=== PATIENT | female | born 1945 | race African-American/Black ===

== ENCOUNTER 2016-08-10 08:36 | Inpatient (IN) | payer OTHER ==
[2016-08-09 12:13] VITALS: BMI 30.9
[2016-08-10 13:00] LABS: GLUCOSE,PLEURAL FLUID 151.808
[2016-08-10 13:03] LABS: CHLORIDE PLEURAL FLUID 108
[2016-08-10 13:07] LABS: PLEURAL FLUID APPEARANCE CLOUDY; PLEURAL FLUID COLOR RED; PLEURAL FLUID SOURCE PLEURAL
[2016-08-10 14:30] LABS: PLEURAL FLUID LYMPHOCYTES 95 %; PLEURAL FLUID NEUTROPHIL 2 %
[2016-08-10 14:31] LABS: PLEURAL FLUID MACROPHAGES 1 %
[2016-08-10] MEDS ORDERED: PT OWN MED DRAWER 7, Y5N ONE ×3 (15:15→21:15)
[2016-08-10] MEDS: hydrALAZINE HCL 10 MG TABLET PO SCH ×2 (15:53→21:41)
[2016-08-10 16:10] LABS: MCH 25.4 pg (25.7-33.7); MCHC 31.7 g/dl (32.0-36.0); MEAN PLT VOLUME 8.3 fl (7.5-11.1); PLATELET COUNT 184 K/MM3 (134-434); RDW 18.7 % (11.6-15.6); WHITE BLOOD COUNT 11.1 K/mm3 (4.0-10.0)
[2016-08-10 16:38] LABS: INR 1.02 (0.82-1.09); PROTHROMBIN TIME (PATIENT) 11.2 SEC (9.98-11.88)
[2016-08-10] MEDS: INSULIN (NOVOLOG) ASPART 100 UNITS/ML 10ML VIAL SQ SCH (17:34)
[2016-08-10 17:52] LABS: ALBUMIN 2.2 g/dl (3.4-5.0); BILIRUBIN,TOTAL 0.5 mg/dL (0.2-1.0); CALCIUM 9.4 mg/dL (8.5-10.1); TOT PROT 7.2 g/dl (6.4-8.2)
[2016-08-10] MEDS: CALCIUM ACETATE 667 MG CAPSULE (FP) PO SCH (17:56)
[2016-08-10] MEDS: ACETAMINOPHEN 500 MG TABLET (FP) PO PRN (17:56)
--- NOTE | 2016-08-10 20:18 | HP ---
[facility] - Past Medical History Allergies/Adverse Reactions: Allergies Allergy/AdvReac Type Severity Reaction Status Date / Time No Known Drug Allergies Allergy Verified 02/10/16 22:45 WHAT JOB TITLES MEAN: Yes: Parkinson's. 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 No: Asthma Renal/: Yes: Other (indwelling powers) Heme/Onc: Yes: Other (Right breast ca treated with lumpectomy, RT, ? hormones in past) - Current Medications Current Medications: Home Medications Medication Instructions Recorded Acetaminophen [Tylenol 500 mg PO QID 05/12/15 .Extra-Strength -] Amlodipine Besylate 10 mg PO DAILY 05/12/15 Budesonide/Formeterol Fumarate 1 inh PO BID 05/12/15 [SYMBICORT 80/4.5mcg -] Carvedilol [Coreg] 25 mg PO BID 05/12/15 Ferrous Sulfate 325 mg PO DAILY 05/12/15 Furosemide [Lasix -] 20 mg PO ASDIR 05/12/15 Hydralazine HCl 10 mg PO TID 05/12/15 Tramadol HCl [Ultram -] 50 mg PO BID 05/12/15 Calcium Acetate [Phoslo -] 667 mg PO TIDCM 11/19/15 Duloxetine HCl [Cymbalta -] 60 mg PO DAILY 11/19/15 Omeprazole [Prilosec] 40 mg PO DAILY 11/19/15 Risperidone [Risperdal -] 0.5 mg PO BID 11/19/15 Bupropion HCl [Wellbutrin -] 75 mg PO DAILY #30 tablet 12/03/15 Folic Acid - 1 mg PO DAILY #30 tablet 12/03/15 Clobetasol Propionate/Emoll 30 gm TP HS 02/11/16 [Clobetasol Emollient 0.05% Crm] Epoetin Osmar [Procrit] 10,000 unit IJ WEEKLY 02/11/16 Ketoconazole 2% Shampoo [Nizoral 1 applic TP HS 02/11/16 2% Shampoo -] Insulin (Levemir) [Levemir Vial] 5 units SQ HS ml 02/13/16 Isosorbide Mononitrate [Isosorbide 30 mg PO DAILY 08/09/16 Mononitrate ER] Tiotropium [place] [Spiriva] 18 mcg IH DAILY 08/09/16 [place] Physical Exam - Physical Examination Vital Signs: Vital Signs Period Temp Pulse Resp BP Sys/[place] Pulse Ox Last 24 Hr 97.5 F-98.8 F 62-70 16-20 144-156/63-75 98-100
--- NOTE | 2016-08-10 20:19 | HP ---
Admitting History and Physical - Primary Care Physician PCP: Vanessa Norman - Admission Chief Complaint: lung biopsy, effusion History of Present Illness: Sent from [facility] for rt lung biopsy and chest tube placement for pleural effusion .Developed pneumothorax post thoracentesis. Has h/o loculated pleural effusion on CT chest. She was seeing DR Atkinson as an outpt. She has a h/o Rt breast ca. workup to r/o malignacy, metastasis. 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 No: Asthma Renal/: Yes: Other (indwelling powers) Heme/Onc: Yes: Other (Right breast ca treated with lumpectomy, RT, ? hormones in past) - Past Surgical History Past Surgical History: Yes: None - Smoking History Smoking history: Former smoker Have you smoked in the past 12 months: No Aproximately how many cigarettes per day: 20 If you are a former smoker, when did you quit?: 15 yrs ago - Alcohol/Substance Use Hx Alcohol Use: No - Social History ADL: Support Services Home Medications - Allergies Allergies/Adverse Reactions: Allergies Allergy/AdvReac Type Severity Reaction Status Date / Time No Known Drug Allergies Allergy Verified 02/10/16 22:45 - Home Medications Home Medications: Ambulatory Orders Acetaminophen [Tylenol .Extra-Strength -] 500 mg PO QID 05/12/15 Amlodipine Besylate 10 mg PO DAILY 05/12/15 Budesonide/Formeterol Fumarate [SYMBICORT 80/4.5mcg -] 1 inh PO BID 05/12/15 Carvedilol [Coreg] 25 mg PO BID 05/12/15 Ferrous Sulfate 325 mg PO DAILY 05/12/15 Furosemide [Lasix -] 20 mg PO ASDIR 05/12/15 Hydralazine HCl 10 mg PO TID 05/12/15 Tramadol HCl [Ultram -] 50 mg PO BID 05/12/15 Calcium Acetate [Phoslo -] 667 mg PO TIDCM 11/19/15 Duloxetine HCl [Cymbalta -] 60 mg PO DAILY 11/19/15 Omeprazole [Prilosec] 40 mg PO DAILY 11/19/15 Risperidone [Risperdal -] 0.5 mg PO BID 11/19/15 Bupropion HCl [Wellbutrin -] 75 mg PO DAILY #30 tablet 12/03/15 Folic Acid - 1 mg PO DAILY #30 tablet 12/03/15 Clobetasol Propionate/Emoll [Clobetasol Emollient 0.05% Crm] 30 gm TP HS Epoetin Osm[place] [Procrit] 10,000 unit IJ WEEKLY 02/11/16 Ketoconazole 2% Shampoo [Nizoral 2% Shampoo -] 1 applic TP HS 02/11/16 Insulin (Levemir) [Levemir Vial] 5 units SQ HS ml 02/13/16 Isosorbide Mononitrate [Isosorbide Mononitrate ER] 30 mg PO DAILY 08/09/16 Tiotropium [place] [Spiriva] 18 mcg IH DAILY 08/09/16 Review of Systems - Review of Systems Constitutional: denies: Chills, Fever, Loss of Appetite Cardiovascular: reports: Chest Pain Respiratory: reports: Cough Physical Examination Vital Signs: Vital Signs Temperature 98.8 F 08/10/16 17:12 Pulse Rate 62 08/10/16 17:12 Respiratory Rate 20 08/10/16 17:12 Blood Pressure 156/68 08/10/16 17:12 O2 Sat by Pulse Oximetry (%) 98 08/10/16 14:03 Constitutional: Yes: No Distress, Calm Cardiovascular: Yes: Regular Rate and Rhythm Respiratory: Yes: Diminished (chest tube+ rt) Gastrointestinal: Yes: Normal Bowel Sounds, Soft, Abdomen, Obese. No: Distention, Tenderness Renal/: Yes: Other (indwelling powers) Edema: No Psychiatric: Yes: Alert, Oriented Labs: CBC, BMP 08/10/16 14:45 08/10/16 14:45 Imaging - Results Chest X-ray: Image Reviewed (pneumothorax rt) Problem List - Problems (1) Breast CA Code(s): C50.919 - MALIGNANT NEOPLASM OF UNSP SITE OF UNSPECIFIED FEMALE BREAST Qualifiers: Patient sex: female Laterality: right (2) Lung mass Code(s): R91.8 - OTHER NONSPECIFIC ABNORMAL FINDING OF LUNG FIELD (3) Pneumothorax Code(s): J93.9 - PNEUMOTHORAX, UNSPECIFIED Assessment/Plan PLAN for lung biopsy on chest tube continue with meds Pulmonary eval repeat CXR in AM
[2016-08-10] MEDS: risperiDONE 0.5 MG TABLET (FP) PO SCH (21:41)
[2016-08-10] MEDS: CARVEDILOL 25 MG TABLET (FP) PO SCH (21:41)
[2016-08-10] MEDS: SODIUM CHLORIDE 0.45% 1,000 ML IV SCH (21:41)
[2016-08-10] MEDS: INSULIN DETEMIR 100 UNITS/ML MDV SQ SCH (21:41)
[2016-08-10] MEDS: traMADol HCL 50 MG TABLET PO SCH (21:42)
[2016-08-10] MEDS: BUDESONIDE/FORMETEROL FUMARATE 80/4.5 mcg INHALER IH SCH (21:42)
[2016-08-11] MEDS ORDERED: PT OWN MED DRAWER 7, Y5N ONE ×4 (06:30→21:05)
[2016-08-11] MEDS: hydrALAZINE HCL 10 MG TABLET PO SCH ×3 (06:40→21:55)
[2016-08-11] MEDS: INSULIN (NOVOLOG) ASPART 100 UNITS/ML 10ML VIAL SQ SCH ×3 (06:52→17:42)
[2016-08-11 08:32] LABS: BASOPHIL 0.5 % (0-2.0); EOSINOPHIL 2.9 % (0-4.5); MCH 24.9 pg (25.7-33.7); MCHC 31.4 g/dl (32.0-36.0); MEAN CELL VOLUME 79.4 fl (80-96); MEAN PLT VOLUME 8.2 fl (7.5-11.1); NEUTROPHILS 81.8 % (42.8-82.8); PLATELET COUNT 181 K/MM3 (134-434); RDW 18.7 % (11.6-15.6)
[2016-08-11 08:55] LABS: ALBUMIN 2.1 g/dl (3.4-5.0); CALCIUM 9.3 mg/dL (8.5-10.1)
[2016-08-11 09:01] LABS: BILIRUBIN,TOTAL 0.5 mg/dL (0.2-1.0); CREATININE 1.7 mg/dL (0.55-1.02)
--- NOTE | 2016-08-11 10:23 | PN ---
Progress Note, Physician Chief Complaint: came from IR for lung biopsy has pain in rt chest wall - Current Medication List Current Medications: Active Medications Acetaminophen (Tylenol -) 500 mg PO QID PRN PRN Reason: FEVER Last Admin: 08/10/16 17:56 Dose: 500 mg Amlodipine Besylate (Norvasc -) 10 mg PO DAILY [facility] Budesonide/Formoterol Fumarate (Symbicort 80/4.5mcg -) 1 puff IH BID [facility] Last Admin: 08/10/16 21:42 Dose: 1 puff Bupropion HCl (Wellbutrin -) 75 mg PO DAILY [facility] Calcium Acetate (Phoslo -) 667 mg PO TIDCM [facility] Last Admin: 08/10/16 17:56 Dose: 667 mg Carvedilol (Coreg -) 25 mg PO BID [facility] Last Admin: 08/10/16 21:41 Dose: 25 mg Duloxetine HCl (Cymbalta -) 60 mg PO DAILY [facility] Epoetin Osmar (Procrit -) 10,000 unit SQ WEEKLY [facility] Ferrous Sulfate (Feosol -) 325 mg PO DAILY [facility] Folic Acid (Folic Acid -) 1 mg PO DAILY [facility] Furosemide (Lasix -) 20 mg PO Q2D@0900 [facility] Hydralazine HCl (Apresoline -) 10 mg PO TID [facility] Last Admin: 08/11/16 06:40 Dose: 10 mg Sodium Chloride (1/2 Normal Saline) 1,000 mls @ 83 mls/hr IV ASDIR [facility] Last Admin: 08/10/16 21:41 Dose: 83 mls/hr Insulin Aspart (Novolog Vial) 0 units SQ TIDAC [facility] PRN Reason: Protocol Last Admin: 08/11/16 06:52 Dose: Not Given Insulin Detemir (Levemir Vial) 5 units SQ HS [facility] Last Admin: 08/10/16 21:41 Dose: 5 units Isosorbide Mononitrate (Imdur -) 30 mg PO DAILY [facility] Non-Formulary Medication (Clobetasol Propionate/Emoll [Clobetasol Emollient 0.05 % Crm]) 30 gm TP HS [facility] Pantoprazole Sodium (Protonix -) 40 mg PO DAILY [facility] Risperidone (Risperdal -) 0.5 mg PO BID [facility] Last Admin: 08/10/16 21:41 Dose: 0.5 mg Tiotropium [place] (Spiriva -) 1 puff IH DAILY [facility] Tramadol HCl (Ultram -) 50 mg PO BID [facility] Last Admin: 08/10/16 21:42 Dose: 50 mg - Objective Vital Signs: Vital Signs Temperature 99.3 F 08/11/16 07:08 Pulse Rate 72 08/11/16 07:08 Respiratory Rate 20 08/11/16 07:08 Blood Pressure 182/82 08/11/16 07:08 O2 Sat by Pulse Oximetry (%) 98 08/10/16 14:03 Constitutional: Yes: No Distress Cardiovascular: Yes: Regular Rate and Rhythm Respiratory: Yes: Diminished, Other (chest tube+) Gastrointestinal: Yes: Normal Bowel Sounds, Soft. No: Distention, Tenderness Edema: No Labs: CBC, BMP 08/11/16 07:00 08/11/16 07:00 INR, PTT INR 1.02 (0.82-1.09) 08/10/16 14:45 Problem List - Problems (1) Breast CA Code(s): C50.919 - MALIGNANT NEOPLASM OF UNSP SITE OF UNSPECIFIED FEMALE BREAST (2) COPD (chronic obstructive pulmonary disease) Code(s): J44.9 - CHRONIC OBSTRUCTIVE PULMONARY DISEASE, UNSPECIFIED Qualifiers : COPD type: COPD with acute lower respiratory infection Qualified Code(s ): J44.0 - Chronic obstructive pulmonary disease with acute lower respiratory infection (3) Lung mass Code(s): R91.8 - OTHER NONSPECIFIC ABNORMAL FINDING OF LUNG FIELD (4) Pleural effusion Code(s): J90 - PLEURAL EFFUSION, NOT ELSEWHERE CLASSIFIED Assessment/Plan PLAN s/p lung biopsy S/p chest tube awaiting pathology Pulmonary eval check CXR
[2016-08-11] MEDS: FERROUS SO4 325 MG TABLET (FP) PO SCH ×2 (10:30→15:19)
[2016-08-11] MEDS: ISOSORBIDE MONONITRATE 30 MG TAB.SR.24H (FP) PO SCH ×2 (10:30→15:20)
[2016-08-11] MEDS: FUROSEMIDE 20 MG TABLET (FP) PO SCH ×2 (10:30→15:20)
[2016-08-11] MEDS: CARVEDILOL 25 MG TABLET (FP) PO SCH ×2 (10:30→21:55)
[2016-08-11] MEDS: amLODIPine BESYLATE 10 MG TABLET (FP) PO SCH ×2 (10:30→15:20)
[2016-08-11] MEDS: FOLIC ACID 1 MG TABLET (FP) PO SCH ×2 (10:30→15:21)
[2016-08-11] MEDS: CALCIUM ACETATE 667 MG CAPSULE (FP) PO SCH ×3 (10:30→17:42)
[2016-08-11] MEDS: DULoxetine HCL 30 MG CAPSULE.DR (FP) PO SCH ×2 (10:30→15:00)
[2016-08-11] MEDS: PANTOPRAZOLE 40 MG TABLET (FP) PO SCH (10:31)
[2016-08-11] MEDS: BUDESONIDE/FORMETEROL FUMARATE 80/4.5 mcg INHALER IH SCH ×2 (10:31→21:57)
[2016-08-11] MEDS: risperiDONE 0.5 MG TABLET (FP) PO SCH ×2 (10:31→21:55)
[2016-08-11] MEDS: traMADol HCL 50 MG TABLET PO SCH ×3 (10:31→21:55)
[2016-08-11] MEDS: TIOTROPIUM BROMIDE 18 MCG/INH (DEVICE W/ 5 CAPSULES) IH SCH (10:31)
[2016-08-11] MEDS: buPROPion HCL 75 MG TABLET PO SCH ×2 (10:32→15:22)
[2016-08-11 11:09] LABS: FRAGMENTED CELL 2+; HYPOCHROMIA 1+; MICROCYTOSIS 1+; TEAR DROP CELLS RARE
--- NOTE | 2016-08-11 12:47 | PN ---
Progress Note (short form) - Note Progress Note: Pulmonary 71 year old lady seen as an outpt-referred from [facility]. PMH: Right pleural effusion S/P thoracentesis and removal 1200 cc serous fluid : T.P.3.55 LDH 100 Cytology negative COPD CHF HBP Breast Ca-H/O Left lumpectomy Anemia H/O CVA-Left Hemiparesis DM 1.5 PPD cigarettes-stopped [address] Chest: partially loculated right effusion (smaller than in 2016) and a 3.2 cm density right mid lung which may have been obscured by the (previously larger) effusion. Case discussed with Dr. Goldman. In light of previous history breast carcinoma and persistent effusion with possible mass versus atelectasis (now revealed since effusion is smaller) plan was to bring pt to hospital and have Dr. Goldman place a pigtail catheter and drain fluid and then do FNAB next A.M.after fluid drained. Pt had catheter placed yesterday and developed right pneumothorax. Pt is having FNAB today. Full consult to follow.
[2016-08-11] MEDS: INSULIN DETEMIR 100 UNITS/ML MDV SQ SCH (21:56)
[2016-08-11] MEDS: SODIUM CHLORIDE 0.45% 1,000 ML IV SCH (21:56)
[2016-08-12] MEDS: hydrALAZINE HCL 10 MG TABLET PO SCH ×4 (05:44→21:34)
[2016-08-12] MEDS: INSULIN (NOVOLOG) ASPART 100 UNITS/ML 10ML VIAL SQ SCH ×3 (06:16→17:34)
[2016-08-12 08:13] LABS: MCH 25.3 pg (25.7-33.7); MCHC 31.9 g/dl (32.0-36.0); MEAN CELL VOLUME 79.1 fl (80-96); MEAN PLT VOLUME 7.8 fl (7.5-11.1); PLATELET COUNT 169 K/MM3 (134-434); RDW 18.3 % (11.6-15.6); WHITE BLOOD COUNT 9.9 K/mm3 (4.0-10.0)
[2016-08-12] MEDS: CALCIUM ACETATE 667 MG CAPSULE (FP) PO SCH ×3 (08:17→17:34)
[2016-08-12 08:35] LABS: CALCIUM 8.9 mg/dL (8.5-10.1); CREATININE 1.7 mg/dL (0.55-1.02)
[2016-08-12] MEDS: traMADol HCL 50 MG TABLET PO SCH ×2 (09:17→21:35)
[2016-08-12] MEDS: CARVEDILOL 25 MG TABLET (FP) PO SCH ×2 (09:17→21:35)
[2016-08-12] MEDS: FOLIC ACID 1 MG TABLET (FP) PO SCH (09:17)
[2016-08-12] MEDS: amLODIPine BESYLATE 10 MG TABLET (FP) PO SCH (09:17)
[2016-08-12] MEDS: PANTOPRAZOLE 40 MG TABLET (FP) PO SCH (09:17)
[2016-08-12] MEDS: DULoxetine HCL 30 MG CAPSULE.DR (FP) PO SCH (09:17)
[2016-08-12] MEDS: ISOSORBIDE MONONITRATE 30 MG TAB.SR.24H (FP) PO SCH (09:18)
[2016-08-12] MEDS: FERROUS SO4 325 MG TABLET (FP) PO SCH (09:18)
[2016-08-12] MEDS: buPROPion HCL 75 MG TABLET PO SCH (09:19)
[2016-08-12] MEDS: BUDESONIDE/FORMETEROL FUMARATE 80/4.5 mcg INHALER IH SCH ×2 (09:20→21:35)
[2016-08-12] MEDS: TIOTROPIUM BROMIDE 18 MCG/INH (DEVICE W/ 5 CAPSULES) IH SCH (09:21)
[2016-08-12] MEDS: risperiDONE 0.5 MG TABLET (FP) PO SCH ×2 (09:23→21:35)
--- NOTE | 2016-08-12 10:06 | CON.PULM ---
Consult Reason for Consultation:: pleural effusion - History of Present Illness Chief Complaint: shortness of breath History of Present Illness: 71 year old lady seen as an outpt-referred from [facility]. PMH: Right pleural effusion S/P thoracentesis and removal 1200 cc serous fluid : T.P.3.55 LDH 100 Cytology negative COPD CHF HBP Breast Ca-H/O Left lumpectomy Anemia H/O CVA-Left Hemiparesis DM 1.5 PPD cigarettes-stopped [address] Chest: partially loculated right effusion (smaller than in 2016) and a 3.2 cm density right mid lung which may have been obscured by the (previously larger) effusion. Case discussed with Dr. Goldman. In light of previous history breast carcinoma and persistent effusion with possible mass versus atelectasis (now revealed since effusion is smaller) plan was to bring pt to hospital and have Dr. Goldman place a pigtail catheter and drain fluid and then do FNAB next A.M.after fluid drained. Pt had catheter placed yesterday and developed right pneumothorax. Pt had FNAB yesterday. 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 No: Asthma Renal/: Yes: Other (indwelling powers) - Past Surgical History Past Surgical History: Yes: None - Alcohol/Substance Use Hx Alcohol Use: No - Smoking History Smoking history: Former smoker Have you smoked in the past 12 months: No Aproximately how many cigarettes per day: 20 If you are a former smoker, when did you quit?: 15 yrs ago - Social History Usual Living Arrangement: Senior Care ADL: Support Services Home Medications - Allergies Allergies/Adverse Reactions: Allergies Allergy/AdvReac Type Severity Reaction Status Date / Time No Known Drug Allergies Allergy Verified 02/10/16 22:45 - Home Medications Home Medications: Ambulatory Orders Acetaminophen [Tylenol .Extra-Strength -] 500 mg PO QID 05/12/15 Amlodipine Besylate 10 mg PO DAILY 05/12/15 Budesonide/Formeterol Fumarate [SYMBICORT 80/4.5mcg -] 1 inh PO BID 05/12/15 Carvedilol [Coreg] 25 mg PO BID 05/12/15 Ferrous Sulfate 325 mg PO DAILY 05/12/15 Furosemide [Lasix -] 20 mg PO ASDIR 05/12/15 Hydralazine HCl 10 mg PO TID 05/12/15 Tramadol HCl [Ultram -] 50 mg PO BID 05/12/15 Calcium Acetate [Phoslo -] 667 mg PO TIDCM 11/19/15 Duloxetine HCl [Cymbalta -] 60 mg PO DAILY 11/19/15 Omeprazole [Prilosec] 40 mg PO DAILY 11/19/15 Risperidone [Risperdal -] 0.5 mg PO BID 11/19/15 Bupropion HCl [Wellbutrin -] 75 mg PO DAILY #30 tablet 12/03/15 Folic Acid - 1 mg PO DAILY #30 tablet 12/03/15 Clobetasol Propionate/Emoll [Clobetasol Emollient 0.05% Crm] 30 gm TP HS Epoetin Osmra [Procrit] 10,000 unit IJ WEEKLY 02/11/16 Ketoconazole 2% Shampoo [Nizoral 2% Shampoo -] 1 applic TP HS 02/11/16 Insulin (Levemir) [Levemir Vial] 5 units SQ HS ml 02/13/16 Isosorbide Mononitrate [Isosorbide Mononitrate ER] 30 mg PO DAILY 08/09/16 Tiotropium [place] [Spiriva] 18 mcg IH DAILY 08/09/16 Physical Exam Vital Sings: Vital Signs Temperature 98 F 08/12/16 07:07 Pulse Rate 72 08/12/16 07:07 Respiratory Rate 20 08/12/16 07:07 Blood Pressure 152/64 08/12/16 07:07 O2 Sat by Pulse Oximetry (%) 98 08/11/16 21:00 Constitutional: Yes: No Distress Eyes: No: Sclera Icterus HENT: Yes: Atraumatic, Normocephalic Neck: Yes: Supple, Trachea Midline Cardiovascular: Yes: Regular Rate and Rhythm Respiratory: Yes: CTA Bilaterally, Other (chest catheter right side) ...Percussion: No: Dullnes, Hyperresonance ...Clubbing: No Gastrointestinal: Yes: Soft. No: Hepatomegaly, Palpable Mass, Splenomegaly, Tenderness Edema: No Neurological: Yes: Alert, Oriented, Pre-Existing Deficit Labs: CBC, BMP 08/12/16 06:15 08/12/16 06:15 Imaging - Results Chest X-ray: Report Reviewed, Image Reviewed Cat Scan: Report Reviewed, Image Reviewed Problem List - Problems (1) Pleural effusion Code(s): J90 - PLEURAL EFFUSION, NOT ELSEWHERE CLASSIFIED (2) Lung mass Code(s): R91.8 - OTHER NONSPECIFIC ABNORMAL FINDING OF LUNG FIELD Assessment/Plan 71 year old lady with right pleural effusion:high protein negative cytology when fluid tested 11/21. Recent CT chest with decreased fluid and (unmasked?) density in area previously obscured by fluid. FNAB yesterday:negative for malignancy. Respiratory status is stable. Post thoracentesis: pneumothorax- possible trapped lung. Case discussed with Dr. Goldman;he will try to remove catheter tomorrow if no air leak and transfer back to [facility] if respiratory status continues stable. F/U CXR several weeks post discharge. Thank you for referring this patient for consultation.
[2016-08-12] MEDS: SODIUM CHLORIDE 0.45% 1,000 ML IV SCH (10:19)
--- NOTE | 2016-08-12 10:23 | PATH ---
Cytology Non-Gynecological Report Patient Name: ROSI WAITE Med. Rec. #: [id number] /Age/Gender: 1945 (Age: 71) / F Account: [id number] Location: [facility] MED/SURG Taken: 08/10/2016 Received: 08/10/2016 Reported: 08/12/2016 Physicians: Familia Rojo M.D. Specimen(s) Received PLEURAL FLUID Clinical History Pleural effusion Final Diagnosis PLEURAL FLUID, THORACENTESIS: SATISFACTORY FOR EVALUATION. NO MALIGNANT CELLS IDENTIFIED. REACTIVE MESOTHELIAL CELLS, HISTIOCYTES AND LYMPHOCYTES. Electronically Signed Denver Muse M.D. Gross Description Received is 50 cc of bloody fluid fresh. One cytofunnel slide and one cell block are made.
--- NOTE | 2016-08-12 10:24 | PATH ---
Surgical Pathology Report Patient Name: ROSI WAITE Med. Rec. #: [id number] /Age/Gender: 1945 (Age: 71) / F Account: [id number] Location: [facility] MED/SURG Taken: 08/11/2016 Received: 08/11/2016 Reported: 08/12/2016 Physicians: Familia Rojo M.D. Specimen(s) Received RIGHT LUNG BIOPSY Clinical History 71-year-old female with chronic recurrent right and left pleural effusion and now pneumonia with non-resolving right pleural based mass. Right lower lobe lung mass rule out primary lung neoplasm versus scar. Final Diagnosis LUNG, RIGHT, LOWER LOBE, CT GUIDED CORE BIOPSY: BENIGN BRONCHOPULMONARY TISSUE WITH FOCAL NON-SPECIFIC FIBROSIS SUGGESTIVE OF SCAR FORMATION (SEE COMMENT). NO MALIGNANCY IDENTIFIED IN THE EXAMINED MATERIAL. Comment: The biopsy shows benign bronchopulmonary tissue with a focal area of non-specific fibrosis most suggestive of scar formation. Clinical and imaging correlations are suggested. Also refer to [id number] for the pleural fluid cytology results. Electronically Signed Denver Muse M.D. Gross Description Received in formalin labeled "right lung biopsy" are 3 martinez, cylindrical portions of soft tissue ranging from 0.2-1.0 cm in length and averaging 0.1 cm diameter. The specimens are submitted in toto in one cassette. 08/11/201608/11/2016
--- NOTE | 2016-08-12 11:33 | PN ---
Progress Note, Physician Chief Complaint: Has pain in right chest wall' No bm for two days No SOB - Current Medication List Current Medications: Active Medications Acetaminophen (Tylenol -) 500 mg PO QID PRN PRN Reason: FEVER Last Admin: 08/10/16 17:56 Dose: 500 mg Amlodipine Besylate (Norvasc -) 10 mg PO DAILY [facility] Last Admin: 08/12/16 09:17 Dose: 10 mg Budesonide/Formoterol Fumarate (Symbicort 80/4.5mcg -) 1 puff IH BID [facility] Last Admin: 08/12/16 09:20 Dose: 1 puff Bupropion HCl (Wellbutrin -) 75 mg PO DAILY [facility] Last Admin: 08/12/16 09:19 Dose: 75 mg Calcium Acetate (Phoslo -) 667 mg PO TIDCM [facility] Last Admin: 08/12/16 08:17 Dose: 667 mg Carvedilol (Coreg -) 25 mg PO BID [facility] Last Admin: 08/12/16 09:17 Dose: 25 mg Duloxetine HCl (Cymbalta -) 60 mg PO DAILY [facility] Last Admin: 08/12/16 09:17 Dose: 60 mg Epoetin Osmar (Procrit -) 10,000 unit SQ WEEKLY [facility] Ferrous Sulfate (Feosol -) 325 mg PO DAILY [facility] Last Admin: 08/12/16 09:18 Dose: 325 mg Folic Acid (Folic Acid -) 1 mg PO DAILY [facility] Last Admin: 08/12/16 09:17 Dose: 1 mg Furosemide (Lasix -) 20 mg PO Q2D@0900 [facility] Last Admin: 08/11/16 15:20 Dose: 20 mg Hydralazine HCl (Apresoline -) 10 mg PO TID [facility] Last Admin: 08/12/16 05:44 Dose: 10 mg Sodium Chloride (1/2 Normal Saline) 1,000 mls @ 83 mls/hr IV ASDIR [facility] Last Admin: 08/12/16 10:19 Dose: 83 mls/hr Insulin Aspart (Novolog Vial) 0 units SQ TIDAC [facility] PRN Reason: Protocol Last Admin: 08/12/16 06:16 Dose: Not Given Insulin Detemir (Levemir Vial) 5 units SQ HS [facility] Last Admin: 08/11/16 21:56 Dose: 5 units Isosorbide Mononitrate (Imdur -) 30 mg PO DAILY [facility] Last Admin: 08/12/16 09:18 Dose: 30 mg Non-Formulary Medication (Clobetasol Propionate/Emoll [Clobetasol Emollient 0.05 % Crm]) 30 gm TP HS [facility] Pantoprazole Sodium (Protonix -) 40 mg PO DAILY [facility] Last Admin: 08/12/16 09:17 Dose: 40 mg Risperidone (Risperdal -) 0.5 mg PO BID [facility] Last Admin: 08/12/16 09:23 Dose: 0.5 mg Tiotropium [place] (Spiriva -) 1 puff IH DAILY [facility] Last Admin: 08/12/16 09:21 Dose: Not Given Tramadol HCl (Ultram -) 50 mg PO BID [facility] Last Admin: 08/12/16 09:17 Dose: 50 mg - Objective Vital Signs: Vital Signs Temperature 98 F 08/12/16 07:07 Pulse Rate 72 08/12/16 07:07 Respiratory Rate 20 08/12/16 07:07 Blood Pressure 152/64 08/12/16 07:07 O2 Sat by Pulse Oximetry (%) 98 08/11/16 21:00 Constitutional: Yes: No Distress Cardiovascular: Yes: Regular Rate and Rhythm Respiratory: Yes: Diminished, Other (rt chest wall+) Gastrointestinal: Yes: Normal Bowel Sounds, Soft, Distention, Other (tympanic). No: Tenderness Edema: No Neurological: Yes: Alert, Oriented Labs: CBC, BMP 08/12/16 06:15 08/12/16 06:15 INR, PTT INR 1.02 (0.82-1.09) 08/10/16 14:45 Problem List - Problems (1) Abdominal distention Code(s): R14.0 - ABDOMINAL DISTENSION (GASEOUS) (2) COPD (chronic obstructive pulmonary disease) Code(s): J44.9 - CHRONIC OBSTRUCTIVE PULMONARY DISEASE, UNSPECIFIED Qualifiers : COPD type: COPD with acute lower respiratory infection Qualified Code(s ): J44.0 - Chronic obstructive pulmonary disease with acute lower respiratory infection (3) Dementia Code(s): F03.90 - UNSPECIFIED DEMENTIA WITHOUT BEHAVIORAL DISTURBANCE (4) Pneumothorax Code(s): J93.9 - PNEUMOTHORAX, UNSPECIFIED (5) Lung mass Code(s): R91.8 - OTHER NONSPECIFIC ABNORMAL FINDING OF LUNG FIELD (6) Breast CA Code(s): C50.919 - MALIGNANT NEOPLASM OF UNSP SITE OF UNSPECIFIED FEMALE BREAST Assessment/Plan PLAN Pulmonary eval appreciated s/p lung biopsy check Xray chest Miralax prn Biopsy results for lung mass- benign and pleural effusion- benign continue with meds
[2016-08-12] MEDS ORDERED: POLYETHYLENE GLYCOL 3350 119 GM BTL PO PRN (11:59)
[2016-08-12] MEDS ORDERED: PT OWN MED DRAWER 7, Y5N ONE (20:57)
[2016-08-12] MEDS: INSULIN DETEMIR 100 UNITS/ML MDV SQ SCH (21:35)
[2016-08-13] MEDS ORDERED: PT OWN MED DRAWER 7, Y5N ONE ×3 (05:09→21:04)
[2016-08-13] MEDS: hydrALAZINE HCL 10 MG TABLET PO SCH ×3 (05:16→21:51)
[2016-08-13] MEDS: INSULIN (NOVOLOG) ASPART 100 UNITS/ML 10ML VIAL SQ SCH ×3 (06:01→17:53)
--- NOTE | 2016-08-13 08:11 | PN ---
Progress Note (short form) - Note Progress Note: SUBJECTIVE: Patient seen and examined. Chart reviewed. Comfortable. Denies chest pain. Breathing is stable. OBJECTIVE: Vital Signs 08/13/16 08/13/16 06:21 06:31 Temperature 98.4 F 97.4 F L Pulse Rate 65 82 Respiratory 16 20 Rate Blood Pressure 145/61 128/54 Intake & Output 08/12/16 08/13/16 08/13/16 23:59 07:59 15:59 Intake Total 1000 Output Total 950 1200 Balance 50 -1200 Weight 74.446 kg Intake: IV 800 1/2 Normal Saline 1,000 800 ml @ 83 mls/hr IV ASDIR [facility] Rx#:[id number] Oral 200 Output: Chest Tube Drainage 150 100 Right Posterior Chest 150 100 Urine 800 1100 Lambert 800 1100 Other: Voiding Method Indwelling Catheter Indwelling Catheter Bowel Movement No # Bowel Movements 0 [facility] Active Medications Acetaminophen (Tylenol -) 500 mg PO QID PRN PRN Reason: FEVER Last Admin: 08/10/16 17:56 Dose: 500 mg Amlodipine Besylate (Norvasc -) 10 mg PO DAILY [facility] Last Admin: 08/12/16 09:17 Dose: 10 mg Budesonide/Formoterol Fumarate (Symbicort 80/4.5mcg -) 1 puff IH BID [facility] Last Admin: 08/12/16 21:35 Dose: 1 puff Bupropion HCl (Wellbutrin -) 75 mg PO DAILY [facility] Last Admin: 08/12/16 09:19 Dose: 75 mg Calcium Acetate (Phoslo -) 667 mg PO TIDCM [facility] Last Admin: 08/12/16 17:34 Dose: 667 mg Carvedilol (Coreg -) 25 mg PO BID [facility] Last Admin: 08/12/16 21:35 Dose: 25 mg Duloxetine HCl (Cymbalta -) 60 mg PO DAILY [facility] Last Admin: 08/12/16 09:17 Dose: 60 mg Epoetin Osmar (Procrit -) 10,000 unit SQ WEEKLY [facility] Ferrous Sulfate (Feosol -) 325 mg PO DAILY [facility] Last Admin: 08/12/16 09:18 Dose: 325 mg Folic Acid (Folic Acid -) 1 mg PO DAILY [facility] Last Admin: 08/12/16 09:17 Dose: 1 mg Furosemide (Lasix -) 20 mg PO Q2D@0900 [facility] Last Admin: 08/11/16 15:20 Dose: 20 mg Hydralazine HCl (Apresoline -) 10 mg PO TID [facility] Last Admin: 08/13/16 05:16 Dose: 10 mg Insulin Aspart (Novolog Vial) 0 units SQ TIDAC [facility] PRN Reason: Protocol Last Admin: 08/13/16 06:01 Dose: Not Given Insulin Detemir (Levemir Vial) 5 units SQ [facility] Last Admin: 08/12/16 21:35 Dose: 5 units Isosorbide Mononitrate (Imdur -) 30 mg PO DAILY [facility] Last Admin: 08/12/16 09:18 Dose: 30 mg Non-Formulary Medication (Clobetasol Propionate/Emoll [Clobetasol Emollient 0.05 % Crm]) 30 gm TP [facility] Pantoprazole Sodium (Protonix -) 40 mg PO DAILY [facility] Last Admin: 08/12/16 09:17 Dose: 40 mg Polyethylene Glycol (Miralax (For Daily Use) -) 17 gm PO DAILY PRN PRN Reason: CONSTIPATION Last Admin: 08/12/16 12:35 Dose: 17 gm Risperidone (Risperdal -) 0.5 mg PO BID [facility] Last Admin: 08/12/16 21:35 Dose: 0.5 mg Tiotropium [place] (Spiriva -) 1 puff IH DAILY [facility] Last Admin: 08/12/16 09:21 Dose: Not Given Tramadol HCl (Ultram -) 50 mg PO BID [facility] Last Admin: 08/12/16 21:35 Dose: 50 mg CBC, BMP 08/12/16 06:15 08/12/16 06:15 Laboratory Results - last 24 hr 08/12/16 08/12/16 08/12/16 12:31 17:31 21:39 POC Glucometer 219 170 116 08/13/16 05:41 POC Glucometer 122 Microbiology 08/10/16 11:30 AFB Smear Concentration - Preliminary Pleural Fluid Mycobacterial Culture - Preliminary 08/10/16 11:30 Gram Stain - Final Pleural Fluid Body Fluid Culture - Final NO GROWTH OF AEROBIC ORGANISMS AFTER 48 HOURS INCUBATION Anaerobic Culture - Final NO ANAEROBES WERE ISOLATED PHYSICAL EXAMINATION: Constitutional: Yes: No Distress Cardiovascular: Yes: Regular Rate and Rhythm Respiratory: Yes: Diminished, Other (rt chest wall catheter +) Gastrointestinal: Yes: Normal Bowel Sounds, Soft, Distention, Other (tympanic). No: Tenderness Edema: No Neurological: Yes: Alert, Oriented Problem List - Problems (1) Abdominal distention Code(s): R14.0 - ABDOMINAL DISTENSION (GASEOUS) (2) COPD (chronic obstructive pulmonary disease) Code(s): J44.9 - CHRONIC OBSTRUCTIVE PULMONARY DISEASE, UNSPECIFIED Qualifiers : COPD type: COPD with acute lower respiratory infection Qualified Code(s ): J44.0 - Chronic obstructive pulmonary disease with acute lower respiratory infection (3) Dementia Code(s): F03.90 - UNSPECIFIED DEMENTIA WITHOUT BEHAVIORAL DISTURBANCE (4) Pneumothorax Code(s): J93.9 - PNEUMOTHORAX, UNSPECIFIED (5) Lung mass Code(s): R91.8 - OTHER NONSPECIFIC ABNORMAL FINDING OF LUNG FIELD (6) Breast CA Code(s): C50.919 - MALIGNANT NEOPLASM OF UNSP SITE OF UNSPECIFIED FEMALE BREAST ASSESSMENT & PLAN: - Stable. - Pulmonary eval appreciated - s/p lung biopsy - Miralax prn - Biopsy results for lung mass- benign and pleural effusion- benign - continue with meds - Plan for removal of catheter today by Dr. Wall. - Will follow. Documentation prepared by [place], acting as a medical billing coordinator for Asael Rankin MD.
[2016-08-13] MEDS: CALCIUM ACETATE 667 MG CAPSULE (FP) PO SCH ×3 (08:17→17:45)
[2016-08-13] MEDS: FUROSEMIDE 20 MG TABLET (FP) PO SCH (09:18)
[2016-08-13] MEDS: PANTOPRAZOLE 40 MG TABLET (FP) PO SCH (10:17)
[2016-08-13] MEDS: amLODIPine BESYLATE 10 MG TABLET (FP) PO SCH (10:17)
[2016-08-13] MEDS: ISOSORBIDE MONONITRATE 30 MG TAB.SR.24H (FP) PO SCH (10:17)
[2016-08-13] MEDS: FERROUS SO4 325 MG TABLET (FP) PO SCH (10:17)
[2016-08-13] MEDS: traMADol HCL 50 MG TABLET PO SCH ×2 (10:17→21:52)
[2016-08-13] MEDS: FOLIC ACID 1 MG TABLET (FP) PO SCH (10:17)
[2016-08-13] MEDS: CARVEDILOL 25 MG TABLET (FP) PO SCH ×2 (10:18→21:51)
[2016-08-13] MEDS: DULoxetine HCL 30 MG CAPSULE.DR (FP) PO SCH (10:18)
[2016-08-13] MEDS: risperiDONE 0.5 MG TABLET (FP) PO SCH ×2 (10:19→21:51)
[2016-08-13] MEDS: buPROPion HCL 75 MG TABLET PO SCH (10:19)
[2016-08-13] MEDS: BUDESONIDE/FORMETEROL FUMARATE 80/4.5 mcg INHALER IH SCH ×2 (11:08→22:05)
[2016-08-13] MEDS: TIOTROPIUM BROMIDE 18 MCG/INH (DEVICE W/ 5 CAPSULES) IH SCH (11:09)
[2016-08-13] MEDS ORDERED: INSULIN DETEMIR 100 UNITS/ML MDV SQ ONE ×2 (12:41→18:19)
[2016-08-13] MEDS ORDERED: INSULIN (NOVOLOG) ASPART 100 UNITS/ML 10ML VIAL ONE ×2 (12:41→18:19)
--- NOTE | 2016-08-13 16:20 | PN ---
Progress Note, Physician History of Present Illness: Pt alert NAD. No dyspnea - Current Medication List Current Medications: Active Medications Acetaminophen (Tylenol -) 500 mg PO QID PRN PRN Reason: FEVER Last Admin: 08/10/16 17:56 Dose: 500 mg Amlodipine Besylate (Norvasc -) 10 mg PO DAILY [facility] Last Admin: 08/13/16 10:17 Dose: 10 mg Budesonide/Formoterol Fumarate (Symbicort 80/4.5mcg -) 1 puff IH BID [facility] Last Admin: 08/13/16 11:08 Dose: 1 puff Bupropion HCl (Wellbutrin -) 75 mg PO DAILY [facility] Last Admin: 08/13/16 10:19 Dose: 75 mg Calcium Acetate (Phoslo -) 667 mg PO TIDCM [facility] Last Admin: 08/13/16 12:59 Dose: 667 mg Carvedilol (Coreg -) 25 mg PO BID [facility] Last Admin: 08/13/16 10:18 Dose: 25 mg Duloxetine HCl (Cymbalta -) 60 mg PO DAILY [facility] Last Admin: 08/13/16 10:18 Dose: 60 mg Epoetin Osmar (Procrit -) 10,000 unit SQ WEEKLY [facility] Ferrous Sulfate (Feosol -) 325 mg PO DAILY [facility] Last Admin: 08/13/16 10:17 Dose: 325 mg Folic Acid (Folic Acid -) 1 mg PO DAILY [facility] Last Admin: 08/13/16 10:17 Dose: 1 mg Furosemide (Lasix -) 20 mg PO Q2D@0900 [facility] Last Admin: 08/13/16 09:18 Dose: 20 mg Hydralazine HCl (Apresoline -) 10 mg PO TID [facility] Last Admin: 08/13/16 13:00 Dose: 10 mg Insulin Aspart (Novolog Vial) 0 units SQ TIDAC [facility] PRN Reason: Protocol Last Admin: 08/13/16 11:36 Dose: Not Given Insulin Detemir (Levemir Vial) 5 units SQ HS [facility] Last Admin: 08/12/16 21:35 Dose: 5 units Isosorbide Mononitrate (Imdur -) 30 mg PO DAILY [facility] Last Admin: 08/13/16 10:17 Dose: 30 mg Non-Formulary Medication (Clobetasol Propionate/Emoll [Clobetasol Emollient 0.05 % Crm]) 30 gm TP HS [facility] Pantoprazole Sodium (Protonix -) 40 mg PO DAILY [facility] Last Admin: 08/13/16 10:17 Dose: 40 mg Polyethylene Glycol (Miralax (For Daily Use) -) 17 gm PO DAILY PRN PRN Reason: CONSTIPATION Last Admin: 08/12/16 12:35 Dose: 17 gm Risperidone (Risperdal -) 0.5 mg PO BID [facility] Last Admin: 08/13/16 10:19 Dose: 0.5 mg Tiotropium [place] (Spiriva -) 1 puff IH DAILY [facility] Last Admin: 08/13/16 11:09 Dose: 1 inhaler Tramadol HCl (Ultram -) 50 mg PO BID [facility] Last Admin: 08/13/16 10:17 Dose: 50 mg - Objective Vital Signs: Vital Signs Temperature 98.6 F 08/13/16 15:32 Pulse Rate 66 08/13/16 15:32 Respiratory Rate 18 08/13/16 15:32 Blood Pressure 142/61 08/13/16 15:32 O2 Sat by Pulse Oximetry (%) 98 08/13/16 09:00 Constitutional: Yes: No Distress Eyes: No: Sclera Icterus HENT: Yes: Atraumatic, Normocephalic Neck: Yes: Supple, Trachea Midline Cardiovascular: Yes: Regular Rate and Rhythm. No: JVD Respiratory: Yes: Diminished (bilateral) Gastrointestinal: Yes: Soft. No: Tenderness Edema: No Labs: CBC, BMP 08/12/16 06:15 08/12/16 06:15 INR, PTT INR 1.02 (0.82-1.09) 08/10/16 14:45 - ....Imaging Chest X-ray: Report Reviewed, Image Reviewed (right pntx and effusion) Problem List - Problems (1) Pleural effusion Code(s): J90 - PLEURAL EFFUSION, NOT ELSEWHERE CLASSIFIED (2) Lung mass Code(s): R91.8 - OTHER NONSPECIFIC ABNORMAL FINDING OF LUNG FIELD Assessment/Plan 71 year old lady with right pleural effusion:high protein negative cytology when fluid tested 11/21. Recent CT chest with decreased fluid and (unmasked?) density in area previously obscured by fluid. FNAB yesterday:negative for malignancy. Respiratory status is stable. Post thoracentesis: pneumothorax- possible trapped lung. Case discussed with Dr. Gabrael-question of whether to remove tube in face of re -accumulating fluid and persistent pntx: will get thoracic surgical consult.
[2016-08-13] MEDS: INSULIN DETEMIR 100 UNITS/ML MDV SQ SCH (21:55)
[2016-08-14] MEDS: hydrALAZINE HCL 10 MG TABLET PO SCH ×3 (06:18→22:53)
[2016-08-14] MEDS: INSULIN (NOVOLOG) ASPART 100 UNITS/ML 10ML VIAL SQ SCH ×3 (06:19→17:52)
[2016-08-14] MEDS: CALCIUM ACETATE 667 MG CAPSULE (FP) PO SCH ×3 (09:00→17:52)
--- NOTE | 2016-08-14 09:23 | CONSULT ---
Consult - text type - Consultation Consultation Note: Thoracic Surgery Consultation Reason for consultation: Hydropneumothorax 71F who lives in assisted care facility with chronic pleural effusion s/p thoracentesis and lung bx now with pneumothorax and draining significant serous pleural fluid. On CXR it appears lung is trapped. PE shows no air-leak and chest tube tidals. Pt is comfortable and was not symptomatic before hand. 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 As she was asymptomatic before, I would not recommend VATS. If bx non-diagnostic, given her overall condition would recommend serial imaging, PET scan, and possible repeat biopsy. -F/U post clamp cxr and observe. -Will d/w Dr. Atkinson and Dr. Hill. -I have spent >40 minutes with over half of the time in counseling and coordination of care including h/p, image review, and discussion with patient and Dr. Hill.
--- NOTE | 2016-08-14 09:51 | PN ---
Progress Note, Physician Chief Complaint: has pain in rt chest wall no SOB - Current Medication List Current Medications: Active Medications Acetaminophen (Tylenol -) 500 mg PO QID PRN PRN Reason: FEVER Last Admin: 08/10/16 17:56 Dose: 500 mg Amlodipine Besylate (Norvasc -) 10 mg PO DAILY [facility] Last Admin: 08/13/16 10:17 Dose: 10 mg Budesonide/Formoterol Fumarate (Symbicort 80/4.5mcg -) 1 puff IH BID [facility] Last Admin: 08/13/16 22:05 Dose: Not Given Bupropion HCl (Wellbutrin -) 75 mg PO DAILY [facility] Last Admin: 08/13/16 10:19 Dose: 75 mg Calcium Acetate (Phoslo -) 667 mg PO TIDCM [facility] Last Admin: 08/13/16 17:45 Dose: 667 mg Carvedilol (Coreg -) 25 mg PO BID [facility] Last Admin: 08/13/16 21:51 Dose: 25 mg Duloxetine HCl (Cymbalta -) 60 mg PO DAILY [facility] Last Admin: 08/13/16 10:18 Dose: 60 mg Epoetin Osmar (Procrit -) 10,000 unit SQ WEEKLY [facility] Ferrous Sulfate (Feosol -) 325 mg PO DAILY [facility] Last Admin: 08/13/16 10:17 Dose: 325 mg Folic Acid (Folic Acid -) 1 mg PO DAILY [facility] Last Admin: 08/13/16 10:17 Dose: 1 mg Furosemide (Lasix -) 20 mg PO Q2D@0900 [facility] Last Admin: 08/13/16 09:18 Dose: 20 mg Hydralazine HCl (Apresoline -) 10 mg PO TID [facility] Last Admin: 08/14/16 06:18 Dose: 10 mg Insulin Aspart (Novolog Vial) 0 units SQ TIDAC [facility] PRN Reason: Protocol Last Admin: 08/14/16 06:19 Dose: Not Given Insulin Detemir (Levemir Vial) 5 units SQ [facility] Last Admin: 08/13/16 21:55 Dose: 5 units Isosorbide Mononitrate (Imdur -) 30 mg PO DAILY [facility] Last Admin: 08/13/16 10:17 Dose: 30 mg Non-Formulary Medication (Clobetasol Propionate/Emoll [Clobetasol Emollient 0.05 % Crm]) 30 gm TP HS [facility] Pantoprazole Sodium (Protonix -) 40 mg PO DAILY [facility] Last Admin: 08/13/16 10:17 Dose: 40 mg Polyethylene Glycol (Miralax (For Daily Use) -) 17 gm PO DAILY PRN PRN Reason: CONSTIPATION Last Admin: 08/12/16 12:35 Dose: 17 gm Risperidone (Risperdal -) 0.5 mg PO BID [facility] Last Admin: 08/13/16 21:51 Dose: 0.5 mg Tiotropium [place] (Spiriva -) 1 puff IH DAILY [facility] Last Admin: 08/13/16 11:09 Dose: 1 inhaler Tramadol HCl (Ultram -) 50 mg PO BID [facility] Last Admin: 08/13/16 21:52 Dose: 50 mg - Objective Vital Signs: Vital Signs Temperature 98.2 F 08/14/16 06:00 Pulse Rate 69 08/14/16 06:00 Respiratory Rate 20 08/14/16 06:00 Blood Pressure 171/66 08/14/16 06:00 O2 Sat by Pulse Oximetry (%) 98 08/13/16 21:00 Constitutional: Yes: No Distress Cardiovascular: Yes: Regular Rate and Rhythm Respiratory: Yes: Diminished, Other (rt chest tube) Gastrointestinal: Yes: Normal Bowel Sounds, Soft. No: Distention, Tenderness Edema: No Labs: CBC, BMP 08/12/16 06:15 08/12/16 06:15 INR, PTT INR 1.02 (0.82-1.09) 08/10/16 14:45 Problem List - Problems (1) Breast CA Code(s): C50.919 - MALIGNANT NEOPLASM OF UNSP SITE OF UNSPECIFIED FEMALE BREAST Qualifiers: Patient sex: female Laterality: right (2) Lung mass Code(s): R91.8 - OTHER NONSPECIFIC ABNORMAL FINDING OF LUNG FIELD (3) Pneumothorax Code(s): J93.9 - PNEUMOTHORAX, UNSPECIFIED Assessment/Plan PLAN chest tube clamped per CT surgeon waiting for repeat CXR possible removal of chest tube Tuesday pathology negative for malignancy continue with meds DVT prophylaxis-- Lovenox sc
[2016-08-14] MEDS ORDERED: PT OWN MED DRAWER 7, Y5N ONE ×2 (10:23→20:32)
[2016-08-14] MEDS: traMADol HCL 50 MG TABLET PO SCH ×2 (10:25→22:53)
[2016-08-14] MEDS: CARVEDILOL 25 MG TABLET (FP) PO SCH ×2 (10:25→22:53)
[2016-08-14] MEDS: FERROUS SO4 325 MG TABLET (FP) PO SCH (10:26)
[2016-08-14] MEDS: DULoxetine HCL 30 MG CAPSULE.DR (FP) PO SCH (10:26)
[2016-08-14] MEDS: PANTOPRAZOLE 40 MG TABLET (FP) PO SCH (10:27)
[2016-08-14] MEDS: amLODIPine BESYLATE 10 MG TABLET (FP) PO SCH (10:27)
[2016-08-14] MEDS: ISOSORBIDE MONONITRATE 30 MG TAB.SR.24H (FP) PO SCH (10:27)
[2016-08-14] MEDS: buPROPion HCL 75 MG TABLET PO SCH (10:27)
[2016-08-14] MEDS: FOLIC ACID 1 MG TABLET (FP) PO SCH (10:27)
[2016-08-14] MEDS: risperiDONE 0.5 MG TABLET (FP) PO SCH ×2 (10:27→22:53)
[2016-08-14] MEDS: BUDESONIDE/FORMETEROL FUMARATE 80/4.5 mcg INHALER IH SCH ×2 (10:33→23:02)
[2016-08-14] MEDS: TIOTROPIUM BROMIDE 18 MCG/INH (DEVICE W/ 5 CAPSULES) IH SCH (10:33)
[2016-08-14] MEDS: INSULIN DETEMIR 100 UNITS/ML MDV SQ SCH (23:00)
[2016-08-15] MEDS: hydrALAZINE HCL 10 MG TABLET PO SCH ×3 (05:50→23:16)
[2016-08-15] MEDS: ACETAMINOPHEN 500 MG TABLET (FP) PO PRN (07:38)
[2016-08-15] MEDS: INSULIN (NOVOLOG) ASPART 100 UNITS/ML 10ML VIAL SQ SCH ×3 (07:59→17:26)
--- NOTE | 2016-08-15 08:19 | PN ---
Progress Note, Physician Chief Complaint: has pain in rt chest wall no SOB - Current Medication List Current Medications: Active Medications Acetaminophen (Tylenol -) 500 mg PO QID PRN PRN Reason: FEVER Last Admin: 08/15/16 07:38 Dose: 500 mg Amlodipine Besylate (Norvasc -) 10 mg PO DAILY [facility] Last Admin: 08/14/16 10:27 Dose: 10 mg Budesonide/Formoterol Fumarate (Symbicort 80/4.5mcg -) 1 puff IH BID [facility] Last Admin: 08/14/16 23:02 Dose: 1 puff Bupropion HCl (Wellbutrin -) 75 mg PO DAILY [facility] Last Admin: 08/14/16 10:27 Dose: 75 mg Calcium Acetate (Phoslo -) 667 mg PO TIDCM [facility] Last Admin: 08/14/16 17:52 Dose: 667 mg Carvedilol (Coreg -) 25 mg PO BID [facility] Last Admin: 08/14/16 22:53 Dose: 25 mg Duloxetine HCl (Cymbalta -) 60 mg PO DAILY [facility] Last Admin: 08/14/16 10:26 Dose: 60 mg Enoxaparin Sodium (Lovenox -) 30 mg SQ DAILY [facility] Epoetin Osmar (Procrit -) 10,000 unit SQ WEEKLY [facility] Ferrous Sulfate (Feosol -) 325 mg PO DAILY [facility] Last Admin: 08/14/16 10:26 Dose: 325 mg Folic Acid (Folic Acid -) 1 mg PO DAILY [facility] Last Admin: 08/14/16 10:27 Dose: 1 mg Furosemide (Lasix -) 20 mg PO Q2D@0900 [facility] Last Admin: 08/13/16 09:18 Dose: 20 mg Hydralazine HCl (Apresoline -) 10 mg PO TID [facility] Last Admin: 08/15/16 05:50 Dose: 10 mg Insulin Aspart (Novolog Vial) 0 units SQ TIDAC [facility] PRN Reason: Protocol Last Admin: 08/15/16 07:59 Dose: Not Given Insulin Detemir (Levemir Vial) 5 units SQ [facility] Last Admin: 08/14/16 23:00 Dose: 5 units Isosorbide Mononitrate (Imdur -) 30 mg PO DAILY [facility] Last Admin: 08/14/16 10:27 Dose: 30 mg Non-Formulary Medication (Clobetasol Propionate/Emoll [Clobetasol Emollient 0.05 % Crm]) 30 gm TP HS [facility] Pantoprazole Sodium (Protonix -) 40 mg PO DAILY [facility] Last Admin: 08/14/16 10:27 Dose: 40 mg Polyethylene Glycol (Miralax (For Daily Use) -) 17 gm PO DAILY PRN PRN Reason: CONSTIPATION Last Admin: 08/12/16 12:35 Dose: 17 gm Risperidone (Risperdal -) 0.5 mg PO BID [facility] Last Admin: 08/14/16 22:53 Dose: 0.5 mg Tiotropium [place] (Spiriva -) 1 puff IH DAILY [facility] Last Admin: 08/14/16 10:33 Dose: 1 inhaler Tramadol HCl (Ultram -) 50 mg PO BID [facility] Last Admin: 08/14/16 22:53 Dose: 50 mg - Objective Vital Signs: Vital Signs Temperature 99.1 F 08/15/16 07:40 Pulse Rate 76 08/15/16 07:40 Respiratory Rate 20 08/15/16 07:40 Blood Pressure 154/71 08/15/16 07:40 O2 Sat by Pulse Oximetry (%) 97 08/14/16 21:00 Constitutional: Yes: No Distress Cardiovascular: Yes: Regular Rate and Rhythm Respiratory: Yes: Diminished Gastrointestinal: Yes: Normal Bowel Sounds, Soft. No: Tenderness Edema: No Labs: INR, PTT INR 1.02 (0.82-1.09) 08/10/16 14:45 Problem List - Problems (1) Breast CA Code(s): C50.919 - MALIGNANT NEOPLASM OF UNSP SITE OF UNSPECIFIED FEMALE BREAST Qualifiers: Patient sex: female Laterality: right (2) Lung mass Code(s): R91.8 - OTHER NONSPECIFIC ABNORMAL FINDING OF LUNG FIELD (3) Pneumothorax Code(s): J93.9 - PNEUMOTHORAX, UNSPECIFIED Assessment/Plan PLAN chest tube clamped per CT surgeon repeat CXR possible removal of chest tube Tuesday pathology negative for malignancy continue with meds DVT prophylaxis-- Lovenox sc
[2016-08-15 08:21] LABS: BASOPHIL 0.4 % (0-2.0); EOSINOPHIL 2.6 % (0-4.5); MCH 25.4 pg (25.7-33.7); MCHC 31.9 g/dl (32.0-36.0); MEAN CELL VOLUME 79.5 fl (80-96); MEAN PLT VOLUME 7.7 fl (7.5-11.1); NEUTROPHILS 79.5 % (42.8-82.8); PLATELET COUNT 141 K/MM3 (134-434); RDW 18.5 % (11.6-15.6); WHITE BLOOD COUNT 10.3 K/mm3 (4.0-10.0)
[2016-08-15 08:58] LABS: CALCIUM 9.5 mg/dL (8.5-10.1); COCKROFT - GAULT 35.326; CREATININE 1.8 mg/dL (0.55-1.02)
[2016-08-15] MEDS: CALCIUM ACETATE 667 MG CAPSULE (FP) PO SCH ×3 (08:58→18:14)
[2016-08-15] MEDS ORDERED: PT OWN MED DRAWER 7, Y5N ONE ×2 (10:51→22:36)
[2016-08-15] MEDS: FUROSEMIDE 20 MG TABLET (FP) PO SCH (10:52)
[2016-08-15] MEDS: CARVEDILOL 25 MG TABLET (FP) PO SCH ×2 (10:52→22:40)
[2016-08-15] MEDS: amLODIPine BESYLATE 10 MG TABLET (FP) PO SCH (10:52)
[2016-08-15] MEDS: PANTOPRAZOLE 40 MG TABLET (FP) PO SCH (10:52)
[2016-08-15] MEDS: traMADol HCL 50 MG TABLET PO SCH ×2 (10:52→22:40)
[2016-08-15] MEDS: FOLIC ACID 1 MG TABLET (FP) PO SCH (10:52)
[2016-08-15] MEDS: FERROUS SO4 325 MG TABLET (FP) PO SCH (10:53)
[2016-08-15] MEDS: ENOXAPARIN NA (PORCINE) 30 MG/0.3 ML DISP.SYRIN SQ SCH (10:53)
[2016-08-15] MEDS: DULoxetine HCL 30 MG CAPSULE.DR (FP) PO SCH (10:53)
[2016-08-15] MEDS: ISOSORBIDE MONONITRATE 30 MG TAB.SR.24H (FP) PO SCH (10:53)
[2016-08-15] MEDS: buPROPion HCL 75 MG TABLET PO SCH (10:54)
[2016-08-15] MEDS: TIOTROPIUM BROMIDE 18 MCG/INH (DEVICE W/ 5 CAPSULES) IH SCH (10:54)
[2016-08-15] MEDS: risperiDONE 0.5 MG TABLET (FP) PO SCH ×2 (10:54→23:16)
[2016-08-15] MEDS: BUDESONIDE/FORMETEROL FUMARATE 80/4.5 mcg INHALER IH SCH (10:54)
[2016-08-15] MEDS: NYSTATIN POWDER 100,000 UNITS/GM - 15 GM TOPICAL POWDER TP SCH ×2 (18:14→22:39)
[2016-08-15] MEDS: MUPIROCIN 2% TOPICAL OINTMENT 22 GM TUBE TP SCH (18:15)
[2016-08-15] MEDS: INSULIN DETEMIR 100 UNITS/ML MDV SQ SCH (22:39)
[2016-08-16] MEDS: hydrALAZINE HCL 10 MG TABLET PO SCH ×3 (05:41→21:26)
[2016-08-16] MEDS: CALCIUM ACETATE 667 MG CAPSULE (FP) PO SCH ×3 (08:59→17:26)
--- NOTE | 2016-08-16 09:05 | PN ---
Progress Note (short form) - Note Progress Note: Subjective Patient seen and examined. Chart reviewed. Comfortable. No distress. Denies pain. No SOB. Objective Last Vital Signs Temp Pulse Resp BP Pulse Ox 98.0 F 71 20 156/70 98 08/16/16 06:00 08/16/16 06:00 08/16/16 06:00 08/16/16 06:00 08/15/16 09:00 CBC, BMP 08/15/16 06:30 08/15/16 06:30 Laboratory Results - last 24 hr 08/14/16 08/14/16 08/15/16 11:53 12:05 13:10 POC Glucometer 200 209 217 08/15/16 08/15/16 08/16/16 17:25 22:38 05:40 POC Glucometer 158 117 113 Physical Exam Constitutional: Yes: No Distress Cardiovascular: Yes: Regular Rate and Rhythm Respiratory: Yes: Diminished, Other (rt chest tube)-- clamped Gastrointestinal: Yes: Normal Bowel Sounds, Soft. No: Distention, Tenderness Edema: No Assessment and Plan chest tube clamped Clinically stable Possible removal of tube today. If tube is removed and remain stable-- will consider d.c back to [place] tomorrow. Discussed with Dr. Padilla also Will follow. Keep Lambert due to neurogenic bladder. Documentation prepared by [place]y [place]y, acting as a medical advisor for Asael Rankin MD.
--- NOTE | 2016-08-16 09:28 | PN ---
Progress Note, Physician History of Present Illness: Pt alert NAD. No dyspnea. Chest tube clamped. - Current Medication List Current Medications: Active Medications Acetaminophen (Tylenol -) 500 mg PO QID PRN PRN Reason: FEVER Last Admin: 08/15/16 07:38 Dose: 500 mg Amlodipine Besylate (Norvasc -) 10 mg PO DAILY [facility] Last Admin: 08/15/16 10:52 Dose: 10 mg Budesonide/Formoterol Fumarate (Symbicort 80/4.5mcg -) 1 puff IH BID [facility] Last Admin: 08/15/16 10:54 Dose: 1 puff Bupropion HCl (Wellbutrin -) 75 mg PO DAILY [facility] Last Admin: 08/15/16 10:54 Dose: 75 mg Calcium Acetate (Phoslo -) 667 mg PO TIDCM [facility] Last Admin: 08/16/16 08:59 Dose: 667 mg Carvedilol (Coreg -) 25 mg PO BID [facility] Last Admin: 08/15/16 22:40 Dose: 25 mg Duloxetine HCl (Cymbalta -) 60 mg PO DAILY [facility] Last Admin: 08/15/16 10:53 Dose: 60 mg Enoxaparin Sodium (Lovenox -) 30 mg SQ DAILY [facility] Last Admin: 08/15/16 10:53 Dose: 30 mg Epoetin Osmar (Procrit -) 10,000 unit SQ WEEKLY [facility] Ferrous Sulfate (Feosol -) 325 mg PO DAILY [facility] Last Admin: 08/15/16 10:53 Dose: 325 mg Folic Acid (Folic Acid -) 1 mg PO DAILY [facility] Last Admin: 08/15/16 10:52 Dose: 1 mg Furosemide (Lasix -) 20 mg PO Q2D@0900 [facility] Last Admin: 08/15/16 10:52 Dose: 20 mg Hydralazine HCl (Apresoline -) 10 mg PO TID [facility] Last Admin: 08/16/16 05:41 Dose: 10 mg Insulin Aspart (Novolog Vial) 0 units SQ TIDAC [facility] PRN Reason: Protocol Last Admin: 08/15/16 17:26 Dose: 2 units Insulin Detemir (Levemir Vial) 5 units SQ HS [facility] Last Admin: 08/15/16 22:39 Dose: 5 units Isosorbide Mononitrate (Imdur -) 30 mg PO DAILY [facility] Last Admin: 08/15/16 10:53 Dose: 30 mg Mupirocin (Bactroban 2% Ointment -) 1 applic TP DAILY [facility] Last Admin: 08/15/16 18:15 Dose: 1 applic Non-Formulary Medication (Clobetasol Propionate/Emoll [Clobetasol Emollient 0.05 % Crm]) 30 gm TP HS [facility] Nystatin (Nystop Powder -) 1 applic TP BID [facility] Last Admin: 08/15/16 22:39 Dose: 1 applic Pantoprazole Sodium (Protonix -) 40 mg PO DAILY [facility] Last Admin: 08/15/16 10:52 Dose: 40 mg Polyethylene Glycol (Miralax (For Daily Use) -) 17 gm PO DAILY PRN PRN Reason: CONSTIPATION Last Admin: 08/12/16 12:35 Dose: 17 gm Risperidone (Risperdal -) 0.5 mg PO BID [facility] Last Admin: 08/15/16 23:16 Dose: 0.5 mg Tiotropium [place] (Spiriva -) 1 puff IH DAILY [facility] Last Admin: 08/15/16 10:54 Dose: 1 inhaler Tramadol HCl (Ultram -) 50 mg PO BID [facility] Last Admin: 08/15/16 22:40 Dose: 50 mg - Objective Vital Signs: Vital Signs Temperature 98.0 F 08/16/16 06:00 Pulse Rate 71 08/16/16 06:00 Respiratory Rate 20 08/16/16 06:00 Blood Pressure 156/70 08/16/16 06:00 O2 Sat by Pulse Oximetry (%) 98 08/15/16 09:00 Constitutional: Yes: No Distress Eyes: No: Sclera Icterus HENT: Yes: Atraumatic, Normocephalic Neck: Yes: Trachea Midline Cardiovascular: Yes: Regular Rate and Rhythm. No: JVD Respiratory: Yes: Diminished (bilateral) Gastrointestinal: Yes: Soft. No: Tenderness Edema: No Neurological: Yes: Alert, Oriented Labs: CBC, BMP 08/15/16 06:30 08/15/16 06:30 INR, PTT INR 1.02 (0.82-1.09) 08/10/16 14:45 - ....Imaging X-ray: Report Reviewed, Image Reviewed (Effusion. No pneumothorax) Problem List - Problems (1) Pleural effusion Code(s): J90 - PLEURAL EFFUSION, NOT ELSEWHERE CLASSIFIED (2) Lung mass Code(s): R91.8 - OTHER NONSPECIFIC ABNORMAL FINDING OF LUNG FIELD Assessment/Plan 71 year old lady with right pleural effusion:high protein negative cytology when fluid tested 11/21. Recent CT chest with decreased fluid and (unmasked?) density in area previously obscured by fluid. FNAB:negative for malignancy. Respiratory status stable post thoracentesis despite pneumothorax-possible trapped lung. Dr. Epps's consult appreciated. CT has been clamped and pt's respiratory status continues to be stable. Suggest: removal of Chest tube if Ok with Drs. Wall and Mich and then discharge if patient stable x 24 hours without chest tube.
[2016-08-16] MEDS: INSULIN (NOVOLOG) ASPART 100 UNITS/ML 10ML VIAL SQ SCH ×3 (09:31→17:25)
[2016-08-16] MEDS: BUDESONIDE/FORMETEROL FUMARATE 80/4.5 mcg INHALER IH SCH ×3 (09:31→21:35)
[2016-08-16] MEDS ORDERED: PT OWN MED DRAWER 7, Y5N ONE ×3 (11:20→15:53)
[2016-08-16] MEDS: CARVEDILOL 25 MG TABLET (FP) PO SCH ×2 (11:23→21:30)
[2016-08-16] MEDS: DULoxetine HCL 30 MG CAPSULE.DR (FP) PO SCH (11:23)
[2016-08-16] MEDS: amLODIPine BESYLATE 10 MG TABLET (FP) PO SCH (11:23)
[2016-08-16] MEDS: traMADol HCL 50 MG TABLET PO SCH ×2 (11:23→21:36)
[2016-08-16] MEDS: ISOSORBIDE MONONITRATE 30 MG TAB.SR.24H (FP) PO SCH (11:23)
[2016-08-16] MEDS: FOLIC ACID 1 MG TABLET (FP) PO SCH (11:23)
[2016-08-16] MEDS: ENOXAPARIN NA (PORCINE) 30 MG/0.3 ML DISP.SYRIN SQ SCH (11:23)
[2016-08-16] MEDS: MUPIROCIN 2% TOPICAL OINTMENT 22 GM TUBE TP SCH (11:24)
[2016-08-16] MEDS: PANTOPRAZOLE 40 MG TABLET (FP) PO SCH (11:24)
[2016-08-16] MEDS: FERROUS SO4 325 MG TABLET (FP) PO SCH (11:24)
[2016-08-16] MEDS: NYSTATIN POWDER 100,000 UNITS/GM - 15 GM TOPICAL POWDER TP SCH ×2 (11:24→21:33)
[2016-08-16] MEDS: risperiDONE 0.5 MG TABLET (FP) PO SCH ×2 (11:24→21:26)
[2016-08-16] MEDS: TIOTROPIUM BROMIDE 18 MCG/INH (DEVICE W/ 5 CAPSULES) IH SCH (11:25)
[2016-08-16] MEDS: buPROPion HCL 75 MG TABLET PO SCH (15:49)
[2016-08-16] MEDS: ACETAMINOPHEN 500 MG TABLET (FP) PO PRN (15:53)
[2016-08-16] MEDS ORDERED: EPOETIN ALFA 10,000 UNIT/1 ML VIAL SQ SCH (16:46)
[2016-08-16] MEDS ORDERED: INSULIN (NOVOLOG) ASPART 100 UNITS/ML 10ML VIAL ONE (17:23)
[2016-08-16] MEDS: PATIENT'S OWN MEDICATION (NON-FORMULARY) (Clobetasol Propionate/Emoll [Clobetasol Emollien TP SCH ×2 (17:36→18:54)
[2016-08-16] MEDS: INSULIN DETEMIR 100 UNITS/ML MDV SQ SCH (21:31)
[2016-08-17] MEDS: hydrALAZINE HCL 10 MG TABLET PO SCH ×2 (05:33→14:20)
[2016-08-17] MEDS: INSULIN (NOVOLOG) ASPART 100 UNITS/ML 10ML VIAL SQ SCH ×2 (06:06→11:28)
[2016-08-17] MEDS: FUROSEMIDE 20 MG TABLET (FP) PO SCH (08:28)
[2016-08-17] MEDS: CALCIUM ACETATE 667 MG CAPSULE (FP) PO SCH ×2 (08:28→12:21)
[2016-08-17] MEDS ORDERED: PT OWN MED DRAWER 7, Y5N ONE ×3 (09:03→14:19)
[2016-08-17] MEDS: FERROUS SO4 325 MG TABLET (FP) PO SCH (09:07)
[2016-08-17] MEDS: CARVEDILOL 25 MG TABLET (FP) PO SCH (09:07)
[2016-08-17] MEDS: DULoxetine HCL 30 MG CAPSULE.DR (FP) PO SCH (09:07)
[2016-08-17] MEDS: PANTOPRAZOLE 40 MG TABLET (FP) PO SCH (09:08)
[2016-08-17] MEDS: FOLIC ACID 1 MG TABLET (FP) PO SCH (09:08)
[2016-08-17] MEDS: ISOSORBIDE MONONITRATE 30 MG TAB.SR.24H (FP) PO SCH (09:08)
[2016-08-17] MEDS: risperiDONE 0.5 MG TABLET (FP) PO SCH (09:09)
[2016-08-17] MEDS: traMADol HCL 50 MG TABLET PO SCH (09:09)
[2016-08-17] MEDS: TIOTROPIUM BROMIDE 18 MCG/INH (DEVICE W/ 5 CAPSULES) IH SCH (09:10)
[2016-08-17] MEDS: buPROPion HCL 75 MG TABLET PO SCH (09:10)
[2016-08-17] MEDS: MUPIROCIN 2% TOPICAL OINTMENT 22 GM TUBE TP SCH (09:11)
[2016-08-17] MEDS: NYSTATIN POWDER 100,000 UNITS/GM - 15 GM TOPICAL POWDER TP SCH (09:11)
[2016-08-17] MEDS: ENOXAPARIN NA (PORCINE) 30 MG/0.3 ML DISP.SYRIN SQ SCH (09:11)
[2016-08-17] MEDS: BUDESONIDE/FORMETEROL FUMARATE 80/4.5 mcg INHALER IH SCH (09:11)
[2016-08-17] MEDS: amLODIPine BESYLATE 10 MG TABLET (FP) PO SCH (09:15)
--- NOTE | 2016-08-17 12:21 | PN ---
Progress Note (short form) - Note Progress Note: No further c/o pain in rt chest wall She has pain when she takes a deep breath Vital Signs - 24 hr 08/16/16 08/16/16 08/16/16 14:08 17:45 21:00 Temperature 98.4 F 98.1 F Pulse Rate 104 H 66 Respiratory 16 20 Rate Blood Pressure 106/66 132/67 O2 Sat by Pulse 98 Oximetry (%) 08/16/16 08/17/16 08/17/16 22:00 06:02 08:05 Temperature 98.0 F 98.4 F 98.6 F Pulse Rate 70 66 70 Respiratory 18 20 18 Rate Blood Pressure 130/61 148/64 144/56 O2 Sat by Pulse Oximetry (%) Current Medications Generic Name Dose Route Start Last Admin Trade Name Freq PRN Reason Stop Dose Admin Acetaminophen 500 mg 08/10/16 13:36 08/16/16 15:53 Tylenol - PO 500 mg QID PRN Administration FEVER Amlodipine Besylate 10 mg 08/11/16 10:00 08/17/16 09:15 Norvasc - PO 10 mg DAILY [facility] Administration Budesonide/Formoterol Fumarate 1 puff 08/10/16 22:00 08/17/16 09:11 Symbicort 80/4.5mcg - IH 1 puff BID [facility] Administration Bupropion HCl 75 mg 08/11/16 10:00 08/17/16 09:10 Wellbutrin - PO 75 mg DAILY [facility] Administration Calcium Acetate 667 mg 08/10/16 17:30 08/17/16 08:28 Phoslo - PO 667 mg TIDCM [facility] Administration Carvedilol 25 mg 08/10/16 22:00 08/17/16 09:07 Coreg - PO 25 mg BID [facility] Administration Duloxetine HCl 60 mg 08/11/16 10:00 08/17/16 09:07 Cymbalta - PO 60 mg DAILY [facility] Administration Enoxaparin Sodium 30 mg 08/15/16 10:00 08/17/16 09:11 Lovenox - SQ 30 mg DAILY [facility] Administration Epoetin Osmar 10,000 unit 08/16/16 16:46 08/16/16 17:25 Procrit - SQ 10,000 unit Mo [facility] Administration Ferrous Sulfate 325 mg 08/11/16 10:00 08/17/16 09:07 Feosol - PO 325 mg DAILY [facility] Administration Folic Acid 1 mg 08/11/16 10:00 08/17/16 09:08 Folic Acid - PO 1 mg DAILY [facility] Administration Furosemide 20 mg 08/11/16 09:00 08/17/16 08:28 Lasix - PO 20 mg Q2D@0900 [facility] Administration Hydralazine HCl 10 mg 08/10/16 14:00 08/17/16 05:33 Apresoline - PO 10 mg TID [facility] Administration Insulin Aspart 0 units 08/10/16 16:30 08/17/16 11:28 Novolog Vial SQ Not Given TIDAC [facility] Protocol Insulin Detemir 5 units 08/10/16 22:00 08/16/16 21:31 Levemir Vial SQ 5 units HS [facility] Administration Isosorbide Mononitrate 30 mg 08/11/16 10:00 08/17/16 09:08 Imdur - PO 30 mg DAILY [facility] Administration Mupirocin 1 applic 08/15/16 16:15 08/17/16 09:11 Bactroban 2% Ointment - TP 1 applic DAILY [facility] Administration Nystatin 1 applic 08/15/16 16:00 08/17/16 09:11 Nystop Powder - TP 1 applic BID [facility] Administration Pantoprazole Sodium 40 mg 08/11/16 10:00 08/17/16 09:08 Protonix - PO 40 mg DAILY [facility] Administration Polyethylene Glycol 17 gm 08/12/16 11:59 08/12/16 12:35 Miralax (For Daily Use) - PO 17 gm DAILY PRN Administration CONSTIPATION Risperidone 0.5 mg 08/10/16 22:00 08/17/16 09:09 Risperdal - PO 0.5 mg BID [facility] Administration Tiotropium [place] 1 puff 08/11/16 10:00 08/17/16 09:10 Spiriva - IH 1 inhaler DAILY [facility] Administration Tramadol HCl 50 mg 08/10/16 22:00 08/17/16 09:09 Ultram - PO 50 mg BID [facility] Administration Laboratory Results - last 24 hr 08/16/16 08/16/16 08/17/16 16:59 21:27 05:34 POC Glucometer 208 194 71 08/17/16 11:27 POC Glucometer 92 S1 S2 RRR Lungs decreased rt Abd- soft, NT no edema PLAN repeat CXR noted-- rt effusion pain control Incentive spirometry Pulmonary follow up -- spoke with DR Atknison today -- stated that she always had loculated effusion and persistent pneumothorax- pt is comfortable, no surgery indicated, no further management Stable for dc to ID Problem List - Problems (1) Breast CA Code(s): C50.919 - MALIGNANT NEOPLASM OF UNSP SITE OF UNSPECIFIED FEMALE BREAST Qualifiers: Patient sex: female Laterality: right (2) Lung mass Code(s): R91.8 - OTHER NONSPECIFIC ABNORMAL FINDING OF LUNG FIELD (3) Pneumothorax Code(s): J93.9 - PNEUMOTHORAX, UNSPECIFIED
--- NOTE | 2016-08-17 12:22 | DS ---
Physical Examination Vital Signs: Vital Signs Temperature 98.6 F 08/17/16 08:05 Pulse Rate 70 08/17/16 08:05 Respiratory Rate 18 08/17/16 08:05 Blood Pressure 144/56 08/17/16 08:05 O2 Sat by Pulse Oximetry (%) 98 08/16/16 21:00 Labs: CBC, BMP 08/15/16 06:30 08/15/16 06:30 Discharge Summary Reason For Visit: PLEURAL EFFUSION/LUNG NODULE,PNEUMOTHORAX Current Active Problems Abdominal distention (Acute) Allergic rhinitis (Acute) Anemia (Acute) Atelectasis of right lung (Acute) Breast CA (Acute) COPD (chronic obstructive pulmonary disease) (Acute) DVT prophylaxis (Acute) Dementia (Acute) Depression (Acute) Elevated liver enzymes (Acute) Hyperlipemia (Acute) Hypertension (Acute) Hyponatremia (Acute) Lung mass (Acute) Parkinson disease (Acute) Pneumothorax (Acute) Hospital Course: No further c/o pain in rt chest wall She has pain when she takes a deep breath Vital Signs - 24 hr 08/16/16 08/16/16 08/16/16 14:08 17:45 21:00 Temperature 98.4 F 98.1 F Pulse Rate 104 H 66 Respiratory 16 20 Rate Blood Pressure 106/66 132/67 O2 Sat by Pulse 98 Oximetry (%) 08/16/16 08/17/16 08/17/16 22:00 06:02 08:05 Temperature 98.0 F 98.4 F 98.6 F Pulse Rate 70 66 70 Respiratory 18 20 18 Rate Blood Pressure 130/61 148/64 144/56 O2 Sat by Pulse Oximetry (%) Current Medications Generic Name Dose Route Start Last Admin Trade Name Freq PRN Reason Stop Dose Admin Acetaminophen 500 mg 08/10/16 13:36 08/16/16 15:53 Tylenol - PO 500 mg QID PRN Administration FEVER Amlodipine Besylate 10 mg 08/11/16 10:00 08/17/16 09:15 Norvasc - PO 10 mg DAILY [facility] Administration Budesonide/Formoterol Fumarate 1 puff 08/10/16 22:00 08/17/16 09:11 Symbicort 80/4.5mcg - IH 1 puff BID [facility] Administration Bupropion HCl 75 mg 08/11/16 10:00 08/17/16 09:10 Wellbutrin - PO 75 mg DAILY [facility] Administration Calcium Acetate 667 mg 08/10/16 17:30 08/17/16 08:28 Phoslo - PO 667 mg TIDCM [facility] Administration Carvedilol 25 mg 08/10/16 22:00 08/17/16 09:07 Coreg - PO 25 mg BID [facility] Administration Duloxetine HCl 60 mg 08/11/16 10:00 08/17/16 09:07 Cymbalta - PO 60 mg DAILY [facility] Administration Enoxaparin Sodium 30 mg 08/15/16 10:00 08/17/16 09:11 Lovenox - SQ 30 mg DAILY [facility] Administration Epoetin Osmar 10,000 unit 08/16/16 16:46 08/16/16 17:25 Procrit - SQ 10,000 unit Mo [facility] Administration Ferrous Sulfate 325 mg 08/11/16 10:00 08/17/16 09:07 Feosol - PO 325 mg DAILY [facility] Administration Folic Acid 1 mg 08/11/16 10:00 08/17/16 09:08 Folic Acid - PO 1 mg DAILY [facility] Administration Furosemide 20 mg 08/11/16 09:00 08/17/16 08:28 Lasix - PO 20 mg Q2D@0900 [facility] Administration Hydralazine HCl 10 mg 08/10/16 14:00 08/17/16 05:33 Apresoline - PO 10 mg TID [facility] Administration Insulin Aspart 0 units 08/10/16 16:30 08/17/16 11:28 Novolog Vial SQ Not Given TIDAC [facility] Protocol Insulin Detemir 5 units 08/10/16 22:00 08/16/16 21:31 Levemir Vial SQ 5 units [facility] Administration Isosorbide Mononitrate 30 mg 08/11/16 10:00 08/17/16 09:08 Imdur - PO 30 mg DAILY [facility] Administration Mupirocin 1 applic 08/15/16 16:15 08/17/16 09:11 Bactroban 2% Ointment - TP 1 applic DAILY [facility] Administration Nystatin 1 applic 08/15/16 16:00 08/17/16 09:11 Nystop Powder - TP 1 applic BID [facility] Administration Pantoprazole Sodium 40 mg 08/11/16 10:00 08/17/16 09:08 Protonix - PO 40 mg DAILY [facility] Administration Polyethylene Glycol 17 gm 08/12/16 11:59 04/06/17 12:35 Miralax (For Daily Use) - PO 17 gm DAILY PRN Administration CONSTIPATION Risperidone 0.5 mg 08/10/16 22:00 08/17/16 09:09 Risperdal - PO 0.5 mg BID [facility] Administration Tiotropium [place] 1 puff 08/11/16 10:00 08/17/16 09:10 Spiriva - IH 1 inhaler DAILY [facility] Administration Tramadol HCl 50 mg 08/10/16 22:00 08/17/16 09:09 Ultram - PO 50 mg BID [facility] Administration Laboratory Results - last 24 hr 08/16/16 08/16/16 08/17/16 16:59 21:27 05:34 POC Glucometer 208 194 71 08/17/16 11:27 POC Glucometer 92 S1 S2 RRR Lungs decreased rt Abd- soft, NT no edema PLAN repeat CXR noted-- rt effusion pain control Incentive spirometry Pulmonary follow up -- spoke with DR Atkinson today -- stated that she always had loculated effusion and persistent pneumothorax- pt is comfortable, no surgery indicated, no further management Stable for dc to [place] Pt's pathology results are negative for malignancy Condition: Fair - Instructions Disposition: LONG-TERM FACILITY - Home Medications Comprehensive Discharge Medication List: Ambulatory Orders Acetaminophen [Tylenol .Extra-Strength -] 500 mg PO QID 05/12/15 Amlodipine Besylate 10 mg PO DAILY 05/12/15 Budesonide/Formeterol Fumarate [SYMBICORT 80/4.5mcg -] 1 inh PO BID 05/12/15 Carvedilol [Coreg] 25 mg PO BID 05/12/15 Ferrous Sulfate 325 mg PO DAILY 05/12/15 Hydralazine HCl 10 mg PO TID 05/12/15 Tramadol HCl [Ultram -] 50 mg PO BID 05/12/15 Calcium Acetate [Phoslo -] 667 mg PO TIDCM 11/19/15 Duloxetine HCl [Cymbalta -] 60 mg PO DAILY 11/19/15 Omeprazole [Prilosec] 40 mg PO DAILY 11/19/15 Risperidone [Risperdal -] 0.5 mg PO BID 11/19/15 Bupropion HCl [Wellbutrin -] 75 mg PO DAILY #30 tablet 12/03/15 Folic Acid - 1 mg PO DAILY #30 tablet 12/03/15 Clobetasol Propionate/Emoll [Clobetasol Emollient 0.05% Crm] 30 gm TP HS Epoetin Osmar [Procrit] 10,000 unit IJ WEEKLY 02/11/16 Ketoconazole 2% Shampoo [Nizoral 2% Shampoo -] 1 applic TP HS 02/11/16 Insulin (Levemir) [Levemir Vial] 5 units SQ HS ml 02/13/16 Isosorbide Mononitrate [Isosorbide Mononitrate ER] 30 mg PO DAILY 08/09/16 Tiotropium [place] [Spiriva] 18 mcg IH DAILY 08/09/16 Furosemide [Lasix -] 20 mg PO Q2D@0900 #30 tablet 08/17/16 Polyethylene Glycol 3350 [Miralax 119 gm Btl -] 17 gm PO DAILY PRN #30 bottle
--- NOTE | 2016-08-17 13:04 | PN ---
Progress Note, Physician History of Present Illness: Pt alert NAD. No dyspnea. Chest tube removed yesterday. - Current Medication List Current Medications: Active Medications Acetaminophen (Tylenol -) 500 mg PO QID PRN PRN Reason: FEVER Last Admin: 08/16/16 15:53 Dose: 500 mg Amlodipine Besylate (Norvasc -) 10 mg PO DAILY [facility] Last Admin: 08/17/16 09:15 Dose: 10 mg Budesonide/Formoterol Fumarate (Symbicort 80/4.5mcg -) 1 puff IH BID [facility] Last Admin: 08/17/16 09:11 Dose: 1 puff Bupropion HCl (Wellbutrin -) 75 mg PO DAILY [facility] Last Admin: 08/17/16 09:10 Dose: 75 mg Calcium Acetate (Phoslo -) 667 mg PO TIDCM [facility] Last Admin: 08/17/16 12:21 Dose: 667 mg Carvedilol (Coreg -) 25 mg PO BID [facility] Last Admin: 08/17/16 09:07 Dose: 25 mg Duloxetine HCl (Cymbalta -) 60 mg PO DAILY [facility] Last Admin: 08/17/16 09:07 Dose: 60 mg Enoxaparin Sodium (Lovenox -) 30 mg SQ DAILY [facility] Last Admin: 08/17/16 09:11 Dose: 30 mg Epoetin Osmar (Procrit -) 10,000 unit SQ Mo [facility] Last Admin: 08/16/16 17:25 Dose: 10,000 unit Ferrous Sulfate (Feosol -) 325 mg PO DAILY [facility] Last Admin: 08/17/16 09:07 Dose: 325 mg Folic Acid (Folic Acid -) 1 mg PO DAILY [facility] Last Admin: 08/17/16 09:08 Dose: 1 mg Furosemide (Lasix -) 20 mg PO Q2D@0900 [facility] Last Admin: 08/17/16 08:28 Dose: 20 mg Hydralazine HCl (Apresoline -) 10 mg PO TID [facility] Last Admin: 08/17/16 05:33 Dose: 10 mg Insulin Aspart (Novolog Vial) 0 units SQ TIDAC [facility] PRN Reason: Protocol Last Admin: 08/17/16 11:28 Dose: Not Given Insulin Detemir (Levemir Vial) 5 units SQ HS [facility] Last Admin: 08/16/16 21:31 Dose: 5 units Isosorbide Mononitrate (Imdur -) 30 mg PO DAILY [facility] Last Admin: 08/17/16 09:08 Dose: 30 mg Mupirocin (Bactroban 2% Ointment -) 1 applic TP DAILY [facility] Last Admin: 08/17/16 09:11 Dose: 1 applic Nystatin (Nystop Powder -) 1 applic TP BID [facility] Last Admin: 08/17/16 09:11 Dose: 1 applic Pantoprazole Sodium (Protonix -) 40 mg PO DAILY [facility] Last Admin: 08/17/16 09:08 Dose: 40 mg Polyethylene Glycol (Miralax (For Daily Use) -) 17 gm PO DAILY PRN PRN Reason: CONSTIPATION Last Admin: 08/12/16 12:35 Dose: 17 gm Risperidone (Risperdal -) 0.5 mg PO BID [facility] Last Admin: 08/17/16 09:09 Dose: 0.5 mg Tiotropium [place] (Spiriva -) 1 puff IH DAILY [facility] Last Admin: 08/17/16 09:10 Dose: 1 inhaler Tramadol HCl (Ultram -) 50 mg PO BID [facility] Last Admin: 08/17/16 09:09 Dose: 50 mg - Objective Vital Signs: Vital Signs Temperature 98.6 F 08/17/16 08:05 Pulse Rate 70 08/17/16 08:05 Respiratory Rate 18 08/17/16 08:05 Blood Pressure 144/56 08/17/16 08:05 O2 Sat by Pulse Oximetry (%) 98 08/16/16 21:00 Constitutional: Yes: No Distress Eyes: No: Sclera Icterus HENT: Yes: Atraumatic, Normocephalic Neck: Yes: Supple, Trachea Midline, Tenderness Cardiovascular: No: JVD Respiratory: Yes: Diminished (bilateral) Gastrointestinal: Yes: Soft. No: Tenderness Edema: No Neurological: Yes: Alert, Oriented Labs: CBC, BMP 08/15/16 06:30 08/15/16 06:30 INR, PTT INR 1.02 (0.82-1.09) 08/10/16 14:45 - ....Imaging Chest X-ray: Report Reviewed, Image Reviewed (Right effusion, small pnthorax no significant change from yesterday.) Problem List - Problems (1) Pleural effusion Code(s): J90 - PLEURAL EFFUSION, NOT ELSEWHERE CLASSIFIED (2) Lung mass Code(s): R91.8 - OTHER NONSPECIFIC ABNORMAL FINDING OF LUNG FIELD Assessment/Plan 71 year old lady with right pleural effusion:high protein negative cytology when fluid tested 11/21. Recent CT chest with decreased fluid and (unmasked?) density in area previously obscured by fluid. FNAB:negative for malignancy. Respiratory status stable post thoracentesis despite pneumothorax-possible trapped lung. Dr. Epps's consult appreciated. CT has been removeed and pt's respiratory status continues to be stable. Suggest: Case discussed with Dr. Greenwood: patient stable for discharge. F/U CXR as outpt.
[2016-08-17 15:26] VITALS: BP 136/72; PULSE 73; TEMP 98.4
== END 2016-08-17 15:42 | DRG 200 ==
LOC: JRADIR 08:36 → J8W 12:41 → JRADIR 12:42 → J8W 12:42
PROVIDERS: ADMIT Internal Medicine; ATTEND Internal Medicine
PROC: 0W993ZX Drainage of Right Pleural Cavity, Percutaneous Approach, Diagnostic (ICD-10-PCS; 2016-08-10)
PROC: 0BBF3ZX Excision of Right Lower Lung Lobe, Percutaneous Approach, Diagnostic (ICD-10-PCS; principal; 2016-08-11)
PROC: 0BPQX0Z Removal of Drainage Device from Pleura, External Approach (ICD-10-PCS; 2016-08-16)
DX: J95.811 Postprocedural pneumothorax (principal); J90 Pleural effusion, not elsewhere classified; I69.354 Hemiplegia and hemiparesis following cerebral infarction affecting left non-dominant side; G20 Parkinson's disease; F02.80 Dementia in other diseases classified elsewhere, unspecified severity, without behavioral disturbance, psychotic disturbance, mood disturbance, and anxiety; D64.9 Anemia, unspecified; E78.5 Hyperlipidemia, unspecified; I11.0 Hypertensive heart disease with heart failure; I50.9 Heart failure, unspecified; R91.8 Other nonspecific abnormal finding of lung field; R14.0 Abdominal distension (gaseous); J44.9 Chronic obstructive pulmonary disease, unspecified; Z87.891 Personal history of nicotine dependence; Y83.8 Other surgical procedures as the cause of abnormal reaction of the patient, or of later complication, without mention of misadventure at the time of the procedure; Z85.3 Personal history of malignant neoplasm of breast
CPT/HCPCS: 32405; 32557; 36415; 71010-TC; 71020-TC; 76098-TC; 77012-TC; 80048; 80053; 82042; 82150; 82438; 82945; 83615; 84157; 84311; 84478; 85025; 85027; 85610; 87070; 87075; 87102; 87116; 87186; 87205; 87206; 87210; 87899; 88108; 88305-TC; 89051; C1729; J0885

== ENCOUNTER 2016-09-27 14:22 | Emergency (ER) | payer OTHER ==
[2016-09-27 14:49] VITALS: PULSE 65; TEMP 98.3; BMI 40.1
--- NOTE | 2016-09-27 15:39 | PDOC ---
History of Present Illness - General Chief Complaint: Abscess Boil Stated Complaint: ABSCESS Time Seen by Provider: 09/27/16 14:59 History Source: Patient Exam Limitations: No Limitations - History of Present Illness Initial Comments: CHIEF COMPLAINT: 71 y/o afebrile female with PMH HTN, HLD, DM, CVA with left sided deficit BIB EMS from [facility] for right lower extremity abscess. HISTORY OF PRESENT ILLNESS: The patient states she doesn't know how long the swelling has been on her leg. Her doctor at the [facility] noticed it today. She states it is painful to touch. She denies f/c, n/v/d, CP, SOB, abd pain, decreased ROM of affected leg. Vital signs on arrival are within normal limits. REVIEW OF SYSTEMS: GENERAL/CONSTITUTIONAL: No fever/chills. No weakness. No weight change. HEAD, EYES, EARS, NOSE AND THROAT: No change in vision. No ear pain or discharge. No sore throat. CARDIOVASCULAR: No chest pain or shortness of breath. RESPIRATORY: No cough, wheezing, or hemoptysis. GASTROINTESTINAL: No abd pain, nausea, vomiting, diarrhea. GENITOURINARY: No dysuria, frequency, or change in urination. MUSCULOSKELETAL: +swelling and redness to right lower leg. No neck or back pain. SKIN: No rash or easy bruising. NEUROLOGIC: No headache, vertigo, loss of consciousness, or loss of sensation. PHYSICAL EXAM: VITAL_SIGNS: within normal limits GENERAL_APPEARANCE: alert, cooperative, no obvious discomfort. MENTAL_STATUS: speech clear, oriented X 3, responds appropriately to questions. NEURO: motor intact and sensory intact in injured extremity. EXTREMITIES: good pulse in injured extremity. 10cm x 9cm very fluctuant, warm, raised abscess to middle right tibia without streaking. Right calf pain with palpation. SKIN: warm, dry, good color. Past History - Past Medical History Allergies/Adverse Reactions: Allergies Allergy/AdvReac Type Severity Reaction Status Date / Time No Known Drug Allergies Allergy Verified 09/27/16 14:47 Home Medications: Ambulatory Orders Acetaminophen [Tylenol .Extra-Strength -] 500 mg PO QID 05/12/15 Amlodipine Besylate 10 mg PO DAILY 05/12/15 Budesonide/Formeterol Fumarate [SYMBICORT 80/4.5mcg -] 1 inh PO BID 05/12/15 Carvedilol [Coreg] 25 mg PO BID 05/12/15 Ferrous Sulfate 325 mg PO DAILY 05/12/15 Hydralazine HCl 10 mg PO TID 05/12/15 Tramadol HCl [Ultram -] 50 mg PO BID 05/12/15 Calcium Acetate [Phoslo -] 667 mg PO TIDCM 11/19/15 Duloxetine HCl [Cymbalta -] 60 mg PO DAILY 11/19/15 Omeprazole [Prilosec] 40 mg PO DAILY 11/19/15 Risperidone [Risperdal -] 0.5 mg PO BID 11/19/15 Bupropion HCl [Wellbutrin -] 75 mg PO DAILY #30 tablet 12/03/15 Folic Acid - 1 mg PO DAILY #30 tablet 12/03/15 Clobetasol Propionate/Emoll [Clobetasol Emollient 0.05% Crm] 30 gm TP HS Epoetin Osmar [Procrit] 10,000 unit IJ WEEKLY 02/11/16 Insulin (Levemir) [Levemir Vial] 5 units SQ HS ml 02/13/16 Isosorbide Mononitrate [Isosorbide Mononitrate ER] 30 mg PO DAILY 08/09/16 Tiotropium [place] [Spiriva] 18 mcg IH DAILY 08/09/16 Furosemide [Lasix -] 20 mg PO Q2D@0900 #30 tablet 08/17/16 Polyethylene Glycol 3350 [Miralax 119 gm Btl -] 17 gm PO DAILY PRN #30 bottle Cephalexin Monohydrate [Keflex -] 500 mg PO BID #20 capsule 09/27/16 Lactulose [Enulose] 10 gm PO HS 09/27/16 Sulfamethoxazole/Trimethoprim [Bactrim Ds -] 1 tab PO BID #20 tablet 09/27/16 Anemia: Yes Asthma: No Cancer: Yes (breast cancer) Cardiac Disorders: Yes (CHF, CAD) CVA: Yes (DYSPHAGIA,LEFT HEMIPARESIS) COPD: Yes CHF: No Dementia: No Diabetes: Yes (iddm) GI Disorders: Yes (CONSTIPATION,GERD) Disorders: Yes (neurogenic bladder,urinary retention) HTN: Yes Hypercholesterolemia: No Liver Disease: No Seizures: No Thyroid Disease: No - Surgical History Abdominal Surgery: Yes (laparotomy,hernia repair with mesh placement..) Appendectomy: No Cardiac Surgery: No Cholecystectomy: No Lung Surgery: No Neurologic Surgery: No Orthopedic Surgery: Yes (right tkr,pt wears lt foot immobilizer) - Immunization History Td Vaccination: Yes TDAP Vaccination: Yes Immunization Up to Date: Yes - Psycho/Social/Smoking Cessation Hx Anxiety: No Suicidal Ideation: No Smoking Status: No Smoking History: Former smoker Years of Tobacco Use: 0 Have you smoked in the past 12 months: No Number of Cigarettes Smoked Daily: 20 If you are a former smoker, when did you quit?: 15 yrs ago Cigars Per Day: 0 Information on smoking cessation initiated: No 'Breaking Loose' booklet given: 10/05/13 Hx Alcohol Use: No Drug/Substance Use Hx: No Substance Use Type: None Hx Substance Use Treatment: No *Physical Exam - Vital Signs Last Vital Signs Temp Pulse Resp BP Pulse Ox 98.3 F 65 20 152/72 98 09/27/16 14:47 09/27/16 14:47 09/27/16 14:47 09/27/16 14:47 09/27/16 14:47 Procedures - Incision and Drainage I&D Site: Right: Leg Betadine cleansed: Yes Blade Size: 18 gauge needle ED Treatment Course - LABORATORY CBC & Chemistry Diagram: 09/27/16 15:40 09/27/16 15:40 Medical Decision Making - Medical Decision Making A/P: 71 y/o afebrile female with right LE abscess for unknown duration. Plan is as follows: 1. Labs 2. Xray right LE to r/o osteomyelitis 3. US to r/o DVT Labs with elevated WBC count and left shift Xray right LE IMPRESSION: No osteomyelitis. US right LE IMPRESSION: No DVT. hematoma vs abscess. I&D the abscess with 18 gauge needle. Expresssed approximately 6mL of blood. No purulent discharge noted. Sent wound culture. Will discharge to home with rx for bactrim and keflex. Provided first dose in the ER. Gave tramadol for pain. Covered wound. Instructed her to take abx as prescribed for 10 days and return to the ER with any worsening or concerning symptoms. The patient verbalizes understanding of all instructions, has no further questions and is awaiting discharge. *DC/Admit/Observation/Transfer Diagnosis at time of Disposition: Abscess of leg Hematoma of leg Qualifiers: Encounter type: initial encounter Laterality: right Qualified Code(s): S80.11XA - Contusion of right lower leg, initial encounter - Discharge Dispostion [facility]position[facility] Condition at time of disposition: Good - Prescriptions Prescriptions: Sulfamethoxazole/Trimethoprim [Bactrim Ds -] 1 tab PO BID #20 tablet Cephalexin Monohydrate [Keflex -] 500 mg PO BID #20 capsule - Referrals Referrals: Vanessa Norman MD [Primary Care Provider] - - Patient Instructions Printed Discharge Instructions: DI for Incision and Drainage of a Skin Abscess Additional Instructions: Discharge Instructions: -Apply warm compresses to the affected area -2 antibiotic prescriptions were sent to your pharmacy; please take as prescribed for entire 10 days -Follow up with your doctor in 1 week -Return to the ER with any worsening or concerning symptoms
[2016-09-27 16:10] LABS: BASOPHIL 0.6 % (0-2.0); EOSINOPHIL 3.4 % (0-4.5); MCH 24.9 pg (25.7-33.7); MCHC 31.5 g/dl (32.0-36.0); MEAN PLT VOLUME 7.7 fl (7.5-11.1); NEUTROPHILS 81.2 % (42.8-82.8); PLATELET COUNT 172 K/MM3 (134-434); RDW 19.3 % (11.6-15.6); WHITE BLOOD COUNT 10.2 K/mm3 (4.0-10.0)
--- NOTE | 2016-09-27 16:41 | PDOC ---
*Physical Exam - Vital Signs Last Vital Signs Temp Pulse Resp BP Pulse Ox 98.3 F 65 20 152/72 98 09/27/16 14:47 09/27/16 14:47 09/27/16 14:47 09/27/16 14:47 09/27/16 14:47 ED Treatment Course - LABORATORY CBC & Chemistry Diagram: 09/27/16 15:40 09/27/16 15:40 - ADDITIONAL ORDERS Additional order review: 09/27/16 15:40 RBC 3.68 MCV 79.0 L MCHC 31.5 L RDW 19.3 H MPV 7.7 Neutrophils % 81.2 Lymphocytes % 10.3 Monocytes % 4.5 Eosinophils % 3.4 Basophils % 0.6 Medical Decision Making - Medical Decision Making 09/27/16 16:41 Pt seen by the Advanced Practice Provider under my direct supervision Ancillary studies reviewed I agree with plan as outlined by the Advanced Practice Provider AMANDA Young *DC/Admit/Observation/Transfer Diagnosis at time of Disposition: Abscess of leg, Hematoma of leg - Discharge Dispostion Disposition: [facility] Condition at time of disposition: Good - Prescriptions Prescriptions: Sulfamethoxazole/Trimethoprim [Bactrim Ds -] 1 tab PO BID #20 tablet Cephalexin Monohydrate [Keflex -] 500 mg PO BID #20 capsule - Referrals Referrals: Vanessa Norman MD [Primary Care Provider] - - Patient Instructions Printed Discharge Instructions: DI for Incision and Drainage of a Skin Abscess Additional Instructions: Discharge Instructions: -Apply warm compresses to the affected area -2 antibiotic prescriptions were sent to your pharmacy; please take as prescribed for entire 10 days -Follow up with your doctor in 1 week -Return to the ER with any worsening or concerning symptoms
[2016-09-27 16:48] LABS: ALBUMIN 2.2 g/dl (3.4-5.0); BILIRUBIN,TOTAL 0.4 mg/dL (0.2-1.0); CALCIUM 9.5 mg/dL (8.5-10.1); COCKROFT - GAULT 42.364; CREATININE 2.1 mg/dL (0.55-1.02); TOT PROT 7.1 g/dl (6.4-8.2)
[2016-09-27] MEDS ORDERED: CEPHALEXIN MONOHYDRATE 500 MG CAPSULE (UD) PO ONE (18:19)
[2016-09-27] MEDS ORDERED: SULFAMETHOXAZOLE/TRIMETHOPRIM 800MG/160MG D.S. TABLET PO ONE (18:19)
[2016-09-27] MEDS ORDERED: SULFAMETHOXAZOLE/TRIMETHOPRIM 800MG/160MG D.S. TABLET ONE (18:29)
[2016-09-27] MEDS ORDERED: CEPHALEXIN MONOHYDRATE 250 MG CAPSULE (FP) ONE (18:30)
[2016-09-27] MEDS ORDERED: traMADol HCL 50 MG TABLET PO ONE (18:56)
[2016-09-27] MEDS ORDERED: traMADol HCL 50 MG TABLET ONE (19:27)
[2016-09-27 19:39] VITALS: BP 121/50
== END 2016-09-27 20:20 ==
LOC: JER 14:22
PROC: 0H9LXZZ Drainage of Left Lower Leg Skin, External Approach (ICD-10-PCS; principal; 2016-09-27)
DX: L02.416 Cutaneous abscess of left lower limb (principal); I10 Essential (primary) hypertension; E78.00 Pure hypercholesterolemia, unspecified; E11.9 Type 2 diabetes mellitus without complications; Z79.4 Long term (current) use of insulin; I69.891 Dysphagia following other cerebrovascular disease; I69.854 Hemiplegia and hemiparesis following other cerebrovascular disease affecting left non-dominant side; R13.19 Other dysphagia
CPT/HCPCS: 10160; 36415; 73590-TC-RT; 80053; 85025; 87070; 87205; 93971-TC; 99283-25

== ENCOUNTER 2016-12-01 08:24 | Day surgery (SDC) | payer OTHER ==
[2016-11-30 16:48] VITALS: BMI 28.3
[2016-12-01 09:11] VITALS: TEMP 97.9
[2016-12-01 13:55] VITALS: BP 144/76; PULSE 71
== END 2016-12-01 13:00 ==
LOC: JRADIR 08:24
PROVIDERS: ATTEND Internal Medicine
PROC: 0JH63XZ Insertion of Tunneled Vascular Access Device into Chest Subcutaneous Tissue and Fascia, Percutaneous Approach (ICD-10-PCS; principal; 2016-12-01)
PROC: 02HV33Z Insertion of Infusion Device into Superior Vena Cava, Percutaneous Approach (ICD-10-PCS; 2016-12-01)
PROC: B518ZZA Fluoroscopy of Superior Vena Cava, Guidance (ICD-10-PCS; 2016-12-01)
DX: L03.90 Cellulitis, unspecified (principal)
CPT/HCPCS: 36558; 77001-TC; C1751

== ENCOUNTER 2016-12-27 12:17 | Emergency (ER) | payer OTHER ==
[2016-12-27 12:44] VITALS: BMI 24.2
--- NOTE | 2016-12-27 13:17 | PDOC ---
Attending Attestation - Resident Resident Name: Juan Rooney - ED Attending Attestation I have performed the following: I have examined & evaluated the patient, The case was reviewed & discussed with the resident, I agree w/resident's findings & plan, Exceptions are as noted - HPI HPI: 12/27/16 14:00 71yo F NH resident hx dementia, parkinsons, GERD, constipation, CKFD, IDDM, HTN p/w "black tarry stool" visualized by staff in the intermediate. History from patient limited 2/2 dementia. Pt complained initially of CP to Dr. Rooney but denies CP to me. She otherwise denies fevers, chills, SOB, abd pain, LE edema, N /V/D, headache. - Physicial Exam PE: 12/27/16 14:01 GENERAL: Awake, alert, oriented to name and place, year is 2001, in no acute distress HEAD: No signs of trauma EYES: PERRLA, EOMI, sclera anicteric, conjunctiva clear ENT: Auricles normal inspection, hearing grossly normal, nares patent, oropharynx clear without exudates. Moist mucosa NECK: Normal ROM, supple, no lymphadenopathy, JVD, or masses LUNGS: Breath sounds equal, clear to auscultation bilaterally. No wheezes, and no crackles HEART: Regular rate and rhythm, normal S1 and S2, no murmurs, rubs or gallops ABDOMEN: Soft, nontender, normoactive bowel sounds. No guarding, no rebound. No masses, possible mesh palpable in the mid abdominal area EXTREMITIES: Normal range of motion, no edema. No clubbing or cyanosis. No cords, erythema, or tenderness NEUROLOGICAL: Normal speech, cranial nerves intact, negative pronator drift, 5/ 5 strength in all 4 extremities, normal sensation to light touch in all 4 extremities, normal cerebellar exam, normal gait, normal reflexes and tone SKIN: Warm, Dry, normal turgor, no rashes or lesions noted. Stool guauic negative - Medical Decision Making 12/27/16 16:49 71-year-old female with multiple medical problems presents from intermediate with black tarry stools. Exam here with greenish brown stools that are guaiac negative. Will check blood work to ensure the patient is not anemic as the intermediate was concerned about anemia. Will also check other labs including a troponin since patient initially expressed chest pain to Dr. Rooeny, but denied to me and the nurse. I spoke with staff at the intermediate who confirmed she was sent for dark stools and did not complain of CP to them. Will check two troponins to eval for ACS -labs -EKG -reassess
[2016-12-27 13:43] LABS: BASOPHIL 0.6 % (0-2.0); EOSINOPHIL 3.2 % (0-4.5); MCH 24.7 pg (25.7-33.7); MCHC 31.1 g/dl (32.0-36.0); MEAN CELL VOLUME 79.5 fl (80-96); MEAN PLT VOLUME 9.3 fl (7.5-11.1); NEUTROPHILS 85.4 % (42.8-82.8); PLATELET COUNT 198 K/MM3 (134-434); RDW 20.1 % (11.6-15.6); WHITE BLOOD COUNT 12.4 K/mm3 (4.0-10.0)
--- NOTE | 2016-12-27 14:06 | PDOC ---
History of Present Illness - General Chief Complaint: Rectal Bleed Stated Complaint: BLOOD IN STOOL Time Seen by Provider: 12/27/16 12:45 - History of Present Illness Initial Comments: 12/27/16 13:58 71F w/ hx of dementia, CKD, chronic constipation, GERD, neuromuscular dysfunction of bladder, HTN, IDDM presenting from [facility] on the [facility] after [place] nurse saw foul smelling black stool. Pt's history is unreliable due to hx of dementia, but she does endorse rectal pain and chest pain. She denies fevers, chills, SOB, abdominal pain, diarrhea, and dysuria. 12/27/16 14:37 12/27/16 14:46 12/27/16 16:37 Past History - Past Medical History Allergies/Adverse Reactions: Allergies Allergy/AdvReac Type Severity Reaction Status Date / Time No Known Drug Allergies Allergy Verified 09/27/16 14:47 Home Medications: Ambulatory Orders Acetaminophen 500 mg PO DAILY 12/27/16 Amlodipine Besylate 10 mg PO DAILY 12/27/16 Betamethasone Dipr 0.05% Oint [Diprolene] 50 gm .ROUTE ASDIR 12/27/16 Budesonide/Formeterol Fumarate [SYMBICORT 80/4.5mcg -] 1 inh PO BID 12/27/16 Bupropion HCl [Wellbutrin -] 75 mg PO DAILY 12/27/16 Calcium Acetate [Calphron] 667 mg PO TID 12/27/16 Carvedilol 25 mg PO BID 12/27/16 Cholecalciferol (Vitamin D3) [Vitamin D3 -] 400 unit PO DAILY 12/27/16 Duloxetine HCl [Cymbalta] 20 mg PO DAILY 12/27/16 Duloxetine HCl [Cymbalta] 60 mg PO DAILY 12/27/16 Epoetin Osmar [Procrit] 10,000 unit IJ ASDIR 12/27/16 Ferrous Sulfate [Feosol] 324 mg PO BID 12/27/16 Hydralazine HCl 10 mg PO TID 12/27/16 Insulin (Levemir) [Levemir Flexpen -] 8 units SQ DAILY 12/27/16 Isosorbide Mononitrate [Isosorbide Mononitrate ER] 30 mg PO DAILY 12/27/16 Lactulose [Enulose] 10 gm PO HS 12/27/16 Omeprazole 40 mg PO DAILY 12/27/16 Polyethylene Glycol 3350 [Miralax (For Daily Use) -] 17 gm PO DAILY 12/27/16 Risperidone [Risperdal -] 0.5 mg PO BID 12/27/16 Tiotropium [place] [Spiriva] 1 inh IH DAILY 12/27/16 Tramadol HCl 50 mg PO BID 12/27/16 Anemia: Yes Asthma: No Cancer: Yes (breast cancer) Cardiac Disorders: Yes (CHF, CAD) CVA: Yes (DYSPHAGIA,LEFT HEMIPARESIS) COPD: Yes CHF: No Dementia: No Diabetes: Yes (iddm) GI Disorders: Yes (CONSTIPATION,GERD) Disorders: Yes (neurogenic bladder,urinary retention) HTN: Yes Hypercholesterolemia: No Liver Disease: No Seizures: No Thyroid Disease: No Comment:: 12/27/16 14:39 PMH: HTN, IDDDM,MDD, constipation, ROWAN, afib, abscess of LEs, GERD, CKD, COPD, dementia, parkinsons, loculated effusion w/ PTX, neuromuscular dysfunction of bladder - Surgical History Abdominal Surgery: Yes (laparotomy,hernia repair with mesh placement..) Appendectomy: No Cardiac Surgery: No Cholecystectomy: No Lung Surgery: No Neurologic Surgery: No Orthopedic Surgery: Yes (right tkr,pt wears lt foot immobilizer) - Immunization History Td Vaccination: Yes TDAP Vaccination: Yes Immunization Up to Date: Yes - Psycho/Social/Smoking Cessation Hx Anxiety: No Suicidal Ideation: No Smoking Status: No Smoking History: Unknown if ever smoked Years of Tobacco Use: 0 Have you smoked in the past 12 months: No Number of Cigarettes Smoked Daily: 20 If you are a former smoker, when did you quit?: 15 yrs ago Cigars Per Day: 0 Information on smoking cessation initiated: No 'Breaking Loose' booklet given: 10/05/13 Hx Alcohol Use: No Drug/Substance Use Hx: No Substance Use Type: None Hx Substance Use Treatment: No Review of Systems - Review of Systems Able to Perform ROS?: No (dementia) Comments:: 12/27/16 16:37 *Physical Exam - Vital Signs Last Vital Signs Temp Pulse Resp BP Pulse Ox 98.2 F 73 20 171/75 97 12/27/16 12:42 12/27/16 12:42 12/27/16 12:42 12/27/16 12:42 12/27/16 12:42 - Physical Exam Comments: 12/27/16 14:40 GENERAL: Awake, alert, and fully oriented, in distress HEAD: normocephalic, atraumatic HEENT: PERRLA, EOMI NECK: Normal ROM, supple, no lymphadenopathy, JVD, or masses HEART: Regular rate and rhythm, normal S1 and S2, no murmurs, rubs or gallops, peripheral pulses normal and equal bilaterally. LUNGS: CTAB, no wheezing, no rales ABDOMEN: vertical scar present, large 4cm x 8cm protruding mass underneath scar that is firm, obese abdomen, diffusely tender, erythema with abrasion underneath pannus fold in right groin : indwelling powers catheter draining yellow urine, about 100cc in bag EXTREMITIES: extensive stage 1 ulcers along medial thighs and in folds of buttocks. no edema in lower extremities. bandage on right LE overlying small swelling. NEUROLOGICAL: weakness in left hand and left leg Rectal exam: stage 1 ulcer around anus, stool appears green without gross evidence of blood or clots 12/27/16 14:46 12/27/16 14:47 ED Treatment Course - LABORATORY CBC & Chemistry Diagram: 12/27/16 13:30 12/27/16 12:54 - ADDITIONAL ORDERS Additional order review: 12/27/16 13:30 RBC 4.81 D MCV 79.5 L MCHC 31.1 L RDW 20.1 H MPV 9.3 D Neutrophils % 85.4 H Lymphocytes % 6.6 L D Monocytes % 4.2 Eosinophils % 3.2 Basophils % 0.6 Medical Decision Making - Medical Decision Making 12/27/16 14:46 71F w/ hx of dementia, CKD, chronic constipation, GERD, neuromuscular dysfunction of bladder, HTN, IDDM presenting from [facility] on the [facility] after [place] nurse saw foul smelling black stool. CBC: wbc of 12.4, Hgb of 11.9 up from 9.2 in September 2016 CMP: creatinine of 2.6, up from 2.1 in september 2016 Ca: 10.2 albumin: 2.5 stool occult: negative INR: 1.10 PTT: 30 cardiac profile: negative UA: 3+ wbc, 430 wbc, moderate bacteria Workup does not show evidence of GI bleed as Hgb has increased from last hospitalization, and stool occult blood test was negative. Cardiac workup was negative. UA does show evidence of a UTI. 12/27/16 14:49 12/27/16 14:52 12/27/16 16:38 12/27/16 18:32 12/27/16 18:33 12/27/16 18:34 12/27/16 18:35
[2016-12-27 14:08] LABS: INR 1.1 (0.82-1.09); PROTHROMBIN TIME (PATIENT) 12.1 SEC (9.98-11.88)
[2016-12-27 14:10] LABS: ALBUMIN 2.5 g/dl (3.4-5.0); ALK PHOS 72 U/L (45-117); ANION GAP 13 (8-16); BILIRUBIN,TOTAL 0.6 mg/dL (0.2-1.0); CALCIUM 10.2 mg/dL (8.5-10.1); CO2 21 mmol/L (21-32); CREATININE 2.6 mg/dL (0.55-1.02); GLUCOSE,RANDOM 88 mg/dL (74-106); SGPT/ALT 16 U/L (12-78); TOT PROT 7.7 g/dl (6.4-8.2)
[2016-12-27 14:11] LABS: ACTIVATED PTT 30.7 SECONDS (26.9-34.4)
[2016-12-27 14:13] LABS: SGOT/AST 30 U/L (15-37)
[2016-12-27 14:33] LABS: TROPONIN I < 0.02 ng/ml (0.00-0.05)
[2016-12-27 15:20] LABS: CPK 73 IU/L (26-192)
[2016-12-27] MEDS ORDERED: SODIUM CHLORIDE 500 ML IV STA (16:37)
--- NOTE | 2016-12-27 17:16 | EKG ---
Test Reason : Blood Pressure : / mmHG Vent. Rate : 094 BPM Atrial Rate : 094 BPM P-R Int : 182 ms QRS Dur : 086 ms QT Int : 368 ms P-R-T Axes : 051 034 016 degrees QTc Int : 460 ms NORMAL SINUS RHYTHM NORMAL ECG WHEN COMPARED WITH ECG OF 10-FEB-2016 22:40, T WAVE VARIATION Confirmed by KIRK MORGAN MD ([id number]) on 12/27/2016 5:16:24 PM Referred By: Confirmed By:KIRK MORGAN MD
[2016-12-27 17:40] LABS: URINE APPEARANCE CLOUDY; URINE BILIRUBIN NEGATIVE (NEGATIVE); URINE BLOOD 1+ (NEGATIVE); URINE COLOR YELLOW; URINE GLUCOSE (UA) NEGATIVE (NEGATIVE); URINE KETONE TRACE (NEGATIVE); URINE NITRITE NEGATIVE (NEGATIVE); URINE UROBILINOGEN NEGATIVE mg/dL (0.2-1.0)
[2016-12-27 17:42] LABS: URINE LEUK ESTERASE 3+ (NEGATIVE); URINE PROTEIN 3+ (NEGATIVE)
[2016-12-27 17:44] LABS: URINE BACTERIA MODERATE /hpf (NONE SEEN); URINE MUCUS RARE; URINE RBC 2 /hpf (0-3); URINE WBC 430 /hpf (3-5)
[2016-12-27] MEDS ORDERED: CEFTRIAXONE 1 GM in DEXTROSE 5%-WATER - 50 ML IVPB ONE (19:10)
[2016-12-27] MEDS ORDERED: CEFTRIAXONE 50 ML ONE (19:14)
--- NOTE | 2016-12-27 19:25 | PDOC ---
*Physical Exam - Vital Signs Last Vital Signs Temp Pulse Resp BP Pulse Ox 98.2 F 73 20 171/75 97 12/27/16 12:42 12/27/16 12:42 12/27/16 12:42 12/27/16 12:42 12/27/16 12:42 ED Treatment Course - LABORATORY CBC & Chemistry Diagram: 12/27/16 13:30 12/27/16 12:54 - ADDITIONAL ORDERS Additional order review: Laboratory Results 12/27/16 12/27/16 12/27/16 18:20 16:25 13:30 INR PTT (Actin FS) Sodium Potassium Chloride Carbon Dioxide Anion Gap BUN Creatinine Creat Clearance w eGFR Random Glucose Calcium Total Bilirubin AST ALT Alkaline Phosphatase Creatine Kinase Cancelled Troponin I Cancelled Total Protein Albumin Urine Color Yellow Urine Appearance Cloudy Urine pH 5.0 Urine Protein 3+ H Urine Glucose (UA) Negative Urine Ketones Trace H Urine Blood 1+ H Urine Nitrite Negative Urine Bilirubin Negative Urine Urobilinogen Negative Ur Leukocyte Esterase 3+ H Urine RBC 2 Urine WBC 430 Ur Epithelial Cells Rare Urine Bacteria Moderate Urine Mucus Rare Stool Occult Blood Blood Type A POSITIVE Antibody Screen Negative 12/27/16 12/27/16 12/27/16 13:30 12:54 12:54 INR 1.10 PTT (Actin FS) 30.7 Sodium 141 Potassium 4.5 Chloride 107 Carbon Dioxide 21 Anion Gap 13 BUN 48 H Creatinine 2.6 H D Creat Clearance w eGFR 18.25 Random Glucose 88 D Calcium 10.2 H Total Bilirubin 0.6 D AST 30 D ALT 16 Alkaline Phosphatase 72 Creatine Kinase 73 Troponin I < 0.02 Total Protein 7.7 Albumin 2.5 L Urine Color Urine Appearance Urine pH Urine Protein Urine Glucose (UA) Urine Ketones Urine Blood Urine Nitrite Urine Bilirubin Urine Urobilinogen Ur Leukocyte Esterase Urine RBC Urine WBC Ur Epithelial Cells Urine Bacteria Urine Mucus Stool Occult Blood Negative Blood Type Antibody Screen 12/27/16 13:30 RBC 4.81 D MCV 79.5 L MCHC 31.1 L RDW 20.1 H MPV 9.3 D Neutrophils % 85.4 H Lymphocytes % 6.6 L D Monocytes % 4.2 Eosinophils % 3.2 Basophils % 0.6 - Medications Given in the ED: ED Medications Discontinued Medications Generic Name Dose Route Start Last Admin Trade Name Freq PRN Reason Stop Dose Admin Sodium Chloride 500 mls @ 500 mls/hr 12/27/16 16:37 12/27/16 16:50 Normal Saline - IV 12/27/16 17:36 500 mls/hr ASDIR STA Administration Medical Decision Making - Medical Decision Making 12/28/16 00:[address] Cardona, manager application development for service admissions. Patient is non- toxic, afebrile. Last UCx shows sensitivity to multiple PO meds. Also of note, she has chronic indwelling catheter, so this may be colonization. Will DC to NH on PO meds. UCx pending. If abx need to be adjusted and she requires IV meds, will have to be called back. However, for now, she is stable for DC to NH. *DC/Admit/Observation/Transfer Diagnosis at time of Disposition: Recurrent UTI - Discharge Dispostion Disposition: HOME Condition at time of disposition: Stable Admit: No - Referrals Referrals: Bora Contreras [Primary Care Provider] - - Patient Instructions Printed Discharge Instructions: DI for Urinary Tract Infection (UTI) Additional Instructions: PLEASE GIVE BACTRIM 1 TAB BY MOUTH TWICE A DAY FOR 14 DAYS. URINE CULTURE HAS BEEN SENT. PLEASE FOLLOW UP RESULTS.
[2016-12-27 19:51] VITALS: TEMP 97.5
[2016-12-27 20:41] LABS: TROPONIN I 0.03 ng/ml (0.00-0.05)
[2016-12-28] MEDS ORDERED: CARVEDILOL 25 MG TABLET (FP) PO ONE (00:30)
[2016-12-28] MEDS ORDERED: CARVEDILOL 12.5 MG TABLET (FP) ONE (00:31)
[2016-12-28] MEDS ORDERED: METOPROLOL TARTRATE 5 MG/5 ML VIAL IVPUSH ONE (01:15)
[2016-12-28] MEDS ORDERED: METOPROLOL TARTRATE 5 MG/5 ML VIAL ONE (01:18)
[2016-12-28] MEDS ORDERED: hydrALAZINE HCL 20 MG/ML VIAL ONE (03:47)
[2016-12-28] MEDS ORDERED: hydrALAZINE HCL 20 MG/ML VIAL IVPUSH ONE (03:47)
[2016-12-28 05:29] VITALS: BP 135/62; PULSE 74
== END 2016-12-28 05:21 ==
LOC: JER 12:17
PROC: 3E0337Z Introduction of Electrolytic and Water Balance Substance into Peripheral Vein, Percutaneous Approach (ICD-10-PCS; principal; 2016-12-27)
PROC: 3E03329 Introduction of Other Anti-infective into Peripheral Vein, Percutaneous Approach (ICD-10-PCS; 2016-12-27)
PROC: 3E033GC Introduction of Other Therapeutic Substance into Peripheral Vein, Percutaneous Approach (ICD-10-PCS; 2016-12-27)
DX: N39.0 Urinary tract infection, site not specified (principal); I12.9 Hypertensive chronic kidney disease with stage 1 through stage 4 chronic kidney disease, or unspecified chronic kidney disease; E11.22 Type 2 diabetes mellitus with diabetic chronic kidney disease; N18.9 Chronic kidney disease, unspecified; Z79.4 Long term (current) use of insulin; K21.9 Gastro-esophageal reflux disease without esophagitis; K59.04 Chronic idiopathic constipation; F03.90 Unspecified dementia, unspecified severity, without behavioral disturbance, psychotic disturbance, mood disturbance, and anxiety; D64.9 Anemia, unspecified; Z85.3 Personal history of malignant neoplasm of breast; I69.852 Hemiplegia and hemiparesis following other cerebrovascular disease affecting left dominant side
CPT/HCPCS: 36415; 71010-TC; 80053; 81003; 81015; 82272; 84484; 85025; 85610; 85730; 86850; 86900; 86901; 87086; 87186; 93005; 93010; 96361; 96365; 96375; 99284-25

== ENCOUNTER 2017-04-20 14:45 | Inpatient (IN) | payer OTHER ==
[2017-04-20 15:19] VITALS: BMI 27.4
--- NOTE | 2017-04-20 15:34 | PDOC ---
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 Staff at her care facility report that she is refusing turning and positioning, dressing changes, and occasionally medications. She is a full code patient and her healthcare proxy is her daughter, Waleska Enriquez ( ). Past History - Past Medical History Allergies/Adverse Reactions: Allergies Allergy/AdvReac Type Severity Reaction Status Date / Time No Known Drug Allergies Allergy Verified 04/20/17 15:15 Home Medications: Ambulatory Orders Acetaminophen 500 mg PO DAILY 12/27/16 Amlodipine Besylate 10 mg PO DAILY 12/27/16 Betamethasone Dipr 0.05% Oint [Diprolene] 50 gm .ROUTE ASDIR 12/27/16 Budesonide/Formeterol Fumarate [SYMBICORT 80/4.5mcg -] 1 inh PO BID 12/27/16 Bupropion HCl [Wellbutrin -] 75 mg PO DAILY 12/27/16 Calcium Acetate [Calphron] 667 mg PO TID 12/27/16 Carvedilol 25 mg PO BID 12/27/16 Cholecalciferol (Vitamin D3) [Vitamin D3 -] 400 unit PO DAILY 12/27/16 Duloxetine HCl [Cymbalta] 20 mg PO DAILY 12/27/16 Duloxetine HCl [Cymbalta] 60 mg PO DAILY 12/27/16 Epoetin Osmar [Procrit] 10,000 unit IJ ASDIR 12/27/16 Ferrous Sulfate [Feosol] 324 mg PO BID 12/27/16 Hydralazine HCl 10 mg PO TID 12/27/16 Insulin (Levemir) [Levemir Flexpen -] 8 units SQ DAILY 12/27/16 Isosorbide Mononitrate [Isosorbide Mononitrate ER] 30 mg PO DAILY 12/27/16 Lactulose [Enulose] 10 gm PO HS 12/27/16 Omeprazole 40 mg PO DAILY 12/27/16 Polyethylene Glycol 3350 [Miralax (For Daily Use) -] 17 gm PO DAILY 12/27/16 Risperidone [Risperdal -] 0.5 mg PO BID 12/27/[address] Tiotropium [place] [Spiriva] 1 inh IH DAILY 12/27/16 Tramadol HCl 50 mg PO BID 12/27/16 Anemia: Yes Asthma: No Cancer: Yes (breast cancer) Cardiac Disorders: Yes (CHF, CAD) CVA: Yes (DYSPHAGIA,LEFT HEMIPARESIS) COPD: Yes CHF: No Dementia: No Diabetes: Yes (iddm) GI Disorders: Yes (CONSTIPATION,GERD) Disorders: Yes (neurogenic bladder,urinary retention) HTN: Yes Hypercholesterolemia: No Liver Disease: No Seizures: No Thyroid Disease: No Other medical history: extensive sacral wound 04/20/17 - Surgical History Abdominal Surgery: Yes (laparotomy,hernia repair with mesh placement..) Appendectomy: No Cardiac Surgery: No Cholecystectomy: No Lung Surgery: No Neurologic Surgery: No Orthopedic Surgery: Yes (right tkr,pt wears lt foot immobilizer) - Immunization History Td Vaccination: Yes TDAP Vaccination: Yes Immunization Up to Date: Yes - Suicide/Smoking/Psychosocial Hx Smoking Status: No Smoking History: Unknown if ever smoked Years of Tobacco Use: 0 Have you smoked in the past 12 months: No Number of Cigarettes Smoked Daily: 20 If you are a former smoker, when did you quit?: 15 yrs ago Cigars Per Day: 0 Information on smoking cessation initiated: No 'Breaking Loose' booklet given: 10/05/13 Hx Alcohol Use: No Drug/Substance Use Hx: No Substance Use Type: None Hx Substance Use Treatment: No Review of Systems - Review of Systems Able to Perform ROS?: No (cognitive deficit) *Physical Exam - Vital Signs Last Vital Signs Temp Pulse Resp BP Pulse Ox 100.4 F H 77 18 130/62 99 04/20/17 15:26 04/20/17 15:26 04/20/17 15:26 04/20/17 15:26 04/20/17 15:26 - Physical Exam General Appearance: Yes: Nourished, Other (alert, oriented to self and own birthdate and type of building only, answering simple questions appropriately). No: Apparent Distress HEENT: positive: EOMI, Normal Voice, Hearing Grossly Normal. negative: Scleral Icterus (R), Scleral Icterus (L), Nasal Congestion Neck: positive: Trachea midline, Supple. negative: Tender, Rigid Respiratory/Chest: positive: Lungs Clear, Normal Breath Sounds. negative: Respiratory Distress, Crackles, Rhonchi, Stridor, Wheezing Cardiovascular: positive: Regular Rhythm, Regular Rate. negative: Edema, Murmur Gastrointestinal/Abdominal: positive: Normal Bowel Sounds, Soft, Protuberent, Other (midline laparotomy scar). negative: Tender, Organomegaly, Pulsatile Mass , Guarding Musculoskeletal: positive: Normal Inspection. negative: Decreased Range of Motion, Vertebral Tenderness Extremity: positive: Normal Capillary Refill, Normal Inspection, Normal Range of Motion. negative: Tender, Cyanosis Integumentary: positive: Normal Color, Dry, Warm, Other (very dry peeling/ scaling skin on extremities, sacral and left superior gluteal decubitus ulcers without active bleeding, no purulent drainage but serous drainage). negative: Erythema, Rash, Bruising Neurologic: positive: cake cutter machine II-XII NML intact (grossly), Alert, Normal Mood/Affect , Normal Response, Other (motor strength decreased and contracture present in LUE) ED Treatment Course - LABORATORY CBC & Chemistry Diagram: 04/20/17 16:00 04/20/17 16:00 Medical Decision Making - Medical Decision Making 71 YOF with h/o sacral decubitus ulcers, UTI, neurogenic bladder with chronic indwelling Lambert, and IDDM. Presents with low-grade fever and refusal of ulcer care and some medications. On exam her rectal temp is 100.4, otherwise VS wnl. The patient is unable to provide the bulk of the information relevant to her medical history. She does answer some simple questions. She does have two sacral decubitus ulcers which are partial thickness, without erythema, serous drainage without pus. DDX IBNLT sepsis (Pt does not meet VS criteria but she is beta-blocked) from UTI , ulcer infection, PNA, etc. Ordered is CBCD, CMP, lactate, type and screen, coags, blood cx, UA, cx, CXR. 04/20/17 16:52 Ordered is flu swab. WBC is 13.7, ordered is vancomycin and Zosyn. Chemistries result with BUN 60 and Cr 2.9 (which is worse than prior baseline though patient has CKD). 04/20/17 18:17 UA results with e/o UTI. Symphony microblogged (PCP is Bora Contreras from [facility]). Spoke with Clair kwong for hospitalist team and the patient will be admitted to IP Med/Surg per Dr. Taylor. *DC/Admit/Observation/Transfer Diagnosis at time of Disposition: Acute on chronic renal insufficiency UTI (urinary tract infection) Qualifiers: Urinary tract infection type: acute cystitis Hematuria presence: without hematuria Qualified Code(s): N30.00 - Acute cystitis without hematuria - Discharge Dispostion Condition at time of disposition: Stable Admit: Yes - Referrals - Patient Instructions - Post Discharge Activity
[2017-04-20] MEDS ORDERED: SODIUM CHLORIDE 0.9% 1000 ML INFUS.BAG IV PRN (15:38)
[2017-04-20 16:21] LABS: VENOUS PC02 38.4 mmHg (38-52); VENOUS PH 7.37 (7.32-7.42); VENOUS PO2 43.7 mmHg (28-48)
[2017-04-20 16:40] LABS: BASO % 0.5 % (0-2.0); HEMATOCRIT 27.3 % (32.4-45.2); HEMOGLOBIN 8.6 GM/dL (10.7-15.3); LYMPH % 2.8 % (8-40); MCH 24.8 pg (25.7-33.7); MCHC 31.7 g/dl (32.0-36.0); MEAN CELL VOLUME 78.3 fl (80-96); MEAN PLT VOLUME 8.8 fl (7.5-11.1); MONO % 4.1 % (3.8-10.2); NEUT % 90.6 % (42.8-82.8); PLATELET COUNT 226 K/MM3 (134-434); RBC 3.48 M/mm3 (3.60-5.2); RDW 22.1 % (11.6-15.6); WHITE BLOOD COUNT 13.7 K/mm3 (4.0-10.0)
[2017-04-20 16:43] LABS: ADD RBC MORPHOLOGY YES
[2017-04-20] MEDS ORDERED: VANCOMYCIN 1 GRAM (PRE-DOCKED) 1,000 MG/250 ML BAG IVPB ONE ×2 (16:49→17:10)
[2017-04-20] MEDS ORDERED: PIPERACILLIN/TAZOB 3.375 GM/50 ML PRE-DOCKED IVPB ONE (16:52)
[2017-04-20 16:55] LABS: INR 1.14 (0.82-1.09); PROTHROMBIN TIME (PATIENT) 12.9 SEC (9.98-11.88)
[2017-04-20 16:58] LABS: ACTIVATED PTT 27.1 SECONDS (26.9-34.4)
[2017-04-20 17:07] LABS: ALBUMIN 1.9 g/dl (3.4-5.0); ANION GAP 12 (8-16); BILIRUBIN,TOTAL 0.4 mg/dL (0.2-1.0); BLOOD UREA NITROGEN 60 mg/dL (7-18); CALCIUM 9.3 mg/dL (8.5-10.1); CHLORIDE 102 mmol/L (98-107); CO2 21 mmol/L (21-32); CREATININE 2.9 mg/dL (0.55-1.02); GLUCOSE,RANDOM 121 mg/dL (74-106); POTASSIUM 4.4 mmol/L (3.5-5.1); SGOT/AST 40 U/L (15-37); SGPT/ALT 52 U/L (12-78); SODIUM 135 mmol/L (136-145)
[2017-04-20 17:10] LABS: ALK PHOS 91 U/L (45-117)
[2017-04-20 17:49] LABS: URINE APPEARANCE CLOUDY; URINE BILIRUBIN NEGATIVE (NEGATIVE); URINE BLOOD 1+ (NEGATIVE); URINE COLOR YELLOW; URINE GLUCOSE (UA) NEGATIVE (NEGATIVE); URINE KETONE NEGATIVE (NEGATIVE); URINE NITRITE NEGATIVE (NEGATIVE); URINE UROBILINOGEN NEGATIVE mg/dL (0.2-1.0)
[2017-04-20 17:55] LABS: URINE LEUK ESTERASE 3+ (NEGATIVE); URINE PROTEIN 2+ (NEGATIVE)
[2017-04-20 17:57] LABS: EPI CELLS RARE /HPF (FEW); URINE BACTERIA MODERATE /hpf (NONE SEEN); URINE HYALINE CAST 4 /lpf; URINE MUCUS RARE
[2017-04-20] MEDS ORDERED: PIPERACILLIN/TAZOB 3.375 GM 3.375 GM/50 ML BAG IVPB ONE (18:10)
[2017-04-20] MEDS ORDERED: ACETAMINOPHEN 1000 MG/100 ML VIAL (NON FORMULARY) IVPB ONE (18:10)
[2017-04-20] MEDS ORDERED: SODIUM CHLORIDE 0.9% 1000 ML INFUS.BAG IV ONE (18:12)
[2017-04-20] MEDS ORDERED: ACETAMINOPHEN INJECTION 100 ML IVPB ONE (18:13)
--- NOTE | 2017-04-20 18:25 | PDOC ---
Attending Attestation - Resident Resident Name: Smiley Felipe - ED Attending Attestation I have performed the following: I have examined & evaluated the patient, The case was reviewed & discussed with the resident, I agree w/resident's findings & plan, Exceptions are as noted - HPI HPI: 04/20/17 19:27 71 F with h/o sacral decub ulcers, CKD, CVA, HTN, DM, COPD, urinary retention with chronic indwelling powers, presenting from SNF with fever. Per nursing staff , pt has been refusing care for her decubitus ulcers for several days. Today, pt was noted to have a low grade fever. Has not had any vomiting or diarrhea. No cough. - Physicial Exam PE: 04/20/17 19:29 General Appearance: Yes: Nourished, Other (alert, oriented to self and own birthdate and type of building only, answering simple questions appropriately). No: Apparent Distress HEENT: positive: EOMI, Normal Voice, Hearing Grossly Normal. negative: Scleral Icterus (R), Scleral Icterus (L), Nasal Congestion Neck: positive: Trachea midline, Supple. negative: Tender, Rigid Respiratory/Chest: positive: Lungs Clear, Normal Breath Sounds. negative: Respiratory Distress, Crackles, Rhonchi, Stridor, Wheezing Cardiovascular: positive: Regular Rhythm, Regular Rate. negative: Edema, Murmur Gastrointestinal/Abdominal: positive: Normal Bowel Sounds, Soft, Protuberent, Other (midline laparotomy scar). negative: Tender, Organomegaly, Pulsatile Mass , Guarding Musculoskeletal: positive: Normal Inspection. negative: Decreased Range of Motion, Vertebral Tenderness Extremity: positive: Normal Capillary Refill, Normal Inspection, Normal Range of Motion. negative: Tender, Cyanosis Integumentary: positive: Normal Color, Dry, Warm, Other (very dry peeling/ scaling skin on extremities, sacral and left superior gluteal decubitus ulcers without active bleeding, no purulent drainage but serous drainage). negative: Erythema, Rash, Bruising Neurologic: positive: chamber worker II-XII NML intact (grossly), Alert, Normal Mood/Affect , Normal Response, Other (motor strength decreased and contracture present in LUE) - Medical Decision Making 04/20/17 19:29 71 F sent from [place] with fever. Found to be rectally febrile to 100.4 in ER. Likely urinary source, though pt also has deep decubitus ulcers. - Labs, cultures - CXR - UA - IV abx - Admit
[2017-04-20 19:21] LABS: ANISOCYTOSIS 2+; MACROCYTOSIS 1+
[2017-04-20 19:26] LABS: PLATELET ESTIMATE ADEQUATE
--- NOTE | 2017-04-20 20:33 | HP ---
<Rubén Wagner - Last Filed: 04/20/17 23:11> CHIEF COMPLAINT: sent for evaluation of agitation , worsening decubiti and suspected fever patijeffrey is complaining of lower back pain HISTORY OF PRESENT ILLNESS: 11 year old female with prior history of CVA and left sided paresis, mostly bedbound , sent from [facility] due to worsening decubiti, fever and agitation . PAST MEDICAL HISTORY: CKD CVA HTN DM COPD Chronic urinary retention Vital Signs Temperature 99.3 F 04/20/17 21:15 Pulse Rate 66 04/20/17 21:15 Respiratory Rate 20 04/20/17 21:15 Blood Pressure 134/57 04/20/17 21:15 O2 Sat by Pulse Oximetry (%) 100 04/20/17 21:15 CBC, BMP 04/20/17 16:00 04/20/17 16:00 Baseline creatinine 2.6 Urine Test Results Urine Color Yellow 04/20/17 17:40 Urine Appearance Cloudy 04/20/17 17:40 Urine pH 5.0 (5.0-8.0) 04/20/17 17:40 Ur Specific [place] 1.013 (1.001-1.035) 04/20/17 17:40 Urine Protein 2+ (NEGATIVE) H 04/20/17 17:40 Urine Glucose (UA) Negative (NEGATIVE) 04/20/17 17:40 Urine Ketones Negative (NEGATIVE) 04/20/17 17:40 Urine Blood 1+ (NEGATIVE) H 04/20/17 17:40 Urine Nitrite Negative (NEGATIVE) 04/20/17 17:40 Urine Bilirubin Negative (NEGATIVE) 04/20/17 17:40 Ur Leukocyte Esterase 3+ (NEGATIVE) H 04/20/17 17:40 Ur Epithelial Cells Rare /HPF (FEW) 04/20/17 17:40 Urine Bacteria Moderate /hpf (NONE SEEN) 04/20/17 17:40 Urine Mucus Rare 04/20/17 17:40 1. Infected left hip and sacral decubiti - SIRS / leukocytosis/ low grade fever . Asper josie she was recently [place] with antibiotics -IV Zosyn /vancomycin - evaluate for possible debridement - turn and position 2. Acute on chronic renal failure - possibly pre renal - encourage PO hydration - IVF 50cc hr / re evaluate after first L 3. Abnormal UA - colonized , chronic powers catheter Based on the need for parenteral antibiotics and surgiccal debridement , failure of treatment in an outpatient setting current plan of care meets medical necessity for inpatient hospitalization with anticipated length of stay greater then two midnights. <Cuong Blanchard - Last Filed: 04/21/17 04:14> CHIEF COMPLAINT: Fevers PCP: Dr. Rankin/Donnell HISTORY OF PRESENT ILLNESS: 71yo F with extensive medical history including, but not limited to DM, COPD , CKD, sacral decubitus ulcer, CVA, HTN, and urinary retention who presents from SNF for increasing fevers alongside with worsening bilateral buttock wounds and sacral decubitus ulcers. Pt is slightly altered and is alert and oriented to person, but not location and date (she states she lives here and that it is 2000). Pt currently reports feeling lousy, and feels warm with some intermittent chills. Pt reports no abdominal pain, CP/discomfort, SOB, n/v/d. Per SNF paperwork, pt has periodically refused care and has been agitated, however pt is pleasant currently. According to patient she had received antibiotics prior ER course was notable for: (1) Zosyn and Vancomycin 1gm given once (2) Tylenol x1 dose (3) UA showing 3+ leuk esterase, 75 wbcs, and Recent Travel: Deferred PAST MEDICAL HISTORY: CKD CVA HTN DM COPD Chronic indwelling catheter due to urinary retention Social History: Smoking: None Alcohol: none Drugs: None Family History: Deferred Allergies No Known Drug Allergies Allergy (Verified 04/20/17 15:15) HOME MEDICATIONS: Home Medications Medication Instructions Recorded Acetaminophen 500 mg PO DAILY 12/27/16 Amlodipine Besylate 10 mg PO DAILY 12/27/16 Betamethasone Dipr 0.05% Oint 50 gm .ROUTE ASDIR 12/27/16 [Diprolene] Budesonide/Formeterol Fumarate 1 inh PO BID 12/27/16 [SYMBICORT 80/4.5mcg -] Bupropion HCl [Wellbutrin -] 75 mg PO DAILY 12/27/16 Calcium Acetate [Calphron] 667 mg PO TID 12/27/16 Cholecalciferol (Vitamin D3) 400 unit PO DAILY 12/27/16 [Vitamin D3 -] Duloxetine HCl [Cymbalta] 20 mg PO DAILY 12/27/16 Duloxetine HCl [Cymbalta] 60 mg PO DAILY 12/27/16 Ferrous Sulfate [Feosol] 324 mg PO BID 12/27/16 Hydralazine HCl 10 mg PO TID 12/27/16 Insulin (Levemir) [Levemir Flexpen 8 units SQ DAILY 12/27/16 -] Isosorbide Mononitrate [Isosorbide 30 mg PO DAILY 12/27/16 Mononitrate ER] Lactulose [Enulose] 10 gm PO HS 12/27/16 Omeprazole 40 mg PO DAILY 12/27/16 Polyethylene Glycol 3350 [Miralax 17 gm PO DAILY 12/27/16 (For Daily Use) -] Risperidone [Risperdal -] 0.25 mg PO BID 12/27/16 Tiotropium [place] [Spiriva] 1 inh IH DAILY 12/27/16 Tramadol HCl 50 mg PO BID 12/27/16 Cranberry Fruit Concentrate 500 mg PO DAILY 04/20/17 [Cran-Max] Metoprolol Succinate [Toprol Xl] 100 mg PO DAILY 04/20/17 Silver/Calcium Alginate [Algicell 1 bandage TD DAILY 04/20/17 Ag 4"X5" Dressing] REVIEW OF SYSTEMS CONSTITUTIONAL: Present: fever, chills Absent: diaphoresis, generalized weakness, malaise, loss of appetite, weight change HEENT: Absent: rhinorrhea, nasal congestion, throat pain, throat swelling, difficulty swallowing, mouth swelling, ear pain, eye pain, visual changes CARDIOVASCULAR: Absent: chest pain, syncope, palpitations, irregular heart rate, lightheadedness , peripheral edema RESPIRATORY: Absent: cough, shortness of breath, dyspnea with exertion, orthopnea, wheezing, stridor, hemoptysis GASTROINTESTINAL: Absent: abdominal pain, abdominal distension, nausea, vomiting, diarrhea, melena , hematochezia GENITOURINARY: Absent: dysuria, frequency, urgency, hesitancy, hematuria, flank pain, genital pain MUSCULOSKELETAL: Absent: myalgia, arthralgia, joint swelling, back pain, neck pain SKIN: Absent: rash, itching, pallor HEMATOLOGIC/IMMUNOLOGIC: Absent: easy bleeding, easy bruising, lymphadenopathy, frequent infections ENDOCRINE: Absent: unexplained weight gain, unexplained weight loss, heat intolerance, cold intolerance NEUROLOGIC: Absent: headache, focal weakness or paresthesias, dizziness, unsteady gait, seizure, mental status changes, bladder or bowel incontinence PSYCHIATRIC: Absent: anxiety, depression, suicidal or homicidal ideation, hallucinations. PHYSICAL EXAMINATION Vital Signs - 24 hr 04/20/17 04/20/17 14:45 15:26 Temperature 98.2 F 100.4 F H Pulse Rate 82 Pulse Rate [ 77 Radial] Respiratory 18 18 Rate Blood Pressure 145/75 Blood Pressure 130/62 [Left] O2 Sat by Pulse 100 99 Oximetry (%) GENERAL: NAD, awake, alert, lying comfortably in bed HEENT: NT/AC, No JVD, dry mucosa LUNGS: CTA bilaterally. No wheezes, rhonchi, rales appreciated. No accessory muscle use. HEART: RRR, normal S1 and S2 without murmur ABDOMEN: Soft, nondistended, normoactive BS, slightly tender in lower quadrants with palpation, no guarding, no rebound, no masses. No hepatomegaly MUSCULOSKELETAL: No CVA tenderness. EXTREMITIES: Fragile flaking skin noted, no peripheral edema, 2+ DP pulses b/l, ulceration noted on lateral-plantar aspect of L great toe without any purulence or drainage from area. NEUROLOGICAL: Alert, oriented x1, CN II-XII intact. Normal speech. PSYCHIATRIC: Cooperative. Good eye contact. Appropriate mood and affect. SKIN: Extensive wound to left and right buttocks with sloughed material and pink wound borders, no active drainage currently, sacral decubitus ulcer with eschar area noted, no rashes noted throughout LINES/FOLEYS: Powers intact with purulence noted in tubing, cloudy yellow urine in bag about 150-200cc Laboratory Results - last 24 hr 04/20/17 04/20/17 04/20/17 16:00 16:00 16:00 WBC 13.7 H RBC 3.48 L D Hgb 8.6 L D Hct 27.3 L D MCV 78.3 L MCH 24.8 L MCHC 31.7 L RDW 22.1 H Plt Count 226 MPV 8.8 Neutrophils % 90.6 H Lymphocytes % 2.8 L D Monocytes % 4.1 Eosinophils % 2.0 Basophils % 0.5 Platelet Estimate Adequate Platelet Comment Poikilocytosis 1+ Anisocytosis 2+ Macrocytosis 1+ Fragmented RBCs 1+ PT with INR 12.90 H INR 1.14 PTT (Actin FS) 27.1 VBG pH 7.37 POC VBG pCO2 38.4 POC VBG pO2 43.7 Mixed VBG HCO3 21.9 Sodium Potassium Chloride Carbon Dioxide Anion Gap BUN Creatinine Creat Clearance w eGFR Random Glucose Lactic Acid Calcium Total Bilirubin AST ALT Alkaline Phosphatase Creatine Kinase Troponin I Total Protein Albumin Urine Color Urine Appearance Urine pH Ur Specific [place] Urine Protein Urine Glucose (UA) Urine Ketones Urine Blood Urine Nitrite Urine Bilirubin Urine Urobilinogen Ur Leukocyte Esterase Urine WBC (Auto) Urine RBC (Auto) Ur Epithelial Cells Urine Bacteria Hyaline Casts Urine Mucus Blood Type Antibody Screen 04/20/17 04/20/17 04/20/17 16:00 16:00 16:00 WBC RBC Hgb Hct MCV MCH MCHC RDW Plt Count MPV Neutrophils % Lymphocytes % Monocytes % Eosinophils % Basophils % Platelet Estimate Platelet Comment Poikilocytosis Anisocytosis Macrocytosis Fragmented RBCs PT with INR INR PTT (Actin FS) VBG pH POC VBG pCO2 POC VBG pO2 Mixed VBG HCO3 Sodium 135 L Potassium 4.4 Chloride 102 Carbon Dioxide 21 Anion Gap 12 BUN 60 H D Creatinine 2.9 H Creat Clearance w eGFR 16.09 Random Glucose 121 H D Lactic Acid 0.8 Calcium 9.3 Total Bilirubin 0.4 D AST 40 H D ALT 52 D Alkaline Phosphatase 91 D Creatine Kinase 55 Troponin I < 0.02 Total Protein 7.0 Albumin 1.9 L D Urine Color Urine Appearance Urine pH Ur Specific [place] Urine Protein Urine Glucose (UA) Urine Ketones Urine Blood Urine Nitrite Urine Bilirubin Urine Urobilinogen Ur Leukocyte Esterase Urine WBC (Auto) Urine RBC (Auto) Ur Epithelial Cells Urine Bacteria Hyaline Casts Urine Mucus Blood Type A POSITIVE Antibody Screen Negative 04/20/17 17:40 WBC RBC Hgb Hct MCV MCH MCHC RDW Plt Count MPV Neutrophils % Lymphocytes % Monocytes % Eosinophils % Basophils % Platelet Estimate Platelet Comment Poikilocytosis Anisocytosis Macrocytosis Fragmented RBCs PT with INR INR PTT (Actin FS) VBG pH POC VBG pCO2 POC VBG pO2 Mixed VBG HCO3 Sodium Potassium Chloride Carbon Dioxide Anion Gap BUN Creatinine Creat Clearance w eGFR Random Glucose Lactic Acid Calcium Total Bilirubin AST ALT Alkaline Phosphatase Creatine Kinase Troponin I Total Protein Albumin Urine Color Yellow Urine Appearance Cloudy Urine pH 5.0 Ur Specific [place] 1.013 Urine Protein 2+ H Urine Glucose (UA) Negative Urine Ketones Negative Urine Blood 1+ H Urine Nitrite Negative Urine Bilirubin Negative Urine Urobilinogen Negative Ur Leukocyte Esterase 3+ H Urine WBC (Auto) 75 Urine RBC (Auto) 10 Ur Epithelial Cells Rare Urine Bacteria Moderate Hyaline Casts 4 Urine Mucus Rare Blood Type Antibody Screen ASSESSMENT/PLAN: 71yo F with extensive medical history including, but not limited to DM, COPD, CKD, sacral decubitus ulcer, CVA, HTN, and urinary retention who presents from SNF for increasing fevers alongside with worsening bilateral buttock wounds and sacral decubitus ulcers found to meet sepsis criteria. UTI also noted based on UA results. 1) Sepsis --Secondary to UTI and decubiti --Chronic indwelling powers from nursing facility would be cautious for pseudomonas --Continued Vancomycin daily IV --Continue Zosyn 2.25 q8h IV (renally dosed) --ID consulted --Gentle hydration of NS @50cc/hr --Turn and position for decubiti --Wound care consulted --Appreciate input on wound management and ? surgical debridement 2) Acute on chronic kidney disease --Most likely pre-renal due to sepsis state --IVF 50cc/hr and will reassess --Encourage PO intake --Urine electrolytes 3) DM --BGM ACHS --continue Levemir 8 U HS --Continue ISS 4) HTN --Continue Norvasc 10mg PO daily --Continue Imdur 30mg PO daily --Continue Toprol XL 100mg PO daily 5) Constipation, chronic --continue Miralax --Continue Lactulose FEN: Fluids: NS@50cc/hr Electrolyte abnormalities: None currently PPX: DVT - Heparin 5000U SQ TID Dispo: Admit to M/S Case discussed with Dr. Bernard Blanchard, DO - Internal Medicine PGY-1 Visit type - Emergency Visit Emergency Visit: Yes ED Registration Date: 04/20/17 Care time: The patient presented to the Emergency Department on the above date and was hospitalized for further evaluation of their emergent condition. - New Patient This patient is new to me today: Yes Date on this admission: 04/21/17 - Critical Care Critical Care patient: No
[2017-04-20] MEDS ORDERED: ACETAMINOPHEN 1000 MG/100 ML VIAL (NON FORMULARY) IVPB PRN (21:58)
[2017-04-20] MEDS ORDERED: SODIUM CHLORIDE 1,000 ML IV SCH (23:15)
[2017-04-21] MEDS: HEPARIN NA (PORCINE) 5,000 UNITS/ML 1ML VIAL SQ SCH ×4 (02:00→23:01)
[2017-04-21] MEDS: LACTULOSE 20 GM/30 ML UDC (FOR ORAL USE ONLY) PO SCH ×2 (02:00→23:00)
[2017-04-21] MEDS ORDERED: PIPERACILLIN/TAZOB 2.25 GM 2.25 GM in DEXTROSE 5%-WATER - 50 ML IVPB ONE (02:00)
[2017-04-21] MEDS: FERROUS SO4 325 MG TABLET (FP) PO SCH ×3 (02:01→23:00)
[2017-04-21] MEDS: risperiDONE 0.5 MG TABLET (FP) PO SCH ×3 (02:01→23:00)
[2017-04-21] MEDS: hydrALAZINE HCL 10 MG TABLET PO SCH ×4 (02:13→23:02)
[2017-04-21] MEDS: INSULIN SLIDING SCALE (NOVOLOG) 1 VIAL SQ SCH ×5 (02:35→23:13)
[2017-04-21] MEDS: BUDESONIDE/FORMETEROL FUMARATE 80/4.5 mcg INHALER IH SCH ×3 (02:36→23:12)
[2017-04-21] MEDS: INSULIN DETEMIR 100 UNITS/ML MDV SQ SCH (06:01)
--- NOTE | 2017-04-21 08:17 | PN ---
Progress Note, Physician Chief Complaint: ID Full noted dictated Alert no distress Fever as noted - Current Medication List Current Medications: Active Medications Acetaminophen (Ofirmev Injection -) 1,000 mg IVPB Q6H PRN PRN Reason: FEVER OR PAIN Amlodipine Besylate (Norvasc -) 10 mg PO DAILY [facility] Budesonide/Formoterol Fumarate (Symbicort 80/4.5mcg -) 1 puff IH BID [facility] Last Admin: 04/21/17 02:36 Dose: Not Given Bupropion HCl (Wellbutrin -) 75 mg PO DAILY [facility] Calcium Acetate (Phoslo -) 667 mg PO TIDCM [facility] Cholecalciferol (Vitamin D3 -) 400 unit PO DAILY [facility] Ferrous Sulfate (Feosol -) 325 mg PO BID [facility] Last Admin: 04/21/17 02:01 Dose: 325 mg Heparin Sodium (Porcine) (Heparin -) 5,000 unit SQ TID [facility] Last Admin: 04/21/17 06:00 Dose: 5,000 unit Hydralazine HCl (Apresoline -) 10 mg PO TID [facility] Last Admin: 04/21/17 05:57 Dose: 10 mg Vancomycin HCl 1,250 mg/ (Dextrose) 250 mls @ 166.667 mls/hr IVPB DAILY@1700 [facility] PRN Reason: Protocol Piperacillin/Tazobactam/Dextrose (Zosyn 2.25gm Ivpb (Premix)) 2.25 gm in 50 mls @ 100 mls/hr IVPB Q8H-IV [facility] PRN Reason: Protocol Sodium Chloride (Normal Saline -) 1,000 mls @ 50 mls/hr IV ASDIR [facility] Last Admin: 04/21/17 02:06 Dose: 50 mls/hr Insulin Aspart (Novolog Vial Sliding Scale -) 1 vial SQ ACHS [facility] PRN Reason: Protocol Last Admin: 04/21/17 06:01 Dose: Not Given Insulin Detemir (Levemir Vial) 8 units SQ DAILY@0700 [facility] Last Admin: 04/21/17 06:01 Dose: 8 unit Isosorbide Mononitrate (Imdur -) 30 mg PO DAILY [facility] Lactulose (Cephulac (Oral Use)) 10 gm PO HS [facility] Last Admin: 04/21/17 02:00 Dose: 10 gm Metoprolol Succinate (Toprol Xl -) 100 mg PO DAILY [facility] Non-Formulary Medication (Silver/Calcium Alginate [Algicell Ag 4"X5" Dressing]) 1 bandage TD DAILY [facility] Polyethylene Glycol (Miralax (For Daily Use) -) 17 gm PO DAILY [facility] Risperidone (Risperdal -) 0.25 mg PO BID [facility] Last Admin: 04/21/17 02:01 Dose: 0.25 mg Tiotropium [place] (Spiriva -) 1 puff IH DAILY [facility] - Objective Vital Signs: Vital Signs Temperature 100.6 F H 04/21/17 06:00 Pulse Rate 71 04/21/17 06:00 Respiratory Rate 20 04/21/17 06:00 Blood Pressure 140/62 04/21/17 06:00 O2 Sat by Pulse Oximetry (%) 100 04/20/17 21:15 Constitutional: Yes: No Distress Cardiovascular: Yes: S1, S2. No: Murmur Respiratory: Yes: WNL, Regular, CTA Bilaterally Gastrointestinal: Yes: WNL, Normal Bowel Sounds, Soft. No: Tenderness, Tenderness, Rebound Extremities: Yes: Other (large gangrenous ulcer foul smelling) Labs: CBC, BMP 04/20/17 16:00 04/20/17 16:00 INR, PTT INR 1.14 (0.82-1.09) 04/20/17 16:00 Problem List - Problems (1) Infected decubitus ulcer Code(s): L89.90 - PRESSURE ULCER OF UNSPECIFIED SITE, UNSPECIFIED STAGE; L08.9 - LOCAL INFECTION OF THE SKIN AND SUBCUTANEOUS TISSUE, UNSP (2) UTI (urinary tract infection) Code(s): N39.0 - URINARY TRACT INFECTION, SITE NOT SPECIFIED Qualifiers: Urinary tract infection type: acute cystitis Hematuria presence: without hematuria Qualified Code(s): N30.00 - Acute cystitis without hematuria (3) Infection with multi-drug resistant microorganisms Code(s): Z16.35 - RESISTANCE TO MULTIPLE ANTIMICROBIAL DRUGS Assessment/Plan Microbiology 04/20/17 20:49 Nasopharyngeal Swab Influenza Types A,B Antigen (HENRY) - Final 04/20/17 20:49 Nasopharyngeal Swab - Final Laboratory Tests 04/20/17 04/20/17 04/20/17 16:00 16:00 17:40 WBC 13.7 H Hgb 8.6 L D Hct 27.3 L D Plt Count 226 Creat Clearance w eGFR 16.09 AST 40 H D ALT 52 D Alkaline Phosphatase 91 D Creatine Kinase 55 Ur Leukocyte Esterase 3+ H Urine WBC (Auto) 75 Urine RBC (Auto) 10 Assessment Infected decubitus ulcer with fever History of MDRO UTI ? Plan Cultures Isolate contact Anupama and Natalia Surgical consult debridement Negro MCWILLIAMS
[2017-04-21] MEDS: CALCIUM ACETATE 667 MG CAPSULE (FP) PO SCH ×3 (08:25→17:32)
[2017-04-21 09:12] LABS: BASO % 0.3 % (0-2.0); EOS % 3.1 % (0-4.5); HEMATOCRIT 28.4 % (32.4-45.2); HEMOGLOBIN 8.9 GM/dL (10.7-15.3); LYMPH % 4.2 % (8-40); MCH 24.8 pg (25.7-33.7); MCHC 31.3 g/dl (32.0-36.0); MEAN CELL VOLUME 79.3 fl (80-96); MEAN PLT VOLUME 8.2 fl (7.5-11.1); MONO % 5.2 % (3.8-10.2); NEUT % 87.2 % (42.8-82.8); PLATELET COUNT 216 K/MM3 (134-434); RBC 3.58 M/mm3 (3.60-5.2); RDW 21.8 % (11.6-15.6); WHITE BLOOD COUNT 13.1 K/mm3 (4.0-10.0)
[2017-04-21 09:53] LABS: CHLORIDE 105 mmol/L (98-107); POTASSIUM 4.2 mmol/L (3.5-5.1); SODIUM 137 mmol/L (136-145)
[2017-04-21] MEDS ORDERED: PIPERACILLIN/TAZOB 2.25 GM 2.25 GM/50 ML BAG IVPB SCH (10:00)
[2017-04-21 10:14] LABS: ALBUMIN 1.9 g/dl (3.4-5.0); ALK PHOS 106 U/L (45-117); ANION GAP 13 (8-16); BILIRUBIN,TOTAL 0.6 mg/dL (0.2-1.0); BLOOD UREA NITROGEN 52 mg/dL (7-18); CALCIUM 9.3 mg/dL (8.5-10.1); CO2 19 mmol/L (21-32); CREATININE 2.9 mg/dL (0.55-1.02); GLUCOSE,RANDOM 93 mg/dL (74-106); MAGNESIUM 1.8 mg/dL (1.8-2.4); PHOSPHOROUS 3.3 mg/dL (2.5-4.9); SGOT/AST 44 U/L (15-37); SGPT/ALT 54 U/L (12-78)
[2017-04-21] MEDS: CHOLECALCIFEROL (VITAMIN D3) 400 UNIT TABLET (FP) PO SCH (11:20)
[2017-04-21] MEDS: ISOSORBIDE MONONITRATE 30 MG TAB.SR.24H (FP) PO SCH (11:20)
[2017-04-21] MEDS: amLODIPine BESYLATE 10 MG TABLET (FP) PO SCH (11:21)
[2017-04-21] MEDS: buPROPion HCL 75 MG TABLET PO SCH (11:22)
[2017-04-21] MEDS: TIOTROPIUM BROMIDE 18 MCG/INH (DEVICE W/ 5 CAPSULES) IH SCH (11:23)
[2017-04-21] MEDS: PIPERACILLIN/TAZOB 2.25 GM 2.25 GM/50 ML BAG IVPB SCH ×2 (11:23→17:31)
[2017-04-21] MEDS: POLYETHYLENE GLYCOL 3350 119 GM BTL PO SCH (11:31)
--- NOTE | 2017-04-21 11:34 | EKG ---
Test Reason : Blood Pressure : / mmHG Vent. Rate : 075 BPM Atrial Rate : 075 BPM P-R Int : 186 ms QRS Dur : 088 ms QT Int : 360 ms P-R-T Axes : 022 032 026 degrees QTc Int : 402 ms POOR DATA QUALITY, INTERPRETATION MAY BE ADVERSELY AFFECTED NORMAL SINUS RHYTHM NORMAL ECG WHEN COMPARED WITH ECG OF 27-DEC-2016 13:10, QT HAS SHORTENED Confirmed by TORIN MCWILLIAMS, ARAMIS ([id number]) on 04/21/2017 11:34:26 AM Referred By: Confirmed By:ARAMIS HARKINS MD
--- NOTE | 2017-04-21 13:29 | PN ---
Progress Note (short form) - Note Progress Note: Vascular Surgery Pt seen and examined. Dressing changed. pt has unstable ulcer with eschar to bl buttocks. No signs of any pus. Please offload areas. Santyl to all wounds. No need for debridement as of now. Braden cazares DO
[2017-04-21] MEDS: SODIUM CHLORIDE 1,000 ML IV SCH ×2 (13:32→23:13)
[2017-04-21] MEDS: COLLAGENASE CLOSTRIDIUM HIST. 30 GRAMS TUBE TP SCH (13:33)
--- NOTE | 2017-04-21 13:46 | PN ---
Physical Exam: SUBJECTIVE: Patient seen and examined. Doing well, but states her buttocks still hurt. No dysuria or hematuria, but states her powers bag has been changed more frequently. OBJECTIVE: Vital Signs Period Temp Pulse Resp BP Sys/Benton Pulse Ox Last 24 Hr 98.2 F-100.6 F 65-82 18-20 130-147/57-75 99-100 GEN: AAOx3, NAD, Not very conversational, not ill appearing HEENT: PERRLA, EOMi CV: S1, S2, RRR with 2/6 systolic murmur LUNG: CTABL ABD: Soft but indurated, diffuse discomfort to palpation in all quadrants including suprapubic, no CVA tenderness MSK: No edema, no erythema SKIN: [id number] large superficial grade 1 ulceration on the buttock and sacral. Pinpoint area of purulence. Active Medications Generic Name Dose Route Start Last Admin Trade Name Freq PRN Reason Stop Dose Admin Acetaminophen 1,000 mg 04/20/17 21:58 Ofirmev Injection - IVPB Q6H PRN FEVER OR PAIN Amlodipine Besylate 10 mg 04/21/17 10:00 04/21/17 11:21 Norvasc - PO 10 mg DAILY [facility] Administration Budesonide/Formoterol Fumarate 1 puff 04/20/17 22:00 04/21/17 11:23 Symbicort 80/4.5mcg - IH 1 inh BID [facility] Administration Bupropion HCl 75 mg 04/21/17 10:00 04/21/17 11:22 Wellbutrin - PO Not Given DAILY [facility] Calcium Acetate 667 mg 04/21/17 08:00 04/21/17 11:20 Phoslo - PO 667 mg TIDCM [facility] Administration Cholecalciferol 400 unit 04/21/17 10:00 04/21/17 11:20 Vitamin D3 - PO 400 unit DAILY [facility] Administration Ferrous Sulfate 325 mg 04/20/17 22:00 04/21/17 11:21 Feosol - PO 325 mg BID [facility] Administration Heparin Sodium (Porcine) 5,000 unit 04/20/17 22:00 04/21/17 06:00 Heparin - SQ 5,000 unit TID [facility] Administration Hydralazine HCl 10 mg 04/20/17 22:00 04/21/17 05:57 Apresoline - PO 10 mg TID [facility] Administration Sodium Chloride 1,000 mls @ 50 mls/hr 04/20/17 23:15 04/21/17 02:06 Normal Saline - IV 50 mls/hr ASDIR [facility] Administration Piperacillin/Tazobactam/Dextrose 2.25 gm in 50 mls @ 100 mls/hr 04/21/17 10: 00 04/21/17 11:23 Zosyn 2.25gm Ivpb (Premix) IVPB Not Given Q8H-IV [facility] Protocol Insulin Aspart 1 vial 04/20/17 22:00 04/21/17 11:41 Novolog Vial Sliding Scale - SQ Not Given ACHS [facility] Protocol Insulin Detemir 8 units 04/21/17 07:00 04/21/17 06:01 Levemir Vial SQ 8 unit DAILY@0700 [facility] Administration Isosorbide Mononitrate 30 mg 04/21/17 10:00 04/21/17 11:20 Imdur - PO 30 mg DAILY [facility] Administration Lactulose 10 gm 04/20/17 22:00 04/21/17 02:00 Cephulac (Oral Use) PO 10 gm HS [facility] Administration Metoprolol Succinate 100 mg 04/21/17 10:00 04/21/17 11:21 Toprol Xl - PO 100 mg DAILY [facility] Administration Non-Formulary Medication 1 bandage 04/21/17 10:00 04/21/17 11:25 Silver/Calcium Alginate [Algicell Ag 4"X5" Dressing] TD Not Given DAILY [facility] Polyethylene Glycol 17 gm 04/21/17 10:00 04/21/17 11:31 Miralax (For Daily Use) - PO 17 gm DAILY [facility] Administration Risperidone 0.25 mg 04/20/17 22:00 04/21/17 11:20 Risperdal - PO 0.25 mg BID [facility] Administration Tiotropium [place] 1 puff 04/21/17 10:00 04/21/17 11:23 Spiriva - IH 1 inh DAILY [facility] Administration ASSESSMENT/PLAN: 71yo F with a PMHx of chronic sacral decubitus ulcer, and indwelling powers catheter for urinary retention presents from SNF for increasing fevers alongside with worsening bilateral buttock wounds and sacral decubitus ulcers found to meet sepsis criteria. # Sepsis - Patient currently improving, does not appear septic, although still has low grade temps - Infectious sources include sacral decubitus and UTI. Vascular surgery evaluated sacral decub, no pus noted, no debridement necessary. Since patient has chronic indwelling powers and abdominal tenderness, UTI is likely, although according to [facility] powers was last changed 2 days ago. UCx pending. Currently on Vanc/Zosyn renally dosed. Will discuss w/ Infectious Disease about antibiotics if debridement not in consideration. # Abdominal Pain - Could be secondary to UTI, but tenderness is diffuse. Last abd imaging was in June 2016, and was negative. Could consider CT abd/pelvis to rule out other infectious sources # Acute on CKD - B/L 2.6-2.7, but currently stable at 2.9. Likely pre-renal from sepsis, so continue IVF, consider increasing to 83cc/hr since Echo last year was WNL. Ulytes are pending. If does not improve, will perform renal/bladder ultrasound. 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 # IDDM - Well controlled on Levemir 8u HS + BGM w/ ISS ACHS # HTN - Well controlled w/ home Norvasc 10, Imdur 30, and Toprol XL 100 # Constipation - Chronic, continue home Miralax and lactulose # IVF - Increase IVF to 83cc/hr, elec wnl, renal/chopped diet # PPx - HSQ TID, no GI needed, PT ordered # Dispo - Hopeful d/c tomorrow on PO antibiotics, will discuss w/ Dr Tom d/w Dr Claudia Briscoe MD - PGY1 resident Internal Medicine Visit type - Emergency Visit Emergency Visit: No - New Patient This patient is new to me today: No - Critical Care Critical Care patient: No - Discharge Referral Referred to [facility] Med P.C.: No
--- NOTE | 2017-04-21 15:24 | CONS ---
INFECTIOUS DISEASE CONSULTATION DATE OF CONSULTATION: DATE OF DICTATION: 04/21/2017 HISTORY OF PRESENT ILLNESS: This is a 71-year-old resident of a penitentiary, who is admitted with fever and suspected decubitus ulcers as the source of the fever. She has a history of a stroke in the past with a left-sided hemiparesis and, according to the notes, is mostly bedbound. She was sent from the penitentiary because of decubitus ulcer, fever, and "agitation." Here, she was, in fact, documented to be febrile to 101. She was empirically treated with a dose of vancomycin and Zosyn, and I am asked to see her for further evaluation. At the present time, she is alert and in no acute distress. PAST MEDICAL HISTORY: Includes chronic kidney disease, CVA, hypertension, diabetes mellitus, COPD, chronic urinary retention, and a history of hmati-sswb-zrcwtsnxt organisms including a resistant Morganella and MRSA in the past. Chronic pleural effusion status post thoracentesis with lung biopsy with pneumothorax, August 2016. MEDICATIONS: Include Symbicort, Wellbutrin, Spiriva, Risperdal, Toprol, amlodipine, insulin, iron, isosorbide, calcium. ALLERGIES: None known. SOCIAL HISTORY: Currently, penitentiary resident. Former smoker, gave this up many years ago. No history of alcohol use. FAMILY HISTORY: Patient unable to provide. REVIEW OF SYSTEMS: Respiratory: No cough, shortness of breath, hemoptysis. Cardiac: No chest pain, palpitations, syncope, murmur. Gastrointestinal: No abdominal pain, nausea, vomiting, diarrhea. Genitourinary: Chronic urinary retention. No gross hematuria. PHYSICAL EXAMINATION: General: She was an alert female in no acute distress. Vital Signs: The temperature was 100.6, pulse 71, blood pressure 140/62, respirations 20. Neck: Supple. No adenopathy. Lungs: Clear to percussion and auscultation. Heart: S1, S2. Regular rhythm without audible murmur or gallop. Abdomen: Positive bowel sounds. Not distended, soft, nontender. No organomegaly. Extremities: No clubbing, cyanosis, or edema. Skin: Revealed multiple large decubitus ulcers of the left hip and sacral area with tenderness to touch and gangrene overlying the superficial tissue with foul odor. DIAGNOSTIC DATA: The white count was 13.7, hemoglobin 8.6, platelets 226. INR of 1.1. BUN 60, creatinine 2.9. AST 40, albumin 1.9. Urinalysis was 75 WBCs, 10 RBCs, moderate bacteria. Two sets of blood cultures, urine culture pending. Chest x-ray was reviewed, shows no evidence of acute infiltrates seen. A right pleural effusion is noted. ASSESSMENT: A 71-year-old female with history of a stroke and hemiparesis, bedbound, presents with fever and infected sacral and left hip decubitus ulcers. Polymicrobial jaye including anaerobes considered. Patient has a history of prior cultures with okocn-yqnz-vmvpcqrxy organisms including methicillin-resistant Staphylococcus aureus as well as a resistant Morganella. She may also have a urinary tract infection. PLAN: Cultures of blood and urine, empiric therapy with vancomycin and Zosyn, check vancomycin level, Zosyn adjusted for creatinine clearance, surgical consultation with Dr. Rogers. Patient will need debridement of the decubitus ulcers. NORA MOORE M.D. [id number]
--- NOTE | 2017-04-21 16:26 | PN ---
Teaching Attending Note Name of Resident: Winter Briscoe ATTENDING PHYSICIAN STATEMENT I saw and evaluated the patient. I reviewed the resident's note and discussed the case with the resident. I agree with the resident's findings and plan as documented. SUBJECTIVE:asymptomatic. denies CP, SOB, fever, chills, N/V/C/D OBJECTIVE: Last Vital Signs Temp Pulse Resp BP Pulse Ox 98.2 F 82 16 118/78 96 04/21/17 14:11 04/21/17 14:11 04/21/17 14:11 04/21/17 14:11 04/21/17 09:00 General NAD A&O x3 CV S1 S2 RRR no murmru/rub/gallop LUngs CTA B/L decreased breath sounds R base Abdomen soft firm normoactive BS buttocks large unstageable ulcer crossing to both buttocks. minimal slough in the middle of the ulcer, ASSESSMENT AND PLAN: 71yo F with PMH DM, COPD, CKD, sacral ulcer with hx of MRSA, HTN, CVA with residual L sided paresis, urinary retention with indwelling powers catheter presented to the Er with increasing agitation 1. Sepsis due to UTI- Tm 100.6. clinically improved. started on vanco/zosyn. will need indwelling catheter to be changed. do not believe sacral ulcer to be source of sepsis. vascular surgery consulted for possible debridement vs chemical debridement. cont IVF. f/u Cx. influenza negative 2. acute on CKD- Baseline Cr 2.6. possible due to sepsis. cont IVF. monitor UOP. urine lytes pending. consider further workup if dose not improve 3. Microcytic Anemia- Hgb stable. check iron studies. no signs of bleeding. no indication for txn 4. DM- Controlled. cont home management. titrate to optimize control 5. HTN- controlled. cont antihypertensives. 6. COPD- stable 7. CVA with residual L sided paresis- on asa 8. DVT ppx- hep sq
[2017-04-21] MEDS ORDERED: VANCOMYCIN 1,250 MG in DEXTROSE 5%-WATER - 250 ML IVPB SCH (17:00)
[2017-04-22] MEDS ORDERED: PT OWN MED DRAWER 7, Y5N ONE ×3 (02:53→17:48)
[2017-04-22] MEDS: PIPERACILLIN/TAZOB 2.25 GM 2.25 GM/50 ML BAG IVPB SCH ×3 (02:59→17:17)
[2017-04-22] MEDS: HEPARIN NA (PORCINE) 5,000 UNITS/ML 1ML VIAL SQ SCH ×3 (06:30→21:30)
[2017-04-22] MEDS: INSULIN DETEMIR 100 UNITS/ML MDV SQ SCH (06:33)
[2017-04-22] MEDS: INSULIN SLIDING SCALE (NOVOLOG) 1 VIAL SQ SCH ×4 (06:33→21:34)
[2017-04-22] MEDS: hydrALAZINE HCL 10 MG TABLET PO SCH ×3 (06:33→21:30)
--- NOTE | 2017-04-22 08:02 | PN ---
Physical Exam: SUBJECTIVE: Patient seen and examined. Doing well. Allowing nurses to change patient and apply Santyl. OBJECTIVE: Vital Signs Period Temp Pulse Resp BP Sys/Benton Pulse Ox Last 24 Hr 98.2 F-100.5 F 65-82 16-20 118-147/62-78 96-100 GEN: AAOx3, NAD, Not very conversational, not ill appearing HEENT: PERRLA, EOMi CV: S1, S2, RRR with 2/6 systolic murmur LUNG: CTABL ABD: Soft but indurated, appears to have reducible ventral hernia. Suprapubic tendenress MSK: No edema, no erythema SKIN: [id number] large superficial grade 1 ulceration on the buttock and sacral. Pinpoint area of purulence. Active Medications Generic Name Dose Route Start Last Admin Trade Name Freq PRN Reason Stop Dose Admin Acetaminophen 1,000 mg 04/20/17 21:58 Ofirmev Injection - IVPB Q6H PRN FEVER OR PAIN Amlodipine Besylate 10 mg 04/21/17 10:00 04/21/17 11:21 Norvasc - PO 10 mg DAILY [facility] Administration Budesonide/Formoterol Fumarate 1 puff 04/20/17 22:00 04/21/17 23:12 Symbicort 80/4.5mcg - IH 1 inh BID [facility] Administration Bupropion HCl 75 mg 04/21/17 10:00 04/21/17 11:22 Wellbutrin - PO Not Given DAILY [facility] Calcium Acetate 667 mg 04/21/17 08:00 04/21/17 17:32 Phoslo - PO 667 mg TIDCM [facility] Administration Cholecalciferol 400 unit 04/21/17 10:00 04/21/17 11:20 Vitamin D3 - PO 400 unit DAILY [facility] Administration Collagenase 1 applic 04/21/17 13:45 04/21/17 13:33 Santyl - TP 1 applic DAILY [facility] Administration Ferrous Sulfate 325 mg 04/20/17 22:00 04/21/17 23:00 Feosol - PO 325 mg BID [facility] Administration Heparin Sodium (Porcine) 5,000 unit 04/20/17 22:00 04/22/17 06:30 Heparin - SQ 5,000 unit TID [facility] Administration Hydralazine HCl 10 mg 04/20/17 22:00 04/22/17 06:33 Apresoline - PO 10 mg TID [facility] Administration Piperacillin/Tazobactam/Dextrose 2.25 gm in 50 mls @ 100 mls/hr 04/21/17 10: 00 04/22/17 02:59 Zosyn 2.25gm Ivpb (Premix) IVPB 100 mls/hr Q8H-IV [facility] Administration Protocol Sodium Chloride 1,000 mls @ 83 mls/hr 04/21/17 13:42 04/21/17 23:13 Normal Saline - IV 83 mls/hr ASDIR [facility] Administration Insulin Aspart 1 vial 04/20/17 22:00 04/22/17 06:33 Novolog Vial Sliding Scale - SQ Not Given ACHS [facility] Protocol Insulin Detemir 8 units 04/21/17 07:00 04/22/17 06:33 Levemir Vial SQ 8 unit DAILY@0700 [facility] Administration Isosorbide Mononitrate 30 mg 04/21/17 10:00 04/21/17 11:20 Imdur - PO 30 mg DAILY [facility] Administration Lactulose 10 gm 04/20/17 22:00 04/21/17 23:00 Cephulac (Oral Use) PO 10 gm HS [facility] Administration Metoprolol Succinate 100 mg 04/21/17 10:00 04/21/17 11:21 Toprol Xl - PO 100 mg DAILY [facility] Administration Polyethylene Glycol 17 gm 04/21/17 10:00 04/21/17 11:31 Miralax (For Daily Use) - PO 17 gm DAILY [facility] Administration Risperidone 0.25 mg 04/20/17 22:00 04/21/17 23:00 Risperdal - PO 0.25 mg BID [facility] Administration Tiotropium [place] 1 puff 04/21/17 10:00 04/21/17 11:23 Spiriva - IH 1 inh DAILY [facility] Administration ASSESSMENT/PLAN: 71yo F with a PMHx of chronic sacral decubitus ulcer, and indwelling powers catheter for urinary retention presents from SNF for increasing fevers alongside with worsening bilateral buttock wounds and sacral decubitus ulcers found to meet sepsis criteria. # Sepsis - More likely secondary to UTI, less likely sacral decubitus ulcer. Wound care examined sacral decubitus superficial ulcer and state no debridement is necessary, just Santyl. Discussed w/ Infectious disease, will wait for UCx but continue empiric IV Vanc/Zosyn for now. Ucx growing LFGNB. Previously grew Proteus and E.coli sensitive to Keflex PO. # Abdominal Pain - Today, tenderness is more suprapubic than diffuse. Patient likely has ventral hernia, not present on CT scan Jun 2016. However, abdominal tenderness is mild, and patient afebrile, so there is no concern for other abdominal source jose. If concern arises, will consider repeat CT abd/pelvis. # Acute on CKD - B/L 2.6-2.7, but currently stable at 2.9. FeNa 4.3% consistent with post-renal , although patient has powers. Will change powers and follow Cr. 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 d/w Dr Claudia Briscoe MD - PGY1 resident Internal Medicine Visit type - Emergency Visit Emergency Visit: No - New Patient This patient is new to me today: No - Critical Care Critical Care patient: No - Discharge Referral Referred to [facility] Med P.C.: No
[2017-04-22] MEDS: CALCIUM ACETATE 667 MG CAPSULE (FP) PO SCH ×3 (08:26→17:17)
[2017-04-22 08:55] LABS: MCH 24.7 pg (25.7-33.7); MCHC 30.8 g/dl (32.0-36.0); MEAN CELL VOLUME 80.1 fl (80-96); MEAN PLT VOLUME 8.3 fl (7.5-11.1); PLATELET COUNT 207 K/MM3 (134-434); RBC 3.24 M/mm3 (3.60-5.2); RDW 21.6 % (11.6-15.6); WHITE BLOOD COUNT 11.4 K/mm3 (4.0-10.0)
[2017-04-22 09:20] LABS: ANION GAP 10 (8-16); BLOOD UREA NITROGEN 50 mg/dL (7-18); CALCIUM 8.6 mg/dL (8.5-10.1); CHLORIDE 109 mmol/L (98-107); CO2 20 mmol/L (21-32); GLUCOSE,RANDOM 114 mg/dL (74-106); SODIUM 139 mmol/L (136-145)
[2017-04-22 09:22] LABS: CREATININE 2.7 mg/dL (0.55-1.02)
[2017-04-22] MEDS: ISOSORBIDE MONONITRATE 30 MG TAB.SR.24H (FP) PO SCH (10:30)
[2017-04-22] MEDS: risperiDONE 0.5 MG TABLET (FP) PO SCH ×2 (10:30→21:30)
[2017-04-22] MEDS: FERROUS SO4 325 MG TABLET (FP) PO SCH ×2 (10:30→21:30)
[2017-04-22] MEDS: amLODIPine BESYLATE 10 MG TABLET (FP) PO SCH (10:30)
[2017-04-22] MEDS: POLYETHYLENE GLYCOL 3350 119 GM BTL PO SCH (10:31)
[2017-04-22] MEDS: CHOLECALCIFEROL (VITAMIN D3) 400 UNIT TABLET (FP) PO SCH (10:32)
[2017-04-22] MEDS: buPROPion HCL 75 MG TABLET PO SCH (10:32)
[2017-04-22] MEDS: BUDESONIDE/FORMETEROL FUMARATE 80/4.5 mcg INHALER IH SCH ×2 (10:32→21:37)
[2017-04-22] MEDS: TIOTROPIUM BROMIDE 18 MCG/INH (DEVICE W/ 5 CAPSULES) IH SCH (10:33)
[2017-04-22] MEDS: COLLAGENASE CLOSTRIDIUM HIST. 30 GRAMS TUBE TP SCH (10:33)
--- NOTE | 2017-04-22 13:47 | PN ---
Progress Note (short form) - Note Progress Note: ID Zoletyn day 2 therapy Temp down Seen by Dr Rogers recommendation to do nothing surgical at this time Selected Entries 04/22/17 10:00 Temperature 98.1 F Respiratory 18 Rate Blood Pressure 149/62 Laboratory Tests 04/22/17 04/22/17 08:44 08:44 WBC 11.4 H Plt Count 207 BUN 50 H Creatinine 2.7 H Microbiology 04/20/17 20:49 Nasopharyngeal Swab Influenza Types A,B Antigen ([facility]) - Final 04/20/17 20:49 Nasopharyngeal Swab - Final 04/20/17 17:40 Urine - Urine Clean Catch Urine Culture - Preliminary Lactose Fermenting Neg Bacilli 04/20/17 16:00 Blood - Peripheral Venous Blood Culture - Preliminary NO GROWTH OBTAINED AFTER 24 HOURS, INCUBATION TO CONTINUE FOR 4 DAYS. 04/20/17 15:50 Blood - Peripheral Venous Blood Culture - Preliminary NO GROWTH OBTAINED AFTER 24 HOURS, INCUBATION TO CONTINUE FOR 4 DAYS. Assessment Sent for fever and agitation. Thus far no definitive source of infection. Urine going to be colonized with powers Plan Agree with plan to discharge tomorrow on oral antibiotics based on final culture Negro [id number] Problem List - Problems (1) Infected decubitus ulcer Code(s): L89.90 - PRESSURE ULCER OF UNSPECIFIED SITE, UNSPECIFIED STAGE; L08.9 - LOCAL INFECTION OF THE SKIN AND SUBCUTANEOUS TISSUE, UNSP (2) UTI (urinary tract infection) Code(s): N39.0 - URINARY TRACT INFECTION, SITE NOT SPECIFIED Qualifiers: Urinary tract infection type: acute cystitis Hematuria presence: without hematuria Qualified Code(s): N30.00 - Acute cystitis without hematuria (3) Infection with multi-drug resistant microorganisms Code(s): Z16.35 - RESISTANCE TO MULTIPLE ANTIMICROBIAL DRUGS
--- NOTE | 2017-04-22 14:14 | PN ---
Teaching Attending Note Name of Resident: Winter Briscoe ATTENDING PHYSICIAN STATEMENT I saw and evaluated the patient. I reviewed the resident's note and discussed the case with the resident. I agree with the resident's findings and plan as documented. SUBJECTIVE:asymptomatic. denies CP, SOB< fever, chills, N/V/C/D OBJECTIVE: Last Vital Signs Temp Pulse Resp BP Pulse Ox 98.1 F 71 18 149/62 100 04/22/17 10:00 04/22/17 10:00 04/22/17 10:00 04/22/17 10:00 04/22/17 09:00 General NAD A&O x3 CV S1 S2 RRR no murmru/rub/gallop LUngs CTA B/L no wheezing or crackles Abdomen soft firm normoactive BS ASSESSMENT AND PLAN: 71yo F with PMH DM, COPD, CKD, sacral ulcer with hx of MRSA, HTN, CVA with residual L sided paresis, urinary retention with indwelling powers catheter presented to the Er with increasing agitation 1. Sepsis due to UTI- Tm 100.5. clinically improved.on vanco day 2. awaiting for Ucx for po abx selection. jayjay d/c IVF. ID on board. 2. acute on CKD- Baseline Cr 2.6. possible due to sepsis. improved. check bladder scan to r/o obstrution. replace powers catheter. 3. Microcytic Anemia- Hgb stable. iron studies pending. no signs of bleeding. no indication for txn 4. DM- Controlled. cont home management. titrate to optimize control 5. HTN- controlled. cont antihypertensives. 6. COPD- stable 7. CVA with residual L sided paresis- on asa 8. DVT ppx- hep sq 9. d/c planning in the am pending results of UCx
[2017-04-22] MEDS: LACTULOSE 20 GM/30 ML UDC (FOR ORAL USE ONLY) PO SCH (21:29)
[2017-04-23] MEDS: PIPERACILLIN/TAZOB 2.25 GM 2.25 GM/50 ML BAG IVPB SCH ×3 (01:23→17:57)
[2017-04-23] MEDS: hydrALAZINE HCL 10 MG TABLET PO SCH ×3 (05:54→21:35)
[2017-04-23] MEDS: HEPARIN NA (PORCINE) 5,000 UNITS/ML 1ML VIAL SQ SCH ×3 (05:56→21:35)
[2017-04-23] MEDS: INSULIN SLIDING SCALE (NOVOLOG) 1 VIAL SQ SCH ×4 (05:59→21:35)
[2017-04-23] MEDS: INSULIN DETEMIR 100 UNITS/ML MDV SQ SCH (06:15)
[2017-04-23 08:10] LABS: SERUM IRON SATURATION 29 % (15-55); TOTAL IRON BINDING CAPACITY 92 ug/dL (250-450); UIBC 65 ug/dL (118-369)
[2017-04-23] MEDS ORDERED: PT OWN MED DRAWER 7, Y5N ONE ×3 (08:51→17:46)
[2017-04-23] MEDS: CALCIUM ACETATE 667 MG CAPSULE (FP) PO SCH ×3 (09:13→17:57)
[2017-04-23] MEDS: FERROUS SO4 325 MG TABLET (FP) PO SCH ×2 (09:13→21:34)
[2017-04-23] MEDS: amLODIPine BESYLATE 10 MG TABLET (FP) PO SCH (09:14)
[2017-04-23] MEDS: ISOSORBIDE MONONITRATE 30 MG TAB.SR.24H (FP) PO SCH (09:14)
[2017-04-23] MEDS: risperiDONE 0.5 MG TABLET (FP) PO SCH ×2 (09:14→21:34)
[2017-04-23] MEDS: POLYETHYLENE GLYCOL 3350 119 GM BTL PO SCH (09:16)
[2017-04-23] MEDS: BUDESONIDE/FORMETEROL FUMARATE 80/4.5 mcg INHALER IH SCH ×2 (09:17→21:36)
[2017-04-23] MEDS: TIOTROPIUM BROMIDE 18 MCG/INH (DEVICE W/ 5 CAPSULES) IH SCH (09:17)
[2017-04-23] MEDS: CHOLECALCIFEROL (VITAMIN D3) 400 UNIT TABLET (FP) PO SCH (09:17)
[2017-04-23] MEDS: SODIUM CHLORIDE 1,000 ML IV SCH (09:18)
[2017-04-23] MEDS: buPROPion HCL 75 MG TABLET PO SCH (09:24)
--- NOTE | 2017-04-23 12:26 | PN ---
Progress Note (short form) - Note Progress Note: asymptomatic. denies Cp, SOB, fever, chills, N/V/C/D Current Medications Generic Name Dose Route Start Last Admin Trade Name Kate PRN Reason Stop Dose Admin Acetaminophen 1,000 mg 04/20/17 21:58 Ofirmev Injection - IVPB Q6H PRN FEVER OR PAIN Amlodipine Besylate 10 mg 04/21/17 10:00 04/23/17 09:14 Norvasc - PO 10 mg DAILY [facility] Administration Budesonide/Formoterol Fumarate 1 puff 04/20/17 22:00 04/23/17 09:17 Symbicort 80/4.5mcg - IH 1 inh BID [facility] Administration Bupropion HCl 75 mg 04/21/17 10:00 04/23/17 09:24 Wellbutrin - PO 75 mg DAILY [facility] Administration Calcium Acetate 667 mg 04/21/17 08:00 04/23/17 09:13 Phoslo - PO 667 mg TIDCM [facility] Administration Cholecalciferol 400 unit 04/21/17 10:00 04/23/17 09:17 Vitamin D3 - PO 400 unit DAILY [facility] Administration Collagenase 1 applic 04/21/17 13:45 04/22/17 10:33 Santyl - TP 1 applic DAILY [facility] Administration Ferrous Sulfate 325 mg 04/20/17 22:00 04/23/17 09:13 Feosol - PO 325 mg BID [facility] Administration Heparin Sodium (Porcine) 5,000 unit 04/20/17 22:00 04/23/17 05:56 Heparin - SQ 5,000 unit TID [facility] Administration Hydralazine HCl 10 mg 04/20/17 22:00 04/23/17 05:54 Apresoline - PO 10 mg TID [facility] Administration Piperacillin/Tazobactam/Dextrose 2.25 gm in 50 mls @ 100 mls/hr 04/21/17 10: 00 04/23/17 09:13 Zosyn 2.25gm Ivpb (Premix) IVPB 100 mls/hr Q8H-IV [facility] Administration Protocol Insulin Aspart 1 vial 04/20/17 22:00 04/23/17 05:59 Novolog Vial Sliding Scale - SQ Not Given ACHS [facility] Protocol Insulin Detemir 8 units 04/21/17 07:00 04/23/17 06:15 Levemir Vial SQ 8 unit DAILY@0700 [facility] Administration Isosorbide Mononitrate 30 mg 04/21/17 10:00 04/23/17 09:14 Imdur - PO 30 mg DAILY [facility] Administration Lactulose 10 gm 04/20/17 22:00 04/22/17 21:29 Cephulac (Oral Use) PO Not Given HS [facility] Metoprolol Succinate 100 mg 04/21/17 10:00 04/23/17 09:14 Toprol Xl - PO 100 mg DAILY [facility] Administration Polyethylene Glycol 17 gm 04/21/17 10:00 04/23/17 09:16 Miralax (For Daily Use) - PO 17 gm DAILY [facility] Administration Risperidone 0.25 mg 04/20/17 22:00 04/23/17 09:14 Risperdal - PO 0.25 mg BID [facility] Administration Tiotropium [place] 1 puff 04/21/17 10:00 04/23/17 09:17 Spiriva - IH 1 inh DAILY [facility] Administration Last Vital Signs Temp Pulse Resp BP Pulse Ox 99.6 F 86 18 161/72 100 04/23/17 08:35 04/23/17 08:35 04/23/17 08:35 04/23/17 08:35 04/22/17 21:00 General NAD A&O x3 CV S1 S2 RRR no murmru/rub/gallop LUngs CTA B/L no wheezing or crackles Abdomen soft firm normoactive BS CBCD WBC 11.4 K/mm3 (4.0-10.0) H 04/22/17 08:44 RBC 3.24 M/mm3 (3.60-5.2) L 04/22/17 08:44 Hgb 8.0 GM/dL (10.7-15.3) L D 04/22/17 08:44 Hct 26.0 % (32.4-45.2) L 04/22/17 08:44 MCV 80.1 fl (80-96) 04/22/17 08:44 MCHC 30.8 g/dl (32.0-36.0) L 04/22/17 08:44 RDW 21.6 % (11.6-15.6) H 04/22/17 08:44 Plt Count 207 K/MM3 (134-434) 04/22/17 08:44 MPV 8.3 fl (7.5-11.1) 04/22/17 08:44 CMP Sodium 139 mmol/L (136-145) 04/22/17 08:44 Potassium 4.0 mmol/L (3.5-5.1) 04/22/17 08:44 Chloride 109 mmol/L (98-107) H 04/22/17 08:44 Carbon Dioxide 20 mmol/L (21-32) L 04/22/17 08:44 Anion Gap 10 (8-16) 04/22/17 08:44 BUN 50 mg/dL (7-18) H 04/22/17 08:44 Creatinine 2.7 mg/dL (0.55-1.02) H 04/22/17 08:44 Creat Clearance w eGFR 16.09 (>60) 04/21/17 08:17 Calcium 8.6 mg/dL (8.5-10.1) 04/22/17 08:44 Total Bilirubin 0.6 mg/dL (0.2-1.0) D 04/21/17 08:17 AST 44 U/L (15-37) H 04/21/17 08:17 ALT 54 U/L (12-78) 04/21/17 08:17 Alkaline Phosphatase 106 U/L (45-117) 04/21/17 08:17 Total Protein 7.0 g/dl (6.4-8.2) 04/21/17 08:17 Albumin 1.9 g/dl (3.4-5.0) L 04/21/17 08:17 ASSESSMENT AND PLAN: 71yo F with PMH DM, COPD, CKD, sacral ulcer with hx of MRSA, HTN, CVA with residual L sided paresis, urinary retention with indwelling powers catheter presented to the Er with increasing agitation 1. Sepsis due to UTI- Tm 100.4. clinically improved.on vanco day 3. powers exchanged 04/22. UCx growing ecoli, sensitive to keflex. will d/w with ID about switching. will complete 7 day course. ID on board. 2. acute on CKD- Baseline Cr 2.6. possible due to sepsis. improved. Powers catheter replaced. check Renal function today to ensure improving 3. Microcytic Anemia- Hgb stable. iron studies pending. no signs of bleeding. no indication for txn. rpeat Hgb 4. DM- Controlled. cont home management. titrate to optimize control 5. HTN- controlled. cont antihypertensives. 6. COPD- stable 7. CVA with residual L sided paresis- on asa 8. DVT ppx- hep sq 9. awaiting todays labs. pending on results pt is medically optimized for discharge. Spoke with SW who will call facility if pt is able to be accepted back today Visit type - Emergency Visit Emergency Visit: Yes ED Registration Date: 04/20/17 Care time: The patient presented to the Emergency Department on the above date and was hospitalized for further evaluation of their emergent condition. - New Patient This patient is new to me today: No - Critical Care Critical Care patient: No - Discharge Referral Referred to [facility] Med P.C.: No
[2017-04-23 13:14] LABS: HEMATOCRIT 26.4 % (32.4-45.2); HEMOGLOBIN 8.1 GM/dL (10.7-15.3); MCH 24.3 pg (25.7-33.7); MCHC 30.7 g/dl (32.0-36.0); MEAN CELL VOLUME 79.1 fl (80-96); MEAN PLT VOLUME 8.2 fl (7.5-11.1); PLATELET COUNT 233 K/MM3 (134-434); RBC 3.34 M/mm3 (3.60-5.2); RDW 22.1 % (11.6-15.6); WHITE BLOOD COUNT 12.4 K/mm3 (4.0-10.0)
[2017-04-23 13:27] LABS: ANION GAP 11 (8-16); BLOOD UREA NITROGEN 44 mg/dL (7-18); CHLORIDE 107 mmol/L (98-107); CO2 20 mmol/L (21-32); CREATININE 2.7 mg/dL (0.55-1.02); GLUCOSE,RANDOM 152 mg/dL (74-106); POTASSIUM 3.8 mmol/L (3.5-5.1); SODIUM 138 mmol/L (136-145)
[2017-04-23] MEDS: COLLAGENASE CLOSTRIDIUM HIST. 30 GRAMS TUBE TP SCH (15:33)
--- NOTE | 2017-04-23 16:45 | PN ---
Progress Note, Physician History of Present Illness: Awake, alert Offers no complaints Low grade temp noted Urine c/s E coli BC (-) - Current Medication List Current Medications: Active Medications Amino Acids (Prosource No Carb Liquid Pkt) 30 ml PO BID@0800,1730 [facility] Amlodipine Besylate (Norvasc -) 10 mg PO DAILY [facility] Last Admin: 04/23/17 09:14 Dose: 10 mg Budesonide/Formoterol Fumarate (Symbicort 80/4.5mcg -) 1 puff IH BID [facility] Last Admin: 04/23/17 09:17 Dose: 1 inh Bupropion HCl (Wellbutrin -) 75 mg PO DAILY [facility] Last Admin: 04/23/17 09:24 Dose: 75 mg Calcium Acetate (Phoslo -) 667 mg PO TIDCM [facility] Last Admin: 04/23/17 13:27 Dose: 667 mg Cholecalciferol (Vitamin D3 -) 400 unit PO DAILY [facility] Last Admin: 04/23/17 09:17 Dose: 400 unit Collagenase (Santyl -) 1 applic TP DAILY [facility] Last Admin: 04/23/17 15:33 Dose: 1 applic Ferrous Sulfate (Feosol -) 325 mg PO BID [facility] Last Admin: 04/23/17 09:13 Dose: 325 mg Heparin Sodium (Porcine) (Heparin -) 5,000 unit SQ TID [facility] Last Admin: 04/23/17 15:37 Dose: 5,000 unit Hydralazine HCl (Apresoline -) 10 mg PO TID [facility] Last Admin: 04/23/17 15:58 Dose: 10 mg Piperacillin/Tazobactam/Dextrose (Zosyn 2.25gm Ivpb (Premix)) 2.25 gm in 50 mls @ 100 mls/hr IVPB Q8H-IV [facility] PRN Reason: Protocol Last Admin: 04/23/17 09:13 Dose: 100 mls/hr Insulin Aspart (Novolog Vial Sliding Scale -) 1 vial SQ ACHS [facility] PRN Reason: Protocol Last Admin: 04/23/17 12:55 Dose: 2 units Insulin Detemir (Levemir Vial) 8 units SQ DAILY@0700 [facility] Last Admin: 04/23/17 06:15 Dose: 8 unit Isosorbide Mononitrate (Imdur -) 30 mg PO DAILY [facility] Last Admin: 04/23/17 09:14 Dose: 30 mg Lactulose (Cephulac (Oral Use)) 10 gm PO HS [facility] Last Admin: 04/22/17 21:29 Dose: Not Given Metoprolol Succinate (Toprol Xl -) 100 mg PO DAILY [facility] Last Admin: 04/23/17 09:14 Dose: 100 mg Polyethylene Glycol (Miralax (For Daily Use) -) 17 gm PO DAILY [facility] Last Admin: 04/23/17 09:16 Dose: 17 gm Risperidone (Risperdal -) 0.25 mg PO BID [facility] Last Admin: 04/23/17 09:14 Dose: 0.25 mg Tiotropium [place] (Spiriva -) 1 puff IH DAILY [facility] Last Admin: 04/23/17 09:17 Dose: 1 inh - Objective Vital Signs: Vital Signs Temperature 98.7 F 04/23/17 15:44 Pulse Rate 76 04/23/17 15:44 Respiratory Rate 18 04/23/17 15:44 Blood Pressure 154/67 04/23/17 15:44 O2 Sat by Pulse Oximetry (%) 100 04/22/17 21:00 Constitutional: Yes: No Distress Cardiovascular: Yes: Regular Rate and Rhythm, S1, S2 Respiratory: Yes: CTA Bilaterally Gastrointestinal: Yes: Normal Bowel Sounds, Soft Labs: CBC, BMP 04/23/17 12:45 04/23/17 12:45 INR, PTT INR 1.14 (0.82-1.09) 04/20/17 16:00 Assessment/Plan E coli UTI Low grade temp/ leukocytosis Azotemia May substitute Keflex 500mg bid x additional 7d
[2017-04-23] MEDS: AMINO ACIDS/PROTEIN HYDROLYS 30 ML LIQUID.PKT PO SCH (17:56)
[2017-04-23] MEDS ORDERED: INSULIN (NOVOLOG) ASPART 100 UNITS/ML 10ML VIAL ONE (20:51)
[2017-04-23] MEDS: LACTULOSE 20 GM/30 ML UDC (FOR ORAL USE ONLY) PO SCH (21:34)
[2017-04-24] MEDS: PIPERACILLIN/TAZOB 2.25 GM 2.25 GM/50 ML BAG IVPB SCH (01:46)
[2017-04-24] MEDS: HEPARIN NA (PORCINE) 5,000 UNITS/ML 1ML VIAL SQ SCH ×3 (06:18→23:28)
[2017-04-24] MEDS: hydrALAZINE HCL 10 MG TABLET PO SCH ×3 (06:19→22:17)
[2017-04-24] MEDS: INSULIN DETEMIR 100 UNITS/ML MDV SQ SCH (06:42)
[2017-04-24] MEDS: INSULIN SLIDING SCALE (NOVOLOG) 1 VIAL SQ SCH ×4 (06:42→23:37)
[2017-04-24] MEDS ORDERED: PT OWN MED DRAWER 7, Y5N ONE (09:08)
[2017-04-24] MEDS: CEPHALEXIN MONOHYDRATE 500 MG CAPSULE (UD) PO SCH ×2 (09:15→23:23)
[2017-04-24] MEDS: POLYETHYLENE GLYCOL 3350 119 GM BTL PO SCH (09:15)
[2017-04-24] MEDS: amLODIPine BESYLATE 10 MG TABLET (FP) PO SCH (09:16)
[2017-04-24] MEDS: FERROUS SO4 325 MG TABLET (FP) PO SCH ×2 (09:16→23:23)
[2017-04-24] MEDS: AMINO ACIDS/PROTEIN HYDROLYS 30 ML LIQUID.PKT PO SCH ×2 (09:16→16:34)
[2017-04-24] MEDS: ISOSORBIDE MONONITRATE 30 MG TAB.SR.24H (FP) PO SCH (09:16)
[2017-04-24] MEDS: CALCIUM ACETATE 667 MG CAPSULE (FP) PO SCH ×3 (09:16→16:33)
[2017-04-24] MEDS: risperiDONE 0.5 MG TABLET (FP) PO SCH ×2 (09:17→23:23)
[2017-04-24] MEDS: TIOTROPIUM BROMIDE 18 MCG/INH (DEVICE W/ 5 CAPSULES) IH SCH (09:17)
[2017-04-24] MEDS: BUDESONIDE/FORMETEROL FUMARATE 80/4.5 mcg INHALER IH SCH ×2 (09:18→23:27)
[2017-04-24] MEDS: buPROPion HCL 75 MG TABLET PO SCH (09:19)
[2017-04-24] MEDS: CHOLECALCIFEROL (VITAMIN D3) 400 UNIT TABLET (FP) PO SCH (09:19)
--- NOTE | 2017-04-24 12:44 | PN ---
Teaching Attending Note Name of Resident: Winter Briscoe ATTENDING PHYSICIAN STATEMENT I saw and evaluated the patient. I reviewed the resident's note and discussed the case with the resident. I agree with the resident's findings and plan as documented. SUBJECTIVE:asymptomatic. wants to go home. denies CP, SOB, fever, chills, N?V/C/ D OBJECTIVE: Last Vital Signs Temp Pulse Resp BP Pulse Ox 99.1 F 76 18 147/62 100 04/23/17 22:00 04/23/17 22:00 04/23/17 22:00 04/23/17 22:00 04/23/17 21:00 General NAD abdomen soft NT/Nd ASSESSMENT AND PLAN: 71yo F with PMH DM, COPD, CKD, sacral ulcer with hx of MRSA, HTN, CVA with residual L sided paresis, urinary retention with indwelling powers catheter presented to the Er with increasing agitation 1. Sepsis due to UTI-afebrile. will transition vanco to keflex for additional 7 days. 2. acute on CKD- Baseline Cr 2.6. possible due to sepsis. improved. Powers catheter replaced. 3. Microcytic Anemia- Hgb stable. iron studies pending. no signs of bleeding. no indication for txn. 4. DM- Controlled. cont home management. titrate to optimize control 5. HTN- controlled. cont antihypertensives. 6. COPD- stable 7. CVA with residual L sided paresis- on asa 8. DVT ppx- hep sq 9. medically optimized and ready for discharge. administration not at facility today to accept patient back. will leave tomorrow
--- NOTE | 2017-04-24 14:17 | PN ---
Physical Exam: SUBJECTIVE: Patient seen and examined. Doing well. No complaints. Wants to go home. OBJECTIVE: Vital Signs Period Temp Pulse Resp BP Sys/Benton Pulse Ox Last 24 Hr 98.7 F-99.1 F 71-76 18-18 147-154/58-67 100 GEN: AAOx3, NAD, Not very conversational, flat affectm not ill appearing HEENT: PERRLA, EOMi CV: S1, S2, RRR with 2/6 systolic murmur LUNG: CTABL ABD: Soft but indurated, appears to have reducible ventral hernia. Suprapubic tendenress MSK: No edema, no erythema SKIN: [id number] large superficial grade 1 ulceration on the buttock and sacral. Active Medications Generic Name Dose Route Start Last Admin Trade Name Freq PRN Reason Stop Dose Admin Amino Acids 30 ml 04/23/17 17:30 04/24/17 09:16 Prosource No Carb Liquid Pkt PO 30 ml BID@0800,1730 [facility] Administration Amlodipine Besylate 10 mg 04/21/17 10:00 04/24/17 09:16 Norvasc - PO 10 mg DAILY [facility] Administration Budesonide/Formoterol Fumarate 1 puff 04/20/17 22:00 04/24/17 09:18 Symbicort 80/4.5mcg - IH 1 inh BID [facility] Administration Bupropion HCl 75 mg 04/21/17 10:00 04/24/17 09:19 Wellbutrin - PO 75 mg DAILY [facility] Administration Calcium Acetate 667 mg 04/21/17 08:00 04/24/17 11:03 Phoslo - PO 667 mg TIDCM [facility] Administration Cephalexin HCl 500 mg 04/24/17 10:00 04/24/17 09:15 Keflex - PO 500 mg BID [facility] Administration Cholecalciferol 400 unit 04/21/17 10:00 04/24/17 09:19 Vitamin D3 - PO 400 unit DAILY [facility] Administration Collagenase 1 applic 04/21/17 13:45 04/23/17 15:33 Santyl - TP 1 applic DAILY [facility] Administration Ferrous Sulfate 325 mg 04/20/17 22:00 04/24/17 09:16 Feosol - PO 325 mg BID [facility] Administration Heparin Sodium (Porcine) 5,000 unit 04/20/17 22:00 04/24/17 06:18 Heparin - SQ 5,000 unit TID [facility] Administration Hydralazine HCl 10 mg 04/20/17 22:00 04/24/17 06:19 Apresoline - PO 10 mg TID [facility] Administration Insulin Aspart 1 vial 04/20/17 22:00 04/24/17 11:03 Novolog Vial Sliding Scale - SQ 2 units ACHS [facility] Administration Protocol Insulin Detemir 8 units 04/21/17 07:00 04/24/17 06:42 Levemir Vial SQ 8 unit DAILY@0700 [facility] Administration Isosorbide Mononitrate 30 mg 04/21/17 10:00 04/24/17 09:16 Imdur - PO 30 mg DAILY [facility] Administration Lactulose 10 gm 04/20/17 22:00 04/23/17 21:34 Cephulac (Oral Use) PO 10 gm HS [facility] Administration Metoprolol Succinate 100 mg 04/21/17 10:00 04/24/17 09:30 Toprol Xl - PO 100 mg DAILY [facility] Administration Polyethylene Glycol 17 gm 04/21/17 10:00 04/24/17 09:15 Miralax (For Daily Use) - PO 17 gm DAILY [facility] Administration Risperidone 0.25 mg 04/20/17 22:00 04/24/17 09:17 Risperdal - PO 0.25 mg BID [facility] Administration Tiotropium [place] 1 puff 04/21/17 10:00 04/24/17 09:17 Spiriva - IH 1 inh DAILY [facility] Administration ASSESSMENT/PLAN: 71yo F with a PMHx of chronic sacral decubitus ulcer, and indwelling powers catheter for urinary retention presents from SNF for increasing fevers alongside with worsening bilateral buttock wounds and sacral decubitus ulcers found to meet sepsis criteria. # Sepsis - Resolved. More likely secondary to UTI, and less likely from sacral decub. UCx +E.coli. Though patient had indwelling powers, and chronic contamination is likely, she presented with suprapubic pain that is resolving with antibiotics. New powers was placed, draining well. ID on board, antibiotics switched from Vanc /Zosyn to Keflex 500mg BID x 7 days once S/S came back. Currently day 1. # Sacral Decubitus Ulcer - Unstageable. Examined by Dr Rogers from wound care who states no debridement is necessary, just Santyl. # CKD - B/L 2.7. Stable. 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 # HTN - Well controlled w/ home Norvasc 10, Imdur 30, and Toprol XL 100 # Constipation - Chronic, continue home Miralax and lactulose # IVF - Not on IVF, elec wnl, renal/chopped diet # PPx - HSQ TID, no GI needed, PT ordered - patient cannot walk, but did exercises in bed # Dispo - Medically optimized for discharge, facility will accept patient tmrw for discharge d/w Dr Claudia Briscoe MD - PGY1 resident Internal Medicine Visit type - Emergency Visit Emergency Visit: No - New Patient This patient is new to me today: No - Critical Care Critical Care patient: No - Discharge Referral Referred to [facility] Med P.C.: No
[2017-04-24] MEDS: COLLAGENASE CLOSTRIDIUM HIST. 30 GRAMS TUBE TP SCH (16:31)
[2017-04-24] MEDS: ACETAMINOPHEN 325 MG TABLET (FP) PO PRN (17:20)
[2017-04-24 20:11] LABS: URINE APPEARANCE CLOUDY; URINE BILIRUBIN NEGATIVE (NEGATIVE); URINE BLOOD NEGATIVE (NEGATIVE); URINE COLOR LTYELLOW; URINE GLUCOSE (UA) NEGATIVE (NEGATIVE); URINE KETONE NEGATIVE (NEGATIVE); URINE NITRITE NEGATIVE (NEGATIVE); URINE UROBILINOGEN NEGATIVE mg/dL (0.2-1.0)
[2017-04-24 20:15] LABS: URINE LEUK ESTERASE 2+ (NEGATIVE); URINE PROTEIN 2+ (NEGATIVE)
[2017-04-24 20:17] LABS: EPI CELLS RARE /HPF (FEW); URINE BACTERIA RARE /hpf (NONE SEEN); URINE MUCUS RARE; YEAST MANY
[2017-04-24] MEDS: LACTULOSE 20 GM/30 ML UDC (FOR ORAL USE ONLY) PO SCH (22:00)
[2017-04-25] MEDS: HEPARIN NA (PORCINE) 5,000 UNITS/ML 1ML VIAL SQ SCH ×3 (07:13→22:47)
[2017-04-25] MEDS: INSULIN DETEMIR 100 UNITS/ML MDV SQ SCH (07:14)
[2017-04-25] MEDS: INSULIN SLIDING SCALE (NOVOLOG) 1 VIAL SQ SCH ×4 (07:14→22:49)
[2017-04-25] MEDS: hydrALAZINE HCL 10 MG TABLET PO SCH ×3 (07:17→22:46)
[2017-04-25] MEDS: LACTULOSE 20 GM/30 ML UDC (FOR ORAL USE ONLY) PO SCH ×2 (07:19→22:46)
[2017-04-25] MEDS ORDERED: PT OWN MED DRAWER 7, Y5N ONE (10:13)
[2017-04-25] MEDS: POLYETHYLENE GLYCOL 3350 119 GM BTL PO SCH (10:55)
[2017-04-25] MEDS: CALCIUM ACETATE 667 MG CAPSULE (FP) PO SCH ×3 (10:55→18:15)
[2017-04-25] MEDS: AMINO ACIDS/PROTEIN HYDROLYS 30 ML LIQUID.PKT PO SCH ×2 (10:55→18:15)
[2017-04-25] MEDS: CHOLECALCIFEROL (VITAMIN D3) 400 UNIT TABLET (FP) PO SCH (10:55)
[2017-04-25] MEDS: amLODIPine BESYLATE 10 MG TABLET (FP) PO SCH (10:55)
[2017-04-25] MEDS: CEPHALEXIN MONOHYDRATE 500 MG CAPSULE (UD) PO SCH ×2 (10:56→22:45)
[2017-04-25] MEDS: ISOSORBIDE MONONITRATE 30 MG TAB.SR.24H (FP) PO SCH (10:56)
[2017-04-25] MEDS: risperiDONE 0.5 MG TABLET (FP) PO SCH ×2 (10:56→22:45)
[2017-04-25] MEDS: FERROUS SO4 325 MG TABLET (FP) PO SCH ×2 (10:56→22:46)
[2017-04-25] MEDS: BUDESONIDE/FORMETEROL FUMARATE 80/4.5 mcg INHALER IH SCH ×2 (10:57→22:50)
[2017-04-25] MEDS: TIOTROPIUM BROMIDE 18 MCG/INH (DEVICE W/ 5 CAPSULES) IH SCH (10:57)
[2017-04-25] MEDS: COLLAGENASE CLOSTRIDIUM HIST. 30 GRAMS TUBE TP SCH (10:57)
[2017-04-25] MEDS: buPROPion HCL 75 MG TABLET PO SCH (10:58)
[2017-04-25] MEDS: ACETAMINOPHEN 325 MG TABLET (FP) PO PRN (12:53)
--- NOTE | 2017-04-25 16:08 | PN ---
Teaching Attending Note Name of Resident: Zulma Watkins ATTENDING PHYSICIAN STATEMENT I saw and evaluated the patient. I reviewed the resident's note and discussed the case with the resident. I agree with the resident's findings and plan as documented. SUBJECTIVE:asymptomatic. denies CP, SOB< fever, chills, N/V/C/D OBJECTIVE: Last Vital Signs Temp Pulse Resp BP Pulse Ox 99.7 F H 79 18 149/64 99 04/25/17 14:39 04/25/17 14:39 04/25/17 14:39 04/25/17 14:39 04/25/17 09:00 General NAD abdomen soft NT/Nd ASSESSMENT AND PLAN: 71yo F with PMH DM, COPD, CKD, sacral ulcer with hx of MRSA, HTN, CVA with residual L sided paresis, urinary retention with indwelling powers catheter presented to the Er with increasing agitation 1. Sepsis due to UTI-Tm 101.1 spike yesterday. repeat sepsis workup done. shows UTI is improved. CXR negative. will cont current abx selection of keflex day 2 of 7. will need to consider escalating abx selection if continues to have fevers. 2. acute on CKD- Baseline Cr 2.6. possible due to sepsis. improved. Powers catheter replaced. 3. Microcytic Anemia- Hgb stable. iron studies pending. no signs of bleeding. no indication for txn. 4. DM- Controlled. cont home management. titrate to optimize control 5. HTN- controlled. cont antihypertensives. 6. COPD- stable 7. CVA with residual L sided paresis- on asa 8. DVT ppx- hep sq
--- NOTE | 2017-04-25 17:05 | PN ---
Physical Exam: SUBJECTIVE: Patient seen and examined. She doesn;t have any complaints today. No overnight events. OBJECTIVE: Vital Signs Period Temp Pulse Resp BP Sys/Benton Pulse Ox Last 24 Hr 99.7 F-100.8 F 74-85 18-18 142-186/63-84 99 GENERAL: The patient is awake, alert, in no acute distress, flat affect. HEAD: Normal with no signs of trauma. EYES: extraocular movements intact, ENT: oropharynx clear without exudates, moist mucous membranes. NECK: Trachea midline, full range of motion, supple. LUNGS: Breath sounds equal, clear to auscultation bilaterally, no wheezes, no crackles, no accessory muscle use. HEART: Regular rate and rhythm, S1, S2 systolic murmur present over r sternal border, rub or gallop. ABDOMEN: Soft, nontender, nondistended, normoactive bowel sounds, no guarding, no rebound, hernia+. EXTREMITIES: 2+ pulses, warm, well-perfused, no edema. NEUROLOGICAL: Normal speech, gait not observed. PSYCH: Normal mood, normal affect. SKIN: Warm, dry, normal turgor, decub ulcer not observed-pt refused exam. Laboratory Results - last 24 hr 04/24/17 04/24/17 04/24/17 16:30 18:23 23:34 POC Glucometer 228 328 Urine Color Ltyellow Urine Appearance Cloudy Urine pH 5.0 Ur Specific [place] 1.010 Urine Protein 2+ H Urine Glucose (UA) Negative Urine Ketones Negative Urine Blood Negative Urine Nitrite Negative Urine Bilirubin Negative Urine Urobilinogen Negative Urine WBC (Auto) 47 Urine RBC (Auto) 12 Ur Epithelial Cells Rare Urine Bacteria Rare Urine Mucus Rare Urine Yeast Many 04/25/17 04/25/17 07:10 12:08 POC Glucometer 224 216 Urine Color Urine Appearance Urine pH Ur Specific [place] Urine Protein Urine Glucose (UA) Urine Ketones Urine Blood Urine Nitrite Urine Bilirubin Urine Urobilinogen Urine WBC (Auto) Urine RBC (Auto) Ur Epithelial Cells Urine Bacteria Urine Mucus Urine Yeast Active Medications Generic Name Dose Route Start Last Admin Trade Name Freq PRN Reason Stop Dose Admin Acetaminophen 650 mg 04/24/17 16:25 04/25/17 12:53 Tylenol - PO 650 mg Q6H PRN Administration FEVER OR PAIN Amino Acids 30 ml 04/23/17 17:30 04/25/17 10:55 Prosource No Carb Liquid Pkt PO 30 ml BID@0800,1730 [facility] Administration Amlodipine Besylate 10 mg 04/21/17 10:00 04/25/17 10:55 Norvasc - PO 10 mg DAILY [facility] Administration Budesonide/Formoterol Fumarate 1 puff 04/20/17 22:00 04/25/17 10:57 Symbicort 80/4.5mcg - IH 1 inh BID [facility] Administration Bupropion HCl 75 mg 04/21/17 10:00 04/25/17 10:58 Wellbutrin - PO 75 mg DAILY [facility] Administration Calcium Acetate 667 mg 04/21/17 08:00 04/25/17 12:14 Phoslo - PO 667 mg TIDCM [facility]AL Administration Cephalexin HCl 500 mg 04/24/17 10:00 04/25/17 10:56 Keflex - PO 500 mg BID [facility] Administration Cholecalciferol 400 unit 04/21/17 10:00 04/25/17 10:55 Vitamin D3 - PO 400 unit DAILY [facility] Administration Collagenase 1 applic 04/21/17 13:45 04/25/17 10:57 Santyl - TP 1 applic DAILY [facility] Administration Ferrous Sulfate 325 mg 04/20/17 22:00 04/25/17 10:56 Feosol - PO 325 mg BID [facility] Administration Heparin Sodium (Porcine) 5,000 unit 04/20/17 22:00 04/25/17 13:15 Heparin - SQ 5,000 unit TID [facility] Administration Hydralazine HCl 10 mg 04/20/17 22:00 04/25/17 13:15 Apresoline - PO 10 mg TID [facility] Administration Insulin Aspart 1 vial 04/20/17 22:00 04/25/17 12:09 Novolog Vial Sliding Scale - SQ 4 units ACHS [facility] Administration Protocol Insulin Detemir 8 units 04/21/17 07:00 04/25/17 07:14 Levemir Vial SQ 8 unit DAILY@0700 [facility] Administration Isosorbide Mononitrate 30 mg 04/21/17 10:00 04/25/17 10:56 Imdur - PO 30 mg DAILY [facility] Administration Lactulose 10 gm 04/20/17 22:00 04/25/17 07:19 Cephulac (Oral Use) PO Not Given HS [facility] Metoprolol Succinate 100 mg 04/21/17 10:00 04/25/17 10:56 Toprol Xl - PO 100 mg DAILY [facility] Administration Polyethylene Glycol 17 gm 04/21/17 10:00 04/25/17 10:55 Miralax (For Daily Use) - PO Not Given DAILY [facility] Risperidone 0.25 mg 04/20/17 22:00 04/25/17 10:56 Risperdal - PO 0.25 mg BID [facility] Administration Tiotropium [place] 1 puff 04/21/17 10:00 04/25/17 10:57 Spiriva - IH 1 inh DAILY [facility]AL Administration ASSESSMENT/PLAN: 71yo F with PMH DM, COPD, CKD, sacral ulcer with hx of MRSA, HTN, CVA with residual L sided paresis, urinary retention with indwelling powers catheter admitted for AMS and sepsis. Sepsis due to UTI Tm 101.1 spike yesterday afternoon will cont current abx selection of Keflex day 2 of 7, micro: E Coli if persistent fevers we will consider changing abx acute on CKD possibly due to sepsis today Cr improved, Powers catheter present and changed Microcytic Anemia Hgb stable, sakshi studies pending no signs of blood loss DM cont ISS and LEvemir 8u HS HTN controlled, cont home meds: Norvasc, Apresoline and Toprol COPD- stable, cont home meds CVA with residual L sided paresis on asa DVT ppx- hep sq Disposition: cont med surg Problem List - Problems (1) Acute on chronic renal insufficiency Code(s): N28.9 - DISORDER OF KIDNEY AND URETER, UNSPECIFIED; N18.9 - CHRONIC KIDNEY DISEASE, UNSPECIFIED (2) Infected decubitus ulcer Code(s): L89.90 - PRESSURE ULCER OF UNSPECIFIED SITE, UNSPECIFIED STAGE; L08.9 - LOCAL INFECTION OF THE SKIN AND SUBCUTANEOUS TISSUE, UNSP (3) UTI (urinary tract infection) Code(s): N39.0 - URINARY TRACT INFECTION, SITE NOT SPECIFIED Qualifiers: Urinary tract infection type: acute cystitis Hematuria presence: without hematuria Qualified Code(s): N30.00 - Acute cystitis without hematuria (4) COPD (chronic obstructive pulmonary disease) Code(s): J44.9 - CHRONIC OBSTRUCTIVE PULMONARY DISEASE, UNSPECIFIED Qualifiers: COPD type: COPD with acute lower respiratory infection Qualified Code(s): J44.0 - Chronic obstructive pulmonary disease with acute lower respiratory infection (5) CVA (cerebrovascular accident) Code(s): I63.9 - CEREBRAL INFARCTION, UNSPECIFIED Qualifiers: CVA mechanism: stenosis (6) DVT prophylaxis Code(s): LNT6549 - (7) Dementia Code(s): F03.90 - UNSPECIFIED DEMENTIA WITHOUT BEHAVIORAL DISTURBANCE (8) Hypertension Code(s): I10 - ESSENTIAL (PRIMARY) HYPERTENSION Visit type - Emergency Visit Emergency Visit: Yes ED Registration Date: 04/20/17 Care time: The patient presented to the Emergency Department on the above date and was hospitalized for further evaluation of their emergent condition. - New Patient This patient is new to me today: Yes Date on this admission: 04/25/17 - Critical Care Critical Care patient: No
[2017-04-26] MEDS: ACETAMINOPHEN 325 MG TABLET (FP) PO PRN (02:55)
[2017-04-26] MEDS: INSULIN DETEMIR 100 UNITS/ML MDV SQ SCH (06:44)
[2017-04-26] MEDS: hydrALAZINE HCL 10 MG TABLET PO SCH ×3 (06:44→22:43)
[2017-04-26] MEDS: HEPARIN NA (PORCINE) 5,000 UNITS/ML 1ML VIAL SQ SCH ×3 (06:44→22:43)
[2017-04-26] MEDS: INSULIN SLIDING SCALE (NOVOLOG) 1 VIAL SQ SCH ×4 (06:56→22:51)
[2017-04-26 08:17] LABS: BASO % 0.3 % (0-2.0); HEMATOCRIT 25.2 % (32.4-45.2); HEMOGLOBIN 7.7 GM/dL (10.7-15.3); LYMPH % 4.3 % (8-40); MCH 24.7 pg (25.7-33.7); MCHC 30.7 g/dl (32.0-36.0); MEAN CELL VOLUME 80.6 fl (80-96); MEAN PLT VOLUME 8.1 fl (7.5-11.1); MONO % 4.8 % (3.8-10.2); NEUT % 88.6 % (42.8-82.8); PLATELET COUNT 205 K/MM3 (134-434); RBC 3.13 M/mm3 (3.60-5.2); RDW 21.3 % (11.6-15.6); WHITE BLOOD COUNT 19.3 K/mm3 (4.0-10.0)
--- NOTE | 2017-04-26 08:19 | PN ---
Physical Exam: SUBJECTIVE: Briefly, pt is a 71yo F with history of chronic sacral decubitus ulcer, buttock wounds, and indwelling catheter who presented to the ED for fevers and chills from [facility] found to have sepsis 2/2 to UTI. Over the previous day pt spiked a fever to a max of 101 and repeat workup was performed. Upon examination today, pt was sleeping and minimally arousable to stimuli. Vitals were WNL and nursing staff at bedside reported pt received her scheduled medication last night slightly later. Pt was maintaining airway, had unlaboured breathing, and had regular strong pulses distally. HPI to be obtained later. OBJECTIVE: Vital Signs Period Temp Pulse Resp BP Sys/Benton Pulse Ox Last 24 Hr 99.3 F-101 F 68-85 18-20 139-186/56-84 98-99 GENERAL: NAD, drowsy, minimally arousable to palpation. HEAD: AT/NC EYES: PERRL and normal pupil size at 4-5mm, pt 5/5 strength against resistance with closing eyelids, sclera anicteric, conjunctiva clear. NECK: Trachea midline, no lymphadenopathy appreciated. LUNGS: CTA bilaterally, no wheezes, rhonchi, rales. No accessory muscle use. HEART: RRR, S1, S2 without murmur appreciated ABDOMEN: Soft, nondistended, no grimace with abdominal palpation including suprapubicly, no guarding, no rebound, no hepatosplenomegaly EXTREMITIES: 2+ DP pulses, warm, well-perfused, no edema. NEUROLOGICAL: Could not assess due to condition SKIN: Warm, dry, normal turgor, no rashes or lesions noted Laboratory Results - last 24 hr 04/24/17 04/25/17 04/25/17 18:23 12:08 17:44 POC Glucometer 216 225 Ur Leukocyte Esterase 1+ H 04/25/17 04/26/17 22:48 06:50 POC Glucometer 163 145 Ur Leukocyte Esterase Active Medications Generic Name Dose Route Start Last Admin Trade Name Freq PRN Reason Stop Dose Admin Acetaminophen 650 mg 04/24/17 16:25 04/26/17 02:55 Tylenol - PO 650 mg Q6H PRN Administration FEVER OR PAIN Amino Acids 30 ml 04/23/17 17:30 04/25/17 18:15 Prosource No Carb Liquid Pkt PO 30 ml BID@0800,1730 [facility] Administration Amlodipine Besylate 10 mg 04/21/17 10:00 04/25/17 10:55 Norvasc - PO 10 mg DAILY [facility] Administration Budesonide/Formoterol Fumarate 1 puff 04/20/17 22:00 04/25/17 22:50 Symbicort 80/4.5mcg - IH 1 inh BID [facility] Administration Bupropion HCl 75 mg 04/21/17 10:00 04/25/17 10:58 Wellbutrin - PO 75 mg DAILY [facility] Administration Calcium Acetate 667 mg 04/21/17 08:00 04/25/17 18:15 Phoslo - PO 667 mg TIDCM [facility] Administration Cephalexin HCl 500 mg 04/24/17 10:00 04/25/17 22:45 Keflex - PO 500 mg BID [facility] Administration Cholecalciferol 400 unit 04/21/17 10:00 04/25/17 10:55 Vitamin D3 - PO 400 unit DAILY [facility] Administration Collagenase 1 applic 04/21/17 13:45 04/25/17 10:57 Santyl - TP 1 applic DAILY [facility] Administration Ferrous Sulfate 325 mg 04/20/17 22:00 04/25/17 22:46 Feosol - PO 325 mg BID [facility] Administration Heparin Sodium (Porcine) 5,000 unit 04/20/17 22:00 04/26/17 06:44 Heparin - SQ 5,000 unit TID [facility] Administration Hydralazine HCl 10 mg 04/20/17 22:00 04/26/17 06:44 Apresoline - PO 10 mg TID [facility] Administration Insulin Aspart 1 vial 04/20/17 22:00 04/26/17 06:56 Novolog Vial Sliding Scale - SQ Not Given [facility] Protocol Insulin Detemir 8 units 04/21/17 07:00 04/26/17 06:44 Levemir Vial SQ 8 unit DAILY@0700 [facility] Administration Isosorbide Mononitrate 30 mg 04/21/17 10:00 04/25/17 10:56 Imdur - PO 30 mg DAILY [facility] Administration Lactulose 10 gm 04/20/17 22:00 04/25/17 22:46 Cephulac (Oral Use) PO 10 gm HS [facility] Administration Metoprolol Succinate 100 mg 04/21/17 10:00 04/25/17 10:56 Toprol Xl - PO 100 mg DAILY [facility] Administration Polyethylene Glycol 17 gm 04/21/17 10:00 04/25/17 10:55 Miralax (For Daily Use) - PO Not Given DAILY [facility] Risperidone 0.25 mg 04/20/17 22:00 04/25/17 22:45 Risperdal - PO 0.25 mg BID [facility] Administration Tiotropium [place] 1 puff 04/21/17 10:00 04/25/17 10:57 Spiriva - IH 1 inh DAILY [facility] Administration ASSESSMENT/PLAN: 71yo F with h/o COPD, CKD, chronic sacral ulcer, HTN and CVA with residual L sided paresis, and chronic indwelling catheter who presented to ER with fever and worsening buttock wounds around sacral ulcer. 1) Sepsis 2/2 E. Coli UTI --In lieu of spiking fevers and increased WBC to 19,000 --Repeat blood cultures --Repeat urine culture with powers cath change --Rpt UA --ID consulted and will follow up recommendations --Question possible broadening of coverage in light of new fevers and WBC count --Has been on Keflex currently 2) Sacral wounds --Cultures ordered --Sacral wounds may have worsened and would like to reconsult wound care for recommendations on possible debridement --May be source of new onset of infectious symptoms 3) MARTITA on CKD --MARTITA resolved; Cr around baseline --Continue to trend 4) Microcytic anemia --Hgb at 7.7 --Will continue to monitor with tranfusion threshold of 7.0 --No evidence of bleeding currently FEN: Fluids: none indicated currently Electrolyte abnormalities: None currently Nutrition: Chopped diet; renal PPX: DVT - Heparin SQ Dispo: Given new fevers and leukocytosis will postpone D/C Case discussed with Dr. Almas Blacnhard, DO - Internal Medicine PGY-1 Visit type - Emergency Visit Emergency Visit: No - New Patient This patient is new to me today: No - Critical Care Critical Care patient: No
[2017-04-26 08:39] LABS: ALBUMIN 1.4 g/dl (3.4-5.0); ANION GAP 11 (8-16); CALCIUM 8.7 mg/dL (8.5-10.1); CHLORIDE 106 mmol/L (98-107); CO2 18 mmol/L (21-32); CREATININE 2.6 mg/dL (0.55-1.02); GLUCOSE,RANDOM 141 mg/dL (74-106); SGPT/ALT 35 U/L (12-78); SODIUM 135 mmol/L (136-145)
[2017-04-26 08:42] LABS: ALK PHOS 113 U/L (45-117); BILIRUBIN,TOTAL 0.4 mg/dL (0.2-1.0); BLOOD UREA NITROGEN 50 mg/dL (7-18); TOT PROT 6.1 g/dl (6.4-8.2)
[2017-04-26 08:44] LABS: SGOT/AST 25 U/L (15-37)
[2017-04-26 08:46] LABS: POTASSIUM 3.8 mmol/L (3.5-5.1)
[2017-04-26] MEDS: CALCIUM ACETATE 667 MG CAPSULE (FP) PO SCH ×3 (10:50→18:49)
[2017-04-26] MEDS: AMINO ACIDS/PROTEIN HYDROLYS 30 ML LIQUID.PKT PO SCH ×2 (10:50→18:49)
[2017-04-26] MEDS: CEPHALEXIN MONOHYDRATE 500 MG CAPSULE (UD) PO SCH (10:50)
[2017-04-26] MEDS: amLODIPine BESYLATE 10 MG TABLET (FP) PO SCH (10:50)
[2017-04-26] MEDS: FERROUS SO4 325 MG TABLET (FP) PO SCH ×2 (10:50→22:43)
[2017-04-26] MEDS: CHOLECALCIFEROL (VITAMIN D3) 400 UNIT TABLET (FP) PO SCH (10:50)
[2017-04-26] MEDS: ISOSORBIDE MONONITRATE 30 MG TAB.SR.24H (FP) PO SCH (10:50)
[2017-04-26] MEDS: POLYETHYLENE GLYCOL 3350 119 GM BTL PO SCH (10:51)
[2017-04-26] MEDS: risperiDONE 0.5 MG TABLET (FP) PO SCH ×2 (10:51→22:44)
[2017-04-26] MEDS: COLLAGENASE CLOSTRIDIUM HIST. 30 GRAMS TUBE TP SCH (11:03)
[2017-04-26] MEDS: BUDESONIDE/FORMETEROL FUMARATE 80/4.5 mcg INHALER IH SCH ×2 (11:03→22:45)
[2017-04-26] MEDS: TIOTROPIUM BROMIDE 18 MCG/INH (DEVICE W/ 5 CAPSULES) IH SCH (11:03)
[2017-04-26] MEDS: buPROPion HCL 75 MG TABLET PO SCH (12:38)
--- NOTE | 2017-04-26 16:31 | PN ---
Teaching Attending Note Name of Resident: Cuong Blanchard ATTENDING PHYSICIAN STATEMENT Time of evaluation: 10:20 AM I saw and evaluated the patient. I reviewed the resident's note and discussed the case with the resident. I agree with the resident's findings and plan as documented. SUBJECTIVE: Patient seen and examined, oriented to self, knows in the hospital, not co- operative with further history or full exam, ROS limited. OBJECTIVE: Vital Signs Period Temp Pulse Resp BP Sys/Benton Pulse Ox Last 24 Hr 99.2 F-101 F 68-72 18-20 139-149/56-60 98-98 Intake & Output 04/23/17 04/24/17 04/25/17 04/26/17 23:59 23:59 23:59 23:59 Intake Total 750 500 780 240 Output Total 1800 2600 900 530 Balance -1050 -2100 -120 -290 General: sitting in bed in no acute distress Abdomen: soft, obese, NT back: limited exam given lack of patient co-operation, visualized sacral decub with greenish/white discharge, minimal foul smell but no surrounding swelling or angry looking erythema Home Medication List Medication Instructions Recorded Confirmed Type Acetaminophen 500 mg PO DAILY 12/27/16 04/20/17 History Amlodipine Besylate 10 mg PO DAILY 12/27/16 04/20/17 History Betamethasone Dipr 0.05% Oint 50 gm .ROUTE ASDIR 12/27/16 04/20/17 History [Diprolene] Budesonide/Formeterol Fumarate 1 inh PO BID 12/27/16 04/20/17 History [SYMBICORT 80/4.5mcg -] Bupropion HCl [Wellbutrin -] 75 mg PO DAILY 12/27/16 04/20/17 History Calcium Acetate [Calphron] 667 mg PO TID 12/27/16 04/20/17 History Cholecalciferol (Vitamin D3) 400 unit PO DAILY 12/27/16 04/20/17 History [Vitamin D3 -] Duloxetine HCl [Cymbalta] 20 mg PO DAILY 12/27/16 04/20/17 History Duloxetine HCl [Cymbalta] 60 mg PO DAILY 12/27/16 04/20/17 History Ferrous Sulfate [Feosol] 324 mg PO BID 12/27/16 04/20/17 History Hydralazine HCl 10 mg PO TID 12/27/16 04/20/17 History Insulin (Levemir) [Levemir Flexpen 8 units SQ DAILY 12/27/16 04/20/17 History -] Isosorbide Mononitrate [Isosorbide 30 mg PO DAILY 12/27/16 04/20/17 History Mononitrate ER] Lactulose [Enulose] 10 gm PO HS 12/27/16 04/20/17 History Omeprazole 40 mg PO DAILY 12/27/16 04/20/17 History Polyethylene Glycol 3350 [Miralax 17 gm PO DAILY 12/27/16 04/20/17 History (For Daily Use) -] Risperidone [Risperdal -] 0.25 mg PO BID 12/27/16 04/20/17 History Tiotropium [place] [Spiriva] 1 inh IH DAILY 12/27/16 04/20/17 History Tramadol HCl 50 mg PO BID 12/27/16 04/20/17 History Cranberry Fruit Concentrate 500 mg PO DAILY 04/20/17 04/20/17 History [Cran-Max] Metoprolol Succinate [Toprol Xl] 100 mg PO DAILY 04/20/17 04/20/17 History Silver/Calcium Alginate [Algicell 1 bandage TD DAILY 04/20/17 04/20/17 History Ag 4"X5" Dressing] Active Medications Generic Name Dose Route Start Last Admin Trade Name Freq PRN Reason Stop Dose Admin Acetaminophen 650 mg 04/24/17 16:25 04/26/17 02:55 Tylenol - PO 650 mg Q6H PRN Administration FEVER OR PAIN Amino Acids 30 ml 04/23/17 17:30 04/26/17 10:50 Prosource No Carb Liquid Pkt PO 30 ml BID@0800,1730 [facility] Administration Amlodipine Besylate 10 mg 04/21/17 10:00 04/26/17 10:50 Norvasc - PO 10 mg DAILY [facility] Administration Budesonide/Formoterol Fumarate 1 puff 04/20/17 22:00 04/26/17 11:03 Symbicort 80/4.5mcg - IH 1 inh BID [facility] Administration Bupropion HCl 75 mg 04/21/17 10:00 04/26/17 12:38 Wellbutrin - PO 75 mg DAILY [facility] Administration Calcium Acetate 667 mg 04/21/17 08:00 12/19/17 12:38 Phoslo - PO 667 mg TIDCM [facility] Administration Cephalexin HCl 500 mg 04/24/17 10:00 04/26/17 10:50 Keflex - PO 500 mg BID [facility]AL Administration Cholecalciferol 400 unit 04/21/17 10:00 04/26/17 10:50 Vitamin D3 - PO 400 unit DAILY [facility] Administration Collagenase 1 applic 04/21/17 13:45 04/26/17 11:03 Santyl - TP 1 applic DAILY [facility] Administration Ferrous Sulfate 325 mg 04/20/17 22:00 04/26/17 10:50 Feosol - PO 325 mg BID [facility] Administration Heparin Sodium (Porcine) 5,000 unit 04/20/17 22:00 04/26/17 13:09 Heparin - SQ 5,000 unit TID [facility] Administration Hydralazine HCl 10 mg 04/20/17 22:00 04/26/17 13:06 Apresoline - PO 10 mg TID [facility] Administration Insulin Aspart 1 vial 04/20/17 22:00 04/26/17 12:33 Novolog Vial Sliding Scale - SQ Not Given [facility] Protocol Insulin Detemir 8 units 04/21/17 07:00 04/26/17 06:44 Levemir Vial SQ 8 unit DAILY@0700 [facility] Administration Isosorbide Mononitrate 30 mg 04/21/17 10:00 04/26/17 10:50 Imdur - PO 30 mg DAILY [facility] Administration Lactulose 10 gm 04/20/17 22:00 04/25/17 22:46 Cephulac (Oral Use) PO 10 gm HS [facility] Administration Metoprolol Succinate 100 mg 04/21/17 10:00 04/26/17 10:50 Toprol Xl - PO 100 mg DAILY [facility] Administration Polyethylene Glycol 17 gm 04/21/17 10:00 04/26/17 10:51 Miralax (For Daily Use) - PO 17 gm DAILY [facility] Administration Risperidone 0.25 mg 04/20/17 22:00 04/26/17 10:51 Risperdal - PO 0.25 mg BID [facility] Administration Tiotropium [place] 1 puff 04/21/17 10:00 04/26/17 11:03 Spiriva - IH 1 inh DAILY [facility] Administration Laboratory Results - last 24 hr 04/24/17 04/25/17 04/25/17 18:23 17:44 22:48 WBC RBC Hgb Hct MCV MCH MCHC RDW Plt Count MPV Neutrophils % Lymphocytes % Monocytes % Eosinophils % Basophils % Sodium Potassium Chloride Carbon Dioxide Anion Gap BUN Creatinine Creat Clearance w eGFR POC Glucometer 225 163 Random Glucose Calcium Total Bilirubin AST ALT Alkaline Phosphatase Total Protein Albumin Ur Leukocyte Esterase 1+ H 04/26/17 04/26/17 04/26/17 06:40 06:40 06:50 WBC 19.3 H D RBC 3.13 L Hgb 7.7 L Hct 25.2 L MCV 80.6 MCH 24.7 L MCHC 30.7 L RDW 21.3 H Plt Count 205 MPV 8.1 Neutrophils % 88.6 H Lymphocytes % 4.3 L Monocytes % 4.8 Eosinophils % 2.0 Basophils % 0.3 Sodium 135 L Potassium 3.8 Chloride 106 Carbon Dioxide 18 L Anion Gap 11 BUN 50 H Creatinine 2.6 H Creat Clearance w eGFR 18.25 POC Glucometer 145 Random Glucose 141 H Calcium 8.7 Total Bilirubin 0.4 D AST 25 D ALT 35 D Alkaline Phosphatase 113 Total Protein 6.1 L Albumin 1.4 L D Ur Leukocyte Esterase 04/26/17 12:23 WBC RBC Hgb Hct MCV MCH MCHC RDW Plt Count MPV Neutrophils % Lymphocytes % Monocytes % Eosinophils % Basophils % Sodium Potassium Chloride Carbon Dioxide Anion Gap BUN Creatinine Creat Clearance w eGFR POC Glucometer 113 Random Glucose Calcium Total Bilirubin AST ALT Alkaline Phosphatase Total Protein Albumin Ur Leukocyte Esterase ASSESSMENT AND PLAN: 71yo F with PMH DM, COPD, CKD, sacral ulcer with hx of MRSA, HTN, CVA with residual L sided paresis, urinary retention with indwelling powers catheter presented to the Er with increasing agitation -Sepsis due to E. Coli UTI, recurrent SIRS - from infected sacral decubitus -MARTITA on CKD -D -HTN -COPD -CVA with residual left hemiparess -Microcytic anemia Plan: repeat blood cultures, powers cath change, repeat urinalysis and urine cultures, reconsult Dr. Rogers to address sacral wound debridement. Discussed with Dr. Alford, will follow up additional recs. Likely place on broad spectrum coverage for now. Sacral wound cultures. hb overall unchanged, no gross evidence of bleed. Transfuse prn for bleed or Hb < 7 Creatinine around baseline, monitor fornow. ISS, diabetic diet Continue ASA and home anti-hypertensives. DVTPPX with heparin subq. Dispo planning on hold given new fevers and leucocytosis .
[2017-04-26] MEDS ORDERED: VANCOMYCIN 1,000 MG in DEXTROSE 5%-WATER - 250 ML IVPB ONE (17:39)
[2017-04-26 19:14] LABS: URINE APPEARANCE SLCLOUDY; URINE BILIRUBIN NEGATIVE (NEGATIVE); URINE BLOOD 1+ (NEGATIVE); URINE COLOR YELLOW; URINE GLUCOSE (UA) NEGATIVE (NEGATIVE); URINE KETONE NEGATIVE (NEGATIVE); URINE LEUK ESTERASE TRACE (NEGATIVE); URINE NITRITE NEGATIVE (NEGATIVE); URINE UROBILINOGEN NEGATIVE mg/dL (0.2-1.0)
[2017-04-26 19:53] LABS: URINE PROTEIN 2+ (NEGATIVE)
[2017-04-26] MEDS ORDERED: PT OWN MED DRAWER 7, Y5N ONE (21:24)
[2017-04-26] MEDS: PIPERACILLIN/TAZOB 2.25 GM 2.25 GM/50 ML BAG IVPB SCH (22:08)
[2017-04-26] MEDS: LACTULOSE 20 GM/30 ML UDC (FOR ORAL USE ONLY) PO SCH (22:44)
[2017-04-26 23:10] LABS: EPI CELLS RARE /HPF (FEW); URINE BACTERIA RARE /hpf (NONE SEEN); URINE MUCUS RARE
[2017-04-27] MEDS: PIPERACILLIN/TAZOB 2.25 GM 2.25 GM/50 ML BAG IVPB SCH ×3 (01:28→18:16)
[2017-04-27] MEDS: HEPARIN NA (PORCINE) 5,000 UNITS/ML 1ML VIAL SQ SCH ×2 (06:18→15:18)
[2017-04-27] MEDS: INSULIN SLIDING SCALE (NOVOLOG) 1 VIAL SQ SCH ×4 (06:18→22:20)
[2017-04-27] MEDS: hydrALAZINE HCL 10 MG TABLET PO SCH ×3 (06:19→22:10)
[2017-04-27] MEDS: INSULIN DETEMIR 100 UNITS/ML MDV SQ SCH (06:32)
--- NOTE | 2017-04-27 07:02 | PN ---
Physical Exam: SUBJECTIVE: Tmax overnight 100.2. Pt's only complaints is that she is slightly cold this morning. Otherwise no problems overnight. Pt remains reserved in her HPI, however she is more awake today when previously seen yesterday. OBJECTIVE: Vital Signs Period Temp Pulse Resp BP Sys/Benton Pulse Ox Last 24 Hr 99.1 F-100.2 F 70-77 18-20 140-153/56-72 98 GENERAL: NAD, awake, alert, and fully oriented. HEENT: EOMI, ALY, No JVD, moist mucosa LUNGS: CTA bilaterally, no wheezes, rhonchi, or rales. No accessory muscle use. On RA HEART: RRR, S1, S2 without murmur appreciated ABDOMEN: Soft, nontender, nondistended, hypo-normoactive bowel sounds, no guarding, no rebound, no hepatosplenomegaly EXTREMITIES: 2+ pulses, warm, well-perfused, no edema. NEUROLOGICAL: Could not fully assess due to pt resistance to exam. Pt continues to have L>R UE weakness (chronic) SKIN: Pt resistant to wound examination; will retry with attending rounds. No rashes noted Laboratory Results - last 24 hr 04/26/17 04/26/17 04/26/17 06:40 06:40 06:50 WBC 19.3 H D RBC 3.13 L Hgb 7.7 L Hct 25.2 L MCV 80.6 MCH 24.7 L MCHC 30.7 L RDW 21.3 H Plt Count 205 MPV 8.1 Neutrophils % 88.6 H Lymphocytes % 4.3 L Monocytes % 4.8 Eosinophils % 2.0 Basophils % 0.3 Sodium 135 L Potassium 3.8 Chloride 106 Carbon Dioxide 18 L Anion Gap 11 BUN 50 H Creatinine 2.6 H Creat Clearance w eGFR 18.25 POC Glucometer 145 Random Glucose 141 H Calcium 8.7 Total Bilirubin 0.4 D AST 25 D ALT 35 D Alkaline Phosphatase 113 Total Protein 6.1 L Albumin 1.4 L D Urine Color Urine Appearance Urine pH Ur Specific [place] Urine Protein Urine Glucose (UA) Urine Ketones Urine Blood Urine Nitrite Urine Bilirubin Urine Urobilinogen Ur Leukocyte Esterase Urine WBC (Auto) Urine RBC (Auto) Ur Epithelial Cells Urine Bacteria Urine Mucus 04/26/17 04/26/17 04/26/17 12:23 15:00 17:42 WBC RBC Hgb Hct MCV MCH MCHC RDW Plt Count MPV Neutrophils % Lymphocytes % Monocytes % Eosinophils % Basophils % Sodium Potassium Chloride Carbon Dioxide Anion Gap BUN Creatinine Creat Clearance w eGFR POC Glucometer 113 155 Random Glucose Calcium Total Bilirubin AST ALT Alkaline Phosphatase Total Protein Albumin Urine Color Yellow Urine Appearance Slcloudy Urine pH 5.0 Ur Specific [place] 1.011 Urine Protein 2+ H Urine Glucose (UA) Negative Urine Ketones Negative Urine Blood 1+ H Urine Nitrite Negative Urine Bilirubin Negative Urine Urobilinogen Negative Ur Leukocyte Esterase Trace H Urine WBC (Auto) 6 Urine RBC (Auto) <1 Ur Epithelial Cells Rare Urine Bacteria Rare Urine Mucus Rare 04/26/17 22:50 WBC RBC Hgb Hct MCV MCH MCHC RDW Plt Count MPV Neutrophils % Lymphocytes % Monocytes % Eosinophils % Basophils % Sodium Potassium Chloride Carbon Dioxide Anion Gap BUN Creatinine Creat Clearance w eGFR POC Glucometer 239 Random Glucose Calcium Total Bilirubin AST ALT Alkaline Phosphatase Total Protein Albumin Urine Color Urine Appearance Urine pH Ur Specific [place] Urine Protein Urine Glucose (UA) Urine Ketones Urine Blood Urine Nitrite Urine Bilirubin Urine Urobilinogen Ur Leukocyte Esterase Urine WBC (Auto) Urine RBC (Auto) Ur Epithelial Cells Urine Bacteria Urine Mucus Active Medications Generic Name Dose Route Start Last Admin Trade Name Freq PRN Reason Stop Dose Admin Acetaminophen 650 mg 04/24/17 16:25 04/26/17 02:55 Tylenol - PO 650 mg Q6H PRN Administration FEVER OR PAIN Amino Acids 30 ml 04/23/17 17:30 04/26/17 18:49 Prosource No Carb Liquid Pkt PO 30 ml BID@0800,1730 [facility] Administration Amlodipine Besylate 10 mg 04/21/17 10:00 04/26/17 10:50 Norvasc - PO 10 mg DAILY [facility] Administration Budesonide/Formoterol Fumarate 1 puff 04/20/17 22:00 04/26/17 22:45 Symbicort 80/4.5mcg - IH 1 inh BID [facility] Administration Bupropion HCl 75 mg 04/21/17 10:00 04/26/17 12:38 Wellbutrin - PO 75 mg DAILY [facility] Administration Calcium Acetate 667 mg 04/21/17 08:00 04/26/17 18:49 Phoslo - PO 667 mg TIDCM [facility] Administration Cholecalciferol 400 unit 04/21/17 10:00 04/26/17 10:50 Vitamin D3 - PO 400 unit DAILY [facility] Administration Collagenase 1 applic 04/21/17 13:45 04/26/17 11:03 Santyl - TP 1 applic DAILY [facility] Administration Ferrous Sulfate 325 mg 04/20/17 22:00 04/26/17 22:43 Feosol - PO 325 mg BID [facility] Administration Heparin Sodium (Porcine) 5,000 unit 04/20/17 22:00 04/27/17 06:18 Heparin - SQ 5,000 unit TID [facility] Administration Hydralazine HCl 10 mg 04/20/17 22:00 04/27/17 06:19 Apresoline - PO 10 mg TID [facility] Administration Piperacillin/Tazobactam/Dextrose 2.25 gm in 50 mls @ 100 mls/hr 04/26/17 18: 00 04/27/17 01:28 Zosyn 2.25gm Ivpb (Premix) IVPB 100 mls/hr Q8H-IV [facility] Administration Protocol Insulin Aspart 1 vial 04/20/17 22:00 04/27/17 06:18 Novolog Vial Sliding Scale - SQ 2 unit ACHS [facility] Administration Protocol Insulin Detemir 8 units 04/21/17 07:00 04/27/17 06:32 Levemir Vial SQ 8 unit DAILY@0700 [facility] Administration Isosorbide Mononitrate 30 mg 04/21/17 10:00 04/26/17 10:50 Imdur - PO 30 mg DAILY [facility] Administration Lactulose 10 gm 04/20/17 22:00 04/26/17 22:44 Cephulac (Oral Use) PO 10 gm HS [facility] Administration Metoprolol Succinate 100 mg 04/21/17 10:00 04/26/17 10:50 Toprol Xl - PO 100 mg DAILY [facility] Administration Polyethylene Glycol 17 gm 04/21/17 10:00 04/26/17 10:51 Miralax (For Daily Use) - PO 17 gm DAILY [facility] Administration Risperidone 0.25 mg 04/20/17 22:00 04/26/17 22:44 Risperdal - PO 0.25 mg BID [facility] Administration Tiotropium [place] 1 puff 04/21/17 10:00 04/26/17 11:03 Spiriva - IH 1 inh DAILY [facility] Administration ASSESSMENT/PLAN: 71yo F with h/o COPD, CKD, chronic sacral ulcer, HTN and CVA with residual L sided paresis, and chronic indwelling catheter who presented to ER with fever and worsening buttock wounds around sacral ulcer. 1) Sepsis 2/2 E. Coli UTI --Wound culture pending --Blood cx and urine culture pending; --ID consulted and will follow up recommendations --Zosyn reinitiated due to broadened coverage in light of fever spikes 2) Sacral wounds --Cultures ordered as above --Debridement of wounds scheduled for tomorrow per surgery --NPO after midnight --Hold heparin 22:00 dose today --Labwork ordered for tomorrow AM prior 3) MARTITA on CKD --MARTITA resolved; Cr around baseline --Continue to trend 4) Microcytic anemia --Hgb at 6.9 this AM; will administered 1UPRBC; trend CBC this afternoon --Will continue to monitor with tranfusion threshold of 7.0 --No evidence of bleeding currently FEN: Fluids: None indicated currently; need to balance fluid overload in light of CKD and sepsis Electrolyte abnormalities: None currently Nutrition: Chopped diet; renal; NPO AFTER MIDNIGHT PPX: DVT - Heparin SQ TID (HOLD 22:00 dose) Dispo: Continue m/s; debridement tomorrow Case discussed with Dr. Almas Blanchard, DO - Internal Medicine PGY-1 Visit type - Emergency Visit Emergency Visit: No - New Patient This patient is new to me today: No - Critical Care Critical Care patient: No
[2017-04-27 08:42] LABS: HEMATOCRIT 22.1 % (32.4-45.2); MCH 24.5 pg (25.7-33.7); MEAN CELL VOLUME 79.1 fl (80-96); MEAN PLT VOLUME 8.2 fl (7.5-11.1); PLATELET COUNT 205 K/MM3 (134-434); RDW 21.5 % (11.6-15.6); WHITE BLOOD COUNT 18.5 K/mm3 (4.0-10.0)
[2017-04-27 08:47] LABS: HEMOGLOBIN 6.9 GM/dL (10.7-15.3)
[2017-04-27 09:11] LABS: ALBUMIN 1.4 g/dl (3.4-5.0); ANION GAP 11 (8-16); CALCIUM 8.7 mg/dL (8.5-10.1); CHLORIDE 106 mmol/L (98-107); CO2 20 mmol/L (21-32); CREATININE 2.8 mg/dL (0.55-1.02); GLUCOSE,RANDOM 121 mg/dL (74-106); MAGNESIUM 1.7 mg/dL (1.8-2.4); PHOSPHOROUS 2.8 mg/dL (2.5-4.9); POTASSIUM 3.4 mmol/L (3.5-5.1); SGOT/AST 27 U/L (15-37); SGPT/ALT 36 U/L (12-78); SODIUM 137 mmol/L (136-145)
[2017-04-27 09:13] LABS: ALK PHOS 113 U/L (45-117); BILIRUBIN,TOTAL 0.3 mg/dL (0.2-1.0); BLOOD UREA NITROGEN 54 mg/dL (7-18); TOT PROT 5.8 g/dl (6.4-8.2)
[2017-04-27] MEDS ORDERED: PT OWN MED DRAWER 7, Y5N ONE ×4 (09:19→21:20)
[2017-04-27] MEDS: AMINO ACIDS/PROTEIN HYDROLYS 30 ML LIQUID.PKT PO SCH ×3 (09:39→18:02)
[2017-04-27] MEDS: CALCIUM ACETATE 667 MG CAPSULE (FP) PO SCH ×4 (09:39→18:02)
[2017-04-27] MEDS: amLODIPine BESYLATE 10 MG TABLET (FP) PO SCH ×2 (09:39→10:29)
[2017-04-27] MEDS: ISOSORBIDE MONONITRATE 30 MG TAB.SR.24H (FP) PO SCH ×2 (09:39→10:29)
[2017-04-27] MEDS: FERROUS SO4 325 MG TABLET (FP) PO SCH ×3 (09:39→22:10)
[2017-04-27] MEDS: CHOLECALCIFEROL (VITAMIN D3) 400 UNIT TABLET (FP) PO SCH ×2 (09:39→10:29)
[2017-04-27] MEDS: risperiDONE 0.5 MG TABLET (FP) PO SCH ×3 (09:40→22:08)
[2017-04-27] MEDS: buPROPion HCL 75 MG TABLET PO SCH ×2 (09:40→10:29)
[2017-04-27] MEDS: TIOTROPIUM BROMIDE 18 MCG/INH (DEVICE W/ 5 CAPSULES) IH SCH ×2 (09:41→11:49)
[2017-04-27] MEDS: COLLAGENASE CLOSTRIDIUM HIST. 30 GRAMS TUBE TP SCH (09:41)
[2017-04-27] MEDS: BUDESONIDE/FORMETEROL FUMARATE 80/4.5 mcg INHALER IH SCH ×3 (09:41→22:29)
[2017-04-27] MEDS: POLYETHYLENE GLYCOL 3350 119 GM BTL PO SCH ×2 (09:42→10:29)
[2017-04-27] MEDS ORDERED: POTASSIUM CHLORIDE TABS 20 MEQ TABLET.ER (FP) PO ONE (09:51)
--- NOTE | 2017-04-27 12:48 | SPA.PREOP ---
- PRE-OP NOTE Dx: Infected sacral ulcer (unstageable) Planned Procedure: Sacral debridement, possible bone biopsy Surgeon: Braden Rogers Consent: To be obtained surgeon after risks, benefits and alternatives explained to patient. Last Vital Signs Temp Pulse Resp BP Pulse Ox 100.2 F H 70 20 153/56 99 04/27/17 06:00 04/27/17 06:00 04/27/17 06:00 04/27/17 06:00 04/26/17 21:00 Lab Results WBC 18.5 K/mm3 (4.0-10.0) H 04/27/17 08:20 RBC 2.80 M/mm3 (3.60-5.2) L 04/27/17 08:20 Hgb 6.9 GM/dL (10.7-15.3) L* D 04/27/17 08:20 Hct 22.1 % (32.4-45.2) L 04/27/17 08:20 MCV 79.1 fl (80-96) L 04/27/17 08:20 MCHC 31.0 g/dl (32.0-36.0) L 04/27/17 08:20 RDW 21.5 % (11.6-15.6) H 04/27/17 08:20 Plt Count 205 K/MM3 (134-434) 04/27/17 08:20 Sodium 137 mmol/L (136-145) 04/27/17 08:20 Potassium 3.4 mmol/L (3.5-5.1) L 04/27/17 08:20 Chloride 106 mmol/L (98-107) 04/27/17 08:20 Carbon Dioxide 20 mmol/L (21-32) L 04/27/17 08:20 Anion Gap 11 (8-16) 04/27/17 08:20 BUN 54 mg/dL (7-18) H 04/27/17 08:20 Creatinine 2.8 mg/dL (0.55-1.02) H 04/27/17 08:20 Random Glucose 121 mg/dL (74-106) H 04/27/17 08:20 Calcium 8.7 mg/dL (8.5-10.1) 04/27/17 08:20 Blood Type A POSITIVE 04/27/17 10:15 Antibody Screen Negative 04/27/17 10:15 INR 1.14 (0.82-1.09) 04/20/17 16:00 - ASSESSMENT/PLAN Problem List - Problems (1) Decubitus ulcer of sacral region, unstageable Assessment/Plan: 1. Make NPO after midnight except po meds 2. GI/DVT PPX 3. Medical optimization / clearance Code(s): L89.150 - PRESSURE ULCER OF SACRAL REGION, UNSTAGEABLE Visit type - Case Type Case Type: ED Admission
[2017-04-27] MEDS ORDERED: HEPARIN NA (PORCINE) 5,000 UNITS/ML 1ML VIAL SQ SCH ×2 (15:33→22:00)
--- NOTE | 2017-04-27 19:20 | PN ---
Teaching Attending Note Name of Resident: Cuong Blanchard ATTENDING PHYSICIAN STATEMENT Time of evaluation: 11:15 Am I saw and evaluated the patient. I reviewed the resident's note and discussed the case with the resident. I agree with the resident's findings and plan as documented. SUBJECTIVE: patient seen and examined. unable to assess for ROS, oriented to self. OBJECTIVE: Vital Signs Period Temp Pulse Resp BP Sys/[place]enton Pulse Ox Last 24 Hr 99.1 F-100.2 F 70-78 18-20 143-153/56-64 99 Intake & Output 04/24/17 04/25/17 04/26/17 04/27/17 23:59 23:59 23:59 23:59 Intake Total 500 780 360 440 Output Total 2600 900 830 400 Balance -2100 -120 -470 40 General: lying in bed in no acute distress Abdomen: soft, nT Back: limited exam, dressing, unchanged foul smelling greenish discharge. Home Medication List Medication Instructions Recorded Confirmed Type Acetaminophen 500 mg PO DAILY 12/27/16 04/20/17 History Amlodipine Besylate 10 mg PO DAILY 12/27/16 04/20/17 History Betamethasone Dipr 0.05% Oint 50 gm .ROUTE ASDIR 12/27/16 04/20/17 History [Diprolene] Budesonide/Formeterol Fumarate 1 inh PO BID 12/27/16 04/20/17 History [SYMBICORT 80/4.5mcg -] Bupropion HCl [Wellbutrin -] 75 mg PO DAILY 12/27/16 04/20/17 History Calcium Acetate [Calphron] 667 mg PO TID 12/27/16 04/20/17 History Cholecalciferol (Vitamin D3) 400 unit PO DAILY 12/27/16 04/20/17 History [Vitamin D3 -] Duloxetine HCl [Cymbalta] 20 mg PO DAILY 12/27/16 04/20/17 History Duloxetine HCl [Cymbalta] 60 mg PO DAILY 12/27/16 04/20/17 History Ferrous Sulfate [Feosol] 324 mg PO BID 12/27/16 04/20/17 History Hydralazine HCl 10 mg PO TID 12/27/16 04/20/17 History Insulin (Levemir) [Levemir Flexpen 8 units SQ DAILY 12/27/16 04/20/17 History -] Isosorbide Mononitrate [Isosorbide 30 mg PO DAILY 12/27/16 04/20/17 History Mononitrate ER] Lactulose [Enulose] 10 gm PO HS 12/27/16 04/20/17 History Omeprazole 40 mg PO DAILY 12/27/16 04/20/17 History Polyethylene Glycol 3350 [Miralax 17 gm PO DAILY 12/27/16 04/20/17 History (For Daily Use) -] Risperidone [Risperdal -] 0.25 mg PO BID 12/27/16 04/20/17 History Tiotropium [place] [Spiriva] 1 inh IH DAILY 12/27/16 04/20/17 History Tramadol HCl 50 mg PO BID 12/27/16 04/20/17 History Cranberry Fruit Concentrate 500 mg PO DAILY 04/20/17 04/20/17 History [Cran-Max] Metoprolol Succinate [Toprol Xl] 100 mg PO DAILY 04/20/17 04/20/17 History Silver/Calcium Alginate [Algicell 1 bandage TD DAILY 04/20/17 04/20/17 History Ag 4"X5" Dressing] Active Medications Generic Name Dose Route Start Last Admin Trade Name Freq PRN Reason Stop Dose Admin Acetaminophen 650 mg 04/24/17 16:25 04/26/17 02:55 Tylenol - PO 650 mg Q6H PRN Administration FEVER OR PAIN Amino Acids 30 ml 04/23/17 17:30 04/27/17 18:02 Prosource No Carb Liquid Pkt PO Not Given BID@0800,1730 [facility] Amlodipine Besylate 10 mg 04/21/17 10:00 04/27/17 10:29 Norvasc - PO 10 mg DAILY [facility] Administration Budesonide/Formoterol Fumarate 1 puff 04/20/17 22:00 04/27/17 10:29 Symbicort 80/4.5mcg - IH 1 inh BID [facility] Administration Bupropion HCl 75 mg 04/21/17 10:00 04/27/17 10:29 Wellbutrin - PO 75 mg DAILY [facility] Administration Calcium Acetate 667 mg 04/21/17 08:00 04/27/17 18:02 Phoslo - PO Not Given TIDCM [facility] Cholecalciferol 400 unit 04/21/17 10:00 04/27/17 10:29 Vitamin D3 - PO 400 unit DAILY [facility] Administration Collagenase 1 applic 04/21/17 13:45 04/27/17 09:41 Santyl - TP 1 applic DAILY [facility] Administration Ferrous Sulfate 325 mg 04/20/17 22:00 04/27/17 10:29 Feosol - PO 325 mg BID [facility] Administration Heparin Sodium (Porcine) 5,000 unit 04/27/17 15:33 Heparin - SQ 04/27/17 22:00 TID [facility] Hydralazine HCl 10 mg 04/20/17 22:00 04/27/17 15:17 Apresoline - PO 10 mg TID [facility] Administration Piperacillin/Tazobactam/Dextrose 2.25 gm in 50 mls @ 100 mls/hr 04/26/17 18: 00 04/27/17 18:16 Zosyn 2.25gm Ivpb (Premix) IVPB 100 mls/hr Q8H-IV [facility] Administration Protocol Insulin Aspart 1 vial 04/20/17 22:00 04/27/17 18:02 Novolog Vial Sliding Scale - SQ Not Given ACHS [facility] Protocol Insulin Detemir 8 units 04/21/17 07:00 04/27/17 06:32 Levemir Vial SQ 8 unit DAILY@0700 [facility] Administration Isosorbide Mononitrate 30 mg 04/21/17 10:00 04/27/17 10:29 Imdur - PO 30 mg DAILY [facility] Administration Lactulose 10 gm 04/20/17 22:00 04/26/17 22:44 Cephulac (Oral Use) PO 10 gm HS [facility] Administration Metoprolol Succinate 100 mg 04/21/17 10:00 04/27/17 10:29 Toprol Xl - PO 100 mg DAILY [facility] Administration Polyethylene Glycol 17 gm 04/21/17 10:00 04/27/17 10:29 Miralax (For Daily Use) - PO 17 gm DAILY [facility] Administration Risperidone 0.25 mg 04/20/17 22:00 04/27/17 10:29 Risperdal - PO 0.25 mg BID [facility] Administration Tiotropium [place] 1 puff 04/21/17 10:00 04/27/17 11:49 Spiriva - IH 1 inh DAILY [facility] Administration Laboratory Results - last 24 hr 04/26/17 04/26/17 04/27/17 15:00 22:50 06:16 WBC RBC Hgb Hct MCV MCH MCHC RDW Plt Count MPV Sodium Potassium Chloride Carbon Dioxide Anion Gap BUN Creatinine Creat Clearance w eGFR POC Glucometer 239 156 Random Glucose Calcium Phosphorus Magnesium Total Bilirubin AST ALT Alkaline Phosphatase Total Protein Albumin Urine Color Yellow Urine Appearance Slcloudy Urine pH 5.0 Ur Specific [place] 1.011 Urine Protein 2+ H Urine Glucose (UA) Negative Urine Ketones Negative Urine Blood 1+ H Urine Nitrite Negative Urine Bilirubin Negative Urine Urobilinogen Negative Ur Leukocyte Esterase Trace H Urine WBC (Auto) 6 Urine RBC (Auto) <1 Ur Epithelial Cells Rare Urine Bacteria Rare Urine Mucus Rare Blood Type Antibody Screen Crossmatch Spec Expiration Date 04/27/17 04/27/17 04/27/17 08:20 08:20 10:15 WBC 18.5 H RBC 2.80 L Hgb 6.9 L* D Hct 22.1 L MCV 79.1 L MCH 24.5 L MCHC 31.0 L RDW 21.5 H Plt Count 205 MPV 8.2 Sodium 137 Potassium 3.4 L Chloride 106 Carbon Dioxide 20 L Anion Gap 11 BUN 54 H Creatinine 2.8 H Creat Clearance w eGFR 16.75 POC Glucometer Random Glucose 121 H Calcium 8.7 Phosphorus 2.8 Magnesium 1.7 L Total Bilirubin 0.3 D AST 27 ALT 36 Alkaline Phosphatase 113 Total Protein 5.8 L Albumin 1.4 L Urine Color Urine Appearance Urine pH Ur Specific [place] Urine Protein Urine Glucose (UA) Urine Ketones Urine Blood Urine Nitrite Urine Bilirubin Urine Urobilinogen Ur Leukocyte Esterase Urine WBC (Auto) Urine RBC (Auto) Ur Epithelial Cells Urine Bacteria Urine Mucus Blood Type A POSITIVE Antibody Screen Negative Crossmatch See Detail Spec Expiration Date Microbiology 04/26/17 10:18 Blood - Peripheral Venous Blood Culture - Preliminary NO GROWTH OBTAINED AFTER 24 HOURS, INCUBATION TO CONTINUE FOR 4 DAYS. 04/26/17 10:00 Blood - Peripheral Venous Blood Culture - Preliminary NO GROWTH OBTAINED AFTER 24 HOURS, INCUBATION TO CONTINUE FOR 4 DAYS. 04/20/17 16:00 Blood - Peripheral Venous Blood Culture - Final NO GROWTH AFTER 5 DAYS INCUBATION 04/20/17 15:50 Blood - Peripheral Venous Blood Culture - Final NO GROWTH AFTER 5 DAYS INCUBATION 04/20/17 17:40 Urine - Urine Clean Catch Urine Culture - Final Escherichia Coli 04/20/17 20:49 Nasopharyngeal Swab Influenza Types A,B Antigen (HENRY) - Final 04/20/17 20:49 Nasopharyngeal Swab - Final ASSESSMENT AND PLAN: 71yo F with PMH DM, COPD, CKD, sacral ulcer with hx of MRSA, HTN, CVA with residual L sided paresis, urinary retention with indwelling powers catheter presented to the Er with increasing agitation -Sepsis due to E. Coli UTI, recurrent SIRS - from infected sacral decubitus -MARTITA on CKD -D -HTN -COPD -CVA with residual left hemiparess -Microcytic anemia Plan: repeat blood cultures neg so far. Powers changed. U.a neg for infection. Discussed with Dr. cazares, plan for debridement in Am Discussed with cynthia DEUTSCH day 2, Follow up sacral wound cultures. hb slowly trending down, suspect from frequent blood draws, no gross evidence of bleed. transfuse 1 unit pRBC, monitor H/h. Check FOBT. Creatinine around baseline, monitor fornow. ISS, diabetic diet Continue ASA and home anti-hypertensives. DVTPPX with heparin subq. Dispo planning on hold given new fevers and leucocytosis and need for debridement.
[2017-04-27] MEDS: ACETAMINOPHEN 325 MG TABLET (FP) PO PRN (19:59)
[2017-04-27 20:13] LABS: HEMATOCRIT 27.9 % (32.4-45.2); MCH 25.9 pg (25.7-33.7); MCHC 32.1 g/dl (32.0-36.0); MEAN CELL VOLUME 80.7 fl (80-96); MEAN PLT VOLUME 8.9 fl (7.5-11.1); PLATELET COUNT 224 K/MM3 (134-434); RBC 3.46 M/mm3 (3.60-5.2); RDW 20.5 % (11.6-15.6); WHITE BLOOD COUNT 17.8 K/mm3 (4.0-10.0)
[2017-04-27] MEDS ORDERED: INSULIN (NOVOLOG) ASPART 100 UNITS/ML 10ML VIAL ONE (21:25)
[2017-04-27] MEDS: LACTULOSE 20 GM/30 ML UDC (FOR ORAL USE ONLY) PO SCH (22:07)
[2017-04-28] MEDS: PIPERACILLIN/TAZOB 2.25 GM 2.25 GM/50 ML BAG IVPB SCH ×3 (02:38→17:56)
[2017-04-28] MEDS: hydrALAZINE HCL 10 MG TABLET PO SCH ×3 (06:50→23:35)
--- NOTE | 2017-04-28 07:01 | PN ---
Physical Exam: SUBJECTIVE: Unable to obtain HPI, pt oriented only to self. OBJECTIVE: Vital Signs Period Temp Pulse Resp BP Sys/Benton Pulse Ox Last 24 Hr 98.2 F-99.4 F 68-78 18-20 139-151/59-64 99-100 GENERAL: NAD, awake, alert, and fully oriented. HEENT: EOMI, ALY, No JVD, moist mucosa LUNGS: CTA bilaterally, no wheezes, rhonchi, or rales. No accessory muscle use. On RA HEART: RRR, S1, S2 without murmur appreciated ABDOMEN: Soft, nontender, nondistended, hypo-normoactive bowel sounds, no guarding, no rebound, no hepatosplenomegaly EXTREMITIES: 2+ pulses, warm, well-perfused, no edema. NEUROLOGICAL: Could not fully assess due to pt resistance to exam. Pt continues to have L>R UE weakness (chronic) SKIN: Pt resistant to wound examination; will retry with attending rounds. No rashes noted Laboratory Results - last 24 hr 04/27/17 04/27/17 04/27/17 06:16 08:20 08:20 WBC 18.5 H RBC 2.80 L Hgb 6.9 L* D Hct 22.1 L MCV 79.1 L MCH 24.5 L MCHC 31.0 L RDW 21.5 H Plt Count 205 MPV 8.2 Sodium 137 Potassium 3.4 L Chloride 106 Carbon Dioxide 20 L Anion Gap 11 BUN 54 H Creatinine 2.8 H Creat Clearance w eGFR 16.75 POC Glucometer 156 Random Glucose 121 H Calcium 8.7 Phosphorus 2.8 Magnesium 1.7 L Total Bilirubin 0.3 D AST 27 ALT 36 Alkaline Phosphatase 113 Total Protein 5.8 L Albumin 1.4 L Blood Type Antibody Screen Crossmatch Spec Expiration Date 04/27/17 04/27/17 04/27/17 10:15 19:00 22:19 WBC 17.8 H RBC 3.46 L D Hgb 9.0 L D Hct 27.9 L D MCV 80.7 MCH 25.9 MCHC 32.1 RDW 20.5 H Plt Count 224 MPV 8.9 Sodium Potassium Chloride Carbon Dioxide Anion Gap BUN Creatinine Creat Clearance w eGFR POC Glucometer 242 Random Glucose Calcium Phosphorus Magnesium Total Bilirubin AST ALT Alkaline Phosphatase Total Protein Albumin Blood Type A POSITIVE Antibody Screen Negative Crossmatch See Detail Spec Expiration Date 04/28/17 05:51 WBC RBC Hgb Hct MCV MCH MCHC RDW Plt Count MPV Sodium Potassium Chloride Carbon Dioxide Anion Gap BUN Creatinine Creat Clearance w eGFR POC Glucometer 162 Random Glucose Calcium Phosphorus Magnesium Total Bilirubin AST ALT Alkaline Phosphatase Total Protein Albumin Blood Type Antibody Screen Crossmatch Spec Expiration Date Active Medications Generic Name Dose Route Start Last Admin Trade Name Freq PRN Reason Stop Dose Admin Acetaminophen 650 mg 04/24/17 16:25 04/27/17 19:59 Tylenol - PO 650 mg Q6H PRN Administration FEVER OR PAIN Amino Acids 30 ml 04/23/17 17:30 04/27/17 18:02 Prosource No Carb Liquid Pkt PO Not Given BID@0800,1730 [facility] Amlodipine Besylate 10 mg 04/21/17 10:00 04/27/17 10:29 Norvasc - PO 10 mg DAILY [facility] Administration Budesonide/Formoterol Fumarate 1 puff 04/20/17 22:00 04/27/17 22:29 Symbicort 80/4.5mcg - IH 1 inh BID [facility] Administration Bupropion HCl 75 mg 04/21/17 10:00 04/27/17 10:29 Wellbutrin - PO 75 mg DAILY [facility] Administration Calcium Acetate 667 mg 04/21/17 08:00 04/27/17 18:02 Phoslo - PO Not Given TIDCM [facility] Cholecalciferol 400 unit 04/21/17 10:00 04/27/17 10:29 Vitamin D3 - PO 400 unit DAILY [facility] Administration Collagenase 1 applic 04/21/17 13:45 04/27/17 09:41 Santyl - TP 1 applic DAILY [facility] Administration Ferrous Sulfate 325 mg 04/20/17 22:00 04/27/17 22:10 Feosol - PO 325 mg BID [facility] Administration Hydralazine HCl 10 mg 04/20/17 22:00 04/27/17 22:10 Apresoline - PO 10 mg TID [facility] Administration Piperacillin/Tazobactam/Dextrose 2.25 gm in 50 mls @ 100 mls/hr 04/26/17 18: 00 04/28/17 02:38 Zosyn 2.25gm Ivpb (Premix) IVPB 100 mls/hr Q8H-IV [facility] Administration Protocol Insulin Aspart 1 vial 04/20/17 22:00 04/27/17 22:20 Novolog Vial Sliding Scale - SQ 4 unit ACHS [facility] Administration Protocol Insulin Detemir 8 units 04/21/17 07:00 04/27/17 06:32 Levemir Vial SQ 8 unit DAILY@0700 [facility] Administration Isosorbide Mononitrate 30 mg 04/21/17 10:00 04/27/17 10:29 Imdur - PO 30 mg DAILY [facility] Administration Lactulose 10 gm 04/20/17 22:00 04/27/17 22:07 Cephulac (Oral Use) PO Not Given HS [facility] Metoprolol Succinate 100 mg 04/21/17 10:00 04/27/17 10:29 Toprol Xl - PO 100 mg DAILY [facility] Administration Polyethylene Glycol 17 gm 04/21/17 10:00 04/27/17 10:29 Miralax (For Daily Use) - PO 17 gm DAILY [facility] Administration Risperidone 0.25 mg 04/20/17 22:00 04/27/17 22:08 Risperdal - PO 0.25 mg BID [facility] Administration Tiotropium [place] 1 puff 04/21/17 10:00 04/27/17 11:49 Spiriva - IH 1 inh DAILY [facility] Administration ASSESSMENT/PLAN: 71yo F with h/o COPD, CKD, chronic sacral ulcer, HTN and CVA with residual L sided paresis, and chronic indwelling catheter who presented to ER with fever and worsening buttock wounds around sacral ulcer. 1) Sepsis 2/2 E. Coli UTI --Wound culture pending --Blood cx and urine culture repeats negative --UA negative for infection with powers change --ID consulted and will follow up recommendations --Continue Zosyn day 2 2) Sacral wounds --Cultures ordered as above --Debridement of wounds scheduled for today ior 3) MARTITA on CKD --MARTITA resolved; Cr around baseline --Continue to trend 4) Microcytic anemia --Hgb at 6.9 this AM; will administer 1UPRBC; trend CBC this afternoon --Will continue to monitor with tranfusion threshold of 7.0 --No evidence of bleeding currently FEN: Fluids: None indicated currently; need to balance fluid overload in light of CKD and sepsis Electrolyte abnormalities: None currently Nutrition: Chopped diet; renal; NPO AFTER MIDNIGHT PPX: DVT - Heparin SQ TID (HOLD 22:00 dose) Dispo: Debridement today; d/c planning held due to new fevers Case discussed with Dr. Almas Blanchard, DO - Internal Medicine PGY-1 Visit type - Emergency Visit Emergency Visit: No - New Patient This patient is new to me today: No - Critical Care Critical Care patient: No
[2017-04-28] MEDS: INSULIN DETEMIR 100 UNITS/ML MDV SQ SCH (07:05)
[2017-04-28] MEDS: INSULIN SLIDING SCALE (NOVOLOG) 1 VIAL SQ SCH ×4 (07:05→23:34)
[2017-04-28 08:14] LABS: HEMATOCRIT 27.4 % (32.4-45.2); HEMOGLOBIN 8.5 GM/dL (10.7-15.3); MCH 25.2 pg (25.7-33.7); MCHC 31.1 g/dl (32.0-36.0); MEAN PLT VOLUME 8.9 fl (7.5-11.1); PLATELET COUNT 218 K/MM3 (134-434); RBC 3.39 M/mm3 (3.60-5.2); WHITE BLOOD COUNT 19.6 K/mm3 (4.0-10.0)
[2017-04-28 08:30] LABS: ALBUMIN 2.9 g/dl (3.4-5.0); ANION GAP 11 (8-16); BILIRUBIN,TOTAL 0.6 mg/dL (0.2-1.0); BLOOD UREA NITROGEN 20 mg/dL (7-18); CALCIUM 8.8 mg/dL (8.5-10.1); CHLORIDE 90 mmol/L (98-107); CO2 33 mmol/L (21-32); CREATININE 1.1 mg/dL (0.55-1.02); GLUCOSE,RANDOM 103 mg/dL (74-106); SGOT/AST 14 U/L (15-37); SGPT/ALT 15 U/L (12-78); SODIUM 134 mmol/L (136-145); TOT PROT 6.2 g/dl (6.4-8.2)
[2017-04-28 08:31] LABS: ALK PHOS 89 U/L (45-117)
[2017-04-28] MEDS ORDERED: POTASSIUM CHLORIDE TABS 20 MEQ TABLET.ER (FP) PO ONE (09:00)
[2017-04-28 09:34] LABS: INR 1.14 (0.82-1.09); PROTHROMBIN TIME (PATIENT) 12.9 SEC (9.98-11.88)
[2017-04-28] MEDS: amLODIPine BESYLATE 10 MG TABLET (FP) PO SCH (09:41)
[2017-04-28] MEDS ORDERED: PROPOFOL 20 ML ONE ×2 (11:57)
[2017-04-28] MEDS ORDERED: LIDOCAINE HCL 1%, 10 MG/ML (20ML VIAL) NR ONE (12:10)
--- NOTE | 2017-04-28 12:31 | OP ---
Operative Note - Note: Operative Date: 04/28/17 Pre-Operative Diagnosis: Stage 4 sacral ulcer Operation: Excisional debridement sacrum -- skin, subcutaneous tissue , muscle. Findings: necrotic tissue sent to path Post-Operative Diagnosis: Same as Pre-op Surgeon: Braden Rogers Anesthesia: Fractional Estimated Blood Loss (mls): 30 Operative Report Dictated: Yes
[2017-04-28] MEDS ORDERED: ACETAMINOPHEN 325 MG TABLET (FP) PO PRN (13:53)
[2017-04-28] MEDS: CALCIUM ACETATE 667 MG CAPSULE (FP) PO SCH ×2 (13:56→17:08)
[2017-04-28] MEDS: AMINO ACIDS/PROTEIN HYDROLYS 30 ML LIQUID.PKT PO SCH ×2 (13:56→17:08)
[2017-04-28] MEDS: ISOSORBIDE MONONITRATE 30 MG TAB.SR.24H (FP) PO SCH (13:56)
[2017-04-28] MEDS: FERROUS SO4 325 MG TABLET (FP) PO SCH ×2 (13:56→23:36)
[2017-04-28] MEDS: risperiDONE 0.5 MG TABLET (FP) PO SCH (13:58)
[2017-04-28] MEDS: TIOTROPIUM BROMIDE 18 MCG/INH (DEVICE W/ 5 CAPSULES) IH SCH (13:58)
[2017-04-28] MEDS: BUDESONIDE/FORMETEROL FUMARATE 80/4.5 mcg INHALER IH SCH ×2 (13:58→23:36)
[2017-04-28] MEDS: CHOLECALCIFEROL (VITAMIN D3) 400 UNIT TABLET (FP) PO SCH (13:58)
[2017-04-28] MEDS: buPROPion HCL 75 MG TABLET PO SCH (13:58)
[2017-04-28] MEDS: COLLAGENASE CLOSTRIDIUM HIST. 30 GRAMS TUBE TP SCH (13:58)
[2017-04-28] MEDS: POLYETHYLENE GLYCOL 3350 119 GM BTL PO SCH (13:58)
[2017-04-28] MEDS ORDERED: PT OWN MED DRAWER 7, Y5N ONE (15:32)
--- NOTE | 2017-04-28 17:44 | PN ---
Teaching Attending Note Name of Resident: Cuong Blanchard ATTENDING PHYSICIAN STATEMENT Time of evaluation: 10:55 AM I saw and evaluated the patient. I reviewed the resident's note and discussed the case with the resident. I agree with the resident's findings and plan as documented. SUBJECTIVE: Patient seen and examined, No complaints. limited assessment of ROS given dementia. OBJECTIVE: Vital Signs Period Temp Pulse Resp BP Sys/Benton Pulse Ox Last 24 Hr 97.8 F-99.1 F 56-69 16-20 139-165/58-69 97-100 Intake & Output 04/25/17 04/26/17 04/27/17 04/28/17 23:59 23:59 23:59 23:59 Intake Total 719 461 4698 540 Output Total 900 501 426 8816 Balance -120 -470 240 -560 general: sitting in bed in no acute distress Home Medication List Medication Instructions Recorded Confirmed Type Acetaminophen 500 mg PO DAILY 12/27/16 04/20/17 History Amlodipine Besylate 10 mg PO DAILY 12/27/16 04/20/17 History Betamethasone Dipr 0.05% Oint 50 gm .ROUTE ASDIR 12/27/16 04/20/17 History [Diprolene] Budesonide/Formeterol Fumarate 1 inh PO BID 12/27/16 04/20/17 History [SYMBICORT 80/4.5mcg -] Bupropion HCl [Wellbutrin -] 75 mg PO DAILY 12/27/16 04/20/17 History Calcium Acetate [Calphron] 667 mg PO TID 12/27/16 04/20/17 History Cholecalciferol (Vitamin D3) 400 unit PO DAILY 12/27/16 04/20/17 History [Vitamin D3 -] Duloxetine HCl [Cymbalta] 20 mg PO DAILY 12/27/16 04/20/17 History Duloxetine HCl [Cymbalta] 60 mg PO DAILY 12/27/16 04/20/17 History Ferrous Sulfate [Feosol] 324 mg PO BID 12/27/16 04/20/17 History Hydralazine HCl 10 mg PO TID 12/27/16 04/20/17 History Insulin (Levemir) [Levemir Flexpen 8 units SQ DAILY 12/27/16 04/20/17 History -] Isosorbide Mononitrate [Isosorbide 30 mg PO DAILY 12/27/16 04/20/17 History Mononitrate ER] Lactulose [Enulose] 10 gm PO HS 12/27/16 04/20/17 History Omeprazole 40 mg PO DAILY 12/27/16 04/20/17 History Polyethylene Glycol 3350 [Miralax 17 gm PO DAILY 12/27/16 04/20/17 History (For Daily Use) -] Risperidone [Risperdal -] 0.25 mg PO BID 12/27/16 04/20/17 History Tiotropium [place] [Spiriva] 1 inh IH DAILY 12/27/16 04/20/17 History Tramadol HCl 50 mg PO BID 12/27/16 04/20/17 History Cranberry Fruit Concentrate 500 mg PO DAILY 04/20/17 04/20/17 History [Cran-Max] Metoprolol Succinate [Toprol Xl] 100 mg PO DAILY 04/20/17 04/20/17 History Silver/Calcium Alginate [Algicell 1 bandage TD DAILY 04/20/17 04/20/17 History Ag 4"X5" Dressing] Active Medications Generic Name Dose Route Start Last Admin Trade Name Freq PRN Reason Stop Dose Admin Acetaminophen 650 mg 04/28/17 13:53 Tylenol - PO Q6H PRN FEVER OR PAIN Amino Acids 30 ml 04/28/17 17:30 04/28/17 17:08 Prosource No Carb Liquid Pkt PO 30 ml BID@0800,1730 [facility] Administration Amlodipine Besylate 10 mg 04/29/17 10:00 Norvasc - PO DAILY [facility] Budesonide/Formoterol Fumarate 1 puff 04/28/17 22:00 Symbicort 80/4.5mcg - IH BID [facility] Bupropion HCl 75 mg 04/29/17 10:00 Wellbutrin - PO DAILY [facility] Calcium Acetate 667 mg 04/28/17 17:30 04/28/17 17:08 Phoslo - PO 667 mg TIDCM HETAL Administration Cholecalciferol 400 unit 04/29/17 10:00 Vitamin D3 - PO DAILY [facility] Collagenase 1 applic 04/29/17 10:00 Santyl - TP DAILY [facility] Ferrous Sulfate 325 mg 04/28/17 22:00 Feosol - PO BID [facility] Hydralazine HCl 10 mg 04/28/17 14:00 04/28/17 15:46 Apresoline - PO 10 mg TID [facility] Administration Piperacillin/Tazobactam/Dextrose 2.25 gm in 50 mls @ 100 mls/hr 04/28/17 18: 00 Zosyn 2.25gm Ivpb (Premix) IVPB Q8H-IV [facility] Protocol Insulin Aspart 1 vial 04/28/17 16:30 04/28/17 17:15 Novolog Vial Sliding Scale - SQ Not Given ACHS [facility] Protocol Insulin Detemir 8 units 04/29/17 07:00 Levemir Vial SQ DAILY@0700 [facility] Isosorbide Mononitrate 30 mg 04/29/17 10:00 Imdur - PO DAILY [facility] Lactulose 10 gm 04/28/17 22:00 Cephulac (Oral Use) PO HS [facility] Metoprolol Succinate 100 mg 04/29/17 10:00 Toprol Xl - PO DAILY [facility] Polyethylene Glycol 17 gm 04/29/17 10:00 Miralax (For Daily Use) - PO DAILY [facility] Risperidone 0.25 mg 04/28/17 22:00 Risperdal - PO BID [facility] Tiotropium [place] 1 puff 04/29/17 10:00 Spiriva - IH DAILY [facility] Laboratory Results - last 24 hr 04/27/17 04/27/17 04/28/17 19:00 22:19 05:51 WBC 17.8 H RBC 3.46 L D Hgb 9.0 L D Hct 27.9 L D MCV 80.7 MCH 25.9 MCHC 32.1 RDW 20.5 H Plt Count 224 MPV 8.9 PT with INR INR Sodium Potassium Chloride Carbon Dioxide Anion Gap BUN Creatinine Creat Clearance w eGFR POC Glucometer 242 162 Random Glucose Calcium Total Bilirubin AST ALT Alkaline Phosphatase Total Protein Albumin 04/28/17 04/28/17 04/28/17 06:00 06:00 08:10 WBC 19.6 H RBC 3.39 L Hgb 8.5 L Hct 27.4 L MCV 81.0 MCH 25.2 L MCHC 31.1 L RDW 20.0 H Plt Count 218 MPV 8.9 PT with INR 12.90 H INR 1.14 Sodium 134 L Potassium 3.0 L Chloride 90 L D Carbon Dioxide 33 H D Anion Gap 11 BUN 20 H D Creatinine 1.1 H D Creat Clearance w eGFR 49.25 POC Glucometer Random Glucose 103 Calcium 8.8 Total Bilirubin 0.6 D AST 14 L D ALT 15 D Alkaline Phosphatase 89 D Total Protein 6.2 L Albumin 2.9 L D 04/28/17 04/28/17 04/28/17 13:46 15:30 17:09 WBC RBC Hgb Hct MCV MCH MCHC RDW Plt Count MPV PT with INR INR Sodium Cancelled Potassium Cancelled Chloride Cancelled Carbon Dioxide Cancelled Anion Gap Cancelled BUN Cancelled Creatinine Cancelled Creat Clearance w eGFR POC Glucometer 85 74 Random Glucose Cancelled Calcium Cancelled Total Bilirubin AST ALT Alkaline Phosphatase Total Protein Albumin Microbiology 04/26/17 20:00 Decubiti Gram Stain - Final 04/26/17 20:00 Decubiti Wound Culture - Preliminary Lactose Fermenting Neg Bacilli Proteus Species Pending Organism 04/26/17 15:00 Urine - Urine - Catheterized Urine Culture - Preliminary Presumptive Ps Aeruginosa 04/26/17 10:18 Blood - Peripheral Venous Blood Culture - Preliminary NO GROWTH OBTAINED AFTER 48 HOURS, INCUBATION TO CONTINUE FOR 3 DAYS. 04/26/17 10:00 Blood - Peripheral Venous Blood Culture - Preliminary NO GROWTH OBTAINED AFTER 48 HOURS, INCUBATION TO CONTINUE FOR 3 DAYS. 04/20/17 16:00 Blood - Peripheral Venous Blood Culture - Final NO GROWTH AFTER 5 DAYS INCUBATION 04/20/17 15:50 Blood - Peripheral Venous Blood Culture - Final NO GROWTH AFTER 5 DAYS INCUBATION 04/20/17 17:40 Urine - Urine Clean Catch Urine Culture - Final Escherichia Coli 04/20/17 20:49 Nasopharyngeal Swab Influenza Types A,B Antigen ([facility]ENRY) - Final 04/20/17 20:49 Nasopharyngeal Swab - Final ASSESSMENT AND PLAN: 71yo F with PMH DM, COPD, CKD, sacral ulcer with hx of MRSA, HTN, CVA with residual L sided paresis, urinary retention with indwelling powers catheter presented to the Er with increasing agitation -Sepsis due to E. Coli UTI, recurrent sepsis - from infected sacral decubitus -Urinary pseudomonas colonization -MARTITA on CKD -IDDM -HTN -COPD -CVA with residual left hemiparess -Microcytic anemia Plan: repeat blood cultures neg so far. Powers changed. U.a neg for infection. s/p debridement today, sent for pathology. Zosyn day 3. Wound cultures noted. Urine with pseudomonas. Powers changed 04/26 and clean urinalysis. suspect colonization from sacra wound. Monitor clinically, continue zosyn for now, follow up final cultures, surgical pathology and ID input. WBC worse today, follow up post debridement. hb slowly trending down, suspect from frequent blood draws, no gross evidence of bleed. s/p 1 unit pRBC, appropriate response, no clinical evidence of bleed. follow up FOBT. Creatinine around baseline, monitor for now. Levemir, ISS, diabetic diet Continue ASA and home anti-hypertensives. DVTPPX with heparin subq. Dispo planning in 24 hours after debridement if improving.
[2017-04-28] MEDS: risperiDONE 0.25 MG TABLET (FP) PO SCH (23:34)
[2017-04-28] MEDS: LACTULOSE 20 GM/30 ML UDC (FOR ORAL USE ONLY) PO SCH (23:35)
[2017-04-29] MEDS: PIPERACILLIN/TAZOB 2.25 GM 2.25 GM/50 ML BAG IVPB SCH ×3 (02:53→18:40)
[2017-04-29] MEDS ORDERED: PT OWN MED DRAWER 7, Y5N ONE ×4 (05:53→21:12)
[2017-04-29] MEDS: hydrALAZINE HCL 10 MG TABLET PO SCH ×3 (06:33→22:40)
[2017-04-29] MEDS: INSULIN DETEMIR 100 UNITS/ML MDV SQ SCH (06:34)
[2017-04-29] MEDS: INSULIN SLIDING SCALE (NOVOLOG) 1 VIAL SQ SCH ×4 (07:53→22:47)
--- NOTE | 2017-04-29 08:22 | PN ---
Physical Exam: SUBJECTIVE: Pt more pleasant today. Pt reports slight pain at wound site, but bearable. Denies chills, abdominal pain, diarrhea, SOB, CP/discomfort. Unable to obtain rest of HPI due to dementia OBJECTIVE: Vital Signs Period Temp Pulse Resp BP Sys/Benton Pulse Ox Last 24 Hr 97.8 F-99.5 F 56-69 16-20 140-165/58-69 97-100 GENERAL: NAD, awake, alert, and fully oriented. HEENT: EOMI, ALY, No JVD, moist mucosa LUNGS: CTA bilaterally, no wheezes, rhonchi, or rales. No accessory muscle use. On RA HEART: RRR, S1, S2 without murmur appreciated ABDOMEN: Soft, nontender, nondistended, hypo-normoactive bowel sounds, no guarding, no rebound, no hepatosplenomegaly EXTREMITIES: 2+ pulses, warm, well-perfused, no edema. NEUROLOGICAL: Could not fully assess due to pt resistance to exam. Pt continues to have L>R UE weakness (chronic) SKIN: Bandage applied to area of debridement without any blood or purulent let- through. Unable to examine further due to pt Laboratory Results - last 24 hr 04/28/17 04/28/17 04/28/17 06:00 08:10 13:46 PT with INR 12.90 H INR 1.14 Sodium 134 L Potassium 3.0 L Chloride 90 L D Carbon Dioxide 33 H D Anion Gap 11 BUN 20 H D Creatinine 1.1 H D Creat Clearance w eGFR 49.25 POC Glucometer 85 Random Glucose 103 Calcium 8.8 Total Bilirubin 0.6 D AST 14 L D ALT 15 D Alkaline Phosphatase 89 D Total Protein 6.2 L Albumin 2.9 L D 04/28/17 04/28/17 04/28/17 15:30 17:09 23:32 PT with INR INR Sodium Cancelled Potassium Cancelled Chloride Cancelled Carbon Dioxide Cancelled Anion Gap Cancelled BUN Cancelled Creatinine Cancelled Creat Clearance w eGFR POC Glucometer 74 146 Random Glucose Cancelled Calcium Cancelled Total Bilirubin AST ALT Alkaline Phosphatase Total Protein Albumin 04/29/17 04/29/17 04/29/17 00:30 02:15 06:37 PT with INR INR Sodium Potassium Cancelled 5.5 H D Chloride Carbon Dioxide Anion Gap BUN Creatinine Creat Clearance w eGFR POC Glucometer 165 Random Glucose Calcium Total Bilirubin AST ALT Alkaline Phosphatase Total Protein Albumin Active Medications Generic Name Dose Route Start Last Admin Trade Name Kate PRN Reason Stop Dose Admin Acetaminophen 650 mg 04/28/17 13:53 Tylenol - PO Q6H PRN FEVER OR PAIN Amino Acids 30 ml 04/28/17 17:30 04/28/17 17:08 Prosource No Carb Liquid Pkt PO 30 ml BID@0800,1730 [facility] Administration Amlodipine Besylate 10 mg 04/29/17 10:00 Norvasc - PO DAILY [facility] Budesonide/Formoterol Fumarate 1 puff 04/28/17 22:00 04/28/17 23:36 Symbicort 80/4.5mcg - IH 1 puff BID [facility] Administration Bupropion HCl 75 mg 04/29/17 10:00 Wellbutrin - PO DAILY [facility] Calcium Acetate 667 mg 04/28/17 17:30 04/28/17 17:08 Phoslo - PO 667 mg TIDCM [facility] Administration Cholecalciferol 400 unit 04/29/17 10:00 Vitamin D3 - PO DAILY [facility] Collagenase 1 applic 04/29/17 10:00 Santyl - TP DAILY [facility] Ferrous Sulfate 325 mg 04/28/17 22:00 04/28/17 23:36 Feosol - PO 325 mg BID [facility] Administration Hydralazine HCl 10 mg 04/28/17 14:00 04/29/17 06:33 Apresoline - PO 10 mg TID [facility] Administration Piperacillin/Tazobactam/Dextrose 2.25 gm in 50 mls @ 100 mls/hr 04/28/17 18: 00 04/29/17 02:53 Zosyn 2.25gm Ivpb (Premix) IVPB 100 mls/hr Q8H-IV [facility] Administration Protocol Insulin Aspart 1 vial 04/28/17 16:30 04/29/17 07:53 Novolog Vial Sliding Scale - SQ Not Given ACHS [facility] Protocol Insulin Detemir 8 units 04/29/17 07:00 04/29/17 06:34 Levemir Vial SQ 8 unit DAILY@0700 [facility] Administration Isosorbide Mononitrate 30 mg 04/29/17 10:00 Imdur - PO DAILY [facility] Lactulose 10 gm 04/28/17 22:00 04/28/17 23:35 Cephulac (Oral Use) PO 10 gm HS [facility] Administration Metoprolol Succinate 100 mg 04/29/17 10:00 Toprol Xl - PO DAILY [facility] Polyethylene Glycol 17 gm 04/29/17 10:00 Miralax (For Daily Use) - PO DAILY [facility] Risperidone 0.25 mg 04/28/17 22:00 04/28/17 23:34 Risperdal - PO 0.25 mg BID [facility] Administration Tiotropium [place] 1 puff 04/29/17 10:00 Spiriva - IH DAILY [facility] ASSESSMENT/PLAN: 71yo F with h/o COPD, CKD, chronic sacral ulcer, HTN and CVA with residual L sided paresis, and chronic indwelling catheter who presented to ER with fever and worsening buttock wounds around sacral ulcer. 1) Sepsis 2/2 E. Coli UTI --Wound culture pending --Blood cx and urine culture repeats negative --Urine culture originally with pseudomonas --Lambert changed 04/26 with clear urinalysis; suspected colonization from wound for above cultures --ID consulted and will follow up recommendations --Continue Zosyn day 4 2) Sacral wounds --Cultures ordered as above --Debridement of wounds 2 days ago (04/28) --Bandages clean and dry 3) MARTITA on CKD --MARTITA resolved; Cr around baseline --Continue to trend 4) Microcytic anemia --Hgb appropriately responsive to 1UPRBC however continues to trend down; possible blood draws causing --Will continue to monitor with tranfusion threshold of 7.0 --No evidence of bleeding currently; fecal occult FEN: Fluids: None indicated currently; need to balance fluid overload in light of CKD and sepsis Electrolyte abnormalities: None currently Nutrition: Chopped diet; renal; NPO AFTER MIDNIGHT PPX: DVT - Heparin SQ TID Dispo: Suspected d/c in about 2 days pending social work/bed placement Case discussed with Dr. Almas Blanchard, DO - Internal Medicine PGY-1 Visit type - Emergency Visit Emergency Visit: No - New Patient This patient is new to me today: No - Critical Care Critical Care patient: No
[2017-04-29 08:53] LABS: HEMATOCRIT 28.2 % (32.4-45.2); HEMOGLOBIN 8.8 GM/dL (10.7-15.3); MCH 25.5 pg (25.7-33.7); MCHC 31.4 g/dl (32.0-36.0); MEAN CELL VOLUME 81.3 fl (80-96); MEAN PLT VOLUME 8.6 fl (7.5-11.1); PLATELET COUNT 226 K/MM3 (134-434); RBC 3.47 M/mm3 (3.60-5.2); RDW 20.3 % (11.6-15.6); WHITE BLOOD COUNT 15.3 K/mm3 (4.0-10.0)
[2017-04-29 09:28] LABS: ANION GAP 10 (8-16); BLOOD UREA NITROGEN 63 mg/dL (7-18); CHLORIDE 106 mmol/L (98-107); CO2 19 mmol/L (21-32); GLUCOSE,RANDOM 143 mg/dL (74-106); SODIUM 135 mmol/L (136-145)
[2017-04-29 09:30] LABS: CALCIUM 8.6 mg/dL (8.5-10.1); CREATININE 2.9 mg/dL (0.55-1.02); PHOSPHOROUS 3.4 mg/dL (2.5-4.9)
[2017-04-29] MEDS ORDERED: COLLAGENASE CLOSTRIDIUM HIST. 30 GRAMS TUBE TP SCH (10:00)
[2017-04-29] MEDS: CALCIUM ACETATE 667 MG CAPSULE (FP) PO SCH ×3 (10:45→18:40)
[2017-04-29] MEDS: AMINO ACIDS/PROTEIN HYDROLYS 30 ML LIQUID.PKT PO SCH ×2 (10:46→18:41)
[2017-04-29] MEDS: FERROUS SO4 325 MG TABLET (FP) PO SCH ×2 (10:46→22:40)
[2017-04-29] MEDS: buPROPion HCL 75 MG TABLET PO SCH (10:46)
[2017-04-29] MEDS: ISOSORBIDE MONONITRATE 30 MG TAB.SR.24H (FP) PO SCH (10:47)
[2017-04-29] MEDS: CHOLECALCIFEROL (VITAMIN D3) 400 UNIT TABLET (FP) PO SCH (10:47)
[2017-04-29] MEDS: amLODIPine BESYLATE 10 MG TABLET (FP) PO SCH (10:47)
[2017-04-29] MEDS: POLYETHYLENE GLYCOL 3350 119 GM BTL PO SCH (10:47)
[2017-04-29] MEDS: risperiDONE 0.25 MG TABLET (FP) PO SCH ×2 (10:47→22:40)
[2017-04-29] MEDS: BUDESONIDE/FORMETEROL FUMARATE 80/4.5 mcg INHALER IH SCH ×2 (10:48→22:40)
[2017-04-29] MEDS: TIOTROPIUM BROMIDE 18 MCG/INH (DEVICE W/ 5 CAPSULES) IH SCH (10:48)
--- NOTE | 2017-04-29 12:00 | OP ---
DATE OF OPERATION: 04/28/2017 PREOPERATIVE DIAGNOSIS: Sacral ulcer, stage 4, necrotic. POSTOPERATIVE DIAGNOSIS: Sacral ulcer, stage 4, necrotic. PROCEDURE: Excisional debridement of sacrum, skin, subcutaneous tissue and muscle. SURGEON: Braden Cohen DO ANESTHESIA: Fractional. BLOOD LOSS: 30 mL. The patient is a 71-year-old female that has a necrotic sacral ulcer. Medical team is finding that that might be the source of her infectious process. It was found that she would need debridement. Patient's family was consented for the procedure, understanding all risks, benefits and alternatives. Then taken to the operating room. Once in the operating room was laid on the operating table in the supine manner and the patient was placed right side down and the area of the sacrum was prepped and draped in the sterile surgical manner. We then went ahead and injected 15 mL of lidocaine 1% into the sacrum and we then went ahead and used a No. 15 blade and excised all the skin, subcutaneous tissue and the muscle going all the way down to muscle on the giant eschar on her sacrum. Bovie electrocautery was used to control hemostasis. We then irrigated the wound capaciously. After taking down the eschar, the wound is down to bone and the area is clean and is pink. We then went ahead and placed saline-moist dressings in the wound, dry 4 x 4's, ABD pads and tape. Patient tolerated the procedure. No complication. Patient transferred to PACU in stable condition. BRADEN COHEN DO NP/[id number]
--- NOTE | 2017-04-29 14:53 | PN ---
Teaching Attending Note Name of Resident: Cuong Blanchard ATTENDING PHYSICIAN STATEMENT Time of evaluation: 12:30 PM I saw and evaluated the patient. I reviewed the resident's note and discussed the case with the resident. I agree with the resident's findings and plan as documented. SUBJECTIVE: Patient seen and examined. Pleasant but unable to assess for ROS. OBJECTIVE: Vital Signs Period Temp Pulse Resp BP Sys/Benton Pulse Ox Last 24 Hr 98.3 F-99.5 F 64-69 18-20 140-146/58-59 99 Intake & Output 04/26/17 04/27/17 04/28/17 04/29/17 23:59 23:59 23:59 23:59 Intake Total 360 1140 940 Output Total 493 354 7991 200 Balance -470 240 -660 -200 General: sitting in bed, pleasant in bed Back: clean wound dressing, further exam deferred. Home Medication List Medication Instructions Recorded Confirmed Type Acetaminophen 500 mg PO DAILY 12/27/16 04/20/17 History Amlodipine Besylate 10 mg PO DAILY 12/27/16 04/20/17 History Betamethasone Dipr 0.05% Oint 50 gm .ROUTE ASDIR 12/27/16 04/20/17 History [Diprolene] Budesonide/Formeterol Fumarate 1 inh PO BID 12/27/16 04/20/17 History [SYMBICORT 80/4.5mcg -] Bupropion HCl [Wellbutrin -] 75 mg PO DAILY 12/27/16 04/20/17 History Calcium Acetate [Calphron] 667 mg PO TID 12/27/16 04/20/17 History Cholecalciferol (Vitamin D3) 400 unit PO DAILY 12/27/16 04/20/17 History [Vitamin D3 -] Duloxetine HCl [Cymbalta] 20 mg PO DAILY 12/27/16 04/20/17 History Duloxetine HCl [Cymbalta] 60 mg PO DAILY 12/27/16 04/20/17 History Ferrous Sulfate [Feosol] 324 mg PO BID 12/27/16 04/20/17 History Hydralazine HCl 10 mg PO TID 12/27/16 04/20/17 History Insulin (Levemir) [Levemir Flexpen 8 units SQ DAILY 12/27/16 04/20/17 History -] Isosorbide Mononitrate [Isosorbide 30 mg PO DAILY 12/27/16 04/20/17 History Mononitrate ER] Lactulose [Enulose] 10 gm PO HS 12/27/16 04/20/17 History Omeprazole 40 mg PO DAILY 12/27/16 04/20/17 History Polyethylene Glycol 3350 [Miralax 17 gm PO DAILY 12/27/16 04/20/17 History (For Daily Use) -] Risperidone [Risperdal -] 0.25 mg PO BID 12/27/16 04/20/17 History Tiotropium [place] [Spiriva] 1 inh IH DAILY 12/27/16 04/20/17 History Tramadol HCl 50 mg PO BID 12/27/16 04/20/17 History Cranberry Fruit Concentrate 500 mg PO DAILY 04/20/17 04/20/17 History [Cran-Max] Metoprolol Succinate [Toprol Xl] 100 mg PO DAILY 04/20/17 04/20/17 History Silver/Calcium Alginate [Algicell 1 bandage TD DAILY 04/20/17 04/20/17 History Ag 4"X5" Dressing] Active Medications Generic Name Dose Route Start Last Admin Trade Name Freq PRN Reason Stop Dose Admin Acetaminophen 650 mg 04/28/17 13:53 Tylenol - PO Q6H PRN FEVER OR PAIN Amino Acids 30 ml 04/28/17 17:30 04/29/17 10:46 Prosource No Carb Liquid Pkt PO 30 ml BID@0800,1730 [facility] Administration Amlodipine Besylate 10 mg 04/29/17 10:00 04/29/17 10:47 Norvasc - PO 10 mg DAILY [facility] Administration Budesonide/Formoterol Fumarate 1 puff 04/28/17 22:00 04/29/17 10:48 Symbicort 80/4.5mcg - IH 1 puff BID [facility] Administration Bupropion HCl 75 mg 04/29/17 10:00 04/29/17 10:46 Wellbutrin - PO 75 mg DAILY [facility] Administration Calcium Acetate 667 mg 04/28/17 17:30 04/29/17 14:18 Phoslo - PO Not Given TIDCM [facility] Cholecalciferol 400 unit 04/29/17 10:00 04/29/17 10:47 Vitamin D3 - PO 400 unit DAILY [facility] Administration Collagenase 1 applic 04/29/17 10:00 04/29/17 14:18 Santyl - TP Not Given DAILY [facility] Ferrous Sulfate 325 mg 04/28/17 22:00 04/29/17 10:46 Feosol - PO 325 mg BID [facility] Administration Hydralazine HCl 10 mg 04/28/17 14:00 04/29/17 14:25 Apresoline - PO 10 mg TID [facility] Administration Piperacillin/Tazobactam/Dextrose 2.25 gm in 50 mls @ 100 mls/hr 04/28/17 18: 00 04/29/17 10:48 Zosyn 2.25gm Ivpb (Premix) IVPB 100 mls/hr Q8H-IV [facility] Administration Protocol Insulin Aspart 1 vial 04/28/17 16:30 04/29/17 13:08 Novolog Vial Sliding Scale - SQ Not Given ACHS [facility] Protocol Insulin Detemir 8 units 04/29/17 07:00 04/29/17 06:34 Levemir Vial SQ 8 unit DAILY@0700 [facility] Administration Isosorbide Mononitrate 30 mg 04/29/17 10:00 04/29/17 10:47 Imdur - PO 30 mg DAILY [facility] Administration Lactulose 10 gm 04/28/17 22:00 04/28/17 23:35 Cephulac (Oral Use) PO 10 gm HS [facility] Administration Metoprolol Succinate 100 mg 04/29/17 10:00 04/29/17 10:47 Toprol Xl - PO 100 mg DAILY [facility] Administration Polyethylene Glycol 17 gm 04/29/17 10:00 04/29/17 10:47 Miralax (For Daily Use) - PO Not Given DAILY [facility] Risperidone 0.25 mg 04/28/17 22:00 04/29/17 10:47 Risperdal - PO 0.25 mg BID [facility] Administration Tiotropium [place] 1 puff 04/29/17 10:00 04/29/17 10:48 Spiriva - IH 1 puff DAILY [facility] Administration Laboratory Results - last 24 hr 04/28/17 04/28/17 04/28/17 15:30 17:09 23:32 WBC RBC Hgb Hct MCV MCH MCHC RDW Plt Count MPV Sodium Cancelled Potassium Cancelled Chloride Cancelled Carbon Dioxide Cancelled Anion Gap Cancelled BUN Cancelled Creatinine Cancelled POC Glucometer 74 146 Random Glucose Cancelled Calcium Cancelled Phosphorus Magnesium 04/29/17 04/29/17 04/29/17 00:30 02:15 06:37 WBC RBC Hgb Hct MCV MCH MCHC RDW Plt Count MPV Sodium Potassium Cancelled 5.5 H D Chloride Carbon Dioxide Anion Gap BUN Creatinine POC Glucometer 165 Random Glucose Calcium Phosphorus Magnesium 04/29/17 04/29/17 04/29/17 08:00 08:00 12:18 WBC 15.3 H RBC 3.47 L Hgb 8.8 L Hct 28.2 L MCV 81.3 MCH 25.5 L MCHC 31.4 L RDW 20.3 H Plt Count 226 MPV 8.6 Sodium 135 L Potassium 5.0 Chloride 106 D Carbon Dioxide 19 L D Anion Gap 10 BUN 63 H D Creatinine 2.9 H D POC Glucometer 109 Random Glucose 143 H D Calcium 8.6 Phosphorus 3.4 D Magnesium 2.0 Microbiology 04/26/17 20:00 Decubiti Gram Stain - Final 04/26/17 20:00 Decubiti Wound Culture - Preliminary Escherichia Coli Proteus Mirabilis Pending Organism 04/26/17 15:00 Urine - Urine - Catheterized Urine Culture - Final Pseudomonas Aeruginosa 04/26/17 10:18 Blood - Peripheral Venous Blood Culture - Preliminary NO GROWTH OBTAINED AFTER 72 HOURS, INCUBATION TO CONTINUE FOR 2 DAYS. 04/26/17 10:00 Blood - Peripheral Venous Blood Culture - Preliminary NO GROWTH OBTAINED AFTER 72 HOURS, INCUBATION TO CONTINUE FOR 2 DAYS. 04/20/17 16:00 Blood - Peripheral Venous Blood Culture - Final NO GROWTH AFTER 5 DAYS INCUBATION 04/20/17 15:50 Blood - Peripheral Venous Blood Culture - Final NO GROWTH AFTER 5 DAYS INCUBATION 04/20/17 17:40 Urine - Urine Clean Catch Urine Culture - Final Escherichia Coli 04/20/17 20:49 Nasopharyngeal Swab Influenza Types A,B Antigen (HENRY) - Final 04/20/17 20:49 Nasopharyngeal Swab - Final ASSESSMENT AND PLAN: 71yo F with PMH DM, COPD, CKD, sacral ulcer with hx of MRSA, HTN, CVA with residual L sided paresis, urinary retention with indwelling powers catheter presented to the Er with increasing agitation -Sepsis due to E. Coli UTI, recurrent sepsis - from infected sacral decubitus -Urinary pseudomonas colonization -MARTITA on CKD -IDDM -HTN -COPD -CVA with residual left hemiparess -Microcytic anemia Plan: repeat blood cultures neg so far. Powers changed. U.a neg for infection. s/p debridement 04/28, sent for pathology. Zosyn day 4. Wound cultures noted. Urine with pseudomonas. Powers changed 04/26 and clean urinalysis. suspect colonization from sacral wound. Monitor clinically, continue zosyn for now, follow up final cultures, surgical pathology and ID input. WBC improving post debridement. hb slowly trending down, suspect from frequent blood draws, no gross evidence of bleed. s/p 1 unit pRBC, appropriate response, no clinical evidence of bleed. follow up FOBT. Creatinine around baseline, monitor for now. Levemir, ISS, diabetic diet Continue ASA and home anti-hypertensives. DVTPPX with heparin subq. Dispo planning in 48 hours pending surgery and ID input. Discuss with CM for potential discharge in 48 hours if continues to improve.
--- NOTE | 2017-04-29 17:11 | PN ---
Progress Note, Physician History of Present Illness: S/P excisional debridement, sacral decubitus Awake, alert C/O sacral discomfort Afebrile Wound c/s polymicrobial - Current Medication List Current Medications: Active Medications Acetaminophen (Tylenol -) 650 mg PO Q6H PRN PRN Reason: FEVER OR PAIN Amino Acids (Prosource No Carb Liquid Pkt) 30 ml PO BID@0800,1730 [facility] Last Admin: 04/29/17 10:46 Dose: 30 ml Amlodipine Besylate (Norvasc -) 10 mg PO DAILY [facility] Last Admin: 04/29/17 10:47 Dose: 10 mg Budesonide/Formoterol Fumarate (Symbicort 80/4.5mcg -) 1 puff IH BID [facility] Last Admin: 04/29/17 10:48 Dose: 1 puff Bupropion HCl (Wellbutrin -) 75 mg PO DAILY [facility] Last Admin: 04/29/17 10:46 Dose: 75 mg Calcium Acetate (Phoslo -) 667 mg PO TIDCM [facility] Last Admin: 04/29/17 14:18 Dose: Not Given Cholecalciferol (Vitamin D3 -) 400 unit PO DAILY [facility] Last Admin: 04/29/17 10:47 Dose: 400 unit Collagenase (Santyl -) 1 applic TP DAILY [facility] Last Admin: 04/29/17 14:18 Dose: Not Given Ferrous Sulfate (Feosol -) 325 mg PO BID [facility] Last Admin: 04/29/17 10:46 Dose: 325 mg Hydralazine HCl (Apresoline -) 10 mg PO TID [facility] Last Admin: 04/29/17 14:25 Dose: 10 mg Piperacillin/Tazobactam/Dextrose (Zosyn 2.25gm Ivpb (Premix)) 2.25 gm in 50 mls @ 100 mls/hr IVPB Q8H-IV [facility] PRN Reason: Protocol Last Admin: 04/29/17 10:48 Dose: 100 mls/hr Insulin Aspart (Novolog Vial Sliding Scale -) 1 vial SQ ACHS [facility] PRN Reason: Protocol Last Admin: 04/29/17 13:08 Dose: Not Given Insulin Detemir (Levemir Vial) 8 units SQ DAILY@0700 [facility] Last Admin: 04/29/17 06:34 Dose: 8 unit Isosorbide Mononitrate (Imdur -) 30 mg PO DAILY [facility] Last Admin: 04/29/17 10:47 Dose: 30 mg Lactulose (Cephulac (Oral Use)) 10 gm PO HS [facility] Last Admin: 04/28/17 23:35 Dose: 10 gm Metoprolol Succinate (Toprol Xl -) 100 mg PO DAILY [facility] Last Admin: 04/29/17 10:47 Dose: 100 mg Polyethylene Glycol (Miralax (For Daily Use) -) 17 gm PO DAILY [facility] Last Admin: 04/29/17 10:47 Dose: Not Given Risperidone (Risperdal -) 0.25 mg PO BID [facility] Last Admin: 04/29/17 10:47 Dose: 0.25 mg Tiotropium [place] (Spiriva -) 1 puff IH DAILY [facility] Last Admin: 04/29/17 10:48 Dose: 1 puff - Objective Vital Signs: Vital Signs Temperature 98.6 F 04/29/17 10:00 Pulse Rate 78 04/29/17 10:00 Respiratory Rate 18 04/29/17 10:00 Blood Pressure 140/68 04/29/17 10:00 O2 Sat by Pulse Oximetry (%) 97 04/29/17 09:00 Constitutional: Yes: No Distress Cardiovascular: Yes: Regular Rate and Rhythm, S1, S2 Respiratory: Yes: Diminished Gastrointestinal: Yes: Normal Bowel Sounds, Soft Edema: Yes Edema: LLE: 1+, RLE: 1+ Integumentary: Yes: Other (surgical dressing in place) Labs: CBC, BMP 04/29/17 08:00 04/29/17 08:00 INR, PTT INR 1.14 (0.82-1.09) 04/28/17 08:10 Assessment/Plan S/P debridement, sacral decubitus Fever- resolved UTI Azotemia Continue zosyn, local wound care
--- NOTE | 2017-04-29 17:59 | PATH ---
Surgical Pathology Report Patient Name: ROSI WAITE Med. Rec. #: [id number] /Age/Gender: 1945 (Age: 71) / F Account: [id number] Location: [facility] MED/SURG Taken: 04/28/2017 Received: 04/28/2017 Reported: 04/29/2017 Physicians: Braden Rogers Specimen(s) Received Sacral infected ulcerated tissue Clinical History Infected ulcer sacral Final Diagnosis SACRUM, ULCER, DEBRIDEMENT: FIBROADIPOSE TISSUE WITH ACUTE AND CHRONIC NECROTIZING INFLAMMATION. Electronically Signed Tiana Bourgeois M.D. Gross Description Received in formalin labeled "infected ulcer tissue," is a 9.0 x 5.0 x 3.2 cm aggregate of martinez-bland, ulcerated, necrotic skin and soft tissue fragments. Auxiliary Plant Operator sections are submitted in one cassette. /04/28/201704/28/2017
[2017-04-29] MEDS: LACTULOSE 20 GM/30 ML UDC (FOR ORAL USE ONLY) PO SCH (22:40)
[2017-04-30] MEDS: PIPERACILLIN/TAZOB 2.25 GM 2.25 GM/50 ML BAG IVPB SCH ×2 (03:09→11:32)
[2017-04-30] MEDS: INSULIN DETEMIR 100 UNITS/ML MDV SQ SCH (07:00)
[2017-04-30] MEDS: INSULIN SLIDING SCALE (NOVOLOG) 1 VIAL SQ SCH ×4 (07:00→22:44)
[2017-04-30] MEDS: hydrALAZINE HCL 10 MG TABLET PO SCH ×3 (07:05→22:12)
[2017-04-30] MEDS ORDERED: INSULIN DETEMIR 100 UNITS/ML MDV SQ ONE (08:16)
[2017-04-30] MEDS: CALCIUM ACETATE 667 MG CAPSULE (FP) PO SCH ×3 (09:05→18:18)
[2017-04-30] MEDS: AMINO ACIDS/PROTEIN HYDROLYS 30 ML LIQUID.PKT PO SCH ×2 (09:05→18:18)
[2017-04-30 09:22] LABS: BASO % 0.4 % (0-2.0); EOS % 2.8 % (0-4.5); HEMATOCRIT 28.4 % (32.4-45.2); HEMOGLOBIN 8.7 GM/dL (10.7-15.3); LYMPH % 5.1 % (8-40); MCH 25.2 pg (25.7-33.7); MCHC 30.6 g/dl (32.0-36.0); MEAN CELL VOLUME 82.2 fl (80-96); MEAN PLT VOLUME 8.1 fl (7.5-11.1); MONO % 4.9 % (3.8-10.2); NEUT % 86.8 % (42.8-82.8); PLATELET COUNT 241 K/MM3 (134-434); RBC 3.46 M/mm3 (3.60-5.2); RDW 20.2 % (11.6-15.6); WHITE BLOOD COUNT 15.8 K/mm3 (4.0-10.0)
[2017-04-30 09:51] LABS: ANION GAP 7 (8-16); BLOOD UREA NITROGEN 63 mg/dL (7-18); CALCIUM 8.7 mg/dL (8.5-10.1); CHLORIDE 111 mmol/L (98-107); CO2 21 mmol/L (21-32); CREATININE 2.9 mg/dL (0.55-1.02); GLUCOSE,RANDOM 124 mg/dL (74-106); POTASSIUM 4.4 mmol/L (3.5-5.1); SODIUM 139 mmol/L (136-145)
[2017-04-30] MEDS ORDERED: PT OWN MED DRAWER 7, Y5N ONE ×3 (11:21→21:57)
[2017-04-30] MEDS: BUDESONIDE/FORMETEROL FUMARATE 80/4.5 mcg INHALER IH SCH ×2 (11:31→22:44)
[2017-04-30] MEDS: POLYETHYLENE GLYCOL 3350 119 GM BTL PO SCH (11:31)
[2017-04-30] MEDS: amLODIPine BESYLATE 10 MG TABLET (FP) PO SCH (11:32)
[2017-04-30] MEDS: buPROPion HCL 75 MG TABLET PO SCH (11:32)
[2017-04-30] MEDS: TIOTROPIUM BROMIDE 18 MCG/INH (DEVICE W/ 5 CAPSULES) IH SCH (11:32)
[2017-04-30] MEDS: risperiDONE 0.25 MG TABLET (FP) PO SCH ×2 (11:33→22:12)
[2017-04-30] MEDS: CHOLECALCIFEROL (VITAMIN D3) 400 UNIT TABLET (FP) PO SCH (11:33)
[2017-04-30] MEDS: FERROUS SO4 325 MG TABLET (FP) PO SCH ×2 (11:33→22:12)
[2017-04-30] MEDS: ISOSORBIDE MONONITRATE 30 MG TAB.SR.24H (FP) PO SCH (11:33)
--- NOTE | 2017-04-30 14:28 | PN ---
Progress Note, Physician History of Present Illness: S/P excisional debridement, sacral decubitus Awake, alert C/O sacral discomfort Afebrile Wound c/s polymicrobial - Current Medication List Current Medications: Active Medications Acetaminophen (Tylenol -) 650 mg PO Q6H PRN PRN Reason: FEVER OR PAIN Amino Acids (Prosource No Carb Liquid Pkt) 30 ml PO BID@0800,1730 [facility] Last Admin: 04/30/17 09:05 Dose: 30 ml Amlodipine Besylate (Norvasc -) 10 mg PO DAILY [facility] Last Admin: 04/30/17 11:32 Dose: 10 mg Budesonide/Formoterol Fumarate (Symbicort 80/4.5mcg -) 1 puff IH BID [facility] Last Admin: 04/30/17 11:31 Dose: 1 puff Bupropion HCl (Wellbutrin -) 75 mg PO DAILY [facility] Last Admin: 04/30/17 11:32 Dose: 75 mg Calcium Acetate (Phoslo -) 667 mg PO TIDCM [facility] Last Admin: 04/30/17 12:56 Dose: 667 mg Cholecalciferol (Vitamin D3 -) 400 unit PO DAILY [facility] Last Admin: 04/30/17 11:33 Dose: 400 unit Ferrous Sulfate (Feosol -) 325 mg PO BID [facility] Last Admin: 04/30/17 11:33 Dose: 325 mg Hydralazine HCl (Apresoline -) 10 mg PO TID [facility] Last Admin: 04/30/17 13:07 Dose: 10 mg Piperacillin/Tazobactam/Dextrose (Zosyn 2.25gm Ivpb (Premix)) 2.25 gm in 50 mls @ 100 mls/hr IVPB Q8H-IV [facility] PRN Reason: Protocol Last Admin: 04/30/17 11:32 Dose: 100 mls/hr Insulin Aspart (Novolog Vial Sliding Scale -) 1 vial SQ ACHS [facility] PRN Reason: Protocol Last Admin: 04/30/17 12:04 Dose: 2 units Insulin Detemir (Levemir Vial) 8 units SQ DAILY@0700 [facility] Last Admin: 04/30/17 07:00 Dose: 8 unit Isosorbide Mononitrate (Imdur -) 30 mg PO DAILY [facility] Last Admin: 04/30/17 11:33 Dose: 30 mg Lactulose (Cephulac (Oral Use)) 10 gm PO HS [facility] Last Admin: 04/29/17 22:40 Dose: 10 gm Metoprolol Succinate (Toprol Xl -) 100 mg PO DAILY [facility] Last Admin: 04/30/17 11:32 Dose: 100 mg Polyethylene Glycol (Miralax (For Daily Use) -) 17 gm PO DAILY [facility] Last Admin: 04/30/17 11:31 Dose: 17 gm Risperidone (Risperdal -) 0.25 mg PO BID [facility] Last Admin: 04/30/17 11:33 Dose: 0.25 mg Tiotropium [place] (Spiriva -) 1 puff IH DAILY [facility] Last Admin: 04/30/17 11:32 Dose: 1 puff - Objective Vital Signs: Vital Signs Temperature 97.4 F L 04/30/17 10:00 Pulse Rate 67 04/30/17 10:00 Respiratory Rate 16 04/30/17 10:00 Blood Pressure 163/78 04/30/17 10:00 O2 Sat by Pulse Oximetry (%) 97 04/29/17 09:00 Constitutional: Yes: No Distress Cardiovascular: Yes: Regular Rate and Rhythm, S1, S2 Respiratory: Yes: CTA Bilaterally Gastrointestinal: Yes: Normal Bowel Sounds, Soft Edema: Yes Integumentary: Yes: Other (+sacral decubitus) Labs: CBC, BMP 04/30/17 08:45 04/30/17 08:45 INR, PTT INR 1.14 (0.82-1.09) 04/28/17 08:10 Assessment/Plan S/P debridement, sacral decubitus wound c/s polymicrobial Fever- resolved UTI Azotemia Discontinue zosyn Substitute po ceftin/flagyl x7d local wound care
--- NOTE | 2017-04-30 15:42 | PN ---
Teaching Attending Note Name of Resident: Zulma Watkins ATTENDING PHYSICIAN STATEMENT Time of evaluation: 9:10 AM I saw and evaluated the patient. I reviewed the resident's note and discussed the case with the resident. I agree with the resident's findings and plan as documented. SUBJECTIVE: Patient seen and examined. No complaints, ROS limited by dementia. OBJECTIVE: Vital Signs Period Temp Pulse Resp BP Sys/Benton Pulse Ox Last 24 Hr 97.4 F-98.8 F 62-75 16-20 137-163/61-78 Intake & Output 04/27/17 04/28/17 04/29/17 04/30/17 23:59 23:59 23:59 23:59 Intake Total 1140 940 460 590 Output Total 900 1600 1100 900 Balance 626 -660 -640 -784 GEneral: sitting in bed in no acute distress Abdomen:soft, obese, NT, Neuro AA, oriented to self only BacK wound dressing Home Medication List Medication Instructions Recorded Confirmed Type Acetaminophen 500 mg PO DAILY 12/27/16 04/20/17 History Amlodipine Besylate 10 mg PO DAILY 12/27/16 04/20/17 History Betamethasone Dipr 0.05% Oint 50 gm .ROUTE ASDIR 12/27/16 04/20/17 History [Diprolene] Budesonide/Formeterol Fumarate 1 inh PO BID 12/27/16 04/20/17 History [SYMBICORT 80/4.5mcg -] Bupropion HCl [Wellbutrin -] 75 mg PO DAILY 12/27/16 04/20/17 History Calcium Acetate [Calphron] 667 mg PO TID 12/27/16 04/20/17 History Cholecalciferol (Vitamin D3) 400 unit PO DAILY 12/27/16 04/20/17 History [Vitamin D3 -] Duloxetine HCl [Cymbalta] 20 mg PO DAILY 12/27/16 04/20/17 History Duloxetine HCl [Cymbalta] 60 mg PO DAILY 12/27/16 04/20/17 History Ferrous Sulfate [Feosol] 324 mg PO BID 12/27/16 04/20/17 History Hydralazine HCl 10 mg PO TID 12/27/16 04/20/17 History Insulin (Levemir) [Levemir Flexpen 8 units SQ DAILY 12/27/16 04/20/17 History -] Isosorbide Mononitrate [Isosorbide 30 mg PO DAILY 12/27/16 04/20/17 History Mononitrate ER] Lactulose [Enulose] 10 gm PO HS 12/27/16 04/20/17 History Omeprazole 40 mg PO DAILY 12/27/16 04/20/17 History Polyethylene Glycol 3350 [Miralax 17 gm PO DAILY 12/27/16 04/20/17 History (For Daily Use) -] Risperidone [Risperdal -] 0.25 mg PO BID 12/27/16 04/20/17 History Tiotropium [place] [Spiriva] 1 inh IH DAILY 12/27/16 04/20/17 History Tramadol HCl 50 mg PO BID 12/27/16 04/20/17 History Cranberry Fruit Concentrate 500 mg PO DAILY 04/20/17 04/20/17 History [Cran-Max] Metoprolol Succinate [Toprol Xl] 100 mg PO DAILY 04/20/17 04/20/17 History Silver/Calcium Alginate [Algicell 1 bandage TD DAILY 04/20/17 04/20/17 History Ag 4"X5" Dressing] Active Medications Generic Name Dose Route Start Last Admin Trade Name Freq PRN Reason Stop Dose Admin Acetaminophen 650 mg 04/28/17 13:53 Tylenol - PO Q6H PRN FEVER OR PAIN Amino Acids 30 ml 04/28/17 17:30 04/30/17 09:05 Prosource No Carb Liquid Pkt PO 30 ml BID@0800,1730 [facility] Administration Amlodipine Besylate 10 mg 04/29/17 10:00 04/30/17 11:32 Norvasc - PO 10 mg DAILY [facility] Administration Budesonide/Formoterol Fumarate 1 puff 04/28/17 22:00 04/30/17 11:31 Symbicort 80/4.5mcg - IH 1 puff BID [facility] Administration Bupropion HCl 75 mg 04/29/17 10:00 04/30/17 11:32 Wellbutrin - PO 75 mg DAILY [facility] Administration Calcium Acetate 667 mg 04/28/17 17:30 04/30/17 12:56 Phoslo - PO 667 mg TIDCM [facility] Administration Cefuroxime Axetil 250 mg 04/30/17 22:00 Ceftin - PO BID [facility] Cholecalciferol 400 unit 04/29/17 10:00 04/30/17 11:33 Vitamin D3 - PO 400 unit DAILY [facility] Administration Ferrous Sulfate 325 mg 04/28/17 22:00 04/30/17 11:33 Feosol - PO 325 mg BID [facility] Administration Hydralazine HCl 10 mg 04/28/17 14:00 04/30/17 13:07 Apresoline - PO 10 mg TID [facility] Administration Insulin Aspart 1 vial 04/28/17 16:30 04/30/17 12:04 Novolog Vial Sliding Scale - SQ 2 units ACHS [facility] Administration Protocol Insulin Detemir 8 units 04/29/17 07:00 04/30/17 07:00 Levemir Vial SQ 8 unit DAILY@0700 [facility] Administration Isosorbide Mononitrate 30 mg 04/29/17 10:00 04/30/17 11:33 Imdur - PO 30 mg DAILY [facility] Administration Lactulose 10 gm 04/28/17 22:00 04/29/17 22:40 Cephulac (Oral Use) PO 10 gm HS [facility] Administration Metoprolol Succinate 100 mg 04/29/17 10:00 04/30/17 11:32 Toprol Xl - PO 100 mg DAILY [facility] Administration Metronidazole 500 mg 04/30/17 15:00 Flagyl - PO TID [facility] Polyethylene Glycol 17 gm 04/29/17 10:00 04/30/17 11:31 Miralax (For Daily Use) - PO 17 gm DAILY [facility] Administration Risperidone 0.25 mg 04/28/17 22:00 04/30/17 11:33 Risperdal - PO 0.25 mg BID [facility] Administration Tiotropium [place] 1 puff 04/29/17 10:00 04/30/17 11:32 Spiriva - IH 1 puff DAILY [facility] Administration Laboratory Results - last 24 hr 04/27/17 04/29/17 04/29/17 10:15 17:33 22:44 WBC RBC Hgb Hct MCV MCH MCHC RDW Plt Count MPV Neutrophils % Lymphocytes % Monocytes % Eosinophils % Basophils % Sodium Potassium Chloride Carbon Dioxide Anion Gap BUN Creatinine POC Glucometer 153 228 Random Glucose Calcium Blood Type A POSITIVE Antibody Screen Negative Crossmatch See Detail Spec Expiration Date 04/30/17 04/30/17 04/30/17 06:59 08:45 08:45 WBC 15.8 H RBC 3.46 L Hgb 8.7 L Hct 28.4 L MCV 82.2 MCH 25.2 L MCHC 30.6 L RDW 20.2 H Plt Count 241 MPV 8.1 Neutrophils % 86.8 H Lymphocytes % 5.1 L Monocytes % 4.9 Eosinophils % 2.8 Basophils % 0.4 Sodium 139 Potassium 4.4 Chloride 111 H Carbon Dioxide 21 Anion Gap 7 L BUN 63 H Creatinine 2.9 H POC Glucometer 166 Random Glucose 124 H Calcium 8.7 Blood Type Antibody Screen Crossmatch Spec Expiration Date 04/30/17 12:02 WBC RBC Hgb Hct MCV MCH MCHC RDW Plt Count MPV Neutrophils % Lymphocytes % Monocytes % Eosinophils % Basophils % Sodium Potassium Chloride Carbon Dioxide Anion Gap BUN Creatinine POC Glucometer 161 Random Glucose Calcium Blood Type Antibody Screen Crossmatch Spec Expiration Date Microbiology 04/26/17 20:00 Decubiti Gram Stain - Final 04/26/17 20:00 Decubiti Wound Culture - Preliminary Escherichia Coli Proteus Mirabilis Presumptive Ps Aeruginosa 04/26/17 10:18 Blood - Peripheral Venous Blood Culture - Preliminary NO GROWTH OBTAINED AFTER 96 HOURS, INCUBATION TO CONTINUE FOR 1 DAYS. 04/26/17 10:00 Blood - Peripheral Venous Blood Culture - Preliminary NO GROWTH OBTAINED AFTER 96 HOURS, INCUBATION TO CONTINUE FOR 1 DAYS. 04/26/17 15:00 Urine - Urine - Catheterized Urine Culture - Final Pseudomonas Aeruginosa 04/20/17 16:00 Blood - Peripheral Venous Blood Culture - Final NO GROWTH AFTER 5 DAYS INCUBATION 04/20/17 15:50 Blood - Peripheral Venous Blood Culture - Final NO GROWTH AFTER 5 DAYS INCUBATION 04/20/17 17:40 Urine - Urine Clean Catch Urine Culture - Final Escherichia Coli 04/20/17 20:49 Nasopharyngeal Swab Influenza Types A,B Antigen ([facility]ENRY) - Final 04/20/17 20:49 Nasopharyngeal Swab - Final ASSESSMENT AND PLAN: 71yo F with PMH DM, COPD, CKD, sacral ulcer with hx of MRSA, HTN, CVA with residual L sided paresis, urinary retention with indwelling powers catheter presented to the Er with increasing agitation -Sepsis due to E. Coli UTI, recurrent sepsis - from infected sacral decubitus -Urinary pseudomonas colonization -MARTITA on CKD -IDDM -HTN -COPD -CVA with residual left hemiparess -Microcytic anemia Plan: repeat blood cultures neg so far. Powers changed. U.a neg for infection. s/p debridement 04/28, sent for pathology. Zosyn day 5. Wound cultures noted. ID input noted, changed to ceftin/flagyl, will address possible pseudomonas coverage. Urine with pseudomonas. Powers changed 04/26 and clean urinalysis. suspect colonization from sacral wound. Follow up final cultures, surgical pathology and ID input. WBC improving post debridement. Discussed with Dr. Rogers for wound care instructions, will follow up. hb slowly trending down, suspect from frequent blood draws, no gross evidence of bleed. s/p 1 unit pRBC, appropriate response, no clinical evidence of bleed. follow up FOBT. Creatinine around baseline, monitor for now. Levemir, ISS, diabetic diet Continue ASA and home anti-hypertensives. DVTPPX with heparin subq. Dispo planning in 48 hours pending surgery and ID input. Discuss with CM for potential discharge in 48 hours if continues to improve.
[2017-04-30] MEDS: metroNIDAZOLE 250 MG TABLET PO SCH ×2 (18:18→22:12)
--- NOTE | 2017-04-30 21:05 | PN ---
Physical Exam: SUBJECTIVE: Patient seen and examined. She doesnt have any complaints. No overnight events. OBJECTIVE: Vital Signs Period Temp Pulse Resp BP Sys/Benton Pulse Ox Last 24 Hr 97.4 F-98.8 F 67-75 16-20 137-163/69-78 99 Physical exam: the pt refused today. Laboratory Results - last 24 hr 04/27/17 04/29/17 04/30/17 10:15 22:44 06:59 WBC RBC Hgb Hct MCV MCH MCHC RDW Plt Count MPV Neutrophils % Lymphocytes % Monocytes % Eosinophils % Basophils % Sodium Potassium Chloride Carbon Dioxide Anion Gap BUN Creatinine POC Glucometer 228 166 Random Glucose Calcium Blood Type A POSITIVE Antibody Screen Negative Crossmatch See Detail Spec Expiration Date 04/30/17 04/30/17 04/30/17 08:45 08:45 12:02 WBC 15.8 H RBC 3.46 L Hgb 8.7 L Hct 28.4 L MCV 82.2 MCH 25.2 L MCHC 30.6 L RDW 20.2 H Plt Count 241 MPV 8.1 Neutrophils % 86.8 H Lymphocytes % 5.1 L Monocytes % 4.9 Eosinophils % 2.8 Basophils % 0.4 Sodium 139 Potassium 4.4 Chloride 111 H Carbon Dioxide 21 Anion Gap 7 L BUN 63 H Creatinine 2.9 H POC Glucometer 161 Random Glucose 124 H Calcium 8.7 Blood Type Antibody Screen Crossmatch Spec Expiration Date 04/30/17 18:17 WBC RBC Hgb Hct MCV MCH MCHC RDW Plt Count MPV Neutrophils % Lymphocytes % Monocytes % Eosinophils % Basophils % Sodium Potassium Chloride Carbon Dioxide Anion Gap BUN Creatinine POC Glucometer 223 Random Glucose Calcium Blood Type Antibody Screen Crossmatch Spec Expiration Date Active Medications Generic Name Dose Route Start Last Admin Trade Name Freq PRN Reason Stop Dose Admin Acetaminophen 650 mg 04/28/17 13:53 Tylenol - PO Q6H PRN FEVER OR PAIN Amino Acids 30 ml 04/28/17 17:30 04/30/17 18:18 Prosource No Carb Liquid Pkt PO 30 ml BID@0800,1730 HETAL Administration Amlodipine Besylate 10 mg 04/29/17 10:00 04/30/17 11:32 Norvasc - PO 10 mg DAILY HETAL Administration Budesonide/Formoterol Fumarate 1 puff 04/28/17 22:00 04/30/17 11:31 Symbicort 80/4.5mcg - IH 1 puff BID HETAL Administration Bupropion HCl 75 mg 04/29/17 10:00 04/30/17 11:32 Wellbutrin - PO 75 mg DAILY HETAL Administration Calcium Acetate 667 mg 04/28/17 17:30 04/30/17 18:18 Phoslo - PO 667 mg TIDCM HETAL Administration Cefuroxime Axetil 250 mg 04/30/17 22:00 Ceftin - PO BID HETAL Cholecalciferol 400 unit 04/29/17 10:00 04/30/17 11:33 Vitamin D3 - PO 400 unit DAILY HETAL Administration Ferrous Sulfate 325 mg 04/28/17 22:00 04/30/17 11:33 Feosol - PO 325 mg BID HETAL Administration Hydralazine HCl 10 mg 04/28/17 14:00 04/30/17 13:07 Apresoline - PO 10 mg TID HETAL Administration Insulin Aspart 1 vial 04/28/17 16:30 04/30/17 18:18 Novolog Vial Sliding Scale - SQ 4 units ACHS HETAL Administration Protocol Insulin Detemir 8 units 04/29/17 07:00 04/30/17 07:00 Levemir Vial SQ 8 unit DAILY@0700 HETAL Administration Isosorbide Mononitrate 30 mg 04/29/17 10:00 04/30/17 11:33 Imdur - PO 30 mg DAILY HETAL Administration Lactulose 10 gm 04/28/17 22:00 04/29/17 22:40 Cephulac (Oral Use) PO 10 gm HS [facility] Administration Metoprolol Succinate 100 mg 04/29/17 10:00 04/30/17 11:32 Toprol Xl - PO 100 mg DAILY HETAL Administration Metronidazole 500 mg 04/30/17 15:00 04/30/17 18:18 Flagyl - PO 500 mg TID HETAL Administration Polyethylene Glycol 17 gm 04/29/17 10:00 04/30/17 11:31 Miralax (For Daily Use) - PO 17 gm DAILY HETAL Administration Risperidone 0.25 mg 04/28/17 22:00 04/30/17 11:33 Risperdal - PO 0.25 mg BID HETAL Administration Tiotropium [place] 1 puff 04/29/17 10:00 04/30/17 11:32 Spiriva - IH 1 puff DAILY HETAL Administration Microbiology 04/26/17 20:00 Decubiti Gram Stain - Final 04/26/17 20:00 Decubiti Wound Culture - Preliminary Escherichia Coli Proteus Mirabilis Presumptive Ps Aeruginosa 04/26/17 10:18 Blood - Peripheral Venous Blood Culture - Preliminary NO GROWTH OBTAINED AFTER 96 HOURS, INCUBATION TO CONTINUE FOR 1 DAYS. 04/26/17 10:00 Blood - Peripheral Venous Blood Culture - Preliminary NO GROWTH OBTAINED AFTER 96 HOURS, INCUBATION TO CONTINUE FOR 1 DAYS. 04/26/17 15:00 Urine - Urine - Catheterized Urine Culture - Final Pseudomonas Aeruginosa 04/20/17 16:00 Blood - Peripheral Venous Blood Culture - Final NO GROWTH AFTER 5 DAYS INCUBATION 04/20/17 15:50 Blood - Peripheral Venous Blood Culture - Final NO GROWTH AFTER 5 DAYS INCUBATION 04/20/17 17:40 Urine - Urine Clean Catch Urine Culture - Final Escherichia Coli 04/20/17 20:49 Nasopharyngeal Swab Influenza Types A,B Antigen (HENRY) - Final 04/20/17 20:49 Nasopharyngeal Swab - Final ASSESSMENT/PLAN: 71yo F with PMH DM, COPD, CKD, sacral ulcer with hx of MRSA, HTN, CVA with residual L sided paresis, urinary retention with indwelling powers catheter admitted for AMS and sepsis. Sepsis due to UTI no fever in 24 h ID recommendations to DC Zosyn and continue with Cefuroxime and Flagyl for 7days Catheter removed, cultures resent: Pseudomonas Follow up final cultures, surgical pathology, ID recommendations Decubitus ulcer; s/p wound debridement wound culture: E Coli, Proteus Mirabilis and Pseudomonas continue contact isolation WBC improving CKD possibly due to sepsis today Cr 2.9 BUN 63, Cr at baseline avoid nephrotoxic substances Microcytic Anemia s/p 1 u of PRBC stable, appropriate response DM cont ISS and LEvemir 8u HS HTN controlled, cont home meds: Norvasc, Apresoline and Toprol COPD- stable, cont home meds CVA with residual L sided paresis on asa DVT ppx- hep sq Disposition: cont med surg Problem List - Problems (1) Acute on chronic renal insufficiency Code(s): N28.9 - DISORDER OF KIDNEY AND URETER, UNSPECIFIED; N18.9 - CHRONIC KIDNEY DISEASE, UNSPECIFIED (2) Infected decubitus ulcer Code(s): L89.90 - PRESSURE ULCER OF UNSPECIFIED SITE, UNSPECIFIED STAGE; L08.9 - LOCAL INFECTION OF THE SKIN AND SUBCUTANEOUS TISSUE, UNSP (3) UTI (urinary tract infection) Code(s): N39.0 - URINARY TRACT INFECTION, SITE NOT SPECIFIED Qualifiers: Urinary tract infection type: acute cystitis Hematuria presence: without hematuria Qualified Code(s): N30.00 - Acute cystitis without hematuria (4) COPD (chronic obstructive pulmonary disease) Code(s): J44.9 - CHRONIC OBSTRUCTIVE PULMONARY DISEASE, UNSPECIFIED Qualifiers: COPD type: COPD with acute lower respiratory infection Qualified Code(s): J44.0 - Chronic obstructive pulmonary disease with acute lower respiratory infection (5) CVA (cerebrovascular accident) Code(s): I63.9 - CEREBRAL INFARCTION, UNSPECIFIED Qualifiers: CVA mechanism: stenosis (6) DVT prophylaxis Code(s): MEE2285 - (7) Dementia Code(s): F03.90 - UNSPECIFIED DEMENTIA WITHOUT BEHAVIORAL DISTURBANCE (8) Hypertension Code(s): I10 - ESSENTIAL (PRIMARY) HYPERTENSION Visit type - Emergency Visit Emergency Visit: Yes ED Registration Date: 04/20/17 Care time: The patient presented to the Emergency Department on the above date and was hospitalized for further evaluation of their emergent condition. - New Patient This patient is new to me today: No - Critical Care Critical Care patient: No
[2017-04-30] MEDS: LACTULOSE 20 GM/30 ML UDC (FOR ORAL USE ONLY) PO SCH (22:15)
[2017-04-30] MEDS: CEFUROXIME AXETIL 250 MG TABLET PO SCH (22:16)
[2017-04-30] MEDS ORDERED: INSULIN (NOVOLOG) ASPART 100 UNITS/ML 10ML VIAL ONE (22:40)
[2017-05-01] MEDS ORDERED: PT OWN MED DRAWER 7, Y5N ONE ×6 (05:55→22:21)
[2017-05-01] MEDS: hydrALAZINE HCL 10 MG TABLET PO SCH ×3 (06:02→22:30)
[2017-05-01] MEDS: metroNIDAZOLE 250 MG TABLET PO SCH ×3 (06:02→22:29)
[2017-05-01] MEDS: INSULIN DETEMIR 100 UNITS/ML MDV SQ SCH (06:48)
[2017-05-01] MEDS: INSULIN SLIDING SCALE (NOVOLOG) 1 VIAL SQ SCH ×4 (06:49→22:36)
[2017-05-01 08:20] LABS: BASO % 0.3 % (0-2.0); EOS % 2.7 % (0-4.5); HEMATOCRIT 26.2 % (32.4-45.2); LYMPH % 6.4 % (8-40); MCH 25.2 pg (25.7-33.7); MCHC 30.6 g/dl (32.0-36.0); MEAN CELL VOLUME 82.3 fl (80-96); MONO % 4.2 % (3.8-10.2); NEUT % 86.4 % (42.8-82.8); PLATELET COUNT 206 K/MM3 (134-434); RBC 3.18 M/mm3 (3.60-5.2); RDW 20.2 % (11.6-15.6); WHITE BLOOD COUNT 15.8 K/mm3 (4.0-10.0)
[2017-05-01] MEDS: CALCIUM ACETATE 667 MG CAPSULE (FP) PO SCH ×3 (08:59→18:08)
[2017-05-01] MEDS: AMINO ACIDS/PROTEIN HYDROLYS 30 ML LIQUID.PKT PO SCH ×2 (09:00→18:08)
[2017-05-01] MEDS: amLODIPine BESYLATE 10 MG TABLET (FP) PO SCH (11:17)
[2017-05-01] MEDS: FERROUS SO4 325 MG TABLET (FP) PO SCH ×2 (11:17→22:29)
[2017-05-01] MEDS: ISOSORBIDE MONONITRATE 30 MG TAB.SR.24H (FP) PO SCH (11:17)
[2017-05-01] MEDS: risperiDONE 0.25 MG TABLET (FP) PO SCH ×2 (11:17→22:29)
[2017-05-01] MEDS: CEFUROXIME AXETIL 250 MG TABLET PO SCH ×2 (11:17→22:29)
[2017-05-01] MEDS: POLYETHYLENE GLYCOL 3350 119 GM BTL PO SCH (11:18)
[2017-05-01] MEDS: CHOLECALCIFEROL (VITAMIN D3) 400 UNIT TABLET (FP) PO SCH (11:19)
[2017-05-01] MEDS: BUDESONIDE/FORMETEROL FUMARATE 80/4.5 mcg INHALER IH SCH ×2 (11:20→22:37)
[2017-05-01] MEDS: TIOTROPIUM BROMIDE 18 MCG/INH (DEVICE W/ 5 CAPSULES) IH SCH (11:20)
[2017-05-01] MEDS: buPROPion HCL 75 MG TABLET PO SCH (11:30)
--- NOTE | 2017-05-01 15:27 | PN ---
Teaching Attending Note Name of Resident: . ATTENDING PHYSICIAN STATEMENT Time of evaluation: 11:55 AM SUBJECTIVE: Patient seen and examined, pleasant today, no complaints. ROS limited by dementia. OBJECTIVE: Vital Signs Period Temp Pulse Resp BP Sys/Benton Pulse Ox Last 24 Hr 98.1 F-98.6 F 63-76 16-20 145-184/62-78 99-99 Intake & Output 04/28/17 04/29/17 04/30/17 05/01/17 23:59 23:59 23:59 23:59 Intake Total 362 316 6649 940 Output Total 1600 1100 1100 800 Balance -660 -640 340 140 General: sitting in bed in no acute distress CVS:S1s2 regular Chest; decreased effort, no rales or wheezing Abdomen: soft, NT, Extremities: no edema Back: wound dressing with no surrounding erythema or discharge. Home Medication List Medication Instructions Recorded Confirmed Type Acetaminophen 500 mg PO DAILY 12/27/16 04/20/17 History Amlodipine Besylate 10 mg PO DAILY 12/27/16 04/20/17 History Betamethasone Dipr 0.05% Oint 50 gm .ROUTE ASDIR 12/27/16 04/20/17 History [Diprolene] Budesonide/Formeterol Fumarate 1 inh PO BID 12/27/16 04/20/17 History [SYMBICORT 80/4.5mcg -] Bupropion HCl [Wellbutrin -] 75 mg PO DAILY 12/27/16 04/20/17 History Calcium Acetate [Calphron] 667 mg PO TID 12/27/16 04/20/17 History Cholecalciferol (Vitamin D3) 400 unit PO DAILY 12/27/16 04/20/17 History [Vitamin D3 -] Duloxetine HCl [Cymbalta] 20 mg PO DAILY 12/27/16 04/20/17 History Duloxetine HCl [Cymbalta] 60 mg PO DAILY 12/27/16 04/20/17 History Ferrous Sulfate [Feosol] 324 mg PO BID 12/27/16 04/20/17 History Hydralazine HCl 10 mg PO TID 12/27/16 04/20/17 History Insulin (Levemir) [Levemir Flexpen 8 units SQ DAILY 12/27/16 04/20/17 History -] Isosorbide Mononitrate [Isosorbide 30 mg PO DAILY 12/27/16 04/20/17 History Mononitrate ER] Lactulose [Enulose] 10 gm PO HS 12/27/16 04/20/17 History Omeprazole 40 mg PO DAILY 12/27/16 04/20/17 History Polyethylene Glycol 3350 [Miralax 17 gm PO DAILY 12/27/16 04/20/17 History (For Daily Use) -] Risperidone [Risperdal -] 0.25 mg PO BID 12/27/16 04/20/17 History Tiotropium [place] [Spiriva] 1 inh IH DAILY 12/27/16 04/20/17 History Tramadol HCl 50 mg PO BID 12/27/16 04/20/17 History Cranberry Fruit Concentrate 500 mg PO DAILY 04/20/17 04/20/17 History [Cran-Max] Metoprolol Succinate [Toprol Xl] 100 mg PO DAILY 04/20/17 04/20/17 History Silver/Calcium Alginate [Algicell 1 bandage TD DAILY 04/20/17 04/20/17 History Ag 4"X5" Dressing] Active Medications Generic Name Dose Route Start Last Admin Trade Name Freq PRN Reason Stop Dose Admin Acetaminophen 650 mg 04/28/17 13:53 05/01/17 11:19 Tylenol - PO 650 mg Q6H PRN Administration FEVER OR PAIN Amino Acids 30 ml 04/28/17 17:30 05/01/17 09:00 Prosource No Carb Liquid Pkt PO 30 ml BID@0800,1730 HETAL Administration Amlodipine Besylate 10 mg 04/29/17 10:00 05/01/17 11:17 Norvasc - PO 10 mg DAILY HETAL Administration Budesonide/Formoterol Fumarate 1 puff 04/28/17 22:00 05/01/17 11:20 Symbicort 80/4.5mcg - IH 1 puff BID HETAL Administration Bupropion HCl 75 mg 04/29/17 10:00 05/01/17 11:30 Wellbutrin - PO 75 mg DAILY HETAL Administration Calcium Acetate 667 mg 04/28/17 17:30 05/01/17 11:17 Phoslo - PO 667 mg TIDCM HETAL Administration Cefuroxime Axetil 250 mg 04/30/17 22:00 05/01/17 11:17 Ceftin - PO 250 mg BID HETAL Administration Cholecalciferol 400 unit 04/29/17 10:00 05/01/17 11:19 Vitamin D3 - PO 400 unit DAILY HETAL Administration Ferrous Sulfate 325 mg 04/28/17 22:00 05/01/17 11:17 Feosol - PO 325 mg BID HETAL Administration Hydralazine HCl 10 mg 04/28/17 14:00 05/01/17 15:01 Apresoline - PO 10 mg TID HETAL Administration Insulin Aspart 1 vial 04/28/17 16:30 05/01/17 11:34 Novolog Vial Sliding Scale - SQ 2 units ACHS HETAL Administration Protocol Insulin Detemir 8 units 04/29/17 07:00 05/01/17 06:48 Levemir Vial SQ 8 unit DAILY@0700 HETAL Administration Isosorbide Mononitrate 30 mg 04/29/17 10:00 05/01/17 11:17 Imdur - PO 30 mg DAILY HETAL Administration Lactulose 10 gm 04/28/17 22:00 04/30/17 22:15 Cephulac (Oral Use) PO 10 gm HS HETAL Administration Metoprolol Succinate 100 mg 04/29/17 10:00 05/01/17 11:17 Toprol Xl - PO 100 mg DAILY HETAL Administration Metronidazole 500 mg 04/30/17 15:00 05/01/17 15:01 Flagyl - PO 500 mg TID HETAL Administration Polyethylene Glycol 17 gm 04/29/17 10:00 05/01/17 11:18 Miralax (For Daily Use) - PO 17 gm DAILY HETAL Administration Risperidone 0.25 mg 04/28/17 22:00 05/01/17 11:17 Risperdal - PO 0.25 mg BID HETAL Administration Tiotropium [place] 1 puff 04/29/17 10:00 05/01/17 11:20 Spiriva - IH 1 puff DAILY HETAL Administration Laboratory Results - last 24 hr 04/30/17 04/30/17 05/01/17 18:17 22:38 06:17 WBC RBC Hgb Hct MCV MCH MCHC RDW Plt Count MPV Neutrophils % Lymphocytes % Monocytes % Eosinophils % Basophils % POC Glucometer 223 241 183 05/01/17 05/01/17 06:50 11:34 WBC 15.8 H RBC 3.18 L Hgb 8.0 L Hct 26.2 L MCV 82.3 MCH 25.2 L MCHC 30.6 L RDW 20.2 H Plt Count 206 MPV 8.0 Neutrophils % 86.4 H Lymphocytes % 6.4 L D Monocytes % 4.2 Eosinophils % 2.7 Basophils % 0.3 POC Glucometer 191 Microbiology 04/26/17 20:00 Decubiti Gram Stain - Final 04/26/17 20:00 Decubiti Wound Culture - Final Escherichia Coli Proteus Mirabilis Pseudomonas Aeruginosa 04/26/17 10:18 Blood - Peripheral Venous Blood Culture - Final NO GROWTH AFTER 5 DAYS INCUBATION 04/26/17 10:00 Blood - Peripheral Venous Blood Culture - Final NO GROWTH AFTER 5 DAYS INCUBATION 04/26/17 15:00 Urine - Urine - Catheterized Urine Culture - Final Pseudomonas Aeruginosa 04/20/17 16:00 Blood - Peripheral Venous Blood Culture - Final NO GROWTH AFTER 5 DAYS INCUBATION 04/20/17 15:50 Blood - Peripheral Venous Blood Culture - Final NO GROWTH AFTER 5 DAYS INCUBATION 04/20/17 17:40 Urine - Urine Clean Catch Urine Culture - Final Escherichia Coli 04/20/17 20:49 Nasopharyngeal Swab Influenza Types A,B Antigen (HENRY) - Final 04/20/17 20:49 Nasopharyngeal Swab - Final ASSESSMENT AND PLAN: 71yo F with PMH DM, COPD, CKD, sacral ulcer with hx of MRSA, HTN, CVA with residual L sided paresis, urinary retention with indwelling powers catheter presented to the Er with increasing agitation -Sepsis due to E. Coli UTI, recurrent sepsis - from infected sacral decubitus -Urinary pseudomonas colonization -MARTITA on CKD -IDDM -HTN -COPD -CVA with residual left hemiparess -Microcytic anemia Plan: repeat blood cultures neg so far. Powers changed. U.a neg for infection. s/p debridement 04/28, pathology noted, chronic inflammation. Wound cultures noted. ID input noted, changed to ceftin/flagyl after 5 days of zosyn Discussed with Dr. Alford, does not feel need for additional pseudomonas coverage. Urine with pseudomonas. Powers changed 04/26 and clean urinalysis. suspect colonization from sacral wound. Follow up final cultures, surgical pathology and ID input. WBC improving post debridement. Discussed with Dr. Rogers for wound care instructions on discharge, will follow up. hb slowly trending down, suspect from frequent blood draws, no gross evidence of bleed. s/p 1 unit pRBC, appropriate response, no clinical evidence of bleed. follow up FOBT. Creatinine around baseline, monitor for now. Levemir, ISS, diabetic diet Continue ASA and home anti-hypertensives. DVTPPX with heparin subq. Dispo- CM input noted. Await disposition arrangements, likely Tuesday and wound care instructions from Dr. Rogers.
[2017-05-01] MEDS ORDERED: MINERAL OIL/PET HY-PHL TOPICAL OINTMENT 454 GM JAR TP PRN (15:40)
[2017-05-01] MEDS: LACTULOSE 20 GM/30 ML UDC (FOR ORAL USE ONLY) PO SCH (22:29)
[2017-05-02] MEDS: metroNIDAZOLE 250 MG TABLET PO SCH ×3 (05:00→22:36)
[2017-05-02] MEDS: hydrALAZINE HCL 10 MG TABLET PO SCH ×3 (05:00→22:44)
[2017-05-02] MEDS ORDERED: PT OWN MED DRAWER 7, Y5N ONE ×4 (05:36→14:16)
[2017-05-02] MEDS: INSULIN SLIDING SCALE (NOVOLOG) 1 VIAL SQ SCH ×4 (06:56→22:55)
[2017-05-02] MEDS: INSULIN DETEMIR 100 UNITS/ML MDV SQ SCH (06:57)
[2017-05-02 08:35] LABS: BASO % 0.4 % (0-2.0); EOS % 2.2 % (0-4.5); HEMATOCRIT 26.5 % (32.4-45.2); HEMOGLOBIN 8.1 GM/dL (10.7-15.3); LYMPH % 6.2 % (8-40); MCH 25.1 pg (25.7-33.7); MCHC 30.5 g/dl (32.0-36.0); MEAN CELL VOLUME 82.3 fl (80-96); MEAN PLT VOLUME 8.1 fl (7.5-11.1); MONO % 4.5 % (3.8-10.2); NEUT % 86.7 % (42.8-82.8); PLATELET COUNT 221 K/MM3 (134-434); RBC 3.22 M/mm3 (3.60-5.2); WHITE BLOOD COUNT 17.1 K/mm3 (4.0-10.0)
[2017-05-02] MEDS: CALCIUM ACETATE 667 MG CAPSULE (FP) PO SCH ×3 (08:52→16:35)
[2017-05-02] MEDS: AMINO ACIDS/PROTEIN HYDROLYS 30 ML LIQUID.PKT PO SCH ×2 (08:53→16:36)
[2017-05-02] MEDS: POLYETHYLENE GLYCOL 3350 119 GM BTL PO SCH (11:00)
[2017-05-02] MEDS: FERROUS SO4 325 MG TABLET (FP) PO SCH ×2 (11:00→22:36)
[2017-05-02] MEDS: CEFUROXIME AXETIL 250 MG TABLET PO SCH ×2 (11:00→22:37)
[2017-05-02] MEDS: ISOSORBIDE MONONITRATE 30 MG TAB.SR.24H (FP) PO SCH (11:00)
[2017-05-02] MEDS: risperiDONE 0.25 MG TABLET (FP) PO SCH ×2 (11:01→22:36)
[2017-05-02] MEDS: amLODIPine BESYLATE 10 MG TABLET (FP) PO SCH (11:01)
[2017-05-02] MEDS: TIOTROPIUM BROMIDE 18 MCG/INH (DEVICE W/ 5 CAPSULES) IH SCH (11:01)
[2017-05-02] MEDS: BUDESONIDE/FORMETEROL FUMARATE 80/4.5 mcg INHALER IH SCH ×3 (11:02→22:54)
[2017-05-02] MEDS: buPROPion HCL 75 MG TABLET PO SCH (11:03)
[2017-05-02] MEDS: CHOLECALCIFEROL (VITAMIN D3) 400 UNIT TABLET (FP) PO SCH (11:03)
[2017-05-02] MEDS ORDERED: INSULIN (NOVOLOG) ASPART 100 UNITS/ML 10ML VIAL ONE (11:11)
--- NOTE | 2017-05-02 14:08 | PN ---
Progress Note (short form) - Note Progress Note: asymptomatic. denies Cp, SOB, fever, chills, N/V/C/D Current Medications Generic Name Dose Route Start Last Admin Trade Name Freq PRN Reason Stop Dose Admin Acetaminophen 650 mg 04/28/17 13:53 05/01/17 11:19 Tylenol - PO 650 mg Q6H PRN Administration FEVER OR PAIN Amino Acids 30 ml 04/28/17 17:30 05/02/17 08:53 Prosource No Carb Liquid Pkt PO 30 ml BID@0800,1730 HETAL Administration Amlodipine Besylate 10 mg 04/29/17 10:00 05/02/17 11:01 Norvasc - PO 10 mg DAILY HETAL Administration Budesonide/Formoterol Fumarate 1 puff 04/28/17 22:00 05/02/17 11:02 Symbicort 80/4.5mcg - IH 1 puff BID HETAL Administration Bupropion HCl 75 mg 04/29/17 10:00 05/02/17 11:03 Wellbutrin - PO 75 mg DAILY HETAL Administration Calcium Acetate 667 mg 04/28/17 17:30 05/02/17 11:15 Phoslo - PO 667 mg TIDCM HETAL Administration Cefuroxime Axetil 250 mg 04/30/17 22:00 05/02/17 11:00 Ceftin - PO 250 mg BID HETAL Administration Cholecalciferol 400 unit 04/29/17 10:00 05/02/17 11:03 Vitamin D3 - PO 400 unit DAILY HETAL Administration Emollient Ointment 1 applic 05/01/17 15:40 05/01/17 18:08 Aquaphor - TP 1 applic TID PRN Administration FOR ITCHING Ferrous Sulfate 325 mg 04/28/17 22:00 05/02/17 11:00 Feosol - PO 325 mg BID HETAL Administration Hydralazine HCl 10 mg 04/28/17 14:00 05/02/17 05:00 Apresoline - PO 10 mg TID HETAL Administration Insulin Aspart 1 vial 04/28/17 16:30 05/02/17 11:18 Novolog Vial Sliding Scale - SQ 4 units ACHS HETAL Administration Protocol Insulin Detemir 8 units 04/29/17 07:00 05/02/17 06:57 Levemir Vial SQ 8 unit DAILY@0700 HETAL Administration Isosorbide Mononitrate 30 mg 04/29/17 10:00 05/02/17 11:00 Imdur - PO 30 mg DAILY HETAL Administration Lactulose 10 gm 04/28/17 22:00 05/01/17 22:29 Cephulac (Oral Use) PO 10 gm HS HTEAL Administration Metoprolol Succinate 100 mg 04/29/17 10:00 05/02/17 11:03 Toprol Xl - PO 100 mg DAILY HETAL Administration Metronidazole 500 mg 04/30/17 15:00 05/02/17 05:00 Flagyl - PO 500 mg TID HETAL Administration Polyethylene Glycol 17 gm 04/29/17 10:00 05/02/17 11:00 Miralax (For Daily Use) - PO 17 gm DAILY HETAL Administration Risperidone 0.25 mg 04/28/17 22:00 05/02/17 11:01 Risperdal - PO 0.25 mg BID HETAL Administration Tiotropium [place] 1 puff 04/29/17 10:00 05/02/17 11:01 Spiriva - IH 1 puff DAILY HETAL Administration Last Vital Signs Temp Pulse Resp BP Pulse Ox 99.2 F 66 20 137/58 99 05/02/17 08:49 05/02/17 08:49 05/02/17 08:49 05/02/17 08:49 05/01/17 21:00 General NAD A&O x3 CV S1 S2 RRR + murmur no rub/gallop LUngs CTA B/L no wheezing or crackles Abdomen soft firm normoactive BS CBCD WBC 17.1 K/mm3 (4.0-10.0) H 05/02/17 08:00 RBC 3.22 M/mm3 (3.60-5.2) L 05/02/17 08:00 Hgb 8.1 GM/dL (10.7-15.3) L 05/02/17 08:00 Hct 26.5 % (32.4-45.2) L 05/02/17 08:00 MCV 82.3 fl (80-96) 05/02/17 08:00 MCHC 30.5 g/dl (32.0-36.0) L 05/02/17 08:00 RDW 20.0 % (11.6-15.6) H 05/02/17 08:00 Plt Count 221 K/MM3 (134-434) 05/02/17 08:00 MPV 8.1 fl (7.5-11.1) 05/02/17 08:00 Microbiology 04/26/17 20:00 Gram Stain - Final Decubiti Wound Culture - Final Escherichia Coli Proteus Mirabilis Pseudomonas Aeruginosa 04/26/17 10:18 Blood Culture - Final Blood - Peripheral Venous NO GROWTH AFTER 5 DAYS INCUBATION 04/26/17 10:00 Blood Culture - Final Blood - Peripheral Venous NO GROWTH AFTER 5 DAYS INCUBATION ASSESSMENT AND PLAN: 71yo F with PMH DM, COPD, CKD, sacral ulcer with hx of MRSA, HTN, CVA with residual L sided paresis, urinary retention with indwelling powers catheter presented to the Er with increasing agitation 1. Sepsis due to UTI and sacral wound- polymicrobial infection of the sacrum. unable to evaluate as not able to roll patient alone. s/p debridement on 04/28. leukocytosis was improving but now trending back up. zosyn switched to ceftin and flagyl day 2 of 7. cont local wound care with santyl. powers exchanged this admission. ID on board. 2. acute on CKD- Baseline Cr 2.6. possible due to sepsis. improved. Powers catheter replaced.resolved 3. Microcytic Anemia- Hgb stable. iron studies pending. no signs of bleeding. no indication for txn. 4. DM- Controlled. cont home management. titrate to optimize control 5. HTN- controlled. cont antihypertensives. 6. COPD- stable 7. CVA with residual L sided paresis- on asa 8. DVT ppx- hep sq 9.pending WBC tomorrow can likely d/c to SNF in the AM. Visit type - Emergency Visit Emergency Visit: Yes ED Registration Date: 04/20/17 Care time: The patient presented to the Emergency Department on the above date and was hospitalized for further evaluation of their emergent condition. - New Patient This patient is new to me today: No - Critical Care Critical Care patient: No - Discharge Referral Referred to [facility] Med [facility] No
[2017-05-02] MEDS ORDERED: COLLAGENASE CLOSTRIDIUM HIST. 30 GRAMS TUBE TP SCH (15:00)
[2017-05-02] MEDS: NYSTATIN POWDER 100,000 UNITS/GM - 15 GM TOPICAL POWDER TP SCH (16:36)
[2017-05-02] MEDS: LACTULOSE 20 GM/30 ML UDC (FOR ORAL USE ONLY) PO SCH (22:41)
[2017-05-03] MEDS: metroNIDAZOLE 250 MG TABLET PO SCH ×2 (05:27→13:40)
[2017-05-03] MEDS: hydrALAZINE HCL 10 MG TABLET PO SCH ×2 (05:27→13:41)
[2017-05-03] MEDS: INSULIN DETEMIR 100 UNITS/ML MDV SQ SCH (06:05)
[2017-05-03] MEDS: INSULIN SLIDING SCALE (NOVOLOG) 1 VIAL SQ SCH ×2 (06:05→12:27)
[2017-05-03] MEDS ORDERED: INSULIN DETEMIR 100 UNITS/ML MDV SQ ONE (07:15)
[2017-05-03] MEDS ORDERED: INSULIN (NOVOLOG) ASPART 100 UNITS/ML 10ML VIAL ONE ×2 (07:15→12:18)
[2017-05-03 08:23] LABS: HEMATOCRIT 26.1 % (32.4-45.2); HEMOGLOBIN 8.1 GM/dL (10.7-15.3); MCH 25.2 pg (25.7-33.7); MCHC 30.9 g/dl (32.0-36.0); MEAN CELL VOLUME 81.6 fl (80-96); MEAN PLT VOLUME 8.1 fl (7.5-11.1); PLATELET COUNT 235 K/MM3 (134-434); RDW 20.6 % (11.6-15.6); WHITE BLOOD COUNT 15.5 K/mm3 (4.0-10.0)
[2017-05-03 08:31] LABS: ADD RBC MORPHOLOGY YES
[2017-05-03] MEDS: CALCIUM ACETATE 667 MG CAPSULE (FP) PO SCH ×2 (08:44→13:40)
[2017-05-03] MEDS: AMINO ACIDS/PROTEIN HYDROLYS 30 ML LIQUID.PKT PO SCH (08:44)
[2017-05-03] MEDS ORDERED: PT OWN MED DRAWER 7, Y5N ONE (09:35)
[2017-05-03] MEDS: amLODIPine BESYLATE 10 MG TABLET (FP) PO SCH (09:36)
[2017-05-03] MEDS: ISOSORBIDE MONONITRATE 30 MG TAB.SR.24H (FP) PO SCH (09:36)
[2017-05-03] MEDS: risperiDONE 0.25 MG TABLET (FP) PO SCH (09:36)
[2017-05-03] MEDS: FERROUS SO4 325 MG TABLET (FP) PO SCH (09:36)
[2017-05-03] MEDS: NYSTATIN POWDER 100,000 UNITS/GM - 15 GM TOPICAL POWDER TP SCH (09:37)
[2017-05-03] MEDS: TIOTROPIUM BROMIDE 18 MCG/INH (DEVICE W/ 5 CAPSULES) IH SCH (09:37)
[2017-05-03] MEDS: BUDESONIDE/FORMETEROL FUMARATE 80/4.5 mcg INHALER IH SCH (09:38)
[2017-05-03] MEDS: CEFUROXIME AXETIL 250 MG TABLET PO SCH (09:38)
[2017-05-03] MEDS: buPROPion HCL 75 MG TABLET PO SCH (09:39)
[2017-05-03] MEDS: CHOLECALCIFEROL (VITAMIN D3) 400 UNIT TABLET (FP) PO SCH (09:39)
[2017-05-03] MEDS: POLYETHYLENE GLYCOL 3350 119 GM BTL PO SCH (09:40)
--- NOTE | 2017-05-03 13:12 | DS ---
Physical Exam: SUBJECTIVE: No acute events overnight. Pt reports not other complaints today OBJECTIVE: Vital Signs Period Temp Pulse Resp BP Sys/Benton Pulse Ox Last 24 Hr 98 F-98.9 F 65-75 16-18 138-150/57-72 PHYSICAL EXAM *Note: exam limited due to pt refusal* GENERAL: NAD, awake, alert, and oriented to self and place. HEENT: NC/AT, moist mucosa, No JVD present LUNGS: CTA anteriorly on both sides. No wheezes, rhonchi, rales. No accessory muscle use. HEART: RRR, S1, S2 without murmur ABDOMEN: Soft, nontender, nondistended, normoactive bowel sounds, no guarding EXTREMITIES: 2+ DP pulses, warm, well-perfused, no edema. NEUROLOGICAL: Nonfocal. Not able to fully assess. Gait not observed. SKIN: Warm, dry, no rashes noted. Pt refused to let me exam sacral decubiti on this exam LABS Laboratory Results - last 24 hr 05/02/17 05/02/17 05/03/17 16:44 22:34 06:00 WBC RBC Hgb Hct MCV MCH MCHC RDW Plt Count MPV Neutrophils % Lymphocytes % POC Glucometer 172 288 199 05/03/17 06:35 WBC 15.5 H RBC 3.20 L Hgb 8.1 L Hct 26.1 L MCV 81.6 MCH 25.2 L MCHC 30.9 L RDW 20.6 H Plt Count 235 MPV 8.1 Neutrophils % No Result Required. Lymphocytes % No Result Required. POC Glucometer Microbiology 04/26/17 20:00 Decubiti Gram Stain - Final 04/26/17 20:00 Decubiti Wound Culture - Final Escherichia Coli Proteus Mirabilis Pseudomonas Aeruginosa 04/26/17 10:18 Blood - Peripheral Venous Blood Culture - Final NO GROWTH AFTER 5 DAYS INCUBATION 04/26/17 10:00 Blood - Peripheral Venous Blood Culture - Final NO GROWTH AFTER 5 DAYS INCUBATION 04/26/17 15:00 Urine - Urine - Catheterized Urine Culture - Final Pseudomonas Aeruginosa 04/20/17 16:00 Blood - Peripheral Venous Blood Culture - Final NO GROWTH AFTER 5 DAYS INCUBATION 04/20/17 15:50 Blood - Peripheral Venous Blood Culture - Final NO GROWTH AFTER 5 DAYS INCUBATION 04/20/17 17:40 Urine - Urine Clean Catch Urine Culture - Final Escherichia Coli 04/20/17 20:49 Nasopharyngeal Swab Influenza Types A,B Antigen ([facility]ENRY) - Final 04/20/17 20:49 Nasopharyngeal Swab - Final HOSPITAL COURSE: Date of Admission:04/20/17 Date of Discharge: 05/03/17 71yo F with extensive medical history including, but not limited to DM, COPD, CKD, sacral decubitus ulcer, CVA, HTN, and urinary retention (s/p chronic indwelling catheter) who presented from SNF for increasing fevers alongside with worsening bilateral buttock wounds and sacral decubitus ulcers found to have UTI and infected sacral decubiti. Pt was managed on Vancomycin and Zosyn while initial cultures were pending as above. Pt unfortunately had minimal improvement until Day 7 of hospital stay where she began to have increased fevers and an increase in her WBC count acutely. Pt was reassessed and had surgical debridement of sacral decubiti. Wound cultures were sent as above. Pt was then maintained on Zosyn and had local wound care which resolved her fevers and decreased her WBC count. She was then switched to oral antibiotic coverage with Ceftin BID PO and Flagyl TID PO to be maintained for 7 days total. Pt is being discharged back to [facility] in stable condition with instructions to continue another 3 days course of her Ceftin and Flagyl and to continue Santyl and Allgenase wound care. Pt is being discharged in stable condition without any complaints. Additional imaging: CXR: No acute pathology or infilitrates seen CXR: No acute pathology. No interval change from previous Minutes to complete discharge: 36 Discharge Summary Reason For Visit: RECURRENT UTI; ACUTE CHRONIC RENAL INSUFFICIENCY Current Active Problems Acute on chronic renal insufficiency (Acute) Decubitus ulcer of sacral region, unstageable (Acute) Infected decubitus ulcer (Acute) Infection with multi-drug resistant microorganisms (Acute) UTI (urinary tract infection) (Acute) Condition: Improved - Instructions Diet, Activity, Other Instructions: RECOMMENDATIONS - You were admitted for a urinary tract infection. We changed your catheter and gave you antibiotics and your mental status improved - You were given antibiotics in he hospital, however need to finish on oral antibiotics --It is very important to finish your complete antibiotic regiment - Please ensure the alf changes the powers catheter regularly - Please ensure that you keep proper hygiene around the urethral meatus - You also have a large sacral decubitus ulcer. It was cleaned out in the hospital. - Please allow your alf to turn and re-position you, and apply Santyl to your wounds - If you notice they notice that your wounds are draining pus and are deeper, they may send you back to the hospital MEDICATION CHANGES Ceftin 250mg TWICE per day for another 3 days (ends 05/06/17) Flagyl 500mg THREE times per day for another 3 days (ends 05/06/17) FOLLOWUPS: - Dr. Norman (Primary Care Doctor) - Please followup within 2 weeks Referrals: Vanessa Norman MD [Staff Physician] - 2 Weeks Disposition: INTERMEDIATE FACILITY - Home Medications Comprehensive Discharge Medication List: Ambulatory Orders Acetaminophen 500 mg PO DAILY 12/27/16 Amlodipine Besylate 10 mg PO DAILY 12/27/16 Betamethasone Dipr 0.05% Oint [Diprolene] 50 gm .ROUTE ASDIR 12/27/16 Budesonide/Formeterol Fumarate [SYMBICORT 80/4.5mcg -] 1 inh PO BID 12/27/16 Bupropion HCl [Wellbutrin -] 75 mg PO DAILY 12/27/16 Calcium Acetate [Calphron] 667 mg PO TID 12/27/16 Cholecalciferol (Vitamin D3) [Vitamin D -] 400 unit PO DAILY 12/27/16 Duloxetine HCl [Cymbalta] 20 mg PO DAILY 12/27/16 Ferrous Sulfate [Feosol] 324 mg PO BID 12/27/16 Hydralazine HCl 10 mg PO TID 12/27/16 Insulin (Levemir) [Levemir Flexpen -] 8 units SQ DAILY 12/27/16 Isosorbide Mononitrate [Isosorbide Mononitrate ER] 30 mg PO DAILY 12/27/16 Lactulose [Enulose] 10 gm PO HS 12/27/16 Omeprazole 40 mg PO DAILY 12/27/16 Polyethylene Glycol 3350 [Miralax 119 gm Btl -] 17 gm PO DAILY 12/27/16 Risperidone [Risperdal -] 0.25 mg PO BID 12/27/16 Tiotropium [place] [Spiriva] 1 inh IH DAILY 12/27/16 Tramadol HCl 50 mg PO BID 12/27/16 Cranberry Fruit Concentrate [Cran-Max] 500 mg PO DAILY 04/20/17 Metoprolol Succinate [Toprol Xl] 100 mg PO DAILY 04/20/17 Silver/Calcium Alginate [Algicell Ag 4"X5" Dressing] 1 bandage TD DAILY Cefuroxime Axetil [Ceftin -] 250 mg PO BID tablet 05/03/17 Collagenase Clostridium Hist. [Santyl -] 1 applic TP DAILY tube 05/03/17 Insulin Sliding Scale [Novolog Vial Sliding Scale -] 1 vial SQ ACHS units 05/03 Metronidazole [Flagyl -] 500 mg PO TID tablet 05/03/17 Mineral Oil/Pet Hy-Phl [Aquaphor -] 1 applic TP TID PRN jar 05/03/17 This patient is new to me today: No Emergency Visit: No Critical Care patient: No - Discharge Referral Referred to [facility] No
[2017-05-03 13:15] LABS: ANISOCYTOSIS 1+; PLATELET ESTIMATE NORMAL
[2017-05-03 15:54] VITALS: BP 147/54; PULSE 68; TEMP 98.1
--- NOTE | 2017-05-03 16:21 | PN ---
Teaching Attending Note Name of Resident: Cuong Blanchard ATTENDING PHYSICIAN STATEMENT I saw and evaluated the patient. I reviewed the resident's note and discussed the case with the resident. I agree with the resident's findings and plan as documented. SUBJECTIVE:asymptoamtic. denies Cp, SOB, fever, chills, N?V/C/D OBJECTIVE: Last Vital Signs Temp Pulse Resp BP Pulse Ox 98.1 F 68 18 147/54 99 05/03/17 15:53 05/03/17 15:53 05/03/17 15:53 05/03/17 15:53 05/01/17 21:00 General NAD abdomen soft NT/ND ASSESSMENT AND PLAN: 71yo F with PMH DM, COPD, CKD, sacral ulcer with hx of MRSA, HTN, CVA with residual L sided paresis, urinary retention with indwelling powers catheter presented to the Er with increasing agitation 1. Sepsis due to UTI and sacral wound- polymicrobial infection of the sacrum. s/ p debridement on 04/28. leukocytosis slowly trending down. zosyn switched to ceftin and flagyl day 3 of 7. cont local wound care with santyl. powers exchanged this admission. ID on board. 2. acute on CKD- Baseline Cr 2.6. possible due to sepsis. improved. Powers catheter replaced. resolved 3. Microcytic Anemia- Hgb stable. iron studies showing anemia of chronic disease no signs of bleeding. no indication for txn. 4. DM- Controlled. cont home management. titrate to optimize control 5. HTN- controlled. cont antihypertensives. 6. COPD- stable 7. CVA with residual L sided paresis- on asa 8. DVT ppx- hep sq 9.d/c to SNF
== END 2017-05-03 16:33 | DRG 853 ==
LOC: JER 14:45 → JERBED 18:25 → J8W 21:54
PROVIDERS: ADMIT Internal Medicine; ATTEND Internal Medicine
PROC: 30233N1 Transfusion of Nonautologous Red Blood Cells into Peripheral Vein, Percutaneous Approach (ICD-10-PCS; 2017-04-27)
PROC: 0KBP0ZZ Excision of Left Hip Muscle, Open Approach (ICD-10-PCS; principal; 2017-04-28 10:30)
DX: A41.9 Sepsis, unspecified organism (principal); L89.154 Pressure ulcer of sacral region, stage 4; N39.0 Urinary tract infection, site not specified; I69.354 Hemiplegia and hemiparesis following cerebral infarction affecting left non-dominant side; N17.9 Acute kidney failure, unspecified; D50.9 Iron deficiency anemia, unspecified; I12.9 Hypertensive chronic kidney disease with stage 1 through stage 4 chronic kidney disease, or unspecified chronic kidney disease; E11.22 Type 2 diabetes mellitus with diabetic chronic kidney disease; N18.9 Chronic kidney disease, unspecified; J44.9 Chronic obstructive pulmonary disease, unspecified; D72.829 Elevated white blood cell count, unspecified; B96.20 Unspecified Escherichia coli [E. coli] as the cause of diseases classified elsewhere; B96.5 Pseudomonas (aeruginosa) (mallei) (pseudomallei) as the cause of diseases classified elsewhere; R33.9 Retention of urine, unspecified; F03.90 Unspecified dementia, unspecified severity, without behavioral disturbance, psychotic disturbance, mood disturbance, and anxiety; K59.00 Constipation, unspecified; Z79.4 Long term (current) use of insulin
CPT/HCPCS: 36415; 36430; 36511; 71010-TC; 80048; 80053; 81003; 81015; 82436; 82550; 82570; 82728; 82803; 83540; 83550; 83605; 83735; 84100; 84132; 84133; 84300; 84484; 85025; 85027; 85610; 85730; 86850; 86900; 86901; 86922; 87040; 87070; 87086; 87186; 87205; 87804; 88304-TC; 93005; 93010; 94760; 97161-GP; 99283-25; G0480; J1644; P9038; P9058

== ENCOUNTER 2017-05-27 23:17 | Inpatient (IN) | payer OTHER ==
--- NOTE | 2017-05-28 00:42 | PDOC ---
History of Present Illness - History of Present Illness Initial Comments: 05/28/17 03:04 71 F BIBA from [facility] on [facility], with PMHx of spinal laminectomy (c3, c4) with residual hemiparesis and weakness (some improvement with Rehab), right knee replacement, breast cancer, right ventral abdominal hernia, small bowel resection sent to the ED for hemoglobin of 7. Patient son reports that she has been increasingly weak and immobile at the [place] for a couple of weeks and currently presents with a large sacral decubitus ulcer (stage IV tunneling). PCP: Bora Mata <Dona Arshad - Last Filed: 05/28/17 05:42> <Pamela Marcus - Last Filed: 05/28/17 07:20> - General Chief Complaint: Revisit, Lab Variance Stated Complaint: LOW BLOOD COUNT Time Seen by Provider: 05/28/17 00:42 Past History <Dona Arshad - Last Filed: 05/28/17 05:42> - Suicide/Smoking/Psychosocial Hx Smoking History: Never smoked Have you smoked in the past 12 months: No Information on smoking cessation initiated: No Hx Alcohol Use: No Drug/Substance Use Hx: No <Pamela Marcus - Last Filed: 05/28/17 07:20> - Past Medical History Allergies/Adverse Reactions: Allergies Allergy/AdvReac Type Severity Reaction Status Date / Time No Known Allergies Allergy Verified 05/28/17 00:29 Home Medications: Ambulatory Orders Acetaminophen [Tylenol] 500 mg PO QID 05/28/17 Amlodipine Besylate [Norvasc -] 10 mg PO DAILY 05/28/17 Betamethasone/Propylene Glyc [Betamethasone Dp Aug 0.05% Lot] 30 ml TP HS Budesonide/Formeterol Fumarate [SYMBICORT 80/4.5mcg -] 1 inh PO BID 05/28/17 Bupropion HCl [Wellbutrin -] 75 mg PO DAILY 05/28/17 Calcium Acetate [Calphron] 667 mg PO TID 05/28/17 Cholecalciferol (Vitamin D3) [Vitamin D3 -] 1,000 unit PO DAILY 05/28/17 Cranberry Conc/Ascorbic Acid [Cranberry Concentrate Softgel] 1 each PO DAILY Cyanocobalamin [Vitamin B12 -] 100 mcg PO DAILY 05/28/17 Duloxetine HCl [Cymbalta -] 20 mg PO DAILY 05/28/17 Epoetin Osmar [Procrit] 10,000 unit IJ WEEKLY 05/28/17 Ferrous Gluconate [Fergon -] 324 mg PO BID 05/28/17 Hydralazine HCl [Apresoline -] 25 mg PO BID 05/28/17 Insulin (LOG) Aspart [NovoLOG -] 0 units SQ QID 05/28/17 Isosorbide Mononitrate [IMDUR 120mg [STRENGTH NOT CARRIED]] 120 mg PO DAILY Lactulose [Enulose] 10 gm PO HS 05/28/17 Levemir Flextouch 10 unit SQ HS 05/28/17 Omeprazole 40 mg PO AM 05/28/17 Risperidone [Risperdal] 0.25 mg PO BID 05/28/17 Tiotropium [place] [Spiriva] 1 inh IH DAILY 05/28/17 Tramadol HCl [Ultram -] 50 mg PO BID 05/28/17 Review of Systems - Review of Systems Comments:: 05/28/17 03:05 GENERAL/CONSTITUTIONAL: No fever or chills. +weakness. HEAD, EYES, EARS, NOSE AND THROAT: No change in vision. No ear pain or discharge. No sore throat. CARDIOVASCULAR: No chest pain or shortness of breath. RESPIRATORY: No cough, wheezing, or hemoptysis. GASTROINTESTINAL: No nausea, vomiting, diarrhea or constipation. GENITOURINARY: No dysuria, frequency, or change in urination. MUSCULOSKELETAL: No joint or muscle swelling or pain. No neck or back pain. SKIN: + foul-smelling, large tunneling sacral decubitis ulcer NEUROLOGIC: No headache, vertigo, loss of consciousness, or change in strength/ sensation. ENDOCRINE: No increased thirst. +significant weight loss in the past 2 weeks. HEMATOLOGIC/LYMPHATIC: +anemia, no easy bleeding, or history of blood clots. ALLERGIC/IMMUNOLOGIC: No hives or skin allergy. <Dona Arshad - Last Filed: 05/28/17 05:42> *Physical Exam - Vital Signs Last Vital Signs Temp Pulse Resp BP Pulse Ox 99.2 F 78 20 126/59 99 05/27/17 23:33 05/27/17 23:33 05/27/17 23:33 05/27/17 23:33 05/27/17 23:33 - Physical Exam Comments: 05/28/17 03:09 GENERAL: Awake, alert, and fully oriented, in no acute distress. Weak. HEAD: No signs of trauma EYES: PERRLA, EOMI, sclera anicteric, conjunctiva clear ENT: Auricles normal inspection, hearing grossly normal, nares patent, oropharynx clear without exudates. Moist mucosa NECK: Normal ROM, supple, no lymphadenopathy, JVD, or masses LUNGS: Breath sounds equal, clear to auscultation bilaterally. No wheezes, and no crackles HEART: Regular rate and rhythm, normal S1 and S2, no murmurs, rubs or gallops ABDOMEN: Soft, tender throughout, increased bowel sounds. Multiple palpable masses in center of abdomen. No guarding, no rebound. EXTREMITIES: Normal range of motion, no edema. No clubbing or cyanosis. No cords, erythema, or tenderness NEUROLOGICAL: Cranial nerves II through XII grossly intact. Normal speech. Unable to ambulate SKIN: Warm, Dry, loose skin all over the body. Wasting at the temples. Foul- smelling sacral decubitis ulcer. Surrounding buttox tender. More breaks down possible. 05/28/17 03:12 <Dona Arshad - Last Filed: 05/28/17 05:42> - Vital Signs Last Vital Signs Temp Pulse Resp BP Pulse Ox 99.2 F 78 20 126/59 99 05/27/17 23:33 05/27/17 23:33 05/27/17 23:33 05/27/17 23:33 05/27/17 23:33 <Pamela Marcus - Last Filed: 05/28/17 07:20> ED Treatment Course - LABORATORY CBC & Chemistry Diagram: 05/28/17 00:30 05/28/17 00:30 - ADDITIONAL ORDERS Additional order review: Laboratory Results 05/28/17 00:30 Sodium 132 L Potassium 4.3 Chloride 103 Carbon Dioxide 17 L Anion Gap 12 BUN 67 H Creatinine 3.1 H Creat Clearance w eGFR 14.90 Random Glucose 104 Calcium 8.6 Total Bilirubin 0.2 AST 15 ALT 14 Alkaline Phosphatase 84 Total Protein 6.9 Albumin 1.5 L 05/28/17 00:30 RBC 3.11 L MCV 83.2 MCHC 31.4 L RDW 19.5 H MPV 7.3 L Neutrophils % 88.1 H Lymphocytes % 4.4 L Monocytes % 5.9 Eosinophils % 1.3 Basophils % 0.3 - RADIOLOGY Radiograph Interpretation: 05/28/17 05:42 DATE OF SERVICE: 2017-05-28 04:32:18 EXAM: CT ABDOMEN AND PELVIS without contrast FINDINGS: There are small to moderate bilateral pleural effusions with mild compressive atelectasis and/or pneumonia. The heart is enlarged. Status post cholecystectomy the biliary duct dilation. Calcified splenic granulomas are noted. Normal unenhanced liver, pancreas, adrenal glands and kidneys. The stomach and abdominal small and large bowel are normal. There is no aortic aneurysm. There is no significant retroperitoneal lymphadenopathy. The pelvic small and large bowel are notable for a sigmoid anastomosis no bowel obstruction or inflammation.. There is no evidence of appendicitis. Status post hysterectomy. Urinary bladder is collapse. Lambert catheter. There is no pelvic free fluid. No discrete pelvic lymphadenopathy is identified. There is a large sacral decubitus ulcer without definite findings of osteomyelitis but MRI or bone scan would be more sensitive. IMPRESSION: Small to moderate bilateral pleural effusions with mild compressive atelectasis and/or pneumonia. Large sacral decubitus ulcer without definite CT findings of osteomyelitis but CT or MRI may be obtained as clinically warranted. Reported by: Jai Flynn MD <Dona Arshad - Last Filed: 05/28/17 05:42> - LABORATORY CBC & Chemistry Diagram: 05/28/17 00:30 05/28/17 00:30 <Pamela Marcus - Last Filed: 05/28/17 07:20> Medical Decision Making - Medical Decision Making 05/28/17 05:51 Pt has effusion and likely bilateral pneumonia. She will be admitted for zosyn for her decubitus ulcer and her pneumonia. She will be admitted to the hospitalists, as her PMD id Bora Contreras. <Pamela Marcus - Last Filed: 05/28/17 07:20> *DC/Admit/Observation/Transfer - Attestations Scribe Attestion: 05/28/17 03:19 Documentation prepared by Dona Arshad, acting as medical reimbursement manager for Pamela Marcus MD. <Dona Arshad - Last Filed: 05/28/17 05:42> - Discharge Dispostion Admit: Yes <Pamela Marcus - Last Filed: 05/28/17 07:20> Diagnosis at time of Disposition: Anemia, Pneumonia, Sacral ulcer, Pseudomonal bacteremia - Discharge Dispostion Condition at time of disposition: Poor - Referrals Referrals: Bora Contreras MD [Primary Care Provider] - - Patient Instructions Printed Discharge Instructions: Anemia - Post Discharge Activity
[2017-05-28 00:51] LABS: BASO % 0.3 % (0-2.0); EOS % 1.3 % (0-4.5); HEMATOCRIT 25.9 % (32.4-45.2); HEMOGLOBIN 8.1 GM/dL (10.7-15.3); LYMPH % 4.4 % (8-40); MCH 26.1 pg (25.7-33.7); MCHC 31.4 g/dl (32.0-36.0); MEAN CELL VOLUME 83.2 fl (80-96); MEAN PLT VOLUME 7.3 fl (7.5-11.1); MONO % 5.9 % (3.8-10.2); NEUT % 88.1 % (42.8-82.8); PLATELET COUNT 283 K/MM3 (134-434); RBC 3.11 M/mm3 (3.60-5.2); RDW 19.5 % (11.6-15.6); WHITE BLOOD COUNT 13.7 K/mm3 (4.0-10.0)
[2017-05-28 01:18] LABS: ALBUMIN 1.5 g/dl (3.4-5.0); ALK PHOS 84 U/L (45-117); ANION GAP 12 (8-16); BILIRUBIN,TOTAL 0.2 mg/dL (0.2-1.0); BLOOD UREA NITROGEN 67 mg/dL (7-18); CALCIUM 8.6 mg/dL (8.5-10.1); CHLORIDE 103 mmol/L (98-107); CO2 17 mmol/L (21-32); CREATININE 3.1 mg/dL (0.55-1.02); GLUCOSE,RANDOM 104 mg/dL (74-106); POTASSIUM 4.3 mmol/L (3.5-5.1); SGOT/AST 15 U/L (15-37); SGPT/ALT 14 U/L (12-78); SODIUM 132 mmol/L (136-145); TOT PROT 6.9 g/dl (6.4-8.2)
[2017-05-28] MEDS ORDERED: PIPERACILLIN/TAZOB 3.375 GM/50 ML PRE-DOCKED IVPB ONE (05:50)
[2017-05-28] MEDS ORDERED: PIPERACILLIN/TAZOB 3.375 GM 3.375 GM/50 ML BAG IVPB ONE (06:02)
--- NOTE | 2017-05-28 09:41 | HP ---
Admitting History and Physical - Admission Chief Complaint: abdominal pain History of Present Illness: This is a 71 year old female from [facility] with pmhx who presented to the ED after labs from alf showed hgb of 7 and increased wbc. History given by son. Past medical hx significant for cervical stenosis s/p spinal laminectomy 2001 ( c3, c4) with residual hemiparesis and weakness (some improvement with Rehab), right knee replacement, R breast cancer s/p lumpectomy, right ventral abdominal hernia, small bowel resection. Per son, pt has been increasingly weak and immobile. Currently pt c/o LLQ pain. She denies fever, chills. She knows she lives in [facility], she is unaware of where she is now. History Source: Patient, Family Member (son Tian), Medical Record Limitations to Obtaining History: No Limitations - Past Medical History Cardiovascular: Yes: HTN Pulmonary: Yes: COPD Renal/: Yes: Renal Inusuff, Other (urinary retention) Infectious Disease: Yes: MRSA Endocrine: Yes: Diabetes Mellitus Additional Past Medical History: L foot planter side melanoma hxl, removed and skin fco placed cervical spine stenosis - Past Surgical History Past Surgical History: Yes: Laminectomy Additional Past Surgical History: small intestine resection hernia repair - Smoking History Smoking history: Never smoked Have you smoked in the past 12 months: No - Alcohol/Substance Use Hx Alcohol Use: No - Social History Usual Living Arrangement: Yes: Prison Home Medications - Allergies Allergies/Adverse Reactions: Allergies Allergy/AdvReac Type Severity Reaction Status Date / Time No Known Allergies Allergy Verified 05/28/17 00:29 - Home Medications Home Medications: Ambulatory Orders Acetaminophen [Tylenol] 500 mg PO QID 05/28/17 Amlodipine Besylate [Norvasc -] 10 mg PO DAILY 05/28/17 Betamethasone/Propylene Glyc [Betamethasone Dp Aug 0.05% Lot] 30 ml TP HS Budesonide/Formeterol Fumarate [SYMBICORT 80/4.5mcg -] 1 inh PO BID 05/28/17 Bupropion HCl [Wellbutrin -] 75 mg PO DAILY 05/28/17 Calcium Acetate [Calphron] 667 mg PO TID 05/28/17 Cholecalciferol (Vitamin D3) [Vitamin D3 -] 1,000 unit PO DAILY 05/28/17 Cranberry Conc/Ascorbic Acid [Cranberry Concentrate Softgel] 1 each PO DAILY Cyanocobalamin [Vitamin B12 -] 100 mcg PO DAILY 05/28/17 Duloxetine HCl [Cymbalta -] 20 mg PO DAILY 05/28/17 Epoetin Osmar [Procrit] 10,000 unit IJ WEEKLY 05/28/17 Ferrous Gluconate [Fergon -] 324 mg PO BID 05/28/17 Hydralazine HCl [Apresoline -] 25 mg PO BID 05/28/17 Insulin (LOG) Aspart [NovoLOG -] 0 units SQ QID 05/28/17 Isosorbide Mononitrate [IMDUR 120mg [STRENGTH NOT CARRIED]] 120 mg PO DAILY Lactulose [Enulose] 10 gm PO HS 05/28/17 Levemir Flextouch 10 unit SQ HS 05/28/17 Omeprazole 40 mg PO AM 05/28/17 Risperidone [Risperdal] 0.25 mg PO BID 05/28/17 Tiotropium [place] [Spiriva] 1 inh IH DAILY 05/28/17 Tramadol HCl [Ultram -] 50 mg PO BID 05/28/17 Review of Systems - Review of Systems Constitutional: reports: Lethargy, Weakness Eyes: reports: No Symptoms HENT: reports: No Symptoms Neck: reports: No Symptoms Cardiovascular: reports: No Symptoms Respiratory: reports: No Symptoms Gastrointestinal: reports: Abdominal Pain Genitourinary: reports: No Symptoms Musculoskeletal: reports: No Symptoms Integumentary: reports: No Symptoms Neurological: reports: No Symptoms Endocrine: reports: No Symptoms Hematology/Lymphatic: reports: No Symptoms Psychiatric: reports: No Symptoms Physical Examination Vital Signs: Vital Signs Temperature 98.2 F 05/28/17 07:35 Pulse Rate 71 05/28/17 07:35 Respiratory Rate 14 05/28/17 07:35 Blood Pressure 144/53 05/28/17 07:35 O2 Sat by Pulse Oximetry (%) 100 05/28/17 07:35 Constitutional: Yes: Well Nourished Eyes: Yes: Conjunctiva Clear HENT: Yes: Normocephalic Neck: Yes: Supple Cardiovascular: Yes: Regular Rate and Rhythm, S1, S2 Respiratory: Yes: Regular, CTA Bilaterally Gastrointestinal: Yes: Normal Bowel Sounds, Soft, Tenderness (LLQ) Renal/: Yes: Powers Present Edema: No Integumentary: Yes: Venous Stasis Changes Wound/Incision: Yes: Open to air (sacral decubitis ulcer stage 4) Neurological: Yes: Alert, Oriented, Cran Nerves II-XII Intact, Pre-Existing Deficit (r sided weakness) Labs: CBC, BMP 05/28/17 00:30 05/28/17 00:30 Imaging - Results Cat Scan: Pending Problem List - Problems (1) Anemia Code(s): D64.9 - ANEMIA, UNSPECIFIED (2) Pneumonia Code(s): J18.9 - PNEUMONIA, UNSPECIFIED ORGANISM (3) Sacral ulcer Code(s): L98.429 - NON-PRESSURE CHRONIC ULCER OF BACK WITH UNSPECIFIED SEVERITY Assessment/Plan Assessment: 71 year old female with DM, COPD, CKD, sacral ulcer with hx of MRSA , HTN, CVA with residual L sided paresis, urinary retention with indwelling powers catheter admitted from [facility] with leukocytosis, weakness. Plan: 1. Leukocytosis - Unclear etiology, infectious work up in process, likely sacral ulcer +/- UTI - UA, urine cx, blood cx ordered - Central line placement - Abx per ID - Pt recently admitted in 04/2017, spoke to admitting to inquire about linking previous records, previous # [id number] - ID, vascular consults placed 2. Sacral ulcer - Vascular consult - Turn q2 3. MARTITA on CKD - Previous baseline cr 2.6-2.9 - Start gentle fluids 4. HTN - Continue current meds 5. DM II - Levemir 10units HS - ISS, BGM ACHS 6. Microcytic anemia - hgb stable - cont ferrous sulfate 7. Urinary retention - Maintain powers 8. R sided hemiparesis - Due to surgery - PT daily 9. DVT - Heparin BID Visit type - Emergency Visit Emergency Visit: Yes ED Registration Date: 05/28/17 Care time: The patient presented to the Emergency Department on the above date and was hospitalized for further evaluation of their emergent condition. - New Patient This patient is new to me today: Yes Date on this admission: 05/28/17 - Critical Care Critical Care patient: Yes Total Critical Care Time (in minutes): 35 Critical Care Statement: The care of this patient involved high complexity decision making to prevent further life threatening deterioration of the patient 's condition and/or to evaluate & treat vital organ system(s) failure or risk of failure.
--- NOTE | 2017-05-28 12:32 | CON.ID ---
Consult Consult Specialty:: infectious disease Referred by:: hospitalist service Reason for Consultation:: sent to ED with low grade fever - History of Present Illness Chief Complaint: pain all over History of Present Illness: noted to have anemia and elevated WBC she has a chronic stage 4 ulcer she has a chronic foey per her daughter in the [place] for 5 years now, non ambulatory for the last several years uses a hoya lift and wheelchair no vomiting c/o abdominal pain- lower quandrant- bilateral and suprapubic spoke with radiologist- ct scan now yet read no acute abdominal findings deep sacral ulcer abutting bone- no bony destruction - History Source History Provided By: Patient, Family Member Limitations to Obtaining History: Clinical Condition - Past Medical History [employer]: Yes: CVA Cardio/Vascular: Yes: HTN Pulmonary: Yes: COPD Renal/: Yes: Renal Inusuff, Other (urinary retention) Infectious Disease: Yes: MRSA Endocrine: Yes: Diabetes Mellitus - Past Surgical History Past Surgical History: Yes: Laminectomy - Alcohol/Substance Use Hx Alcohol Use: No - Smoking History Smoking history: Never smoked Have you smoked in the past 12 months: No - Social History Usual Living Arrangement: Senior Living ADL: Support Services History of Recent Travel: No Home Medications - Allergies Allergies/Adverse Reactions: Allergies Allergy/AdvReac Type Severity Reaction Status Date / Time No Known Allergies Allergy Verified 05/28/17 00:29 - Home Medications Home Medications: Ambulatory Orders Acetaminophen [Tylenol] 500 mg PO QID 05/28/17 Amlodipine Besylate [Norvasc -] 10 mg PO DAILY 05/28/17 Betamethasone/Propylene Glyc [Betamethasone Dp Aug 0.05% Lot] 30 ml TP HS Budesonide/Formeterol Fumarate [SYMBICORT 80/4.5mcg -] 1 inh PO BID 05/28/17 Bupropion HCl [Wellbutrin -] 75 mg PO DAILY 05/28/17 Calcium Acetate [Calphron] 667 mg PO TID 05/28/17 Cholecalciferol (Vitamin D3) [Vitamin D3 -] 1,000 unit PO DAILY 05/28/17 Cranberry Conc/Ascorbic Acid [Cranberry Concentrate Softgel] 1 each PO DAILY Cyanocobalamin [Vitamin B12 -] 100 mcg PO DAILY 05/28/17 Duloxetine HCl [Cymbalta -] 20 mg PO DAILY 05/28/17 Epoetin Osmar [Procrit] 10,000 unit IJ WEEKLY 05/28/17 Ferrous Gluconate [Fergon -] 324 mg PO BID 05/28/17 Hydralazine HCl [Apresoline -] 25 mg PO BID 05/28/17 Insulin (LOG) Aspart [NovoLOG -] 0 units SQ QID 05/28/17 Isosorbide Mononitrate [IMDUR 120mg [STRENGTH NOT CARRIED]] 120 mg PO DAILY Lactulose [Enulose] 10 gm PO HS 05/28/17 Levemir Flextouch 10 unit SQ HS 05/28/17 Omeprazole 40 mg PO AM 05/28/17 Risperidone [Risperdal] 0.25 mg PO BID 05/28/17 Tiotropium [place] [Spiriva] 1 inh IH DAILY 05/28/17 Tramadol HCl [Ultram -] 50 mg PO BID 05/28/17 Family Disease History - Family Disease History Family History: Unable to Obtain Review of Systems - Review of Systems Constitutional: reports: No Symptoms Eyes: reports: No Symptoms HENT: reports: No Symptoms Neck: reports: No Symptoms Cardiovascular: reports: No Symptoms Respiratory: reports: No Symptoms Gastrointestinal: reports: Abdominal Pain Genitourinary: reports: No Symptoms, Other (chronic powers) Breasts: reports: No Symptoms Reported Musculoskeletal: reports: No Symptoms Physical Exam Vital Signs: Vital Signs Temperature 98.2 F 05/28/17 07:35 Pulse Rate 71 05/28/17 07:35 Respiratory Rate 14 05/28/17 07:35 Blood Pressure 144/53 05/28/17 07:35 O2 Sat by Pulse Oximetry (%) 100 05/28/17 07:35 Constitutional: Yes: Well Nourished, Calm Eyes: Yes: WNL HENT: Yes: Atraumatic, Normocephalic. No: Thrush, Tonsillar Exudate Neck: Yes: Supple, Trachea Midline Cardiovascular: Yes: Regular Rate and Rhythm Respiratory: Yes: Regular, CTA Bilaterally Gastrointestinal: Yes: Normal Bowel Sounds, Soft ...Rectal Exam: Yes: Deferred Musculoskeletal: Yes: WNL Extremities: Yes: WNL Edema: No Integumentary: Yes: Pressure Ulcer (unable to assess- just changed and she refuses to turn in bed) Neurological: Yes: Alert Labs: CBC, BMP 05/28/17 00:30 05/28/17 00:30 cultures pending Imaging - Results Cat Scan: Pending, Other (d/w radiologist) Problem List - Problems (1) Leukocytosis Code(s): D72.829 - ELEVATED WHITE BLOOD CELL COUNT, UNSPECIFIED (2) Anemia Code(s): D64.9 - ANEMIA, UNSPECIFIED (3) Sacral ulcer Code(s): L98.429 - NON-PRESSURE CHRONIC ULCER OF BACK WITH UNSPECIFIED SEVERITY (4) CKD (chronic kidney disease) Code(s): N18.9 - CHRONIC KIDNEY DISEASE, UNSPECIFIED Assessment/Plan blood cultures f/u ct scan zosyn (empiric) d/w hospitalist adjust for renal insufficiency
[2017-05-28] MEDS ORDERED: PIPERACILLIN/TAZOB 2.25 GM/50 ML PREMIX BAG IVPB SCH (12:45)
[2017-05-28] MEDS: FERROUS GLUCONATE 324 MG TAB (FP) PO SCH ×2 (12:46→22:01)
[2017-05-28] MEDS: amLODIPine BESYLATE 10 MG TABLET (FP) PO SCH (12:46)
[2017-05-28] MEDS: risperiDONE 0.25 MG TABLET (FP) PO SCH ×2 (12:46→22:01)
[2017-05-28] MEDS: HEPARIN NA (PORCINE) 5,000 UNITS/ML 1ML VIAL SQ SCH ×2 (12:46→22:01)
[2017-05-28] MEDS: hydrALAZINE HCL 25 MG TABLET (FP) PO SCH ×2 (12:46→22:01)
[2017-05-28] MEDS: ISOSORBIDE MONONITRATE 60 MG TAB.SR.24H (FP) PO SCH (12:46)
[2017-05-28] MEDS: ACETAMINOPHEN 325 MG TABLET (FP) PO PRN (12:46)
[2017-05-28] MEDS: SODIUM CHLORIDE 1,000 ML IV SCH (13:31)
[2017-05-28] MEDS ORDERED: buPROPion HCL 100 MG TABLET ONE (13:33)
[2017-05-28] MEDS: buPROPion HCL 75 MG TABLET PO SCH (13:44)
[2017-05-28 14:00] LABS: URINE APPEARANCE CLOUDY; URINE BILIRUBIN NEGATIVE (NEGATIVE); URINE BLOOD 1+ (NEGATIVE); URINE COLOR YELLOW; URINE GLUCOSE (UA) NEGATIVE (NEGATIVE); URINE KETONE NEGATIVE (NEGATIVE); URINE NITRITE NEGATIVE (NEGATIVE); URINE UROBILINOGEN NEGATIVE mg/dL (0.2-1.0)
[2017-05-28 14:05] LABS: URINE LEUK ESTERASE 1+ (NEGATIVE); URINE PROTEIN 2+ (NEGATIVE)
[2017-05-28 14:09] LABS: EPI CELLS FEW /HPF (FEW)
[2017-05-28] MEDS: PIPERACILLIN/TAZOB 2.25 GM 2.25 GM in DEXTROSE 5%-WATER - 50 ML IVPB SCH ×2 (15:50→17:59)
[2017-05-28] MEDS: TIOTROPIUM BROMIDE 18 MCG/INH (DEVICE W/ 5 CAPSULES) IH SCH (17:58)
[2017-05-28] MEDS: BUDESONIDE/FORMETEROL FUMARATE 80/4.5 mcg INHALER IH SCH ×2 (17:59→23:34)
[2017-05-28] MEDS: INSULIN SLIDING SCALE (NOVOLOG) 1 VIAL SQ SCH ×2 (18:08→22:27)
[2017-05-28 18:25] VITALS: BMI 25.0
[2017-05-28] MEDS ORDERED: PT OWN MED DRAWER 7, Y5N ONE (21:58)
[2017-05-28] MEDS: INSULIN DETEMIR 100 UNITS/ML MDV SQ SCH (22:27)
--- NOTE | 2017-05-28 23:03 | PN ---
Progress Note (short form) - Note Progress Note: VAscular surgery Pt seen and exaxmined. Stage 4 sacral ulcer with slough and necrotic tissue. Start santyl to area. Will need debridement this week. Please medically optimize. Braden Rogers DO
[2017-05-28] MEDS: COLLAGENASE CLOSTRIDIUM HIST. 30 GRAMS TUBE TP SCH (23:35)
[2017-05-29] MEDS: PIPERACILLIN/TAZOB 2.25 GM 2.25 GM in DEXTROSE 5%-WATER - 50 ML IVPB SCH (01:10)
[2017-05-29] MEDS: SODIUM CHLORIDE 1,000 ML IV SCH ×2 (01:56→12:08)
[2017-05-29] MEDS: INSULIN SLIDING SCALE (NOVOLOG) 1 VIAL SQ SCH ×4 (06:09→22:06)
[2017-05-29] MEDS ORDERED: PT OWN MED DRAWER 7, Y5N ONE ×3 (06:56→17:22)
--- NOTE | 2017-05-29 09:08 | PN ---
Progress Note (short form) - Note Progress Note: awake and combative Vital Signs Period Temp Pulse Resp BP Sys/Benton Pulse Ox Last 24 Hr 98 F-98.7 F 72-80 16-18 132-149/55-62 99 refusing exam, bats my hands away awake and comfortable in the bed CBC, BMP 05/28/17 00:30 05/28/17 00:30 Microbiology 05/28/17 13:43 Urine - Urine Clean Catch Urine Culture - Preliminary Lactose Fermenting Neg Bacilli 05/28/17 02:18 Buttock - Left Gram Stain - Final Active Medications Acetaminophen (Tylenol -) 650 mg PO Q4H PRN PRN Reason: PAIN Last Admin: 05/28/17 12:46 Dose: 650 mg Amlodipine Besylate (Norvasc -) 10 mg PO DAILY [facility] Last Admin: 05/28/17 12:46 Dose: 10 mg Budesonide/Formoterol Fumarate (Symbicort 80/4.5mcg -) 1 puff IH BID [facility] Last Admin: 05/28/17 23:34 Dose: 1 puff Bupropion HCl (Wellbutrin -) 75 mg PO DAILY [facility] Last Admin: 05/28/17 13:44 Dose: 75 mg Collagenase (Santyl -) 1 applic TP DAILY [facility] Last Admin: 05/28/17 23:35 Dose: 1 puff Ferrous Gluconate (Fergon -) 324 mg PO BID [facility] Last Admin: 05/28/17 22:01 Dose: 324 mg Heparin Sodium (Porcine) (Heparin -) 5,000 unit SQ BID [facility] Last Admin: 05/28/17 22:01 Dose: 5,000 unit Hydralazine HCl (Apresoline -) 25 mg PO BID [facility] Last Admin: 05/28/17 22:01 Dose: 25 mg Sodium Chloride (Normal Saline -) 1,000 mls @ 83 mls/hr IV ASDIR [facility] Last Admin: 05/29/17 01:56 Dose: 83 mls/hr Piperacillin Sod/Tazobactam (Sod 2.25 gm/ Dextrose) 50 mls @ 100 mls/hr IVPB Q8H-IV [facility] Last Admin: 05/29/17 01:10 Dose: 100 mls/hr Insulin Aspart (Novolog Vial Sliding Scale -) 1 vial SQ ACHS [facility] PRN Reason: Protocol Last Admin: 05/29/17 06:09 Dose: Not Given Insulin Detemir (Levemir Vial) 10 units SQ HS [facility] Last Admin: 05/28/17 22:27 Dose: 10 unit Isosorbide Mononitrate (Imdur -) 120 mg PO DAILY [facility] Last Admin: 05/28/17 12:46 Dose: 120 mg Risperidone (Risperdal -) 0.25 mg PO BID [facility] Last Admin: 05/28/17 22:01 Dose: 0.25 mg Tiotropium [place] (Spiriva -) 1 puff IH DAILY [facility] Last Admin: 05/28/17 17:58 Dose: Not Given a/p fevers infected sacral ulcer chronic powers with positive urine culture CKD continue zosyn adjusted for ckd f/u cultures for debridement this week Problem List - Problems (1) Leukocytosis Code(s): D72.829 - ELEVATED WHITE BLOOD CELL COUNT, UNSPECIFIED (2) Anemia Code(s): D64.9 - ANEMIA, UNSPECIFIED (3) Sacral ulcer Code(s): L98.429 - NON-PRESSURE CHRONIC ULCER OF BACK WITH UNSPECIFIED SEVERITY (4) CKD (chronic kidney disease) Code(s): N18.9 - CHRONIC KIDNEY DISEASE, UNSPECIFIED
[2017-05-29] MEDS: amLODIPine BESYLATE 10 MG TABLET (FP) PO SCH (10:14)
[2017-05-29] MEDS: hydrALAZINE HCL 25 MG TABLET (FP) PO SCH ×2 (10:14→21:37)
[2017-05-29] MEDS: HEPARIN NA (PORCINE) 5,000 UNITS/ML 1ML VIAL SQ SCH ×2 (10:14→21:37)
[2017-05-29] MEDS: risperiDONE 0.25 MG TABLET (FP) PO SCH ×2 (10:14→21:37)
[2017-05-29] MEDS: ISOSORBIDE MONONITRATE 60 MG TAB.SR.24H (FP) PO SCH (10:14)
[2017-05-29] MEDS: FERROUS GLUCONATE 324 MG TAB (FP) PO SCH ×2 (10:14→21:38)
[2017-05-29] MEDS: buPROPion HCL 75 MG TABLET PO SCH (10:14)
[2017-05-29] MEDS: COLLAGENASE CLOSTRIDIUM HIST. 30 GRAMS TUBE TP SCH (10:16)
[2017-05-29] MEDS: TIOTROPIUM BROMIDE 18 MCG/INH (DEVICE W/ 5 CAPSULES) IH SCH (10:17)
[2017-05-29] MEDS: BUDESONIDE/FORMETEROL FUMARATE 80/4.5 mcg INHALER IH SCH ×2 (10:17→21:43)
[2017-05-29] MEDS: PIPERACILLIN/TAZOB 2.25 GM 2.25 GM in DEXTROSE 5%-WATER - 100 ML IVPB SCH ×2 (10:17→18:25)
--- NOTE | 2017-05-29 10:19 | PN ---
Physical Exam: SUBJECTIVE: Patient seen and examined. She denies pain. She is arousable, dose not know where she is, dose not like being bothered or touched at this time. Events: - pt refusing blood draws OBJECTIVE: Vital Signs Period Temp Pulse Resp BP Sys/Benton Pulse Ox Last 24 Hr 98 F-98.5 F 76-80 16-18 132-139/55-62 99 PE Neuro: arousable, awake, in bed Pulm: clear anteriorly CV: s1 s2 rrr Abd: Refused : powers Ext: no le edema Laboratory Results - last 24 hr 05/28/17 05/28/17 05/28/17 13:43 18:02 22:06 POC Glucometer 232 239 Urine Color Yellow Urine Appearance Cloudy Urine pH 5.0 Ur Specific [place] 1.011 Urine Protein 2+ H Urine Glucose (UA) Negative Urine Ketones Negative Urine Blood 1+ H Urine Nitrite Negative Urine Bilirubin Negative Urine Urobilinogen Negative Ur Leukocyte Esterase 1+ H Urine WBC (Auto) 7 Urine RBC (Auto) 3 Ur Epithelial Cells Few Active Medications Generic Name Dose Route Start Last Admin Trade Name Freq PRN Reason Stop Dose Admin Acetaminophen 650 mg 05/28/17 09:08 05/28/17 12:46 Tylenol - PO 650 mg Q4H PRN Administration PAIN Amlodipine Besylate 10 mg 05/28/17 10:00 05/28/17 12:46 Norvasc - PO 10 mg DAILY [facility] Administration Budesonide/Formoterol Fumarate 1 puff 05/28/17 10:00 05/28/17 23:34 Symbicort 80/4.5mcg - IH 1 puff BID [facility] Administration Bupropion HCl 75 mg 05/28/17 10:00 05/28/17 13:44 Wellbutrin - PO 75 mg DAILY [facility] Administration Collagenase 1 applic 05/28/17 23:30 05/28/17 23:35 Santyl - TP 1 puff DAILY [facility] Administration Ferrous Gluconate 324 mg 05/28/17 10:00 05/28/17 22:01 Fergon - PO 324 mg BID [facility] Administration Heparin Sodium (Porcine) 5,000 unit 05/28/17 10:00 05/28/17 22:01 Heparin - SQ 5,000 unit BID [facility] Administration Hydralazine HCl 25 mg 05/28/17 10:00 05/28/17 22:01 Apresoline - PO 25 mg BID [facility] Administration Sodium Chloride 1,000 mls @ 83 mls/hr 05/28/17 09:15 05/29/17 01:56 Normal Saline - IV 83 mls/hr ASDIR [facility] Administration Piperacillin Sod/Tazobactam 100 mls @ 100 mls/hr 05/29/17 09:35 Sod 2.25 gm/ Dextrose IVPB Q8H-IV [facility] Insulin Aspart 1 vial 05/28/17 16:30 05/29/17 06:09 Novolog Vial Sliding Scale - SQ Not Given ACHS [facility] Protocol Insulin Detemir 10 units 05/28/17 22:00 05/28/17 22:27 Levemir Vial SQ 10 unit HS [facility] Administration Isosorbide Mononitrate 120 mg 05/28/17 10:00 05/28/17 12:46 Imdur - PO 120 mg DAILY [facility] Administration Risperidone 0.25 mg 05/28/17 10:00 05/28/17 22:01 Risperdal - PO 0.25 mg BID [facility] Administration Tiotropium [place] 1 puff 05/28/17 10:00 05/28/17 17:58 Spiriva - IH Not Given DAILY [facility] Assessment: 71 year old female with DM, COPD, CKD, sacral ulcer with hx of MRSA , HTN, CVA with residual L sided paresis, urinary retention with indwelling powers catheter admitted from [facility] with leukocytosis, weakness. Plan: 1. UTI - Pt refusing AM labs - Pre bullock urine cx LFNB - Continue zosyn (renal dose) - Pt recently admitted in 04/2017, spoke to admitting to inquire about linking previous records, previous # [id number] 2. Infected sacral ulcer - Debridment next week in OR - Collagenase dressing changes/turn q2 - Abx above 3. MARTITA on CKD - Previous baseline cr 2.6-2.9 - Continue gentle fluids 4. HTN - Continue current meds 5. DM II - Levemir 10units HS - ISS, BGM ACHS 6. Microcytic anemia - Ferrous sulfate 7. Urinary retention - Maintain powers 8. R sided hemiparesis - Due to surgery - PT daily 9. DVT - Heparin BID 10. LLQ pain - CTAP negative for acute etiology Problem List - Problems (1) Anemia Code(s): D64.9 - ANEMIA, UNSPECIFIED (2) Pneumonia Code(s): J18.9 - PNEUMONIA, UNSPECIFIED ORGANISM (3) Sacral ulcer Code(s): L98.429 - NON-PRESSURE CHRONIC ULCER OF BACK WITH UNSPECIFIED SEVERITY Visit type - Emergency Visit Emergency Visit: Yes ED Registration Date: 05/28/17 Care time: The patient presented to the Emergency Department on the above date and was hospitalized for further evaluation of their emergent condition. - New Patient This patient is new to me today: No - Critical Care Critical Care patient: No
[2017-05-29 11:01] LABS: BASO % 0.2 % (0-2.0); EOS % 1.2 % (0-4.5); LYMPH % 4.3 % (8-40); MCH 25.8 pg (25.7-33.7); MCHC 30.9 g/dl (32.0-36.0); MEAN CELL VOLUME 83.3 fl (80-96); MEAN PLT VOLUME 7.4 fl (7.5-11.1); MONO % 6.2 % (3.8-10.2); NEUT % 88.1 % (42.8-82.8); PLATELET COUNT 274 K/MM3 (134-434); RBC 2.64 M/mm3 (3.60-5.2); RDW 19.3 % (11.6-15.6); WHITE BLOOD COUNT 13.7 K/mm3 (4.0-10.0)
[2017-05-29 11:04] LABS: HEMOGLOBIN 6.8 GM/dL (10.7-15.3)
[2017-05-29 11:32] LABS: ANION GAP 8 (8-16); BLOOD UREA NITROGEN 60 mg/dL (7-18); CALCIUM 8.1 mg/dL (8.5-10.1); CHLORIDE 108 mmol/L (98-107); CO2 20 mmol/L (21-32); GLUCOSE,RANDOM 124 mg/dL (74-106); POTASSIUM 4.3 mmol/L (3.5-5.1); SODIUM 136 mmol/L (136-145)
[2017-05-29 17:38] LABS: MCH 26.5 pg (25.7-33.7); MCHC 31.7 g/dl (32.0-36.0); MEAN CELL VOLUME 83.6 fl (80-96); MEAN PLT VOLUME 7.5 fl (7.5-11.1); PLATELET COUNT 270 K/MM3 (134-434); RBC 2.59 M/mm3 (3.60-5.2); RDW 19.6 % (11.6-15.6); WHITE BLOOD COUNT 12.9 K/mm3 (4.0-10.0)
[2017-05-29 17:42] LABS: HEMATOCRIT 21.6 % (32.4-45.2); HEMOGLOBIN 6.8 GM/dL (10.7-15.3)
[2017-05-29] MEDS: INSULIN DETEMIR 100 UNITS/ML MDV SQ SCH (21:38)
[2017-05-29] MEDS ORDERED: INSULIN (NOVOLOG) ASPART 100 UNITS/ML 10ML VIAL ONE (22:01)
[2017-05-30] MEDS: PIPERACILLIN/TAZOB 2.25 GM 2.25 GM in DEXTROSE 5%-WATER - 100 ML IVPB SCH ×3 (00:30→18:51)
[2017-05-30] MEDS: INSULIN SLIDING SCALE (NOVOLOG) 1 VIAL SQ SCH ×4 (06:19→21:39)
[2017-05-30 08:25] LABS: ANION GAP 10 (8-16); BLOOD UREA NITROGEN 53 mg/dL (7-18); CHLORIDE 110 mmol/L (98-107); CO2 17 mmol/L (21-32); CREATININE 2.8 mg/dL (0.55-1.02); POTASSIUM 4.1 mmol/L (3.5-5.1); SODIUM 137 mmol/L (136-145)
[2017-05-30 08:27] LABS: BASO % 0.3 % (0-2.0); EOS % 1.3 % (0-4.5); HEMOGLOBIN 7.6 GM/dL (10.7-15.3); LYMPH % 4.6 % (8-40); MCH 27.2 pg (25.7-33.7); MCHC 31.7 g/dl (32.0-36.0); MEAN CELL VOLUME 85.7 fl (80-96); MEAN PLT VOLUME 7.7 fl (7.5-11.1); MONO % 7.6 % (3.8-10.2); NEUT % 86.2 % (42.8-82.8); PLATELET COUNT 280 K/MM3 (134-434); RDW 19.3 % (11.6-15.6); WHITE BLOOD COUNT 15.8 K/mm3 (4.0-10.0)
[2017-05-30 08:53] LABS: GLUCOSE,RANDOM 49 mg/dL (74-106)
--- NOTE | 2017-05-30 10:06 | PN ---
Progress Note (short form) - Note Progress Note: awake Vital Signs Period Temp Pulse Resp BP Sys/Benton Pulse Ox Last 24 Hr 98 F-98.9 F 83-95 18-20 138-160/47-62 cor-rrr llungs decreased bs at bases abd soft,nt suprapubic tenderness to palpation ext no edema powers CBC, BMP 05/30/17 06:00 05/30/17 06:00 Microbiology 05/28/17 02:18 Buttock - Left Gram Stain - Final 05/28/17 02:18 Buttock - Left Wound Culture - Preliminary Lactose Fermenting Neg Bacilli Non Lactose Fermenting Gnb Non Lactose Fermenting Gnb#2 Pending Organism 05/28/17 10:15 Blood - Peripheral Venous Blood Culture - Preliminary NO GROWTH OBTAINED AFTER 24 HOURS, INCUBATION TO CONTINUE FOR 4 DAYS. 05/28/17 09:48 Blood - Peripheral Venous Blood Culture - Preliminary NO GROWTH OBTAINED AFTER 24 HOURS, INCUBATION TO CONTINUE FOR 4 DAYS. 05/28/17 13:43 Urine - Urine Clean Catch Urine Culture - Preliminary Lactose Fermenting Neg Bacilli a/p fevers resolved infected sacral ulcer chronic powers with positive urine culture/supraubic discomfort CKD continue zosyn adjusted for ckd f/u cultures for debridement this week Problem List - Problems (1) Anemia Code(s): D64.9 - ANEMIA, UNSPECIFIED (2) Sacral ulcer Code(s): L98.429 - NON-PRESSURE CHRONIC ULCER OF BACK WITH UNSPECIFIED SEVERITY (3) Leukocytosis Code(s): D72.829 - ELEVATED WHITE BLOOD CELL COUNT, UNSPECIFIED (4) CKD (chronic kidney disease) Code(s): N18.9 - CHRONIC KIDNEY DISEASE, UNSPECIFIED
[2017-05-30] MEDS ORDERED: PT OWN MED DRAWER 7, Y5N ONE ×6 (11:23→22:26)
[2017-05-30] MEDS: TIOTROPIUM BROMIDE 18 MCG/INH (DEVICE W/ 5 CAPSULES) IH SCH (11:25)
[2017-05-30] MEDS: SODIUM CHLORIDE 1,000 ML IV SCH ×2 (11:26→18:52)
[2017-05-30] MEDS: amLODIPine BESYLATE 10 MG TABLET (FP) PO SCH (11:26)
[2017-05-30] MEDS: ACETAMINOPHEN 325 MG TABLET (FP) PO PRN (11:26)
[2017-05-30] MEDS: buPROPion HCL 75 MG TABLET PO SCH (11:27)
[2017-05-30] MEDS: risperiDONE 0.25 MG TABLET (FP) PO SCH ×2 (11:27→21:38)
[2017-05-30] MEDS: hydrALAZINE HCL 25 MG TABLET (FP) PO SCH ×2 (11:27→21:38)
[2017-05-30] MEDS: FERROUS GLUCONATE 324 MG TAB (FP) PO SCH ×2 (11:27→21:38)
[2017-05-30] MEDS: ISOSORBIDE MONONITRATE 60 MG TAB.SR.24H (FP) PO SCH (11:27)
[2017-05-30] MEDS: HEPARIN NA (PORCINE) 5,000 UNITS/ML 1ML VIAL SQ SCH ×2 (11:27→21:39)
[2017-05-30] MEDS: COLLAGENASE CLOSTRIDIUM HIST. 30 GRAMS TUBE TP SCH (11:30)
[2017-05-30] MEDS: BUDESONIDE/FORMETEROL FUMARATE 80/4.5 mcg INHALER IH SCH ×2 (11:30→21:40)
[2017-05-30] MEDS ORDERED: INSULIN (NOVOLOG) ASPART 100 UNITS/ML 10ML VIAL ONE ×2 (12:27→21:00)
--- NOTE | 2017-05-30 13:18 | PN ---
Physical Exam: SUBJECTIVE: Patient seen and examined. Her sensorium has improved mildly today, she knows she is in a hospital. c/o abdominal pain OBJECTIVE: Vital Signs Period Temp Pulse Resp BP Sys/Benton Pulse Ox Last 24 Hr 98 F-98.9 F 83-95 18-20 138-160/47-62 PE Neuro: alert, awake, in bed Pulm: clear anteriorly CV: s1 s2 rrr Abd: abd tenderness : powers Ext: no le edema, R upper shoulder PIV Laboratory Results - last 24 hr 05/30/17 05/30/17 06:00 06:00 WBC 15.8 H RBC 2.80 L Hgb 7.6 L D Hct 24.0 L MCV 85.7 MCH 27.2 MCHC 31.7 L RDW 19.3 H Plt Count 280 MPV 7.7 Neutrophils % 86.2 H Lymphocytes % 4.6 L Monocytes % 7.6 Eosinophils % 1.3 Basophils % 0.3 Sodium 137 Potassium 4.1 Chloride 110 H Carbon Dioxide 17 L Anion Gap 10 BUN 53 H Creatinine 2.8 H POC Glucometer Random Glucose 49 L* Calcium 8.0 L Blood Type Antibody Screen Crossmatch Active Medications Generic Name Dose Route Start Last Admin Trade Name Freq PRN Reason Stop Dose Admin Acetaminophen 650 mg 05/28/17 09:08 05/30/17 11:26 Tylenol - PO 650 mg Q4H PRN Administration PAIN Amlodipine Besylate 10 mg 05/28/17 10:00 05/30/17 11:26 Norvasc - PO 10 mg DAILY [facility] Administration Budesonide/Formoterol Fumarate 1 puff 05/28/17 10:00 05/30/17 11:30 Symbicort 80/4.5mcg - IH 1 puff BID [facility] Administration Bupropion HCl 75 mg 05/28/17 10:00 05/30/17 11:27 Wellbutrin - PO 75 mg DAILY [facility] Administration Collagenase 1 applic 05/28/17 23:30 05/30/17 11:30 Santyl - TP 1 applic DAILY [facility] Administration Ferrous Gluconate 324 mg 05/28/17 10:00 05/30/17 11:27 Fergon - PO 324 mg BID [facility] Administration Heparin Sodium (Porcine) 5,000 unit 05/28/17 10:00 05/30/17 11:27 Heparin - SQ 5,000 unit BID [facility] Administration Hydralazine HCl 25 mg 05/28/17 10:00 05/30/17 11:27 Apresoline - PO 25 mg BID [facility] Administration Sodium Chloride 1,000 mls @ 83 mls/hr 05/28/17 09:15 05/30/17 11:26 Normal Saline - IV Not Given ASDIR [facility] Piperacillin Sod/Tazobactam 100 mls @ 100 mls/hr 05/29/17 09:35 05/30/17 11: 26 Sod 2.25 gm/ Dextrose IVPB 100 mls/hr Q8H-IV [facility] Administration Insulin Aspart 1 vial 05/28/17 16:30 05/30/17 12:10 Novolog Vial Sliding Scale - SQ Not Given ACHS [facility] Protocol Insulin Detemir 10 units 05/28/17 22:00 05/29/17 21:38 Levemir Vial SQ 10 unit HS [facility] Administration Isosorbide Mononitrate 120 mg 05/28/17 10:00 05/30/17 11:27 Imdur - PO 120 mg DAILY [facility] Administration Risperidone 0.25 mg 05/28/17 10:00 05/30/17 11:27 Risperdal - PO 0.25 mg BID [facility] Administration Tiotropium [place] 1 puff 05/28/17 10:00 05/30/17 11:25 Spiriva - IH 1 puff DAILY [facility] Administration Microbiology 05/28/17 10:15 Blood - Peripheral Venous Blood Culture - Preliminary NO GROWTH OBTAINED AFTER 48 HOURS, INCUBATION TO CONTINUE FOR 3 DAYS. 05/28/17 09:48 Blood - Peripheral Venous Blood Culture - Preliminary NO GROWTH OBTAINED AFTER 48 HOURS, INCUBATION TO CONTINUE FOR 3 DAYS. 05/28/17 02:18 Buttock - Left Gram Stain - Final 05/28/17 02:18 Buttock - Left Wound Culture - Preliminary Lactose Fermenting Neg Bacilli Non Lactose Fermenting Gnb Non Lactose Fermenting Gnb#2 Pending Organism 05/28/17 13:43 Urine - Urine Clean Catch Urine Culture - Preliminary Lactose Fermenting Neg Bacilli Assessment: 71 year old female with DM, COPD, CKD, sacral ulcer with hx of MRSA , HTN, CVA with residual L sided paresis, urinary retention with indwelling powers catheter admitted from [facility] with leukocytosis, weakness. Plan: 1. UTI - Pre bullock urine cx LFNB - Continue zosyn (renal dose) 2. Infected sacral ulcer - Debridment tentatively planned for Tuesday - Collagenase dressing changes/turn q2 - Abx above - D/w Dr. Rogers 3. MARTITA on CKD - Cr improving - Previous baseline cr 2.6-2.9 - Continue gentle fluids 4. HTN - Continue current meds 5. DM II - Levemir 10units HS - ISS, BGM ACHS 6. Microcytic anemia - Ferrous sulfate 7. Urinary retention - Maintain powers 8. R sided hemiparesis - Due to surgery - PT daily 9. DVT - Heparin BID 10. LLQ pain - CTAP negative for acute etiology Problem List - Problems (1) Anemia Code(s): D64.9 - ANEMIA, UNSPECIFIED (2) Pneumonia Code(s): J18.9 - PNEUMONIA, UNSPECIFIED ORGANISM (3) Sacral ulcer Code(s): L98.429 - NON-PRESSURE CHRONIC ULCER OF BACK WITH UNSPECIFIED SEVERITY Visit type - Emergency Visit Emergency Visit: Yes ED Registration Date: 05/28/17 Care time: The patient presented to the Emergency Department on the above date and was hospitalized for further evaluation of their emergent condition. - New Patient This patient is new to me today: No - Critical Care Critical Care patient: No
--- NOTE | 2017-05-30 19:25 | PN ---
Progress Note (short form) - Note Progress Note: VAscular Surgery Will do sacral debridement on tue. please optimize. Braden cazares DO
[2017-05-30] MEDS: INSULIN DETEMIR 100 UNITS/ML MDV SQ SCH (21:39)
[2017-05-31] MEDS: PIPERACILLIN/TAZOB 2.25 GM 2.25 GM in DEXTROSE 5%-WATER - 100 ML IVPB SCH ×3 (01:51→18:59)
[2017-05-31] MEDS: INSULIN SLIDING SCALE (NOVOLOG) 1 VIAL SQ SCH ×4 (06:30→21:54)
--- NOTE | 2017-05-31 08:35 | SPA.PREOP ---
- PRE-OP NOTE Dx: Sacral Ulcer Planned Procedure: Sacral debridement Surgeon: Braden Rogers Consent: To be obtained after surgeon explains all risks, benefits and alternatives to patient and or HCP. Last Vital Signs Temp Pulse Resp BP Pulse Ox 98.9 F 88 20 134/56 100 05/31/17 05:51 05/31/17 05:51 05/31/17 05:51 05/31/17 05:51 05/30/17 21:00 Lab Results WBC 15.8 K/mm3 (4.0-10.0) H 05/30/17 06:00 RBC 2.80 M/mm3 (3.60-5.2) L 05/30/17 06:00 Hgb 7.6 GM/dL (10.7-15.3) L D 05/30/17 06:00 Hct 24.0 % (32.4-45.2) L 05/30/17 06:00 MCV 85.7 fl (80-96) 05/30/17 06:00 MCHC 31.7 g/dl (32.0-36.0) L 05/30/17 06:00 RDW 19.3 % (11.6-15.6) H 05/30/17 06:00 Plt Count 280 K/MM3 (134-434) 05/30/17 06:00 Sodium 137 mmol/L (136-145) 05/30/17 06:00 Potassium 4.1 mmol/L (3.5-5.1) 05/30/17 06:00 Chloride 110 mmol/L (98-107) H 05/30/17 06:00 Carbon Dioxide 17 mmol/L (21-32) L 05/30/17 06:00 Anion Gap 10 (8-16) 05/30/17 06:00 BUN 53 mg/dL (7-18) H 05/30/17 06:00 Creatinine 2.8 mg/dL (0.55-1.02) H 05/30/17 06:00 Random Glucose 49 mg/dL (74-106) L* 05/30/17 06:00 Calcium 8.0 mg/dL (8.5-10.1) L 05/30/17 06:00 Blood Type A POSITIVE 05/29/17 22:30 Antibody Screen Negative 05/29/17 22:30 - ASSESSMENT/PLAN Problem List - Problems (1) Sacral ulcer Assessment/Plan: 1. Make NPO after midnight except po meds 2. GI/DVT PPX 3. Medical optimization / clearance Code(s): L98.429 - NON-PRESSURE CHRONIC ULCER OF BACK WITH UNSPECIFIED SEVERITY Visit type - Case Type Case Type: ED Admission
[2017-05-31 08:49] LABS: HEMATOCRIT 23.5 % (32.4-45.2); HEMOGLOBIN 7.5 GM/dL (10.7-15.3); MCH 27.4 pg (25.7-33.7); MCHC 32.1 g/dl (32.0-36.0); MEAN CELL VOLUME 85.3 fl (80-96); MEAN PLT VOLUME 7.5 fl (7.5-11.1); PLATELET COUNT 279 K/MM3 (134-434); RBC 2.76 M/mm3 (3.60-5.2); RDW 18.7 % (11.6-15.6); WHITE BLOOD COUNT 16.8 K/mm3 (4.0-10.0)
[2017-05-31 09:33] LABS: CHLORIDE 108 mmol/L (98-107); SODIUM 136 mmol/L (136-145)
[2017-05-31 09:41] LABS: ANION GAP 13 (8-16); BLOOD UREA NITROGEN 48 mg/dL (7-18); CO2 15 mmol/L (21-32); CREATININE 2.6 mg/dL (0.55-1.02); GLUCOSE,RANDOM 96 mg/dL (74-106)
[2017-05-31] MEDS: SODIUM CHLORIDE 1,000 ML IV SCH (10:15)
[2017-05-31] MEDS: buPROPion HCL 75 MG TABLET PO SCH (10:18)
[2017-05-31] MEDS: TIOTROPIUM BROMIDE 18 MCG/INH (DEVICE W/ 5 CAPSULES) IH SCH (10:19)
[2017-05-31] MEDS: BUDESONIDE/FORMETEROL FUMARATE 80/4.5 mcg INHALER IH SCH ×2 (10:19→21:54)
[2017-05-31] MEDS: COLLAGENASE CLOSTRIDIUM HIST. 30 GRAMS TUBE TP SCH (11:00)
[2017-05-31] MEDS: ISOSORBIDE MONONITRATE 60 MG TAB.SR.24H (FP) PO SCH (11:49)
[2017-05-31] MEDS: FERROUS GLUCONATE 324 MG TAB (FP) PO SCH ×2 (11:49→21:53)
[2017-05-31] MEDS: amLODIPine BESYLATE 10 MG TABLET (FP) PO SCH (11:50)
[2017-05-31] MEDS: ACETAMINOPHEN 325 MG TABLET (FP) PO PRN (11:50)
[2017-05-31] MEDS: risperiDONE 0.25 MG TABLET (FP) PO SCH ×2 (11:51→21:53)
[2017-05-31] MEDS: HEPARIN NA (PORCINE) 5,000 UNITS/ML 1ML VIAL SQ SCH ×2 (11:53→21:52)
[2017-05-31] MEDS: hydrALAZINE HCL 25 MG TABLET (FP) PO SCH ×2 (11:53→21:52)
[2017-05-31 11:54] LABS: ACANTHOCYTES 1+; ANISOCYTOSIS 1+; PLATELET ESTIMATE NORMAL; TARGET CELLS 0
--- NOTE | 2017-05-31 15:25 | PN ---
Physical Exam: SUBJECTIVE: Patient seen and examined at bedside. States her stomach hurts. OBJECTIVE: Vital Signs Period Temp Pulse Resp BP Sys/Benton Pulse Ox Last 24 Hr 98.4 F-98.9 F 86-88 18-20 134-137/51-56 100 GENERAL: The patient is awake, alert. Knows name, [facility], [place]. LUNGS: CTA HEART: Regular rate and rhythm, S1, S2 ABDOMEN: Diffusely tender EXTREMITIES: 2+ pulses, warm, well-perfused, no edema. NEUROLOGICAL: Cranial nerves II through XII grossly intact. Normal speech, gait not observed. : powers, cloudy yellow urine Laboratory Results - last 24 hr 05/31/17 05/31/17 05/31/17 07:30 07:30 11:28 WBC 16.8 H RBC 2.76 L Hgb 7.5 L Hct 23.5 L MCV 85.3 MCH 27.4 MCHC 32.1 RDW 18.7 H Plt Count 279 MPV 7.5 Neutrophils % No Result Required. Neutrophils % (Manual) 82.3 Band Neutrophils % 0.0 Lymphocytes % No Result Required. Lymphocytes % (Manual) 6.3 L D Monocytes % (Manual) 6 D Eosinophils % (Manual) 1.0 Basophils % (Manual) 0.0 Myelocytes % (Man) 1 Metamyelocytes 2 Platelet Estimate Normal Polychromasia 2+ Poikilocytosis 1+ Anisocytosis 1+ Target Cells 0 Acanthocytes (Spur) 1+ Fragmented RBCs 1+ Schistocytes 1+ Sodium 136 Potassium 4.0 Chloride 108 H Carbon Dioxide 15 L Anion Gap 13 BUN 48 H Creatinine 2.6 H POC Glucometer 167 Random Glucose 96 Calcium 8.0 L Active Medications Generic Name Dose Route Start Last Admin Trade Name Kate PRN Reason Stop Dose Admin Acetaminophen 650 mg 05/28/17 09:08 05/31/17 11:50 Tylenol - PO 650 mg Q4H PRN Administration PAIN Amlodipine Besylate 10 mg 05/28/17 10:00 05/31/17 11:50 Norvasc - PO 10 mg DAILY [facility] Administration Budesonide/Formoterol Fumarate 1 puff 05/28/17 10:00 05/31/17 10:19 Symbicort 80/4.5mcg - IH 1 puff BID [facility] Administration Bupropion HCl 75 mg 05/28/17 10:00 05/31/17 10:18 Wellbutrin - PO 75 mg DAILY [facility] Administration Collagenase 1 applic 05/28/17 23:30 05/30/17 11:30 Santyl - TP 1 applic DAILY [facility] Administration Ferrous Gluconate 324 mg 05/28/17 10:00 05/31/17 11:49 Fergon - PO 324 mg BID [facility] Administration Heparin Sodium (Porcine) 5,000 unit 05/28/17 10:00 05/31/17 11:53 Heparin - SQ 5,000 unit BID [facility] Administration Hydralazine HCl 25 mg 05/28/17 10:00 05/31/17 11:53 Apresoline - PO 25 mg BID [facility] Administration Sodium Chloride 1,000 mls @ 83 mls/hr 05/28/17 09:15 05/31/17 10:15 Normal Saline - IV 83 mls/hr ASDIR [facility] Administration Piperacillin Sod/Tazobactam 100 mls @ 100 mls/hr 05/29/17 09:35 05/31/17 10: 18 Sod 2.25 gm/ Dextrose IVPB 100 mls/hr Q8H-IV [facility] Administration Insulin Aspart 1 vial 05/28/17 16:30 05/31/17 11:48 Novolog Vial Sliding Scale - SQ 2 units ACHS [facility] Administration Protocol Insulin Detemir 10 units 05/28/17 22:00 05/30/17 21:39 Levemir Vial SQ 10 unit HS [facility] Administration Isosorbide Mononitrate 120 mg 05/28/17 10:00 05/31/17 11:49 Imdur - PO 120 mg DAILY [facility] Administration Risperidone 0.25 mg 05/28/17 10:00 05/31/17 11:51 Risperdal - PO 0.25 mg BID [facility] Administration Tiotropium [place] 1 puff 05/28/17 10:00 05/31/17 10:19 Spiriva - IH 1 puff DAILY [facility] Administration ASSESSMENT/PLAN 71 year-old female with a PMH significant for HTN, CVA with residual left hemiparesis, COPD, IDDM, CKD, urinary retention with indwelling powers, breast cancer, and chronic Stage IV sacral ulcerr. Parkinson's. Alzheimer's dementia. Admitted for infected sacral Stage IV pressure ulcer. Stage IV sacral pressure ulcer --deep sacral ulcer abutting bone, no bony destruction on CT imaging --afebrile --WBC bump to 16.8k --continue zosyn (day #3) renally dosed --daily collagenase dressings --for OR debridement tomorrow with Dr. Rogers Pulmonary opacities --h/o loculated pleural effusions on CT chest; in August 2016 underwent thoracentesis and lung biopsy complicated by pneumothorax; negative for malignancy --on this admission, right basilar, and RLL opacities, atelectasis v. infiltrates v. neoplasm --CT chest ordered E. coli UTI --has chronic powers, +E.coli >100k --sensitive to zosyn MARTITA on CKD --Cr 3.1 on admission, today 2.6 --baseline ~2.6 --stop IV fluids Chronic urinary retention --maintain powers Hypertension --BP well-controlled --continue amlodipine, hydralazine, isosorbide IDDM --Levemir 10U qhs --Novolog sliding scale coverage Normocytic anemia --Hgb 8.1 on admission = baseline --dropped to 6.8, transfused 1U PRBC on 05/30, Hgb 6.8-->7.6; smear + schistocytes --occult stool, LDH, haptoglobin, retic count, LFTs --continue ferrous gluconate CVA with residual hemiparesis --not on ASA or statin Heart failure --per records from [facility] patient has h/o heart failure, NOS --last echo 05/13/15: LV normal; RV normal; trace to mild MR; mild TR; pHTN; trace PI --bilateral pleural effusions on this admission, get repeat echo --no diuresis for now given MARTITA and respiratory status stable COPD --continue Symbicort FEN Fluids: PO intake adequate Electrolytes: replete as indicated Nutrition: diabetic diet; NPO after midnight DVT prophylaxis: subq heparin Physical therapy Dispo: continues to require inpatient care. To OR tomorrow. Full code. Visit type - Emergency Visit Emergency Visit: Yes ED Registration Date: 05/28/17 Care time: The patient presented to the Emergency Department on the above date and was hospitalized for further evaluation of their emergent condition. - New Patient This patient is new to me today: Yes Date on this admission: 05/31/17 - Critical Care Critical Care patient: No
[2017-05-31 21:30] LABS: BASO % 0.1 % (0-2.0); EOS % 1.2 % (0-4.5); HEMATOCRIT 23.5 % (32.4-45.2); HEMOGLOBIN 7.5 GM/dL (10.7-15.3); LYMPH % 3.2 % (8-40); MCH 27.3 pg (25.7-33.7); MCHC 31.9 g/dl (32.0-36.0); MEAN CELL VOLUME 85.5 fl (80-96); MEAN PLT VOLUME 7.7 fl (7.5-11.1); MONO % 5.5 % (3.8-10.2); PLATELET COUNT 280 K/MM3 (134-434); RBC 2.75 M/mm3 (3.60-5.2); RDW 19.3 % (11.6-15.6)
[2017-05-31] MEDS: INSULIN DETEMIR 100 UNITS/ML MDV SQ SCH (21:53)
[2017-05-31] MEDS ORDERED: PT OWN MED DRAWER 7, Y5N ONE ×2 (21:57→23:57)
[2017-05-31 22:06] LABS: ALBUMIN 1.4 g/dl (3.4-5.0); ALK PHOS 76 U/L (45-117); BILIRUBIN,DIRECT < 0.2 mg/dL (0.0-0.2); BILIRUBIN,TOTAL 0.2 mg/dL (0.2-1.0); LDH 133 U/L (84-246); SGOT/AST 18 U/L (15-37); SGPT/ALT 18 U/L (12-78); TOT PROT 6.3 g/dl (6.4-8.2)
[2017-06-01] MEDS: PIPERACILLIN/TAZOB 2.25 GM 2.25 GM in DEXTROSE 5%-WATER - 100 ML IVPB SCH ×3 (01:49→18:18)
[2017-06-01] MEDS: INSULIN SLIDING SCALE (NOVOLOG) 1 VIAL SQ SCH ×4 (06:25→22:23)
[2017-06-01 08:29] LABS: HEMATOCRIT 22.8 % (32.4-45.2); HEMOGLOBIN 7.3 GM/dL (10.7-15.3); MCH 27.3 pg (25.7-33.7); MCHC 32.1 g/dl (32.0-36.0); MEAN CELL VOLUME 84.9 fl (80-96); MEAN PLT VOLUME 7.7 fl (7.5-11.1); PLATELET COUNT 261 K/MM3 (134-434); RBC 2.68 M/mm3 (3.60-5.2); RDW 19.1 % (11.6-15.6); WHITE BLOOD COUNT 18.3 K/mm3 (4.0-10.0)
[2017-06-01 09:16] LABS: ALBUMIN 1.4 g/dl (3.4-5.0); ANION GAP 10 (8-16); BLOOD UREA NITROGEN 44 mg/dL (7-18); CALCIUM 8.1 mg/dL (8.5-10.1); CHLORIDE 106 mmol/L (98-107); CO2 17 mmol/L (21-32); GLUCOSE,RANDOM 89 mg/dL (74-106); MAGNESIUM 1.5 mg/dL (1.8-2.4); POTASSIUM 3.7 mmol/L (3.5-5.1); SODIUM 133 mmol/L (136-145)
[2017-06-01 09:23] LABS: ALK PHOS 72 U/L (45-117); BILIRUBIN,TOTAL 0.3 mg/dL (0.2-1.0); CREATININE 2.4 mg/dL (0.55-1.02); SGOT/AST 20 U/L (15-37); SGPT/ALT 18 U/L (12-78); TOT PROT 6.3 g/dl (6.4-8.2)
[2017-06-01] MEDS ORDERED: PT OWN MED DRAWER 7, Y5N ONE ×2 (09:51→21:07)
[2017-06-01] MEDS: ISOSORBIDE MONONITRATE 60 MG TAB.SR.24H (FP) PO SCH (10:03)
[2017-06-01] MEDS: TIOTROPIUM BROMIDE 18 MCG/INH (DEVICE W/ 5 CAPSULES) IH SCH (10:04)
[2017-06-01] MEDS: risperiDONE 0.25 MG TABLET (FP) PO SCH ×2 (10:04→22:16)
[2017-06-01] MEDS: hydrALAZINE HCL 25 MG TABLET (FP) PO SCH ×2 (10:04→22:16)
[2017-06-01] MEDS: amLODIPine BESYLATE 10 MG TABLET (FP) PO SCH (10:04)
[2017-06-01] MEDS: buPROPion HCL 75 MG TABLET PO SCH (10:05)
[2017-06-01] MEDS: BUDESONIDE/FORMETEROL FUMARATE 80/4.5 mcg INHALER IH SCH ×2 (10:05→22:17)
[2017-06-01] MEDS: HEPARIN NA (PORCINE) 5,000 UNITS/ML 1ML VIAL SQ SCH ×2 (10:05→22:18)
[2017-06-01] MEDS ORDERED: MIDAZOLAM HCL 2 MG/2 ML SINGLE DOSE VIAL ONE (12:11)
[2017-06-01] MEDS ORDERED: PROPOFOL 20 ML ONE (12:11)
[2017-06-01 12:20] LABS: PLATELET ESTIMATE NORMAL
[2017-06-01] MEDS ORDERED: LIDOCAINE HCL 1%, 10 MG/ML (20ML VIAL) NR ONE (12:37)
--- NOTE | 2017-06-01 13:12 | OP ---
Operative Note - Note: Operative Date: 06/01/17 Pre-Operative Diagnosis: necrotic sacral ulcer Operation: excisional debridement sacrum, - skin,subcutaneous tissue, with bone biopsy Findings: bone sent for cx and path Post-Operative Diagnosis: Same as Pre-op Surgeon: Braden Rogers Anesthesia: Fractional Estimated Blood Loss (mls): 50 Operative Report Dictated: Yes
--- NOTE | 2017-06-01 13:15 | PN ---
Progress Note (short form) - Note Progress Note: Vascular Surgery s/P sacral debridement with bone biopsy. wet to dry dressing changes daily. Prior to dc, can start vac therapy to help heal wound. Braden Rogers DO
[2017-06-01] MEDS ORDERED: ACETAMINOPHEN 325 MG TABLET (FP) PO PRN (13:53)
[2017-06-01] MEDS ORDERED: ONDANSETRON 4 MG/2 ML VIAL IVPUSH PRN (13:54)
[2017-06-01] MEDS ORDERED: LACTATED RINGERS SOLUTION 1,000 ML IV SCH (14:00)
--- NOTE | 2017-06-01 14:31 | PN ---
Physical Exam: SUBJECTIVE: Patient seen and examined at bedside. Going to the OR at noon. Cooperating with PT with ROM exercises. OBJECTIVE: Vital Signs Period Temp Pulse Resp BP Sys/Benton Pulse Ox Last 24 Hr 98.1 F-99.4 F 86-103 16-20 128-150/56-72 98-100 GENERAL: The patient is awake, alert. Knows name, [facility], [place]. LUNGS: CTA HEART: Regular rate and rhythm, S1, S2 ABDOMEN: Diffusely tender EXTREMITIES: 2+ pulses, warm, well-perfused, no edema. NEUROLOGICAL: Cranial nerves II through XII grossly intact. Normal speech, gait not observed. : powers, cloudy yellow urine Laboratory Results - last 24 hr 05/29/17 05/31/17 05/31/17 22:30 17:23 20:30 WBC 19.0 H RBC 2.75 L Hgb 7.5 L Hct 23.5 L MCV 85.5 MCH 27.3 MCHC 31.9 L RDW 19.3 H Plt Count 280 MPV 7.7 Neutrophils % 90.0 H Lymphocytes % 3.2 L D Monocytes % 5.5 Eosinophils % 1.2 Basophils % 0.1 ESR Sodium Potassium Chloride Carbon Dioxide Anion Gap BUN Creatinine Creat Clearance w eGFR POC Glucometer 194 Random Glucose Calcium Magnesium Total Bilirubin Direct Bilirubin AST ALT Alkaline Phosphatase LD Total C-Reactive Protein Total Protein Albumin Blood Type A POSITIVE Antibody Screen Negative Crossmatch See Detail 05/31/17 05/31/17 06/01/17 20:30 21:49 06:24 WBC RBC Hgb Hct MCV MCH MCHC RDW Plt Count MPV Neutrophils % Lymphocytes % Monocytes % Eosinophils % Basophils % ESR Sodium Potassium Chloride Carbon Dioxide Anion Gap BUN Creatinine Creat Clearance w eGFR POC Glucometer 227 117 Random Glucose Calcium Magnesium Total Bilirubin 0.2 Direct Bilirubin < 0.2 AST 18 ALT 18 Alkaline Phosphatase 76 LD Total 133 C-Reactive Protein Total Protein 6.3 L Albumin 1.4 L Blood Type Antibody Screen Crossmatch 06/01/17 06/01/17 06/01/17 07:45 07:45 08:14 WBC 18.3 H RBC 2.68 L Hgb 7.3 L Hct 22.8 L MCV 84.9 MCH 27.3 MCHC 32.1 RDW 19.1 H Plt Count 261 MPV 7.7 Neutrophils % No Result Required. Lymphocytes % No Result Required. Monocytes % Eosinophils % Basophils % ESR > 130 H Sodium 133 L Potassium 3.7 Chloride 106 Carbon Dioxide 17 L Anion Gap 10 BUN 44 H Creatinine 2.4 H Creat Clearance w eGFR 20.02 POC Glucometer Random Glucose 89 Calcium 8.1 L Magnesium 1.5 L Total Bilirubin 0.3 D Direct Bilirubin AST 20 ALT 18 Alkaline Phosphatase 72 LD Total C-Reactive Protein 13.3 H Total Protein 6.3 L Albumin 1.4 L Blood Type Antibody Screen Crossmatch Active Medications Generic Name Dose Route Start Last Admin Trade Name Freq PRN Reason Stop Dose Admin Acetaminophen 650 mg 06/01/17 13:53 Tylenol - PO Q4H PRN PAIN Amlodipine Besylate 10 mg 06/02/17 10:00 Norvasc - PO DAILY [facility] Budesonide/Formoterol Fumarate 1 puff 06/01/17 22:00 Symbicort 80/4.5mcg - IH BID [facility] Bupropion HCl 75 mg 06/02/17 10:00 Wellbutrin - PO DAILY [facility] Collagenase 1 applic 06/02/17 10:00 Santyl - TP DAILY [facility] Fentanyl 25 mcg 06/01/17 13:54 Sublimaze Injection - IVPUSH [id number] PRN PAIN-PACU ORDER X 4 DOSES ONLY Ferrous Gluconate 324 mg 06/01/17 22:00 Fergon - PO BID [facility] Heparin Sodium (Porcine) 5,000 unit 06/01/17 22:00 Heparin - SQ BID [facility] Hydralazine HCl 25 mg 06/01/17 22:00 Apresoline - PO BID [facility] Piperacillin Sod/Tazobactam 100 mls @ 100 mls/hr 06/01/17 18:00 Sod 2.25 gm/ Dextrose IVPB Q8H-IV [facility] Lactated Ringer's 1,000 mls @ 75 mls/hr 06/01/17 14:00 Lactated Ringers Solution IV ASDIR [facility] Insulin Aspart 1 vial 06/01/17 16:30 Novolog Vial Sliding Scale - SQ ACHS [facility] Protocol Insulin Detemir 10 units 06/01/17 22:00 Levemir Vial SQ HS [facility] Isosorbide Mononitrate 120 mg 06/02/17 10:00 Imdur - PO DAILY [facility] Ondansetron HCl 4 mg 06/01/17 13:54 Zofran Injection IVPUSH Q6H PRN NAUSEA AND/OR VOMITING Risperidone 0.25 mg 06/01/17 22:00 Risperdal - PO BID [facility] Tiotropium [place] 1 puff 06/02/17 10:00 Spiriva - IH DAILY [facility] ASSESSMENT/PLAN: 71 year-old female with a PMH significant for HTN, CVA with residual left hemiparesis, COPD, IDDM, CKD, urinary retention with indwelling powers, breast cancer, and chronic Stage IV sacral ulcerr. Parkinson's. Alzheimer's dementia. Admitted for infected sacral Stage IV pressure ulcer. Stage IV sacral pressure ulcer infection --deep sacral ulcer abutting bone, no bony destruction on CT imaging --afebrile --WBC bump to 16.8k --continue zosyn (day #4) renally dosed --daily collagenase dressings --for OR debridement and bone biopsy later today with Dr. Rogers Pulmonary opacities --h/o loculated pleural effusions on CT chest; in August 2016 underwent thoracentesis and lung biopsy (negative) --05/31 CT chest: (1) small to moderate loculated right pleural effusion mildly diminished since 06/2016 study and unchanged from 05/28/2017 study (2) small left pleural effusion, not seen in 06/2016, unchanged from 2017 (3) no obvious interval change in right mid lung opacity since 06/2016; likely chronic atelectasis (4) bilateal flank subq edema, somewhat increased from 06/2016 study --no further workup indicated; patient should get periodic CT followup as outpatient E. coli UTI --has chronic powers, +E.coli >100k --sensitive to zosyn MARTITA on CKD --Cr 3.1 on admission, today 2.6 --baseline ~2.6 --stop IV fluids Chronic urinary retention --maintain powers Hypertension --BP well-controlled --continue amlodipine, hydralazine, isosorbide IDDM --Levemir 10U qhs --Novolog sliding scale coverage Normocytic anemia --Hgb 8.1 on admission = baseline --dropped to 6.8, transfused 1U PRBC on 05/30, Hgb 6.8-->7.6; smear + schistocytes --occult stool, LDH, haptoglobin, retic count, LFTs --continue ferrous gluconate CVA with residual hemiparesis --not on ASA or statin Heart failure --per records from [facility] patient has h/o heart failure, NOS --last echo 05/13/15: LV normal; RV normal; trace to mild MR; mild TR; pHTN; trace PI --bilateral pleural effusions on this admission, get repeat echo --no diuresis for now given MARTITA and respiratory status stable COPD --continue Symbicort FEN Fluids: PO intake adequate Electrolytes: replete as indicated Nutrition: diabetic diet; NPO after midnight DVT prophylaxis: subq heparin Physical therapy Dispo: continues to require inpatient care. To OR tomorrow. Full code. Visit type - Emergency Visit Emergency Visit: Yes ED Registration Date: 05/28/17 Care time: The patient presented to the Emergency Department on the above date and was hospitalized for further evaluation of their emergent condition. - New Patient This patient is new to me today: No - Critical Care Critical Care patient: No
[2017-06-01] MEDS ORDERED: LIDOCAINE HCL 1%, 10 MG/ML (20ML VIAL) ONE (16:06)
[2017-06-01] MEDS: FERROUS GLUCONATE 324 MG TAB (FP) PO SCH ×2 (16:14→18:17)
[2017-06-01] MEDS: COLLAGENASE CLOSTRIDIUM HIST. 30 GRAMS TUBE TP SCH (16:17)
[2017-06-01] MEDS: INSULIN DETEMIR 100 UNITS/ML MDV SQ SCH (22:22)
[2017-06-02] MEDS: PIPERACILLIN/TAZOB 2.25 GM 2.25 GM in DEXTROSE 5%-WATER - 100 ML IVPB SCH ×4 (02:00→17:44)
[2017-06-02] MEDS: INSULIN SLIDING SCALE (NOVOLOG) 1 VIAL SQ SCH ×4 (06:10→21:57)
[2017-06-02] MEDS: FERROUS GLUCONATE 324 MG TAB (FP) PO SCH ×2 (08:34→17:43)
[2017-06-02] MEDS ORDERED: PT OWN MED DRAWER 7, Y5N ONE ×3 (08:38→17:38)
[2017-06-02] MEDS: BUDESONIDE/FORMETEROL FUMARATE 80/4.5 mcg INHALER IH SCH ×4 (08:39→22:00)
[2017-06-02 09:30] LABS: BASO % 0.3 % (0-2.0); EOS % 1.5 % (0-4.5); HEMATOCRIT 27.3 % (32.4-45.2); HEMOGLOBIN 8.8 GM/dL (10.7-15.3); LYMPH % 4.1 % (8-40); MCHC 32.4 g/dl (32.0-36.0); MEAN CELL VOLUME 83.5 fl (80-96); MEAN PLT VOLUME 7.5 fl (7.5-11.1); MONO % 4.4 % (3.8-10.2); NEUT % 89.7 % (42.8-82.8); PLATELET COUNT 244 K/MM3 (134-434); RBC 3.26 M/mm3 (3.60-5.2); RDW 19.2 % (11.6-15.6); WHITE BLOOD COUNT 17.4 K/mm3 (4.0-10.0)
[2017-06-02] MEDS: ISOSORBIDE MONONITRATE 60 MG TAB.SR.24H (FP) PO SCH (09:52)
[2017-06-02] MEDS: risperiDONE 0.25 MG TABLET (FP) PO SCH ×2 (09:53→21:58)
[2017-06-02] MEDS: HEPARIN NA (PORCINE) 5,000 UNITS/ML 1ML VIAL SQ SCH ×2 (09:53→21:57)
[2017-06-02] MEDS: hydrALAZINE HCL 25 MG TABLET (FP) PO SCH ×2 (09:53→21:58)
[2017-06-02] MEDS: amLODIPine BESYLATE 10 MG TABLET (FP) PO SCH (09:53)
[2017-06-02] MEDS: COLLAGENASE CLOSTRIDIUM HIST. 30 GRAMS TUBE TP SCH (09:53)
[2017-06-02] MEDS: buPROPion HCL 75 MG TABLET PO SCH (09:54)
[2017-06-02 10:02] LABS: ALBUMIN 1.4 g/dl (3.4-5.0); ALK PHOS 73 U/L (45-117); ANION GAP 11 (8-16); BILIRUBIN,DIRECT < 0.2 mg/dL (0.0-0.2); BILIRUBIN,TOTAL 0.4 mg/dL (0.2-1.0); BLOOD UREA NITROGEN 44 mg/dL (7-18); CALCIUM 7.6 mg/dL (8.5-10.1); CHLORIDE 110 mmol/L (98-107); CO2 17 mmol/L (21-32); CREATININE 2.4 mg/dL (0.55-1.02); GLUCOSE,RANDOM 75 mg/dL (74-106); MAGNESIUM 1.6 mg/dL (1.8-2.4); POTASSIUM 4.4 mmol/L (3.5-5.1); SGOT/AST 12 U/L (15-37); SGPT/ALT 16 U/L (12-78); SODIUM 138 mmol/L (136-145); TOT PROT 6.4 g/dl (6.4-8.2)
[2017-06-02] MEDS: TIOTROPIUM BROMIDE 18 MCG/INH (DEVICE W/ 5 CAPSULES) IH SCH (13:42)
--- NOTE | 2017-06-02 14:09 | PN ---
Progress Note (short form) - Note Progress Note: POD #1 - s/p sacral debridement under MAC. VSS. Pt. resting comfortably in bed. No apparent anesthetic complications noted. Continue current care.
--- NOTE | 2017-06-02 14:54 | PN ---
Progress Note, Physician Chief Complaint: ID Zosyn - Current Medication List Current Medications: Active Medications Acetaminophen (Tylenol -) 650 mg PO Q4H PRN PRN Reason: PAIN Last Admin: 06/01/17 18:18 Dose: 650 mg Amlodipine Besylate (Norvasc -) 10 mg PO DAILY [facility] Last Admin: 06/02/17 09:53 Dose: 10 mg Budesonide/Formoterol Fumarate (Symbicort 80/4.5mcg -) 1 puff IH RBID [facility] Last Admin: 06/02/17 08:40 Dose: 1 puff Bupropion HCl (Wellbutrin -) 75 mg PO DAILY [facility] Last Admin: 06/02/17 09:54 Dose: 75 mg Collagenase (Santyl -) 1 applic TP DAILY [facility] Last Admin: 06/02/17 09:53 Dose: 1 applic Fentanyl (Sublimaze Injection -) 25 mcg IVPUSH [id number] PRN PRN Reason: PAIN-PACU ORDER X 4 DOSES ONLY Last Admin: 06/01/17 14:10 Dose: 25 mcg Ferrous Gluconate (Fergon -) 324 mg PO BIDWM [facility] Last Admin: 06/02/17 08:34 Dose: 324 mg Heparin Sodium (Porcine) (Heparin -) 5,000 unit SQ BID [facility] Last Admin: 06/02/17 09:53 Dose: 5,000 unit Hydralazine HCl (Apresoline -) 25 mg PO BID [facility] Last Admin: 06/02/17 09:53 Dose: 25 mg Piperacillin Sod/Tazobactam (Sod 2.25 gm/ Dextrose) 100 mls @ 200 mls/hr IVPB Q8H-IV [facility] Last Admin: 06/02/17 09:54 Dose: 200 mls/hr Insulin Aspart (Novolog Vial Sliding Scale -) 1 vial SQ ACHS [facility] PRN Reason: Protocol Last Admin: 06/02/17 13:47 Dose: Not Given Insulin Detemir (Levemir Vial) 10 units SQ HS [facility] Last Admin: 06/01/17 22:22 Dose: 10 units Isosorbide Mononitrate (Imdur -) 120 mg PO DAILY [facility] Last Admin: 06/02/17 09:52 Dose: 120 mg Ondansetron HCl (Zofran Injection) 4 mg IVPUSH Q6H PRN PRN Reason: NAUSEA AND/OR VOMITING Risperidone (Risperdal -) 0.25 mg PO BID [facility] Last Admin: 06/02/17 09:53 Dose: 0.25 mg Tiotropium [place] (Spiriva -) 1 puff IH DAILY [facility] Last Admin: 06/02/17 13:42 Dose: 1 inh - Objective Vital Signs: Vital Signs Temperature 98.4 F 06/02/17 06:36 Pulse Rate 83 06/02/17 06:36 Respiratory Rate 20 06/02/17 09:00 Blood Pressure 150/70 06/02/17 06:36 O2 Sat by Pulse Oximetry (%) 100 06/02/17 09:00 Constitutional: Yes: No Distress HENT: Yes: WNL, Atraumatic Neck: Yes: WNL, Supple Cardiovascular: Yes: Regular Rate and Rhythm, S1, S2. No: Murmur Respiratory: Yes: WNL, Regular, CTA Bilaterally Gastrointestinal: Yes: WNL, Normal Bowel Sounds. No: Tenderness Integumentary: Yes: Other (stage 4 scaral ulcer palpable to bone) Labs: CBC, BMP 06/02/17 09:00 06/02/17 09:00
[2017-06-02] MEDS: VANCOMYCIN 1,000 MG in DEXTROSE 5%-WATER - 250 ML IVPB SCH (15:43)
[2017-06-02] MEDS: INSULIN DETEMIR 100 UNITS/ML MDV SQ SCH (21:56)
--- NOTE | 2017-06-02 23:33 | PN ---
Physical Exam: SUBJECTIVE: Patient seen and examined OBJECTIVE: Vital Signs Period Temp Pulse Resp BP Sys/Benton Pulse Ox Last 24 Hr 98.2 F-100 F 77-109 16-20 146-158/59-70 100 GENERAL: A&Ox3 LUNGS: CTA HEART: Regular rate and rhythm, S1, S2 ABDOMEN: Diffusely tender EXTREMITIES: 2+ pulses, warm, well-perfused, no edema. NEUROLOGICAL: Cranial nerves II through XII grossly intact. Normal speech, gait not observed. : powers, cloudy yellow urine Laboratory Results - last 24 hr 05/29/17 05/31/17 06/02/17 18:50 20:30 06:09 WBC RBC Hgb Hct MCV MCH MCHC RDW Plt Count MPV Neutrophils % Lymphocytes % Monocytes % Eosinophils % Basophils % Haptoglobin 336 H Sodium Potassium Chloride Carbon Dioxide Anion Gap BUN Creatinine POC Glucometer 92 Random Glucose Calcium Magnesium Total Bilirubin Direct Bilirubin AST ALT Alkaline Phosphatase Total Protein Albumin Blood Type A POSITIVE Antibody Screen Negative Crossmatch See Detail 06/02/17 06/02/17 06/02/17 09:00 09:00 13:46 WBC 17.4 H RBC 3.26 L D Hgb 8.8 L D Hct 27.3 L D MCV 83.5 MCH 27.0 MCHC 32.4 RDW 19.2 H Plt Count 244 MPV 7.5 Neutrophils % 89.7 H Lymphocytes % 4.1 L D Monocytes % 4.4 Eosinophils % 1.5 Basophils % 0.3 Haptoglobin Sodium 138 Potassium 4.4 Chloride 110 H Carbon Dioxide 17 L Anion Gap 11 BUN 44 H Creatinine 2.4 H POC Glucometer 149 Random Glucose 75 Calcium 7.6 L Magnesium 1.6 L Total Bilirubin 0.4 D Direct Bilirubin < 0.2 AST 12 L ALT 16 Alkaline Phosphatase 73 Total Protein 6.4 Albumin 1.4 L Blood Type Antibody Screen Crossmatch 06/02/17 06/02/17 17:47 21:55 WBC RBC Hgb Hct MCV MCH MCHC RDW Plt Count MPV Neutrophils % Lymphocytes % Monocytes % Eosinophils % Basophils % Haptoglobin Sodium Potassium Chloride Carbon Dioxide Anion Gap BUN Creatinine POC Glucometer 258 154 Random Glucose Calcium Magnesium Total Bilirubin Direct Bilirubin AST ALT Alkaline Phosphatase Total Protein Albumin Blood Type Antibody Screen Crossmatch Active Medications Generic Name Dose Route Start Last Admin Trade Name Freq PRN Reason Stop Dose Admin Acetaminophen 650 mg 06/01/17 13:53 06/01/17 18:18 Tylenol - PO 650 mg Q4H PRN Administration PAIN Amlodipine Besylate 10 mg 06/02/17 10:00 06/02/17 09:53 Norvasc - PO 10 mg DAILY [facility] Administration Budesonide/Formoterol Fumarate 1 puff 06/01/17 20:00 06/02/17 08:40 Symbicort 80/4.5mcg - IH 1 puff RBID [facility] Administration Bupropion HCl 75 mg 06/02/17 10:00 06/02/17 09:54 Wellbutrin - PO 75 mg DAILY [facility] Administration Collagenase 1 applic 06/02/17 10:00 06/02/17 09:53 Santyl - TP 1 applic DAILY [facility] Administration Fentanyl 25 mcg 06/01/17 13:54 06/01/17 14:10 Sublimaze Injection - IVPUSH 25 mcg [id number] PRN Administration PAIN-PACU ORDER X 4 DOSES ONLY Ferrous Gluconate 324 mg 06/01/17 17:30 06/02/17 17:43 Fergon - PO 324 mg BIDWM [facility] Administration Heparin Sodium (Porcine) 5,000 unit 06/01/17 22:00 06/02/17 21:57 Heparin - SQ 5,000 unit BID [facility] Administration Hydralazine HCl 25 mg 06/01/17 22:00 06/02/17 21:58 Apresoline - PO 25 mg BID [facility] Administration Piperacillin Sod/Tazobactam 100 mls @ 200 mls/hr 06/01/17 18:00 06/02/17 17: 44 Sod 2.25 gm/ Dextrose IVPB 200 mls/hr Q8H-IV [facility] Administration Vancomycin HCl 1,000 mg/ 250 mls @ 166.667 mls/hr 06/02/17 16:00 06/02/17 15: 43 Dextrose IVPB 166.667 mls/hr DAILY@1600 [facility] Administration Protocol Insulin Aspart 1 vial 06/01/17 16:30 06/02/17 21:57 Novolog Vial Sliding Scale - SQ 2 units ACHS [facility] Administration Protocol Insulin Detemir 10 units 06/01/17 22:00 06/02/17 21:56 Levemir Vial SQ 10 units HS [facility] Administration Isosorbide Mononitrate 120 mg 06/02/17 10:00 06/02/17 09:52 Imdur - PO 120 mg DAILY [facility] Administration Ondansetron HCl 4 mg 06/01/17 13:54 Zofran Injection IVPUSH Q6H PRN NAUSEA AND/OR VOMITING Risperidone 0.25 mg 06/01/17 22:00 06/02/17 21:58 Risperdal - PO 0.25 mg BID [facility] Administration Tiotropium [place] 1 puff 06/02/17 10:00 06/02/17 13:42 Spiriva - IH 1 inh DAILY [facility] Administration ASSESSMENT/PLAN: 71 year-old female with a PMH significant for HTN, CVA with residual left hemiparesis, COPD, IDDM, CKD, urinary retention with indwelling powers, breast cancer, and chronic Stage IV sacral ulcerr. Parkinson's. Alzheimer's dementia. Admitted for infected sacral Stage IV pressure ulcer. Stage IV sacral pressure ulcer infection --wound debrided yesterday, cavernous wound, exposed bone; per ID, high suspicion for osteo; bone cultures pending --discussed with Dr. Tom, can get PICC line and start empiric Vanc and Zosyn pending bone cultures --Dr. Rogers to put in orders for wound vac Pulmonary opacities --h/o loculated pleural effusions on CT chest; in August 2016 underwent thoracentesis and lung biopsy (negative) --05/31 CT chest: (1) small to moderate loculated right pleural effusion mildly diminished since 06/2016 study and unchanged from 05/28/2017 study (2) small left pleural effusion, not seen in 06/2016, unchanged from 2017 (3) no obvious interval change in right mid lung opacity since 06/2016; likely chronic atelectasis (4) bilateal flank subq edema, somewhat increased from 06/2016 study --no further workup indicated; patient should get periodic CT followup as outpatient E. coli UTI --has chronic powers, +E.coli >100k --continue antibiotics as above MARTITA on CKD --Cr 3.1 on admission, trending down, 2.4 today which is baseline Chronic urinary retention --maintain powers Hypertension --BP well-controlled --continue amlodipine, hydralazine, isosorbide IDDM --Levemir 10U qhs --Novolog sliding scale coverage Normocytic anemia --Hgb 8.1 on admission = baseline --dropped to 6.8, transfused 1U PRBC on 05/30, Hgb 6.8-->7.6; smear + schistocytes --occult stool, LDH, haptoglobin, retic count, LFTs --continue ferrous gluconate CVA with residual hemiparesis --not on ASA or statin Heart failure --per records from [facility] patient has h/o heart failure, NOS --last echo 05/13/15: LV normal; RV normal; trace to mild MR; mild TR; pHTN; trace PI --repeat echo essentially same --no diuresis for now given MARTITA and respiratory status stable COPD --continue Symbicort FEN Fluids: PO intake adequate Electrolytes: replete as indicated Nutrition: diabetic diet DVT prophylaxis: subq heparin Physical therapy Dispo: discharge planning back to [facility] on [address]. Will need PICC line and wound vac. Full code. Visit type - Emergency Visit Emergency Visit: Yes ED Registration Date: 05/28/17 Care time: The patient presented to the Emergency Department on the above date and was hospitalized for further evaluation of their emergent condition. - New Patient This patient is new to me today: No - Critical Care Critical Care patient: No
[2017-06-03] MEDS: PIPERACILLIN/TAZOB 2.25 GM 2.25 GM in DEXTROSE 5%-WATER - 100 ML IVPB SCH ×3 (01:42→18:44)
[2017-06-03] MEDS: INSULIN SLIDING SCALE (NOVOLOG) 1 VIAL SQ SCH ×4 (06:02→23:29)
[2017-06-03] MEDS ORDERED: PT OWN MED DRAWER 7, Y5N ONE ×5 (07:40→18:31)
[2017-06-03 09:09] LABS: BASO % 0.3 % (0-2.0); EOS % 2.1 % (0-4.5); HEMATOCRIT 26.6 % (32.4-45.2); HEMOGLOBIN 8.3 GM/dL (10.7-15.3); MCH 26.4 pg (25.7-33.7); MCHC 31.2 g/dl (32.0-36.0); MEAN CELL VOLUME 84.7 fl (80-96); NEUT % 87.6 % (42.8-82.8); PLATELET COUNT 219 K/MM3 (134-434); RBC 3.14 M/mm3 (3.60-5.2); RDW 19.1 % (11.6-15.6); WHITE BLOOD COUNT 17.4 K/mm3 (4.0-10.0)
[2017-06-03 09:28] LABS: ALBUMIN 1.4 g/dl (3.4-5.0); ANION GAP 9 (8-16); BLOOD UREA NITROGEN 45 mg/dL (7-18); CALCIUM 7.8 mg/dL (8.5-10.1); CHLORIDE 108 mmol/L (98-107); CO2 18 mmol/L (21-32); CREATININE 2.7 mg/dL (0.55-1.02); GLUCOSE,RANDOM 63 mg/dL (74-106); MAGNESIUM 1.7 mg/dL (1.8-2.4); POTASSIUM 4.5 mmol/L (3.5-5.1); SGOT/AST 12 U/L (15-37); SGPT/ALT 14 U/L (12-78); SODIUM 135 mmol/L (136-145)
[2017-06-03 09:30] LABS: ALK PHOS 67 U/L (45-117); BILIRUBIN,TOTAL 0.5 mg/dL (0.2-1.0); TOT PROT 6.1 g/dl (6.4-8.2)
[2017-06-03] MEDS: amLODIPine BESYLATE 10 MG TABLET (FP) PO SCH (10:06)
[2017-06-03] MEDS: ISOSORBIDE MONONITRATE 60 MG TAB.SR.24H (FP) PO SCH (10:06)
[2017-06-03] MEDS: TIOTROPIUM BROMIDE 18 MCG/INH (DEVICE W/ 5 CAPSULES) IH SCH (10:06)
[2017-06-03] MEDS: hydrALAZINE HCL 25 MG TABLET (FP) PO SCH ×2 (10:06→23:28)
[2017-06-03] MEDS: BUDESONIDE/FORMETEROL FUMARATE 80/4.5 mcg INHALER IH SCH ×3 (10:07→23:28)
[2017-06-03] MEDS: risperiDONE 0.25 MG TABLET (FP) PO SCH ×2 (10:07→23:28)
[2017-06-03] MEDS: FERROUS GLUCONATE 324 MG TAB (FP) PO SCH ×2 (10:07→18:44)
[2017-06-03] MEDS: COLLAGENASE CLOSTRIDIUM HIST. 30 GRAMS TUBE TP SCH (10:08)
[2017-06-03] MEDS: buPROPion HCL 75 MG TABLET PO SCH (10:08)
[2017-06-03] MEDS: HEPARIN NA (PORCINE) 5,000 UNITS/ML 1ML VIAL SQ SCH ×2 (10:09→23:29)
--- NOTE | 2017-06-03 13:50 | PN ---
Progress Note, Physician Chief Complaint: ID As discussed maryanne on vancomycina dn Zosyn with discharge plan to PICC line and dischsrge on [facility] therapy 6 weeks with atempts to off load the sacral area - Current Medication List Current Medications: Active Medications Acetaminophen (Tylenol -) 650 mg PO Q4H PRN PRN Reason: PAIN Last Admin: 06/01/17 18:18 Dose: 650 mg Amlodipine Besylate (Norvasc -) 10 mg PO DAILY [facility] Last Admin: 06/03/17 10:06 Dose: 10 mg Budesonide/Formoterol Fumarate (Symbicort 80/4.5mcg -) 1 puff IH RBID [facility] Last Admin: 06/03/17 10:09 Dose: 1 puff Bupropion HCl (Wellbutrin -) 75 mg PO DAILY [facility] Last Admin: 06/03/17 10:08 Dose: 75 mg Collagenase (Santyl -) 1 applic TP DAILY [facility] Last Admin: 06/03/17 10:08 Dose: 1 applic Fentanyl (Sublimaze Injection -) 25 mcg IVPUSH [id number] PRN PRN Reason: PAIN-PACU ORDER X 4 DOSES ONLY Last Admin: 06/01/17 14:10 Dose: 25 mcg Ferrous Gluconate (Fergon -) 324 mg PO BIDWM [facility] Last Admin: 06/03/17 10:07 Dose: 324 mg Heparin Sodium (Porcine) (Heparin -) 5,000 unit SQ BID [facility] Last Admin: 06/03/17 10:09 Dose: 5,000 unit Hydralazine HCl (Apresoline -) 25 mg PO BID [facility] Last Admin: 06/03/17 10:06 Dose: 25 mg Piperacillin Sod/Tazobactam (Sod 2.25 gm/ Dextrose) 100 mls @ 200 mls/hr IVPB Q8H-IV [facility] Last Admin: 06/03/17 10:10 Dose: 200 mls/hr Vancomycin HCl 1,000 mg/ (Dextrose) 250 mls @ 166.667 mls/hr IVPB DAILY@1600 [facility] PRN Reason: Protocol Last Admin: 06/02/17 15:43 Dose: 166.667 mls/hr Insulin Aspart (Novolog Vial Sliding Scale -) 1 vial SQ ACHS [facility] PRN Reason: Protocol Last Admin: 06/03/17 13:00 Dose: Not Given Insulin Detemir (Levemir Vial) 10 units SQ HS [facility] Last Admin: 06/02/17 21:56 Dose: 10 units Isosorbide Mononitrate (Imdur -) 120 mg PO DAILY [facility] Last Admin: 06/03/17 10:06 Dose: 120 mg Ondansetron HCl (Zofran Injection) 4 mg IVPUSH Q6H PRN PRN Reason: NAUSEA AND/OR VOMITING Risperidone (Risperdal -) 0.25 mg PO BID [facility] Last Admin: 06/03/17 10:07 Dose: 0.25 mg Tiotropium [place] (Spiriva -) 1 puff IH DAILY [facility] Last Admin: 06/03/17 10:06 Dose: 1 inh - Objective Vital Signs: Vital Signs Temperature 98.4 F 06/03/17 06:18 Pulse Rate 89 06/03/17 06:18 Respiratory Rate 20 06/03/17 06:18 Blood Pressure 183/74 06/03/17 06:18 O2 Sat by Pulse Oximetry (%) 100 06/02/17 09:00 Integumentary: Yes: Other (extensive sacral wound debrided palpable bone) Labs: CBC, BMP 06/03/17 08:40 06/03/17 08:40 Assessment/Plan Microbiology 06/01/17 14:30 Bone Tissue Culture - Preliminary Gram Negative Richard Gram Negative Richard#2 Pending Organism Pending Organism#2 Laboratory Tests 06/01/17 06/02/17 06/02/17 07:45 09:00 09:00 WBC 17.4 H RBC 3.26 L D Hgb Hct 27.3 L D Plt Count 244 BUN 44 H Creatinine 2.4 H Creat Clearance w eGFR C-Reactive Protein 13.3 H 06/03/17 06/03/17 08:40 08:40 WBC 17.4 H RBC Hgb 8.3 L Hct 26.6 L Plt Count 219 BUN 45 H Creatinine 2.7 H Creat Clearance w eGFR 17.47 C-Reactive Protein Assessment sacral decubitus ulcer osteomyelitis likely and elevated WBC count is secondary infection Polymicrobial wound as anticipated History of MSRA Plan Sacral bone cultures pending Continue current therapy Check trough vanco tomorrow Kindly recall me but 6 weeks the duration Negro MCWILLIAMS
[2017-06-03] MEDS ORDERED: PICC LINE 8 ML FLUSH PROTOCOL IVPUSH PRN (14:15)
[2017-06-03] MEDS: VANCOMYCIN 1,000 MG in DEXTROSE 5%-WATER - 250 ML IVPB SCH (14:59)
--- NOTE | 2017-06-03 15:29 | PN ---
Physical Exam: SUBJECTIVE: Patient seen and examined OBJECTIVE: Vital Signs Period Temp Pulse Resp BP Sys/Benton Pulse Ox Last 24 Hr 98.4 F-100 F 87-93 18-20 150-183/63-77 100 GENERAL: A&Ox3 LUNGS: CTA HEART: Regular rate and rhythm, S1, S2 ABDOMEN: Diffusely tender EXTREMITIES: 2+ pulses, warm, well-perfused, no edema. NEUROLOGICAL: Cranial nerves II through XII grossly intact. Normal speech, gait not observed. : powers, cloudy yellow urine Laboratory Results - last 24 hr 06/02/17 06/02/17 06/03/17 17:47 21:55 05:59 WBC RBC Hgb Hct MCV MCH MCHC RDW Plt Count MPV Neutrophils % Lymphocytes % Monocytes % Eosinophils % Basophils % Sodium Potassium Chloride Carbon Dioxide Anion Gap BUN Creatinine Creat Clearance w eGFR POC Glucometer 258 154 91 Random Glucose Calcium Phosphorus Magnesium Total Bilirubin AST ALT Alkaline Phosphatase Total Protein Albumin 06/03/17 06/03/17 06/03/17 08:40 08:40 12:59 WBC 17.4 H RBC 3.14 L Hgb 8.3 L Hct 26.6 L MCV 84.7 MCH 26.4 MCHC 31.2 L RDW 19.1 H Plt Count 219 MPV 8.0 Neutrophils % 87.6 H Lymphocytes % 5.0 L D Monocytes % 5.0 Eosinophils % 2.1 Basophils % 0.3 Sodium 135 L Potassium 4.5 Chloride 108 H Carbon Dioxide 18 L Anion Gap 9 BUN 45 H Creatinine 2.7 H Creat Clearance w eGFR 17.47 POC Glucometer 146 Random Glucose 63 L Calcium 7.8 L Phosphorus 4.0 Magnesium 1.7 L Total Bilirubin 0.5 D AST 12 L ALT 14 Alkaline Phosphatase 67 Total Protein 6.1 L Albumin 1.4 L Active Medications Generic Name Dose Route Start Last Admin Trade Name Freq PRN Reason Stop Dose Admin Acetaminophen 650 mg 06/01/17 13:53 06/01/17 18:18 Tylenol - PO 650 mg Q4H PRN Administration PAIN Amlodipine Besylate 10 mg 06/02/17 10:00 06/03/17 10:06 Norvasc - PO 10 mg DAILY [facility] Administration Budesonide/Formoterol Fumarate 1 puff 06/01/17 20:00 06/03/17 10:09 Symbicort 80/4.5mcg - IH 1 puff RBID [facility] Administration Bupropion HCl 75 mg 06/02/17 10:00 06/03/17 10:08 Wellbutrin - PO 75 mg DAILY [facility] Administration Collagenase 1 applic 06/02/17 10:00 06/03/17 10:08 Santyl - TP 1 applic DAILY [facility] Administration Fentanyl 25 mcg 06/01/17 13:54 06/01/17 14:10 Sublimaze Injection - IVPUSH 25 mcg [id number] PRN Administration PAIN-PACU ORDER X 4 DOSES ONLY Ferrous Gluconate 324 mg 06/01/17 17:30 06/03/17 10:07 Fergon - PO 324 mg BIDWM [facility] Administration Heparin Sodium (Porcine) 5,000 unit 06/01/17 22:00 06/03/17 10:09 Heparin - SQ 5,000 unit BID [facility] Administration Hydralazine HCl 25 mg 06/01/17 22:00 06/03/17 10:06 Apresoline - PO 25 mg BID [facility] Administration IV Flush 8 ml 06/03/17 14:15 Picc Line Flush IVPUSH PRN PRN Protocol Piperacillin Sod/Tazobactam 100 mls @ 200 mls/hr 06/01/17 18:00 06/03/17 10: 10 Sod 2.25 gm/ Dextrose IVPB 200 mls/hr Q8H-IV [facility] Administration Vancomycin HCl 1,000 mg/ 250 mls @ 166.667 mls/hr 06/02/17 16:00 06/03/17 14: 59 Dextrose IVPB 166.667 mls/hr DAILY@1600 [facility] Administration Protocol Insulin Aspart 1 vial 06/01/17 16:30 06/03/17 13:00 Novolog Vial Sliding Scale - SQ Not Given ACHS [facility] Protocol Insulin Detemir 10 units 06/01/17 22:00 06/02/17 21:56 Levemir Vial SQ 10 units HS [facility] Administration Isosorbide Mononitrate 120 mg 06/02/17 10:00 06/03/17 10:06 Imdur - PO 120 mg DAILY [facility] Administration Ondansetron HCl 4 mg 06/01/17 13:54 Zofran Injection IVPUSH Q6H PRN NAUSEA AND/OR VOMITING Risperidone 0.25 mg 06/01/17 22:00 06/03/17 10:07 Risperdal - PO 0.25 mg BID [facility] Administration Tiotropium [place] 1 puff 06/02/17 10:00 06/03/17 10:06 Spiriva - IH 1 inh DAILY [facility] Administration ASSESSMENT/PLAN: A: 71 year-old female with a PMH significant for HTN, CVA with residual left hemiparesis, COPD, IDDM, CKD, urinary retention with indwelling powers, breast cancer, and chronic Stage IV sacral ulcerr. Parkinson's. Alzheimer's dementia. Admitted for infected sacral Stage IV pressure ulcer. P: Stage IV sacral pressure ulcer infection - wound debrided 06/02, cavernous wound, exposed bone - high suspicion for osteo - bone cultures pending - discussed with Dr. Tom - Dr. Rogers to put in orders for wound vac - pt for PICC placement on 06/06 Pulmonary opacities - h/o loculated pleural effusions on CT chest - thoracentesis and lung biopsy (negative) 08/23 - no further workup indicated - repeat CT followup as outpatient E. coli UTI - has chronic powers, +E.coli >100k - continue Vanc and Zosyn MARTITA on CKD - Cr 3.1 on admission, 2.7 today - trend Chronic urinary retention - maintain powers Hypertension - BP well-controlled - amlodipine - hydralazine - isosorbide IDDM - FS qACHS - Levemir 10U qhs - Novolog sliding scale coverage Normocytic anemia - Hgb 8.1 on admission-> baseline - dropped to 6.8, transfused 1U PRBC on 05/30, Hgb 6.8-->7.6; smear + schistocytes - occult stool, LDH, haptoglobin, retic count, LFTs - continue ferrous gluconate CVA with residual hemiparesis Heart failure - per records from [facility] patient has h/o heart failure, NOS - last echo 05/13/15: LV normal; RV normal; trace to mild MR; mild TR; pHTN; trace PI - repeat echo essentially same - no diuresis for now given MARTITA COPD - Symbicort FEN - Diabetic diet - replete prn PPX - sqh- hold Tuesday night for PICC - PT Dispo: discharge planning back to [facility] on [address]. Will need PICC line and wound vac. Visit type - Emergency Visit Emergency Visit: Yes ED Registration Date: 05/28/17 Care time: The patient presented to the Emergency Department on the above date and was hospitalized for further evaluation of their emergent condition. - New Patient This patient is new to me today: Yes Date on this admission: 06/03/17 - Critical Care Critical Care patient: No
[2017-06-03] MEDS: INSULIN DETEMIR 100 UNITS/ML MDV SQ SCH (23:29)
[2017-06-04] MEDS: PIPERACILLIN/TAZOB 2.25 GM 2.25 GM in DEXTROSE 5%-WATER - 100 ML IVPB SCH ×3 (01:43→18:36)
[2017-06-04] MEDS: INSULIN SLIDING SCALE (NOVOLOG) 1 VIAL SQ SCH ×4 (07:09→22:05)
[2017-06-04 07:34] LABS: BASO % 0.4 % (0-2.0); EOS % 2.1 % (0-4.5); HEMATOCRIT 24.1 % (32.4-45.2); HEMOGLOBIN 7.7 GM/dL (10.7-15.3); MEAN CELL VOLUME 84.3 fl (80-96); MEAN PLT VOLUME 7.3 fl (7.5-11.1); MONO % 5.1 % (3.8-10.2); NEUT % 87.4 % (42.8-82.8); PLATELET COUNT 193 K/MM3 (134-434); RBC 2.86 M/mm3 (3.60-5.2); RDW 18.5 % (11.6-15.6); WHITE BLOOD COUNT 16.7 K/mm3 (4.0-10.0)
[2017-06-04 07:56] LABS: ALBUMIN 1.3 g/dl (3.4-5.0); ANION GAP 8 (8-16); BLOOD UREA NITROGEN 47 mg/dL (7-18); CALCIUM 8.2 mg/dL (8.5-10.1); CHLORIDE 108 mmol/L (98-107); CO2 20 mmol/L (21-32); GLUCOSE,RANDOM 104 mg/dL (74-106); POTASSIUM 4.5 mmol/L (3.5-5.1); SODIUM 136 mmol/L (136-145)
[2017-06-04 07:59] LABS: ALK PHOS 60 U/L (45-117); BILIRUBIN,TOTAL 0.3 mg/dL (0.2-1.0); CREATININE 2.7 mg/dL (0.55-1.02); SGOT/AST 14 U/L (15-37); SGPT/ALT 14 U/L (12-78)
[2017-06-04 08:38] LABS: MAGNESIUM 1.5 mg/dL (1.8-2.4)
[2017-06-04] MEDS ORDERED: MAGNESIUM SULF 50% (8.12 MEQ/2 ML-1 GM VIAL) IVPB ONE (09:38)
--- NOTE | 2017-06-04 09:48 | PN ---
Physical Exam: SUBJECTIVE: Patient seen and examined. States she feels well, denies pain OBJECTIVE: hydralazine tid for elevated BP mag repleted, 2 grams mag ordered, Vital Signs Period Temp Pulse Resp BP Sys/Benton Pulse Ox Last 24 Hr 98.7 F-98.9 F 86-94 20-20 141-174/62-77 100 GENERAL: awake, alert, in no acute distress LUNGS: anterior lungs clear to auscultation HEART: Regular rate and rhythm, S1, S2 ABDOMEN: mildly distended, no tenderness or pain on palpation EXTREMITIES: 2+ pulses, warm, well-perfused, no edema. NEUROLOGICAL: Normal speech, gait not observed. : powers, cloudy yellow urine SKIN: Chronic stage IV sacral pressure ulcer Laboratory Results - last 24 hr 06/03/17 06/03/17 06/03/17 12:59 18:50 23:21 WBC RBC Hgb Hct MCV MCH MCHC RDW Plt Count MPV Neutrophils % Lymphocytes % Monocytes % Eosinophils % Basophils % Sodium Potassium Chloride Carbon Dioxide Anion Gap BUN Creatinine Creat Clearance w eGFR POC Glucometer 146 215 182 Random Glucose Calcium Magnesium Total Bilirubin AST ALT Alkaline Phosphatase Total Protein Albumin 06/04/17 06/04/17 06/04/17 06:00 06:00 06:00 WBC 16.7 H RBC 2.86 L Hgb 7.7 L Hct 24.1 L MCV 84.3 MCH 27.0 MCHC 32.0 RDW 18.5 H Plt Count 193 MPV 7.3 L Neutrophils % 87.4 H Lymphocytes % 5.0 L Monocytes % 5.1 Eosinophils % 2.1 Basophils % 0.4 Sodium 136 Potassium 4.5 Chloride 108 H Carbon Dioxide 20 L Anion Gap 8 BUN 47 H Creatinine 2.7 H Creat Clearance w eGFR 17.47 POC Glucometer Random Glucose 104 Calcium 8.2 L Magnesium 1.5 L Cancelled Total Bilirubin 0.3 D AST 14 L ALT 14 Alkaline Phosphatase 60 Total Protein 6.0 L Albumin 1.3 L 06/04/17 07:08 WBC RBC Hgb Hct MCV MCH MCHC RDW Plt Count MPV Neutrophils % Lymphocytes % Monocytes % Eosinophils % Basophils % Sodium Potassium Chloride Carbon Dioxide Anion Gap BUN Creatinine Creat Clearance w eGFR POC Glucometer 130 Random Glucose Calcium Magnesium Total Bilirubin AST ALT Alkaline Phosphatase Total Protein Albumin Active Medications Generic Name Dose Route Start Last Admin Trade Name Freq PRN Reason Stop Dose Admin Acetaminophen 650 mg 06/01/17 13:53 06/01/17 18:18 Tylenol - PO 650 mg Q4H PRN Administration PAIN Amlodipine Besylate 10 mg 06/02/17 10:00 06/03/17 10:06 Norvasc - PO 10 mg DAILY [facility] Administration Budesonide/Formoterol Fumarate 1 puff 06/01/17 20:00 06/03/17 23:28 Symbicort 80/4.5mcg - IH 1 puff RBID [facility] Administration Bupropion HCl 75 mg 06/02/17 10:00 06/03/17 10:08 Wellbutrin - PO 75 mg DAILY [facility] Administration Collagenase 1 applic 06/02/17 10:00 06/03/17 10:08 Santyl - TP 1 applic DAILY [facility] Administration Fentanyl 25 mcg 06/01/17 13:54 06/01/17 14:10 Sublimaze Injection - IVPUSH 25 mcg [id number] PRN Administration PAIN-PACU ORDER X 4 DOSES ONLY Ferrous Gluconate 324 mg 06/01/17 17:30 06/03/17 18:44 Fergon - PO 324 mg BIDWM [facility] Administration Heparin Sodium (Porcine) 5,000 unit 06/01/17 22:00 06/03/17 23:29 Heparin - SQ 5,000 unit BID [facility] Administration Hydralazine HCl 25 mg 06/01/17 22:00 06/03/17 23:28 Apresoline - PO 25 mg BID [facility] Administration IV Flush 8 ml 06/03/17 14:15 Picc Line Flush IVPUSH PRN PRN Protocol Piperacillin Sod/Tazobactam 100 mls @ 200 mls/hr 06/01/17 18:00 06/04/17 01: 43 Sod 2.25 gm/ Dextrose IVPB 200 mls/hr Q8H-IV [facility] Administration Vancomycin HCl 1,000 mg/ 250 mls @ 166.667 mls/hr 06/02/17 16:00 06/03/17 14: 59 Dextrose IVPB 166.667 mls/hr DAILY@1600 [facility] Administration Protocol Insulin Aspart 1 vial 06/01/17 16:30 06/04/17 07:09 Novolog Vial Sliding Scale - SQ Not Given ACHS [facility] Protocol Insulin Detemir 10 units 06/01/17 22:00 06/03/17 23:29 Levemir Vial SQ 10 units HS [facility] Administration Isosorbide Mononitrate 120 mg 06/02/17 10:00 06/03/17 10:06 Imdur - PO 120 mg DAILY [facility] Administration Magnesium Sulfate 2 gm 06/04/17 09:38 Magnesium Sulfate IVPB 06/04/17 09:39 ONCE ONE Ondansetron HCl 4 mg 06/01/17 13:54 Zofran Injection IVPUSH Q6H PRN NAUSEA AND/OR VOMITING Risperidone 0.25 mg 06/01/17 22:00 06/03/17 23:28 Risperdal - PO 0.25 mg BID [facility] Administration Tiotropium [place] 1 puff 06/02/17 10:00 06/03/17 10:06 Spiriva - IH 1 inh DAILY [facility] Administration ASSESSMENT/PLAN: Patient is a 71 year old female with a significant past medical history of hypertension, CVA with left sided weakness/hemiparesis, COPD, diabetes, CKD, urinary retention with indwelling powers, breast cancer, and chronic stage IV sacral ulcer, parkinson's disease and alzheimer's dementia. Patient admitted for infected sacral stage IV pressure ulcer. Imaging: Chest CT w/o contrast 05/31/2017: (1) small to moderate loculated right pleural effusion with associated basilar compressive atelectasis. The amt of pleural fluid appears mildly diminished in comparison to a chest CT exam on 07/02/2016 (2 ) A small pleural effusion is noted on the recent abdomen CT study. Findings not present on time of the 2017 CT chest exam. (3) No obvious interval change seen regards to a oblong shape 5 x 2 x 1.3cm sub pleural opacity with the right mid lung fild laterally possibility representing chronic atelectasis and less likely a stable neoplastic lesion. Periodic CT follow up suggested. (4) Bilateral flank subcutaneous edema which may be somewhat increased in comparison to the [address] study. Skin: Stage IV sacral pressure infection Wound debrided on 06/02, biopsy sent per vascular Bone cultures pending for PICC placement for continued IV antibiotics Pulmonary: h/o loculated pleural effusions on CT chest, thoracentesis and lung biopsy ( negative) repeat CT followup as outpatient : E. coli UTI Chronic powers for urinary retension with + ecoli On vanco and zosyn MARTITA on CKD Creat 3.1 on admission, 2.7 today (base bet. 2.2-2.5) Monitor with daily labs Avoid nephrotoxic medications Chronic urinary retention, maintain powers Hypertension, elevated today Hydralazine increased to TID Continue Norvasc, Isosorbide Endocrine: Diabetes Monitor BGMs Levemir and Novolog Hematology: Normocytic anemia s/p 1 unit of prbc On Ferrous Gluconate Neuro: CVA with residual hemiparesis, chronic Physical therapy F.E.N. Fluids: monitor intake Electrolytes: monitor Nutrition: low sodium Dispo: discharge plan to PICC line and discharge on long-term therapy 6 weeks. Wound vac to be placed. Will need 6 week follow up with ID once antibiotic therapy complete.
[2017-06-04] MEDS ORDERED: MAGNESIUM SULFATE IN WATER 2 GM/50 ML IVPB IVPB ONE (10:00)
[2017-06-04] MEDS: HEPARIN NA (PORCINE) 5,000 UNITS/ML 1ML VIAL SQ SCH ×2 (11:31→22:07)
[2017-06-04] MEDS: buPROPion HCL 75 MG TABLET PO SCH (11:32)
[2017-06-04] MEDS: FERROUS GLUCONATE 324 MG TAB (FP) PO SCH ×2 (11:32→18:36)
[2017-06-04] MEDS: amLODIPine BESYLATE 10 MG TABLET (FP) PO SCH (11:32)
[2017-06-04] MEDS: ISOSORBIDE MONONITRATE 60 MG TAB.SR.24H (FP) PO SCH (11:32)
[2017-06-04] MEDS: risperiDONE 0.25 MG TABLET (FP) PO SCH ×2 (11:32→22:06)
[2017-06-04] MEDS: TIOTROPIUM BROMIDE 18 MCG/INH (DEVICE W/ 5 CAPSULES) IH SCH (11:34)
[2017-06-04] MEDS: BUDESONIDE/FORMETEROL FUMARATE 80/4.5 mcg INHALER IH SCH ×2 (11:34→22:06)
[2017-06-04] MEDS: COLLAGENASE CLOSTRIDIUM HIST. 30 GRAMS TUBE TP SCH (11:35)
[2017-06-04] MEDS: hydrALAZINE HCL 25 MG TABLET (FP) PO SCH ×2 (15:12→22:06)
[2017-06-04] MEDS ORDERED: PT OWN MED DRAWER 7, Y5N ONE (16:56)
[2017-06-04] MEDS: VANCOMYCIN 1,000 MG in DEXTROSE 5%-WATER - 250 ML IVPB SCH (18:35)
[2017-06-04] MEDS ORDERED: INSULIN (NOVOLOG) ASPART 100 UNITS/ML 10ML VIAL ONE (21:43)
[2017-06-04] MEDS: INSULIN DETEMIR 100 UNITS/ML MDV SQ SCH (22:05)
[2017-06-05] MEDS: PIPERACILLIN/TAZOB 2.25 GM 2.25 GM in DEXTROSE 5%-WATER - 100 ML IVPB SCH ×3 (02:17→17:47)
[2017-06-05] MEDS: INSULIN SLIDING SCALE (NOVOLOG) 1 VIAL SQ SCH ×4 (06:28→21:47)
[2017-06-05] MEDS: hydrALAZINE HCL 25 MG TABLET (FP) PO SCH ×4 (06:30→21:45)
[2017-06-05] MEDS ORDERED: INSULIN (NOVOLOG) ASPART 100 UNITS/ML 10ML VIAL ONE ×2 (07:14→20:36)
[2017-06-05 07:37] LABS: HEMATOCRIT 24.7 % (32.4-45.2); HEMOGLOBIN 7.9 GM/dL (10.7-15.3); MCH 27.2 pg (25.7-33.7); MCHC 31.8 g/dl (32.0-36.0); MEAN CELL VOLUME 85.5 fl (80-96); MEAN PLT VOLUME 7.4 fl (7.5-11.1); PLATELET COUNT 189 K/MM3 (134-434); RBC 2.89 M/mm3 (3.60-5.2); RDW 18.5 % (11.6-15.6); WHITE BLOOD COUNT 16.4 K/mm3 (4.0-10.0)
[2017-06-05 08:01] LABS: CHLORIDE 106 mmol/L (98-107); POTASSIUM 4.5 mmol/L (3.5-5.1); SODIUM 136 mmol/L (136-145)
[2017-06-05 08:08] LABS: ALBUMIN 1.4 g/dl (3.4-5.0); ALK PHOS 58 U/L (45-117); ANION GAP 11 (8-16); BILIRUBIN,TOTAL 0.3 mg/dL (0.2-1.0); BLOOD UREA NITROGEN 46 mg/dL (7-18); CALCIUM 8.4 mg/dL (8.5-10.1); CO2 19 mmol/L (21-32); CREATININE 2.4 mg/dL (0.55-1.02); GLUCOSE,RANDOM 87 mg/dL (74-106); MAGNESIUM 1.9 mg/dL (1.8-2.4); SGOT/AST 18 U/L (15-37); SGPT/ALT 17 U/L (12-78); TOT PROT 6.2 g/dl (6.4-8.2)
[2017-06-05] MEDS: FERROUS GLUCONATE 324 MG TAB (FP) PO SCH ×2 (09:06→17:33)
[2017-06-05] MEDS: BUDESONIDE/FORMETEROL FUMARATE 80/4.5 mcg INHALER IH SCH ×2 (09:09→21:53)
[2017-06-05 09:46] LABS: ANISOCYTOSIS 1+; PLATELET ESTIMATE NORMAL
[2017-06-05] MEDS: risperiDONE 0.25 MG TABLET (FP) PO SCH ×2 (10:06→21:47)
[2017-06-05] MEDS: amLODIPine BESYLATE 10 MG TABLET (FP) PO SCH (10:06)
[2017-06-05] MEDS: ISOSORBIDE MONONITRATE 60 MG TAB.SR.24H (FP) PO SCH (10:07)
[2017-06-05] MEDS: HEPARIN NA (PORCINE) 5,000 UNITS/ML 1ML VIAL SQ SCH (10:07)
[2017-06-05] MEDS: buPROPion HCL 75 MG TABLET PO SCH (10:07)
[2017-06-05] MEDS: COLLAGENASE CLOSTRIDIUM HIST. 30 GRAMS TUBE TP SCH (10:08)
[2017-06-05] MEDS: TIOTROPIUM BROMIDE 18 MCG/INH (DEVICE W/ 5 CAPSULES) IH SCH (10:08)
[2017-06-05] MEDS ORDERED: PT OWN MED DRAWER 7, Y5N ONE (14:55)
--- NOTE | 2017-06-05 14:59 | PN ---
Physical Exam: SUBJECTIVE: Patient seen and examined OBJECTIVE: BP remains elevated, hydralazine 25mg TID titrated up to Hydralazine 50mg TID Tylenol 650mg q6 scheduled for sacral pain/discomfort Vital Signs Period Temp Pulse Resp BP Sys/Benton Pulse Ox Last 24 Hr 97.8 F-98.9 F 88-98 16-20 145-191/65-82 95 GENERAL: awake, alert, in no acute distress, periods of confusion LUNGS: anterior lungs clear to auscultation HEART: Regular rate and rhythm, S1, S2 ABDOMEN: mildly distended, no tenderness or pain on palpation EXTREMITIES: 2+ pulses, warm, well-perfused, no edema. NEUROLOGICAL: Normal speech, gait not observed. : powers, cloudy yellow urine SKIN: Chronic stage IV sacral pressure ulcer, awaiting wound vac placement Laboratory Results - last 24 hr 06/04/17 06/05/17 06/05/17 21:57 06:00 06:00 WBC 16.4 H RBC 2.89 L Hgb 7.9 L Hct 24.7 L MCV 85.5 MCH 27.2 MCHC 31.8 L RDW 18.5 H Plt Count 189 MPV 7.4 L Neutrophils % No Result Required. Neutrophils % (Manual) 82.0 Band Neutrophils % 1.0 Lymphocytes % No Result Required. Lymphocytes % (Manual) 7.0 L D Monocytes % (Manual) 6 D Eosinophils % (Manual) 3.0 D Basophils % (Manual) 1.0 D Myelocytes % (Man) 0 D Promyelocytes % (Man) 0 Metamyelocytes 0 Hypochromia 1+ Platelet Estimate Normal Anisocytosis 1+ Microcytosis 1+ Fragmented RBCs 1+ Sodium 136 Potassium 4.5 Chloride 106 Carbon Dioxide 19 L Anion Gap 11 BUN 46 H Creatinine 2.4 H Creat Clearance w eGFR 20.02 POC Glucometer 267 Random Glucose 87 Calcium 8.4 L Magnesium 1.9 Total Bilirubin 0.3 AST 18 ALT 17 Alkaline Phosphatase 58 Total Protein 6.2 L Albumin 1.4 L 06/05/17 06/05/17 06:26 12:35 WBC RBC Hgb Hct MCV MCH MCHC RDW Plt Count MPV Neutrophils % Neutrophils % (Manual) Band Neutrophils % Lymphocytes % Lymphocytes % (Manual) Monocytes % (Manual) Eosinophils % (Manual) Basophils % (Manual) Myelocytes % (Man) Promyelocytes % (Man) Metamyelocytes Hypochromia Platelet Estimate Anisocytosis Microcytosis Fragmented RBCs Sodium Potassium Chloride Carbon Dioxide Anion Gap BUN Creatinine Creat Clearance w eGFR POC Glucometer 105 148 Random Glucose Calcium Magnesium Total Bilirubin AST ALT Alkaline Phosphatase Total Protein Albumin Active Medications Generic Name Dose Route Start Last Admin Trade Name Freq PRN Reason Stop Dose Admin Amlodipine Besylate 10 mg 06/02/17 10:00 06/05/17 10:06 Norvasc - PO 10 mg DAILY [facility] Administration Budesonide/Formoterol Fumarate 1 puff 06/01/17 20:00 06/05/17 09:09 Symbicort 80/4.5mcg - IH 1 puff RBID [facility] Administration Bupropion HCl 75 mg 06/02/17 10:00 06/05/17 10:07 Wellbutrin - PO 75 mg DAILY [facility] Administration Collagenase 1 applic 06/02/17 10:00 06/05/17 10:08 Santyl - TP 1 applic DAILY [facility] Administration Fentanyl 25 mcg 06/01/17 13:54 06/01/17 14:10 Sublimaze Injection - IVPUSH 25 mcg [id number] PRN Administration PAIN-PACU ORDER X 4 DOSES ONLY Ferrous Gluconate 324 mg 06/01/17 17:30 06/05/17 09:06 Fergon - PO 324 mg BIDWM [facility] Administration Heparin Sodium (Porcine) 5,000 unit 06/01/17 22:00 06/05/17 10:07 Heparin - SQ 5,000 unit BID [facility] Administration Hydralazine HCl 25 mg 06/05/17 18:00 Apresoline - PO QID [facility] IV Flush 8 ml 06/03/17 14:15 Picc Line Flush IVPUSH PRN PRN Protocol Piperacillin Sod/Tazobactam 100 mls @ 200 mls/hr 06/01/17 18:00 06/05/17 10: 06 Sod 2.25 gm/ Dextrose IVPB 200 mls/hr Q8H-IV [facility] Administration Vancomycin HCl 1,000 mg/ 250 mls @ 166.667 mls/hr 06/02/17 16:00 06/04/17 18: 35 Dextrose IVPB 166.667 mls/hr DAILY@1600 [facility] Administration Protocol Insulin Aspart 1 vial 06/01/17 16:30 06/05/17 13:29 Novolog Vial Sliding Scale - SQ Not Given ACHS [facility] Protocol Insulin Detemir 10 units 06/01/17 22:00 06/04/17 22:05 Levemir Vial SQ 10 units HS [facility] Administration Isosorbide Mononitrate 120 mg 06/02/17 10:00 06/05/17 10:07 Imdur - PO 120 mg DAILY [facility] Administration Ondansetron HCl 4 mg 06/01/17 13:54 Zofran Injection IVPUSH Q6H PRN NAUSEA AND/OR VOMITING Risperidone 0.25 mg 06/01/17 22:00 06/05/17 10:06 Risperdal - PO 0.25 mg BID [facility] Administration Tiotropium [place] 1 puff 06/02/17 10:00 06/05/17 10:08 Spiriva - IH 1 inh DAILY [facility] Administration ASSESSMENT/PLAN: Patient is a 71 year old female with a significant past medical history of hypertension, CVA with left sided weakness/hemiparesis, COPD, diabetes, CKD, urinary retention with indwelling powers, breast cancer, and chronic stage IV sacral ulcer, parkinson's disease and alzheimer's dementia. Patient admitted from [facility] for infected sacral stage IV pressure ulcer. Imaging: Chest CT w/o contrast 05/31/2017: (1) small to moderate loculated right pleural effusion with associated basilar compressive atelectasis. The amt of pleural fluid appears mildly diminished in comparison to a chest CT exam on 07/02/2016 (2 ) A small pleural effusion is noted on the recent abdomen CT study. Findings not present on time of the 2017 CT chest exam. (3) No obvious interval change seen regards to a oblong shape 5 x 2 x 1.3cm sub pleural opacity with the right mid lung fild laterally possibility representing chronic atelectasis and less likely a stable neoplastic lesion. Periodic CT follow up suggested. (4) Bilateral flank subcutaneous edema which may be somewhat increased in comparison to the [address] study. Skin: Stage IV sacral pressure infection Wound debrided on 06/02, biopsy sent per vascular Bone cultures pending WBC trending down, afebrile for PICC placement for continued IV antibiotics at nursing facility wet to dry dressing changes daily, wound vac therapy prior to discharge to assist in wound healing Pulmonary: h/o loculated pleural effusions on CT chest repeat CT followup as outpatient as noted above : E. coli UTI Chronic powers for urinary retension with + ecoli On vanco and zosyn MARTITA on CKD Creat 3.1 on admission, 2.4 today (base bet. 2.2-2.5) Monitor with daily labs Avoid nephrotoxic medications Chronic urinary retention, maintain powers Hypertension, elevated again today Hydralazine 25mg TID increased to hydralazine 50mg TID Continue Norvasc 10mg daily, Isosorbide 120mg daily Endocrine: Diabetes Monitor BGMs Levemir and Novolog Hematology: Normocytic anemia s/p 2 unit of prbc on admission, hmg/hct 7.9/24.7 On Ferrous Gluconate 324mg BID Monitor CBC, transfuse if hmg continues <7 Neuro: CVA with left residual hemiparesis, chronic Physical therapy, OOB to F.E.N. Fluids: monitor intake Electrolytes: monitor Nutrition: low sodium Dispo: discharge plan to PICC line and discharge on half-way therapy 6 weeks. Wound vac to be placed. Will need 6 week follow up with ID once antibiotic therapy complete. Visit type - Emergency Visit Emergency Visit: Yes ED Registration Date: 05/28/17 Care time: The patient presented to the Emergency Department on the above date and was hospitalized for further evaluation of their emergent condition. - New Patient This patient is new to me today: No - Critical Care Critical Care patient: No - Discharge Referral Referred to [facility] Med [facility].C.: No
[2017-06-05] MEDS ORDERED: hydrALAZINE HCL 25 MG TABLET (FP) PO ONE (15:03)
[2017-06-05] MEDS: ACETAMINOPHEN 325 MG TABLET (FP) PO SCH ×2 (15:21→21:43)
[2017-06-05] MEDS: VANCOMYCIN 1,000 MG in DEXTROSE 5%-WATER - 250 ML IVPB SCH (15:21)
[2017-06-05] MEDS ORDERED: hydrALAZINE HCL 25 MG TABLET (FP) PO SCH (18:00)
[2017-06-05] MEDS: INSULIN DETEMIR 100 UNITS/ML MDV SQ SCH (21:45)
[2017-06-06] MEDS: PIPERACILLIN/TAZOB 2.25 GM 2.25 GM in DEXTROSE 5%-WATER - 100 ML IVPB SCH ×3 (01:53→17:46)
[2017-06-06] MEDS: ACETAMINOPHEN 325 MG TABLET (FP) PO SCH ×4 (03:00→22:19)
[2017-06-06] MEDS: hydrALAZINE HCL 25 MG TABLET (FP) PO SCH ×2 (06:32→14:13)
[2017-06-06] MEDS: INSULIN SLIDING SCALE (NOVOLOG) 1 VIAL SQ SCH ×4 (06:33→22:18)
[2017-06-06] MEDS ORDERED: INSULIN (NOVOLOG) ASPART 100 UNITS/ML 10ML VIAL ONE (06:37)
[2017-06-06 07:51] LABS: BASO % 0.5 % (0-2.0); EOS % 3.2 % (0-4.5); HEMATOCRIT 24.3 % (32.4-45.2); HEMOGLOBIN 7.7 GM/dL (10.7-15.3); LYMPH % 5.2 % (8-40); MCH 27.2 pg (25.7-33.7); MCHC 31.8 g/dl (32.0-36.0); MEAN CELL VOLUME 85.5 fl (80-96); MONO % 5.2 % (3.8-10.2); NEUT % 85.9 % (42.8-82.8); PLATELET COUNT 200 K/MM3 (134-434); RBC 2.84 M/mm3 (3.60-5.2); RDW 18.3 % (11.6-15.6); WHITE BLOOD COUNT 14.8 K/mm3 (4.0-10.0)
--- NOTE | 2017-06-06 08:05 | PN ---
Progress Note (short form) - Note Progress Note: POD #5 Alert. no complaints. AVSS. Afebrile. 06/01/17 14:30 Bone Tissue Culture - Final Pseudomonas Aeruginosa Morganella Morganii Escherichia Coli Diphtheroid/Corynebacterium NO ANAEROBES WERE ISOLATED Problem List - Problems (1) Sacral ulcer Assessment/Plan: POD #5 s/p excisional debridement sacrum, - skin,subcutaneous tissue, with bone biopsy Patient will need superintendent terminal IV ABX per ID VAC papers faxed to [facility] --> will initiate therapy prior to dc Cont dressing changes until VAC place Cont medical management Code(s): L98.429 - NON-PRESSURE CHRONIC ULCER OF BACK WITH UNSPECIFIED SEVERITY
[2017-06-06 08:07] LABS: ALBUMIN 1.3 g/dl (3.4-5.0); ANION GAP 10 (8-16); BLOOD UREA NITROGEN 47 mg/dL (7-18); CALCIUM 7.8 mg/dL (8.5-10.1); CHLORIDE 108 mmol/L (98-107); CO2 19 mmol/L (21-32); GLUCOSE,RANDOM 94 mg/dL (74-106); MAGNESIUM 2.1 mg/dL (1.8-2.4); POTASSIUM 4.6 mmol/L (3.5-5.1); SGOT/AST 17 U/L (15-37); SGPT/ALT 17 U/L (12-78); SODIUM 137 mmol/L (136-145)
[2017-06-06 08:09] LABS: ALK PHOS 57 U/L (45-117); BILIRUBIN,TOTAL 0.4 mg/dL (0.2-1.0); CREATININE 2.5 mg/dL (0.55-1.02); TOT PROT 5.9 g/dl (6.4-8.2)
[2017-06-06] MEDS ORDERED: PORTA CATH FLUSH 10 ML IVPUSH PRN (08:40)
[2017-06-06] MEDS ORDERED: PT OWN MED DRAWER 7, Y5N ONE (08:58)
[2017-06-06] MEDS: risperiDONE 0.25 MG TABLET (FP) PO SCH ×3 (09:21→22:18)
[2017-06-06] MEDS: amLODIPine BESYLATE 10 MG TABLET (FP) PO SCH ×2 (09:21→12:44)
[2017-06-06] MEDS: FERROUS GLUCONATE 324 MG TAB (FP) PO SCH ×2 (09:21→12:44)
[2017-06-06] MEDS: ISOSORBIDE MONONITRATE 60 MG TAB.SR.24H (FP) PO SCH (09:22)
[2017-06-06] MEDS: COLLAGENASE CLOSTRIDIUM HIST. 30 GRAMS TUBE TP SCH ×2 (09:23→16:00)
[2017-06-06] MEDS: TIOTROPIUM BROMIDE 18 MCG/INH (DEVICE W/ 5 CAPSULES) IH SCH (09:24)
[2017-06-06] MEDS: BUDESONIDE/FORMETEROL FUMARATE 80/4.5 mcg INHALER IH SCH ×3 (09:25→22:27)
[2017-06-06] MEDS: buPROPion HCL 75 MG TABLET PO SCH (09:26)
--- NOTE | 2017-06-06 11:02 | PN ---
Physical Exam: SUBJECTIVE: Patient seen and examined at the bedside. Rapid response today at 10:30a. after patient's found unresponsive by primary RN OBJECTIVE: 929: seen by her primary nurse Pat who states patient was awake and alert, no facial droop noted, at baseline 10:30: rapid response after patient found to be unresponsive by primary RN 10:35 code engel after patient noted to be unresponsive with right facial droop, bp 198/80, 89% room air, 24 breaths per minute heart rate 90s, 10:40: Assisted patient to Head CT scan, mental status on transportation at baseline, pt yelled at underwriter to stop asking her so many questions, pt with right facial droop. Speech clear. 10:55: Spoke with Dr. Brown, events reviewed, Neuro to see patient, will review head CT 11:00: patient following commands, verbal, lethargic, right facial droop persists Spoke with neurologist regarding possible TPA. As per neurologist, pt is not a candidate for TPA due to her various co-morbidities, chronic stage IV wounds. Dr Brown is patient's private neurologist and will see patient this afternoon. Head CT reviewed by neuro. Plan: Keep NPO Swallow eval PT evaluation ASA 300 rectal x 1 now Metopoplol 4mg iv now once IV access secured Monitor neuro status Transfer to , cardiology saw patient lipid panel, repeat labs, culture, lactic acid, trops, ekg, hmga1c, blood and urine cultures Period Temp Pulse Resp BP Sys/Benton Pulse Ox Last 24 Hr 98.1 F-98.7 F 83-92 18-20 160-182/65-72 96 GENERAL: lethargic, unresponsive this morning during , now awake alert , confused LUNGS: anterior lungs clear to auscultation HEART: Regular rate and rhythm ABDOMEN: mildly distended, no tenderness or pain on palpation EXTREMITIES: 2+ pulses, warm, well-perfused, no edema. NEUROLOGICAL: normal speech, right facial droop, left sided weakness chronic SKIN: Chronic stage IV sacral pressure ulcer, awaiting wound vac placement Laboratory Results - last 24 hr 06/05/17 06/05/17 06/05/17 12:35 17:39 21:40 WBC RBC Hgb Hct MCV MCH MCHC RDW Plt Count MPV Neutrophils % Lymphocytes % Monocytes % Eosinophils % Basophils % Sodium Potassium Chloride Carbon Dioxide Anion Gap BUN Creatinine Creat Clearance w eGFR POC Glucometer 148 267 235 Random Glucose Calcium Magnesium Total Bilirubin AST ALT Alkaline Phosphatase Total Protein Albumin 06/06/17 06/06/17 06/06/17 06:30 06:30 06:30 WBC 14.8 H RBC 2.84 L Hgb 7.7 L Hct 24.3 L MCV 85.5 MCH 27.2 MCHC 31.8 L RDW 18.3 H Plt Count 200 MPV 8.0 Neutrophils % 85.9 H Lymphocytes % 5.2 L Monocytes % 5.2 Eosinophils % 3.2 Basophils % 0.5 Sodium 137 Potassium 4.6 Chloride 108 H Carbon Dioxide 19 L Anion Gap 10 BUN 47 H Creatinine 2.5 H Creat Clearance w eGFR 19.10 POC Glucometer 121 Random Glucose 94 Calcium 7.8 L Magnesium 2.1 Total Bilirubin 0.4 D AST 17 ALT 17 Alkaline Phosphatase 57 Total Protein 5.9 L Albumin 1.3 L Active Medications Generic Name Dose Route Start Last Admin Trade Name Freq PRN Reason Stop Dose Admin Acetaminophen 650 mg 06/05/17 15:00 06/06/17 03:00 Tylenol - PO Not Given Q6H [facility] Amlodipine Besylate 10 mg 06/02/17 10:00 06/06/17 09:21 Norvasc - PO 10 mg DAILY [facility] Administration Budesonide/Formoterol Fumarate 1 puff 06/01/17 20:00 06/06/17 09:25 Symbicort 80/4.5mcg - IH 1 puff RBID [facility] Administration Bupropion HCl 75 mg 06/02/17 10:00 06/06/17 09:26 Wellbutrin - PO 75 mg DAILY [facility] Administration Collagenase 1 applic 06/02/17 10:00 06/06/17 09:23 Santyl - TP 1 applic DAILY [facility] Administration Fentanyl 25 mcg 06/01/17 13:54 06/01/17 14:10 Sublimaze Injection - IVPUSH 25 mcg [id number] PRN Administration PAIN-PACU ORDER X 4 DOSES ONLY Ferrous Gluconate 324 mg 06/01/17 17:30 06/06/17 09:21 Fergon - PO 324 mg BIDWM [facility] Administration Heparin Sodium (Porcine) 5,000 unit 06/01/17 22:00 06/05/17 10:07 Heparin - SQ 5,000 unit BID [facility] Administration Hydralazine HCl 50 mg 06/05/17 18:00 06/06/17 06:32 Apresoline - PO 50 mg TID [facility] Administration IV Flush 8 ml 06/03/17 14:15 Picc Line Flush IVPUSH PRN PRN Protocol IV Flush 10 ml 06/06/17 08:40 Manny-Cath Flush IVPUSH PRN PRN Protocol Piperacillin Sod/Tazobactam 100 mls @ 200 mls/hr 06/01/17 18:00 06/06/17 09: 21 Sod 2.25 gm/ Dextrose IVPB 200 mls/hr Q8H-IV [facility] Administration Vancomycin HCl 1,000 mg/ 250 mls @ 166.667 mls/hr 06/02/17 16:00 06/05/17 15: 21 Dextrose IVPB 166.667 mls/hr DAILY@1600 [facility] Administration Protocol Insulin Aspart 1 vial 06/01/17 16:30 06/06/17 06:33 Novolog Vial Sliding Scale - SQ Not Given ACHS [facility] Protocol Insulin Detemir 10 units 06/01/17 22:00 06/05/17 21:45 Levemir Vial SQ 10 units HS [facility] Administration Isosorbide Mononitrate 120 mg 06/02/17 10:00 06/06/17 09:22 Imdur - PO 120 mg DAILY [facility] Administration Metoprolol Succinate 100 mg 06/06/17 10:00 06/06/17 09:21 Toprol Xl - PO 100 mg DAILY [facility] Administration Ondansetron HCl 4 mg 06/01/17 13:54 Zofran Injection IVPUSH Q6H PRN NAUSEA AND/OR VOMITING Risperidone 0.25 mg 06/01/17 22:00 06/06/17 09:21 Risperdal - PO 0.25 mg BID [facility] Administration Tiotropium [place] 1 puff 06/02/17 10:00 06/06/17 09:24 Spiriva - IH 1 inh DAILY [facility] Administration ASSESSMENT/PLAN: Patient is a 71 year old female with a significant past medical history of hypertension, CVA with left sided weakness/hemiparesis, COPD, diabetes, CKD, urinary retention with indwelling powers, breast cancer, and chronic stage IV sacral ulcer, parkinson's disease and alzheimer's dementia. Patient admitted from [facility] for infected sacral stage IV pressure ulcer. Plan was for patient to get a tunneled catheter today for continous IV antibiotic therapy for her infected stage 4 pressure wound. Prior to transportation to IR, patient became unresponsive. Rapid response called, then code engel when patient was noted to have right facial droop and unable to respond to verbal or tactile stimuli. Imaging: Chest CT w/o contrast 05/31/2017: (1) small to moderate loculated right pleural effusion with associated basilar compressive atelectasis. The amt of pleural fluid appears mildly diminished in comparison to a chest CT exam on 07/02/2016 (2 ) A small pleural effusion is noted on the recent abdomen CT study. Findings not present on time of the 2017 CT chest exam. (3) No obvious interval change seen regards to a oblong shape 5 x 2 x 1.3cm sub pleural opacity with the right mid lung fild laterally possibility representing chronic atelectasis and less likely a stable neoplastic lesion. Periodic CT follow up suggested. (4) Bilateral flank subcutaneous edema which may be somewhat increased in comparison to the [address] study[address] 06/06/2017: moderate atrophy and ventricular dilatation w/o evidence of acute intracranial pathology. Posterior fusion of the included upper cervical spine starting from C3 level for which no recent prior CT scan report xrays of the cervical spine are available for comparison. Brain MRI w/o contrast 06/06/2017: pending Neurology Rule out stroke vs. TIA Unresponsive today, right facial droop, woke up during transportation to Head CT , speech clear, pt is bedbound and has chronic left sided hemiparesis Discussed with neuro, pt not candidate for tpa secondary to co-morbidities, bleeding risk ASA 300mg MS daily, started on Lipitor 10mg @ hs Swallow eval pending until cleared by speech/swallow, PT eval, Head CT as above , Monitor vitals, monitor labs, sepsis workup initiated: Lactic acid wnl, tsh, lipid panel, cardotid doppler, brain mri, trops, chest xray, monitor on tele, cardiology and neuro consulted Discussed with neurology/cardiology Brain MRI w/o contrast ordered Monitor mental status Skin: Stage IV sacral pressure infection Wound debrided on 06/02, biopsy sent per vascular Bone cultures pending Tunneled cath cancelled 06/10 to pt acute state Pulmonary: h/o loculated pleural effusions on CT chest, thoracentesis and lung biopsy ( negative) repeat CT followup as outpatient : E. coli UTI Chronic powers for urinary retension with + ecoli On vanco and zosyn Renal: MARTITA on CKD Creat 3.1 on admission, 2.5 today (base bet. 2.2-2.5) Monitor with daily labs Avoid nephrotoxic medications Chronic urinary retention, maintain powers Cardiology: Hypertension, elevated this morning prior to code engel and remained elevated Hydralazine increased yesterday to Hydralazine 50mg TID, added Toprol xl 100mg x 1 but converted med to IV since pt NPO Cardiology following Endocrine: Diabetes Monitor BGMs Levemir and Novolog Hematology: Normocytic anemia s/p 1 unit of prbc On Ferrous Gluconate BID Monitor CBC Neuro: CVA with residual hemiparesis, chronic Physical therapy F.E.N. Fluids: NPO Electrolytes: monitor Nutrition: NPO, trenton carrillo ordered Dispo: full code. Patient's son informed of morning events. Hold all PO meds until cleared speech and swallow. Visit type - Emergency Visit Emergency Visit: Yes ED Registration Date: 05/28/17 Care time: The patient presented to the Emergency Department on the above date and was hospitalized for further evaluation of their emergent condition. - New Patient This patient is new to me today: No - Critical Care Critical Care patient: No - Discharge Referral Referred to [facility] Med P.C.: No
[2017-06-06 11:13] LABS: BASO % 0.6 % (0-2.0); EOS % 2.7 % (0-4.5); HEMATOCRIT 26.5 % (32.4-45.2); HEMOGLOBIN 8.4 GM/dL (10.7-15.3); LYMPH % 4.4 % (8-40); MCH 26.9 pg (25.7-33.7); MCHC 31.5 g/dl (32.0-36.0); MEAN CELL VOLUME 85.2 fl (80-96); MEAN PLT VOLUME 7.7 fl (7.5-11.1); NEUT % 88.3 % (42.8-82.8); PLATELET COUNT 213 K/MM3 (134-434); RBC 3.11 M/mm3 (3.60-5.2); RDW 18.3 % (11.6-15.6); WHITE BLOOD COUNT 16.8 K/mm3 (4.0-10.0)
[2017-06-06] MEDS ORDERED: ASPIRIN COATED 81 MG TABLET.EC PO SCH (11:15)
[2017-06-06 11:40] LABS: ALBUMIN 1.4 g/dl (3.4-5.0); ANION GAP 10 (8-16); BILIRUBIN,TOTAL 0.3 mg/dL (0.2-1.0); BLOOD UREA NITROGEN 48 mg/dL (7-18); CALCIUM 7.9 mg/dL (8.5-10.1); CHLORIDE 107 mmol/L (98-107); CO2 20 mmol/L (21-32); CREATININE 2.5 mg/dL (0.55-1.02); GLUCOSE,RANDOM 103 mg/dL (74-106); POTASSIUM 4.6 mmol/L (3.5-5.1); SGOT/AST 17 U/L (15-37); SGPT/ALT 17 U/L (12-78); SODIUM 137 mmol/L (136-145); TOT PROT 6.2 g/dl (6.4-8.2)
[2017-06-06 11:42] LABS: ALK PHOS 59 U/L (45-117)
--- NOTE | 2017-06-06 11:46 | CON.CARD ---
Consult Consult Specialty:: Cardiology Referred by:: Hospitalist Medicine Reason for Consultation:: HTN, stroke - History of Present Illness Chief Complaint: Left facial droop, aphasia History of Present Illness: 71 year old female from [facility] with pmhx who presented to the ED after labs from long-term showed hgb of 7 and increased wbc found to have infected sacral decubitus ulcer for which she underwent debridement and planned for 6 weeks of abx found to have episode of aphasia, left facial droop and altered mental status earlier in AM, HCT unrevealing, undergoing stroke work-up. Past medical hx significant for cervical stenosis s/p spinal laminectomy 2001 ( c3, c4) with residual hemiparesis and weakness (some improvement with Rehab), right knee replacement, R breast cancer s/p lumpectomy, right ventral abdominal hernia, small bowel resection. Per son, pt has been increasingly weak and immobile. - History Source History Provided By: Medical Record Limitations to Obtaining History: Poor Historian - Past Medical History SURVEY INTERVIEWER: Yes: CVA Cardio/Vascular: Yes: HTN Pulmonary: Yes: COPD Renal/: Yes: Renal Inusuff, Other (urinary retention) ...: No Infectious Disease: Yes: MRSA Endocrine: Yes: Diabetes Mellitus - Past Surgical History Past Surgical History: Yes: Laminectomy - Alcohol/Substance Use Hx Alcohol Use: No - Smoking History Smoking history: Never smoked Have you smoked in the past 12 months: No - Social History Usual Living Arrangement: Correction ADL: Support Services History of Recent Travel: No Home Medications - Allergies Allergies/Adverse Reactions: Allergies Allergy/AdvReac Type Severity Reaction Status Date / Time No Known Drug Allergies Allergy Verified 04/20/17 15:15 - Home Medications Home Medications: Ambulatory Orders Acetaminophen 500 mg PO DAILY 12/27/16 Amlodipine Besylate 10 mg PO DAILY 12/27/16 Betamethasone Dipr 0.05% Oint [Diprolene] 50 gm .ROUTE ASDIR 12/27/16 Budesonide/Formeterol Fumarate [SYMBICORT 80/4.5mcg -] 1 inh PO BID 12/27/16 Bupropion HCl [Wellbutrin -] 75 mg PO DAILY 12/27/16 Calcium Acetate [Calphron] 667 mg PO TID 12/27/16 Cholecalciferol (Vitamin D3) [Vitamin D -] 400 unit PO DAILY 12/27/16 Duloxetine HCl [Cymbalta] 20 mg PO DAILY 12/27/16 Ferrous Sulfate [Feosol] 324 mg PO BID 12/27/16 Hydralazine HCl 10 mg PO TID 12/27/16 Insulin (Levemir) [Levemir Flexpen -] 8 units SQ DAILY 12/27/16 Isosorbide Mononitrate [Isosorbide Mononitrate ER] 30 mg PO DAILY 12/27/16 Lactulose [Enulose] 10 gm PO HS 12/27/16 Omeprazole 40 mg PO DAILY 12/27/16 Polyethylene Glycol 3350 [Miralax 119 gm Btl -] 17 gm PO DAILY 12/27/16 Risperidone [Risperdal -] 0.25 mg PO BID 12/27/16 Tiotropium [place] [Spiriva] 1 inh IH DAILY 12/27/16 Tramadol HCl 50 mg PO BID 12/27/16 Cranberry Fruit Concentrate [Cran-Max] 500 mg PO DAILY 04/20/17 Metoprolol Succinate [Toprol Xl] 100 mg PO DAILY 04/20/17 Silver/Calcium Alginate [Algicell Ag 4"X5" Dressing] 1 bandage TD DAILY Cefuroxime Axetil [Ceftin -] 250 mg PO BID tablet 05/03/17 Collagenase Clostridium Hist. [Santyl -] 1 applic TP DAILY tube 05/03/17 Insulin Sliding Scale [Novolog Vial Sliding Scale -] 1 vial SQ ACHS units 05/03 Metronidazole [Flagyl -] 500 mg PO TID tablet 05/03/17 Mineral Oil/Pet Hy-Phl [Aquaphor -] 1 applic TP TID PRN jar 05/03/17 Acetaminophen [Tylenol] 500 mg PO QID 05/28/17 Amlodipine Besylate [Norvasc -] 10 mg PO DAILY 05/28/17 Betamethasone/Propylene Glyc [Betamethasone Dp Aug 0.05% Lot] 30 ml TP HS Budesonide/Formeterol Fumarate [SYMBICORT 80/4.5mcg -] 1 inh PO BID 05/28/17 Bupropion HCl [Wellbutrin -] 75 mg PO DAILY 05/28/17 Calcium Acetate [Calphron] 667 mg PO TID 05/28/17 Cholecalciferol (Vitamin D3) [Vitamin D3 -] 1,000 unit PO DAILY 05/28/17 Cranberry Conc/Ascorbic Acid [Cranberry Concentrate Softgel] 1 each PO DAILY Cyanocobalamin [Vitamin B12 -] 100 mcg PO DAILY 05/28/17 Duloxetine HCl [Cymbalta -] 20 mg PO DAILY 05/28/17 Epoetin Osmar [Procrit] 10,000 unit IJ WEEKLY 05/28/17 Ferrous Gluconate [Fergon -] 324 mg PO BID 05/28/17 Hydralazine HCl [Apresoline -] 25 mg PO BID 05/28/17 Insulin (LOG) Aspart [NovoLOG -] 0 units SQ QID 05/28/17 Isosorbide Mononitrate [IMDUR 120mg [STRENGTH NOT CARRIED]] 120 mg PO DAILY Lactulose [Enulose] 10 gm PO HS 05/28/17 Levemir Flextouch 10 unit SQ HS 05/28/17 Omeprazole 40 mg PO AM 05/28/17 Risperidone [Risperdal] 0.25 mg PO BID 05/28/17 Tiotropium [place] [Spiriva] 1 inh IH DAILY 05/28/17 Tramadol HCl [Ultram -] 50 mg PO BID 05/28/17 Review of Systems - Review of Systems Neurological: reports: Pre-Existing Deficit, Other (Left facial droop) Vital Signs: Vital Signs Temperature 98.4 F 06/06/17 06:25 Pulse Rate 83 06/06/17 06:25 Respiratory Rate 20 06/06/17 06:25 Blood Pressure 182/68 06/06/17 06:25 O2 Sat by Pulse Oximetry (%) 96 06/05/17 21:00 Constitutional: Yes: No Distress, Calm Neck: Yes: Supple Respiratory: Yes: Regular, Diminished Gastrointestinal: Yes: Normal Bowel Sounds, Soft Cardiovascular: Yes: Regular Rate and Rhythm JVD: No Carotid Bruit: No Heart Sounds: Yes: S1, S2 Murmur: Yes: Systolic Murmur, Grade 1 Edema: No - Other Data Labs, Other Data: CBC, BMP 06/06/17 11:00 06/06/17 11:00 Troponin, BNP 06/06/17 11:00 Troponin I < 0.02 Troponin, BNP 06/06/17 11:00 Troponin I < 0.02 Imaging - Results Cat Scan: Report Reviewed (No acute stroke or bleed) Problem List - Problems (1) Stroke Code(s): I63.9 - CEREBRAL INFARCTION, UNSPECIFIED Qualifiers: Laterality of affected vessel: unspecified (2) Anemia Code(s): D64.9 - ANEMIA, UNSPECIFIED Qualifiers: Anemia type: unspecified type Qualified Code(s): D64.9 - Anemia, unspecified (3) Sacral ulcer Code(s): L98.429 - NON-PRESSURE CHRONIC ULCER OF BACK WITH UNSPECIFIED SEVERITY (4) Acute on chronic renal insufficiency Code(s): N28.9 - DISORDER OF KIDNEY AND URETER, UNSPECIFIED; N18.9 - CHRONIC KIDNEY DISEASE, UNSPECIFIED (5) Infection with multi-drug resistant microorganisms Code(s): Z16.35 - RESISTANCE TO MULTIPLE ANTIMICROBIAL DRUGS (6) Diastolic CHF Code(s): I50.30 - UNSPECIFIED DIASTOLIC (CONGESTIVE) HEART FAILURE Qualifiers: Congestive heart failure chronicity: chronic Qualified Code(s): I50.32 - Chronic diastolic (congestive) heart failure (7) Hyperlipemia Code(s): E78.5 - HYPERLIPIDEMIA, UNSPECIFIED Qualifiers: Hyperlipidemia type: pure hypercholesterolemia Qualified Code(s): E78.00 - Pure hypercholesterolemia, unspecified; E78.0 - Pure hypercholesterolemia (8) Hypertension Code(s): I10 - ESSENTIAL (PRIMARY) HYPERTENSION Qualifiers: Hypertension type: essential hypertension Qualified Code(s): I10 - Essential (primary) hypertension Assessment/Plan TTE: Normal LV size and fxn, mod TR 1. Aphasia, altered mental status and facial droop suspect acute stroke 2. 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 HTN/HCVD 4. Type 2 DM 5. Hyperlipidemia 6. Acute on CKD P:1. Transfer to telemetry to r/o PAF, check TSH, lipid panel, Ha1c, carotid U/S 2. Continue Norvasc 10 qd, Hydralazine 50 tid, Imdur 120 qd, Toprol XL 100 qd, increase ECASA 325 qd 3. Neurology f/u pending 4. 6 week abx course per ID 5. DVT and GI prophylaxis 6. Thank you for consultative opportunity
[2017-06-06] MEDS ORDERED: METOPROLOL TARTRATE 5 MG/5 ML VIAL IVPUSH ONE (12:00)
[2017-06-06] MEDS ORDERED: ASPIRIN 325 MG TABLET PO ONE (12:07)
[2017-06-06] MEDS ORDERED: ASPIRIN 300 MG SUPP.RECT RC ONE (12:13)
--- NOTE | 2017-06-06 12:48 | EKG ---
Test Reason : Blood Pressure : / mmHG Vent. Rate : 087 BPM Atrial Rate : 087 BPM P-R Int : 170 ms QRS Dur : 090 ms QT Int : 360 ms P-R-T Axes : -27 031 036 degrees QTc Int : 433 ms NORMAL SINUS RHYTHM NORMAL ECG WHEN COMPARED WITH ECG OF 20-APR-2017 15:23, NO SIGNIFICANT CHANGE WAS FOUND Confirmed by KIRK MORGAN MD ([id number]) on 06/06/2017 12:48:12 PM Referred By: Confirmed By:KIRK MORGAN MD
[2017-06-06 13:21] LABS: INR 1.07 (0.82-1.09); PROTHROMBIN TIME (PATIENT) 12.1 SEC (9.98-11.88)
[2017-06-06] MEDS ORDERED: SODIUM CHLORIDE 1,000 ML IV SCH (16:30)
[2017-06-06] MEDS ORDERED: METOPROLOL TARTRATE 5 MG/5 ML VIAL IVPUSH PRN (16:33)
[2017-06-06] MEDS: VANCOMYCIN 1,000 MG in DEXTROSE 5%-WATER - 250 ML IVPB SCH (17:46)
--- NOTE | 2017-06-06 18:25 | CONSULT ---
Admitting History and Physical - Past Medical History REGISTERED NURSE STEP DOWN: Yes: CVA Cardiovascular: Yes: HTN Pulmonary: Yes: COPD Renal/: Yes: Renal Inusuff, Other (urinary retention) ...: No Infectious Disease: Yes: MRSA Endocrine: Yes: Diabetes Mellitus Additional Past Medical History: L foot planter side melanoma hxl, removed and skin fco placed cervical spine stenosis - Past Surgical History Past Surgical History: Yes: Laminectomy Additional Past Surgical History: small intestine resection hernia repair - Smoking History Smoking history: Never smoked Have you smoked in the past 12 months: No - Alcohol/Substance Use Hx Alcohol Use: No - Social History ADL: Support Services History of Recent Travel: No History - Admission Reason For Visit: BACTEREMIA DUE TO PSEUDOMONAS - Hearing Hearing: Normal Hearing Aide: No With Patient: No Speech Evaluation - Communication Primary Language: BELGIAN Communication: Yes: Within Normal Limits, Dysarthria Oral Expression Ability: Yes: No Impairment - Speech Production Dysarthria: Yes: Flaccid Apraxia: No Able to Make Needs Known: Yes: WNL Intelligibility: Yes: WNL - Speech Characteristics Voice Loudness: Normal, Mildly Soft/Quiet Voice Pitch: Yes: Normal, Limited Variation Voice Phonatory-based Quality: Yes: Breathy, Quivering Speech Pattern: Normal Nasal Resonance: Normal Articulation: Yes: Precise Rate of Speech: Intact - Language/Auditory Comprehension Follows: Yes: 1 Stage Simple Commands (WFL) Observation: Able to respond to yes/no queries: Yes, Yes/No Confusion: No, Comprehends Conversational Speech: Yes, Benefits from Slow Speech: Yes, Benefits from Repetiton: Yes (may be SNOQUALMIE), Benefits from Increased Volume of Speech: Yes - Language/Verbal Expression Able to Respond to Simple Queries: Yes: WNL Able to Communicate Wants and Needs: Yes: WNL Functional Communication Status: Yes: WNL Aware of Errors: Yes Attempts to Correct Errors: Yes Use of Gestures: No Written Expression: Not examined Oral Expression: adequate. Reading Comprehension: Not examined Calculations: Not examined Attention: Yes: Intact - Memory/Perception intermediate project manager Memory: Yes: Mildly Impaired Short Term Memory: Yes: Mildly Impaired Visual Neglect: Yes: Left - Swallow Evaluation/Bedside Assessment Current Nutritional Intake: NPO (Currently secondary to full code this a.m.) Oral Secretions: Yes: WFL Tracheostomy Present: No Patient on Ventilator: No Dentition: Yes: Dental Appliance Upper, Dental Appliance Lower (not available during this evaluation.) Facial Symmetry at Rest: Facial Droop Left Facial Symmetry on Retraction: Facial Droop Left Facial Movement: Controlled Sensation: Normal Facial Comment: WFL for speech and swallowing purposes. Jaw Position: Closed at Rest Against Resistance Opening: Normal Against Resistance Closing: Normal Pucker Lips: Droops Left, Reduced ROM Smile: Droops Left Lips, Comment: WFL for speech and swallowing purposes. Lingual Movement: Normal Lingual Speed of Movement: Reduced Lingual Movement Strgth Against Opposition: Reduced Lingual Movement Characteristics: Fasciculations Lingual Comment: WFL for speech and swallowing purposes. Soft Palate Description: Normal Color Hard Palate Description: Normal Color Gag Reflex: Strong Bite Reflex: Present Velopharyngeal Movement: Normal Laryngeal Elevation: WFL Laryngeal Movement: Able to Palpate Needs Assistance: Yes Rate of Intake: WFL Bolus Size: WFL Labial Seal: WFL Chewing: WFL Oral Prep Time: WFL A-P Transit: WFL Timing of Swallow: WFL Coughing/Throat Clear: No Change in Voice: No Other Findings/Remarks: 71 female seen by STEAM CLEANER for swallow eval to rule out dysphagia. Pt is verbal, A& Ox1 cooperative. PHMX includes cervical stenosis, s/p spinal laminectomy with hemiparesis and weakness, COPD HTN MRSA DM. Pt reportedly was eating full regular diet with thin liquids without incident. This a.m. pt found unresponsive and full code. Adequate airway protection and voicing. Upper dentures present for this eval. Pt given po trials of pureed, soft and regular solids with total assistance revealed good acceptance, increased mastication bolus formation and transport. Pharyngeal swallow appears timely with no cough or changes in respiration. Thin liquids trials via cup and straw were unremarkable for dysphagia at this time. Recommendations - Speech Evaluation, Impression/Plan Impression: 71 year old female presents with mild kristen-pharyngeal dysphagia ( secondary to hemiparesis) for solids and liquids with no evidence of aspiration with any consistency offered at this time. Skilled Nursing Goals: tolerate the least restrictive diet without s/s of aspiration. Short Term Goals: tolerate purees, soft and regular with thin liquids without s/ s of aspiration. - Dysphagia Impressions/Plan Swallowing Skills: Impaired Dysphagia Impressions: Minimal Impairment, Risk of Aspiration *Silent aspiration: cannot be R/O at bedside Dysphagia Treatment Plan: Small Bites, Safe Rate, Elevate HOB during feed, Other (alternate liquids for every 2-3 bites of solids.) Dysphagia Evaluation Summary: Pt is able to tolerate purees, soft and regular solids with thin liquids. Observe standard aspiration precautions. Alternate liquids for every 2-3 bites of solids. Results given verbally to dry charge process attendant Benna and to pcp via chart. - Recommendations Diet Consistency: Regular (diabetic) Medication Administration: Whole with water Liquids: Thin Liquids
--- NOTE | 2017-06-06 20:59 | CONSULT ---
Consult - text type - Consultation Consultation Note: NEUROLOGY CONSULTATION is greatly appreciated: Chart reviewed, Pt examined. Case discussed with Ms. Cordero this afternoon. This 71 yo RH woman is well-known to me over many years. Chronic DM, HTN, Chol, Renal insufficiency, gout, depression, breast cancer, GI bleed on Multiple Meds. S/P broad cervical decompression for myelopathy with residual weakness; Right CVA with left hemiparesis and Parkinson's Disease. Admitted 05/28/16 from [facility] for Rx of Stage IV sacral decubitus. This AM was briefly lethargic than was felt to have Right facial droop. BP was as high as 198/80. WBC=16.9K CT of head showed microvascular disease, atrophy, ex vacuo hydrocephalus and extensive metallic artifact from cervical instrumentation. EXAM: No bruits, Cor occ irreg. No head trauma. Lambert draining cloudy urine. Awake, alert, confused. Ox [facility], July, No year. Recalls 0/3 @ 3 mins. +Glabella, snout. Dysarthric speech Decreased vision but full ramos. Full EOM's. No facial weakness. Decreased gag and tongue FLOYD's. Spastic left hemipareis with early contractures of fingers and elbow. Atrophy both right and left APB's. + Cogwheel rigidity on the Right. Mild right hemiparesis. Brisk UE reflexes but areflexic in legs. No mov't left leg. Flicker mov'ts right leg. Plantars silent with triple flexion withdrawal on the left. Decreased touch below both knees. Impression: 1. Moderate, B/L cerebral dysfunction (OMS, Chronic features). Multiinfarct state? 2. Right cerebral accentuation due to Right CVA with left hemiparesis 3. Residual cervical myelopathy s/p cervical decompression. 4. Severe diabetic Peripheral Neuropathy 5. Severe, B/L Carpal Tunnel Syndromes 6. Parkinsonism 7. Today's event may have been a left cerebral TIA or lacunar infarct due to systolic hypertension- improved. SUGGEST: Agree with MRI scan Control systolic HTN. Carotid duplex doppler. R/O intercurrent infection (patrizia. UTI). Antiplatelet Rx. Thank you very much, Rom Brown MD
[2017-06-06] MEDS ORDERED: ATORVASTATIN CA 10 MG TABLET (FP) PO SCH (22:00)
[2017-06-06] MEDS: HEPARIN NA (PORCINE) 5,000 UNITS/ML 1ML VIAL SQ SCH (22:18)
[2017-06-06] MEDS: INSULIN DETEMIR 100 UNITS/ML MDV SQ SCH (22:18)
[2017-06-07] MEDS ORDERED: PT OWN MED DRAWER 7, Y5N ONE ×3 (00:54→22:08)
[2017-06-07] MEDS: PIPERACILLIN/TAZOB 2.25 GM 2.25 GM in DEXTROSE 5%-WATER - 100 ML IVPB SCH ×3 (01:03→18:47)
[2017-06-07] MEDS: ACETAMINOPHEN 325 MG TABLET (FP) PO SCH ×4 (03:21→20:55)
[2017-06-07] MEDS: INSULIN SLIDING SCALE (NOVOLOG) 1 VIAL SQ SCH ×4 (06:05→22:13)
[2017-06-07] MEDS: hydrALAZINE HCL 25 MG TABLET (FP) PO SCH ×3 (06:05→22:12)
[2017-06-07 07:05] LABS: BASO % 0.6 % (0-2.0); EOS % 3.7 % (0-4.5); HEMATOCRIT 27.7 % (32.4-45.2); HEMOGLOBIN 8.7 GM/dL (10.7-15.3); LYMPH % 6.8 % (8-40); MCH 26.9 pg (25.7-33.7); MCHC 31.5 g/dl (32.0-36.0); MEAN CELL VOLUME 85.4 fl (80-96); MEAN PLT VOLUME 7.5 fl (7.5-11.1); NEUT % 83.9 % (42.8-82.8); PLATELET COUNT 207 K/MM3 (134-434); RBC 3.24 M/mm3 (3.60-5.2); RDW 18.5 % (11.6-15.6); WHITE BLOOD COUNT 13.4 K/mm3 (4.0-10.0)
[2017-06-07 07:27] LABS: ALBUMIN 1.5 g/dl (3.4-5.0); ANION GAP 9 (8-16); BILIRUBIN,TOTAL 0.5 mg/dL (0.2-1.0); BLOOD UREA NITROGEN 47 mg/dL (7-18); CHLORIDE 107 mmol/L (98-107); CO2 20 mmol/L (21-32); CREATININE 2.3 mg/dL (0.55-1.02); GLUCOSE,RANDOM 59 mg/dL (74-106); MAGNESIUM 1.9 mg/dL (1.8-2.4); POTASSIUM 4.6 mmol/L (3.5-5.1); SGOT/AST 15 U/L (15-37); SGPT/ALT 16 U/L (12-78); SODIUM 136 mmol/L (136-145); TOT PROT 6.3 g/dl (6.4-8.2)
[2017-06-07 07:28] LABS: ALK PHOS 57 U/L (45-117)
--- NOTE | 2017-06-07 08:54 | PN ---
Progress Note (short form) - Note Progress Note: POD #6 Alert. Resting in position of comfort without complaint. Still waiting for VAC to be delivered by [facility] for out-patient therapy. Last Vital Signs Temp Pulse Resp BP Pulse Ox 98 F 82 18 160/71 99 06/07/17 06:00 06/07/17 06:00 06/07/17 06:00 06/07/17 06:00 06/07/17 06:23 CBC, BMP 06/07/17 05:05 06/07/17 05:05 Microbiology 06/01/17 14:30 Bone Tissue Culture - Final Pseudomonas Aeruginosa Morganella Morganii Escherichia Coli Diphtheroid/Corynebacterium 06/01/17 14:30 Bone Anaerobic Culture - Final: NO ANAEROBES ISOLATED Problem List - Problems (1) Sacral ulcer Assessment/Plan: Will order VAC from hospital central supply and place today to begin therapy. Once [facility] VAC arrives, please switch over to said unit and cont VAC therapy Patient scheduled for tunneled cath placement in IR 06/08/17. BP control DC planning to rehab per Hospitalist Code(s): L98.429 - NON-PRESSURE CHRONIC ULCER OF BACK WITH UNSPECIFIED SEVERITY
[2017-06-07] MEDS ORDERED: ASPIRIN COATED 81 MG TABLET.EC PO SCH (09:00)
--- NOTE | 2017-06-07 09:02 | PN ---
Physical Exam: SUBJECTIVE: Patient seen and examined. She is answering questions appropriately, in good mood. Happy to see keno writer / runner, smiling. OBJECTIVE: Facial symmetry, equal smile Brain MRI noted, negative Neurology notes reviewed: Wound vac to be placed today Tunneled catheter tomorrow, cardotid doppler wnl Vital Signs Period Temp Pulse Resp BP Sys/Benton Pulse Ox Last 24 Hr 97.9 F-98.8 F 78-99 18-24 146-189/55-83 99-99 GENERAL: The patient is awake, alert, mental status at baseline, facial symmetry , eating breakfast, in no acute distress HEAD: facial symmetry, right facial droop resolved EYES: PERRL, extraocular movements intact, sclera anicteric, conjunctiva clear. No ptosis. ENT: moist mucous membranes. NECK: Trachea midline, full range of motion, supple. LUNGS: Breath sounds equal, clear to auscultation bilaterally, no wheezes HEART: Regular rate and rhythm 80s ABDOMEN: Soft, nontender, nondistended, normoactive bowel sounds, EXTREMITIES: no edema. NEUROLOGICAL: Speech is at baseline, vitals stable, no further neurological events PSYCH: Normal mood, normal affect. Large sacral wound (see commercial sales manager for measurements), stage 4, wound present on admission, wound vac to be placed by surgical PA Laboratory Results - last 24 hr 06/06/17 06/06/17 06/06/17 10:35 11:00 11:00 WBC 16.8 H RBC 3.11 L Hgb 8.4 L Hct 26.5 L MCV 85.2 MCH 26.9 MCHC 31.5 L RDW 18.3 H Plt Count 213 MPV 7.7 Neutrophils % 88.3 H Lymphocytes % 4.4 L Monocytes % 4.0 Eosinophils % 2.7 Basophils % 0.6 PT with INR INR Sodium 137 Potassium 4.6 Chloride 107 Carbon Dioxide 20 L Anion Gap 10 BUN 48 H Creatinine 2.5 H Creat Clearance w eGFR 19.10 POC Glucometer 114 Random Glucose 103 Hemoglobin A1c % Lactic Acid Calcium 7.9 L Magnesium Total Bilirubin 0.3 D AST 17 ALT 17 Alkaline Phosphatase 59 Troponin I < 0.02 Total Protein 6.2 L Albumin 1.4 L Triglycerides Cholesterol Total LDL Cholesterol HDL Cholesterol TSH 06/06/17 06/06/17 06/06/17 12:40 12:40 12:40 WBC RBC Hgb Hct MCV MCH MCHC RDW Plt Count MPV Neutrophils % Lymphocytes % Monocytes % Eosinophils % Basophils % PT with INR INR Sodium Potassium Chloride Carbon Dioxide Anion Gap BUN Creatinine Creat Clearance w eGFR POC Glucometer Random Glucose Hemoglobin A1c % 5.4 Lactic Acid 0.4 Calcium Magnesium Total Bilirubin AST ALT Alkaline Phosphatase Troponin I Total Protein Albumin Triglycerides 73 Cholesterol 117 Total LDL Cholesterol 68 HDL Cholesterol 39 L TSH 1.85 06/06/17 06/06/17 06/06/17 12:40 18:00 18:45 WBC RBC Hgb Hct MCV MCH MCHC RDW Plt Count MPV Neutrophils % Lymphocytes % Monocytes % Eosinophils % Basophils % PT with INR 12.10 H INR 1.07 Sodium Potassium Chloride Carbon Dioxide Anion Gap BUN Creatinine Creat Clearance w eGFR POC Glucometer 126 Random Glucose Hemoglobin A1c % Lactic Acid Calcium Magnesium Total Bilirubin AST ALT Alkaline Phosphatase Troponin I < 0.02 Total Protein Albumin Triglycerides Cholesterol Total LDL Cholesterol HDL Cholesterol TSH 06/06/17 06/07/17 06/07/17 22:15 05:05 05:05 WBC 13.4 H RBC 3.24 L Hgb 8.7 L Hct 27.7 L MCV 85.4 MCH 26.9 MCHC 31.5 L RDW 18.5 H Plt Count 207 MPV 7.5 Neutrophils % 83.9 H Lymphocytes % 6.8 L D Monocytes % 5.0 Eosinophils % 3.7 Basophils % 0.6 PT with INR INR Sodium 136 Potassium 4.6 Chloride 107 Carbon Dioxide 20 L Anion Gap 9 BUN 47 H Creatinine 2.3 H Creat Clearance w eGFR 21.02 POC Glucometer 141 Random Glucose 59 L Hemoglobin A1c % Lactic Acid Calcium 8.0 L Magnesium 1.9 Total Bilirubin 0.5 D AST 15 ALT 16 Alkaline Phosphatase 57 Troponin I Total Protein 6.3 L Albumin 1.5 L Triglycerides Cholesterol Total LDL Cholesterol HDL Cholesterol TSH 06/07/17 06:03 WBC RBC Hgb Hct MCV MCH MCHC RDW Plt Count MPV Neutrophils % Lymphocytes % Monocytes % Eosinophils % Basophils % PT with INR INR Sodium Potassium Chloride Carbon Dioxide Anion Gap BUN Creatinine Creat Clearance w eGFR POC Glucometer 73 Random Glucose Hemoglobin A1c % Lactic Acid Calcium Magnesium Total Bilirubin AST ALT Alkaline Phosphatase Troponin I Total Protein Albumin Triglycerides Cholesterol Total LDL Cholesterol HDL Cholesterol TSH Active Medications Generic Name Dose Route Start Last Admin Trade Name Freq PRN Reason Stop Dose Admin Acetaminophen 650 mg 06/05/17 15:00 06/07/17 03:21 Tylenol - PO Not Given Q6H [facility] Amlodipine Besylate 10 mg 06/07/17 10:00 Norvasc - PO DAILY [facility] Aspirin 325 mg 06/07/17 10:00 Ecotrin - PO DAILY [facility] Atorvastatin Calcium 20 mg 06/07/17 22:00 Lipitor - PO HS [facility] Budesonide/Formoterol Fumarate 1 puff 06/01/17 20:00 06/06/17 22:27 Symbicort 80/4.5mcg - IH 1 puff RBID [facility] Administration Bupropion HCl 75 mg 06/07/17 10:00 Wellbutrin - PO DAILY [facility] Collagenase 1 applic 06/02/17 10:00 06/06/17 16:00 Santyl - TP 1 applic DAILY [facility] Administration Ferrous Sulfate 325 mg 06/07/17 17:30 Feosol - PO BIDWM [facility] Heparin Sodium (Porcine) 5,000 unit 06/01/17 22:00 06/06/17 22:18 Heparin - SQ 5,000 unit BID [facility] Administration Hydralazine HCl 50 mg 06/05/17 18:00 06/07/17 06:05 Apresoline - PO 50 mg TID [facility] Administration IV Flush 8 ml 06/03/17 14:15 Picc Line Flush IVPUSH PRN PRN Protocol IV Flush 10 ml 06/06/17 08:40 Manny-Cath Flush IVPUSH PRN PRN Protocol Piperacillin Sod/Tazobactam 100 mls @ 200 mls/hr 06/01/17 18:00 06/07/17 01: 03 Sod 2.25 gm/ Dextrose IVPB 200 mls/hr Q8H-IV [facility] Administration Vancomycin HCl 1,000 mg/ 250 mls @ 166.667 mls/hr 06/02/17 16:00 06/06/17 17: 46 Dextrose IVPB 166.667 mls/hr DAILY@1600 [facility] Administration Protocol Sodium Chloride 1,000 mls @ 50 mls/hr 06/06/17 16:30 06/06/17 17:00 Normal Saline - IV 06/07/17 16:29 50 mls/hr ASDIR [facility] Administration Insulin Aspart 1 vial 06/01/17 16:30 06/07/17 06:05 Novolog Vial Sliding Scale - SQ Not Given ACHS [facility] Protocol Insulin Detemir 10 units 06/01/17 22:00 06/06/17 22:18 Levemir Vial SQ 10 units HS [facility] Administration Isosorbide Mononitrate 120 mg 06/07/17 10:00 Imdur - PO DAILY [facility] Metoprolol Succinate 100 mg 06/07/17 10:00 Toprol Xl - PO DAILY [facility] Ondansetron HCl 4 mg 06/01/17 13:54 Zofran Injection IVPUSH Q6H PRN NAUSEA AND/OR VOMITING Risperidone 0.25 mg 06/01/17 22:00 06/06/17 22:18 Risperdal - PO Not Given BID [facility] Tiotropium [place] 1 puff 06/02/17 10:00 06/06/17 09:24 Spiriva - IH 1 inh DAILY [facility] Administration ASSESSMENT/PLAN: Patient is a 71 year old female with a significant past medical history of hypertension, CVA with left sided weakness/hemiparesis, COPD, diabetes, CKD, urinary retention with indwelling powers, breast cancer, and chronic stage IV sacral ulcer, parkinson's disease and alzheimer's dementia. Patient admitted from [facility] for infected sacral stage IV pressure ulcer. Plan was for patient to get a tunneled catheter yesterday for continuous IV antibiotic therapy for her infected stage 4 pressure wound. However, prior to transportation to , patient became unresponsive. Rapid response called, then code engel when patient was noted to have right facial droop and unable to respond to verbal or tactile stimuli. Imaging: Chest CT w/o contrast 05/31/2017: (1) small to moderate loculated right pleural effusion with associated basilar compressive atelectasis. The amt of pleural fluid appears mildly diminished in comparison to a chest CT exam on 07/02/2016 (2 ) A small pleural effusion is noted on the recent abdomen CT study. Findings not present on time of the 2017 CT chest exam. (3) No obvious interval change seen regards to a oblong shape 5 x 2 x 1.3cm sub pleural opacity with the right mid lung fild laterally possibility representing chronic atelectasis and less likely a stable neoplastic lesion. Periodic CT follow up suggested. (4) Bilateral flank subcutaneous edema which may be somewhat increased in comparison to the [address] 06/06/2017: moderate atrophy and ventricular dilatation w/o evidence of acute intracranial pathology. Posterior fusion of the included upper cervical spine starting from C3 level for which no recent prior CT scan report xrays of the cervical spine are available for comparison. Brain MRI w/o contrast 06/06/2017: no evidence of acute infarction, no mass effects or hydrocephalus, general cerebral and cerebeller volumeloss with mild chronic microvascular ischemic changes in the periventicular white matter. Carotid doppler 06/07: mild arth. disease Neurology Rule out stroke vs. TIA Patient has neurological event 06/07 concern for TIA vs new stroke, not a candidate for tpa as per neuro Head CT and Brain MRI as above, both negative Carotid doppler pending Mental status back to her baseline Swallow evaluation completed, pt to continue same diet, swallowing well Will continue on ASA 325mg therapy as per cardiology, on Lipitor Neuro notes reviewed Skin: Stage IV sacral pressure infection Wound debrided on 06/02, biopsy sent per vascular Bone cultures pending Tunneled cath tomorrow, wound vac to be placed today Pulmonary: h/o loculated pleural effusions on CT chest, thoracentesis and lung biopsy ( negative) repeat CT followup as outpatient : E. coli UTI Chronic powers for urinary retension with + ecoli On vanco and zosyn Renal: MARTITA on CKD Creat 3.1 on admission, 2.3 today (base bet. 2.2-2.5) Monitor with daily labs Avoid nephrotoxic medications Chronic urinary retention, maintain powers Cardiology: Hypertension, elevated this morning Needs better control prior to d/c On Metoprolol 100mg daily, Hydralazine 50mg BID, imdur 120mg daily, norvasc 10mg daily Endocrine: Diabetes Monitor BGMs Levemir and Novolog Hematology: Normocytic anemia On Ferrous Gluconate BID Monitor CBC Neuro: CVA with residual hemiparesis, chronic Physical therapy F.E.N. Fluids: tolerating PO intake Electrolytes: monitor Nutrition: diabetic diet, thin liquids Dispo: full code. Visit type - Emergency Visit Emergency Visit: Yes ED Registration Date: 05/28/17 Care time: The patient presented to the Emergency Department on the above date and was hospitalized for further evaluation of their emergent condition. - New Patient This patient is new to me today: No - Critical Care Critical Care patient: No - Discharge Referral Referred to [facility] Med P.C.: No
[2017-06-07] MEDS ORDERED: ASPIRIN 300 MG SUPP.RECT PR SCH (10:00)
[2017-06-07] MEDS: BUDESONIDE/FORMETEROL FUMARATE 80/4.5 mcg INHALER IH SCH ×2 (10:44→20:48)
[2017-06-07] MEDS: HEPARIN NA (PORCINE) 5,000 UNITS/ML 1ML VIAL SQ SCH ×2 (10:46→22:12)
[2017-06-07] MEDS: ASPIRIN 325 MG ENTERIC COATED TABLET (FP) PO SCH (10:46)
[2017-06-07] MEDS: ISOSORBIDE MONONITRATE 60 MG TAB.SR.24H (FP) PO SCH (10:46)
[2017-06-07] MEDS: TIOTROPIUM BROMIDE 18 MCG/INH (DEVICE W/ 5 CAPSULES) IH SCH (10:47)
[2017-06-07] MEDS: risperiDONE 0.25 MG TABLET (FP) PO SCH ×2 (10:47→22:12)
[2017-06-07] MEDS: amLODIPine BESYLATE 10 MG TABLET (FP) PO SCH (10:47)
[2017-06-07] MEDS: buPROPion HCL 75 MG TABLET PO SCH (10:48)
[2017-06-07] MEDS: COLLAGENASE CLOSTRIDIUM HIST. 30 GRAMS TUBE TP SCH (11:29)
[2017-06-07] MEDS ORDERED: INSULIN (NOVOLOG) ASPART 100 UNITS/ML 10ML VIAL ONE ×2 (12:00→18:38)
--- NOTE | 2017-06-07 13:18 | PN ---
Progress Note, MEMORY CARE PROGRAM RESIDENT - Note Progress Note: On Reg diet/thin liquid. Selected Entries 06/06/17 06/06/17 06/06/17 06:25 11:00 13:00 Breakfast Temperature 98.4 F 98.8 F 98.4 F 06/06/17 06/06/17 06/07/17 18:00 22:00 02:00 Breakfast Temperature 98.3 F 98.2 F 97.9 F 06/07/17 06/07/17 06:00 10:00 Breakfast 100% Temperature 98 F 97.7 F Laboratory Tests 06/06/17 06/07/17 06:30 05:05 WBC 14.8 H 13.4 H Pt has been feeding herself. No difficulty reported or observed.
[2017-06-07 14:25] LABS: URINE APPEARANCE SLCLOUDY; URINE BILIRUBIN NEGATIVE (NEGATIVE); URINE BLOOD 1+ (NEGATIVE); URINE COLOR STRAW; URINE GLUCOSE (UA) 1+ (NEGATIVE); URINE KETONE NEGATIVE (NEGATIVE); URINE NITRITE NEGATIVE (NEGATIVE); URINE UROBILINOGEN NEGATIVE mg/dL (0.2-1.0)
[2017-06-07 14:27] LABS: URINE LEUK ESTERASE 3+ (NEGATIVE); URINE PROTEIN 2+ (NEGATIVE)
[2017-06-07 14:30] LABS: EPI CELLS RARE /HPF (FEW)
--- NOTE | 2017-06-07 14:53 | PN ---
Progress Note (short form) - Note Progress Note: Chief Complaint: Events noted, notes reviewed, left facial droop and aphasia resolved, denies any chest pain or dyspnea History of Present Illness: Seen and examined on telemetry. Events noted, notes reviewed, left facial droop and aphasia resolved, denies any chest pain or dyspnea Medications: Current Medications Acetaminophen (Tylenol -) 650 mg PO Q6H [facility] Last Admin: 06/07/17 10:44 Dose: 650 mg Amlodipine Besylate (Norvasc -) 10 mg PO DAILY [facility] Last Admin: 06/07/17 10:47 Dose: 10 mg Aspirin (Ecotrin -) 325 mg PO DAILY [facility] Last Admin: 06/07/17 10:46 Dose: 325 mg Atorvastatin Calcium (Lipitor -) 20 mg PO HS [facility] Budesonide/Formoterol Fumarate (Symbicort 80/4.5mcg -) 1 puff IH RBID [facility] Last Admin: 06/07/17 10:44 Dose: 1 puff Bupropion HCl (Wellbutrin -) 75 mg PO DAILY [facility] Last Admin: 06/07/17 10:48 Dose: 75 mg Collagenase (Santyl -) 1 applic TP DAILY [facility] Last Admin: 06/07/17 11:29 Dose: Not Given Ferrous Sulfate (Feosol -) 325 mg PO BIDWM [facility] Heparin Sodium (Porcine) (Heparin -) 5,000 unit SQ BID [facility] Last Admin: 06/07/17 10:46 Dose: 5,000 unit Hydralazine HCl (Apresoline -) 50 mg PO TID [facility] Last Admin: 06/07/17 06:05 Dose: 50 mg IV Flush (Picc Line Flush) 8 ml IVPUSH PRN PRN PRN Reason: Protocol IV Flush (Manny-Cath Flush) 10 ml IVPUSH PRN PRN PRN Reason: Protocol Piperacillin Sod/Tazobactam (Sod 2.25 gm/ Dextrose) 100 mls @ 200 mls/hr IVPB Q8H-IV [facility] Last Admin: 06/07/17 10:49 Dose: 200 mls/hr Vancomycin HCl 1,000 mg/ (Dextrose) 250 mls @ 166.667 mls/hr IVPB DAILY@1600 [facility] PRN Reason: Protocol Last Admin: 06/06/17 17:46 Dose: 166.667 mls/hr Insulin Aspart (Novolog Vial Sliding Scale -) 1 vial SQ ACHS [facility] PRN Reason: Protocol Last Admin: 06/07/17 12:27 Dose: Not Given Insulin Detemir (Levemir Vial) 10 units SQ HS [facility] Last Admin: 06/06/17 22:18 Dose: 10 units Isosorbide Mononitrate (Imdur -) 120 mg PO DAILY [facility] Last Admin: 06/07/17 10:46 Dose: 120 mg Metoprolol Succinate (Toprol Xl -) 100 mg PO DAILY [facility] Last Admin: 06/07/17 10:48 Dose: 100 mg Ondansetron HCl (Zofran Injection) 4 mg IVPUSH Q6H PRN PRN Reason: NAUSEA AND/OR VOMITING Risperidone (Risperdal -) 0.25 mg PO BID [facility] Last Admin: 06/07/17 10:47 Dose: 0.25 mg Tiotropium [place] (Spiriva -) 1 puff IH DAILY [facility] Last Admin: 06/07/17 10:47 Dose: 1 inh Review of Systems Vital Signs: Vital Signs Temperature 98.4 F 06/06/17 06:25 Pulse Rate 83 06/06/17 06:25 Respiratory Rate 20 06/06/17 06:25 Blood Pressure 182/68 06/06/17 06:25 O2 Sat by Pulse Oximetry (%) 96 06/05/17 21:00 Constitutional: No Distress, Calm Neck: Supple Negative JVD No Bruit Respiratory: Diminished at the Bases Bilaterally Cardiovascular: S1 S2 Regular Rate and Rhythm Grade 1-2/6 SM Gastrointestinal: Soft Benign Normal Bowel Sounds Ext: No Edema Labs: CBC, BMP 06/07/17 05:05 06/07/17 05:05 INR, PTT INR 1.07 (0.82-1.09) 06/06/17 12:40 Assessment/Plan ASSESSMENT: 1. Aphasia, altered mental status and facial droop, resolved probable TIA, precipitated by uncontrolled HTN 2. Sacral decubitus ulcer, osteomyelitis post excisional debridement sacrum, skin,subcutaneous tissue, with bone biopsy 3. Diastolic LV dysfunction with chronic class 0-I NYHA classification Lv failure, compensated/euvolemic 4. HTN/HCVD, labile blood pressure 5. DM 6. Hyperlipidemia 7. Acute on CKD PLAN: 1. Continue Norvasc 2. Continue Hydralazine 3. Continue Imdur 4. Continue Toprol XL and titrate dosage as tolerated 5. Continue ASA 6. Antibiotics as per the primary team Raffi Argueta MD
[2017-06-07] MEDS: VANCOMYCIN 1,000 MG in DEXTROSE 5%-WATER - 250 ML IVPB SCH (16:04)
[2017-06-07] MEDS: FERROUS SO4 325 MG TABLET (FP) PO SCH (18:57)
[2017-06-07] MEDS: INSULIN DETEMIR 100 UNITS/ML MDV SQ SCH (22:12)
[2017-06-07] MEDS: ATORVASTATIN CA 20 MG TABLET (FP) PO SCH (22:12)
[2017-06-08] MEDS: PIPERACILLIN/TAZOB 2.25 GM 2.25 GM in DEXTROSE 5%-WATER - 100 ML IVPB SCH ×3 (01:11→17:06)
[2017-06-08] MEDS: ACETAMINOPHEN 325 MG TABLET (FP) PO SCH ×4 (03:25→22:22)
[2017-06-08] MEDS: INSULIN SLIDING SCALE (NOVOLOG) 1 VIAL SQ SCH ×4 (06:37→22:28)
[2017-06-08] MEDS: hydrALAZINE HCL 25 MG TABLET (FP) PO SCH ×4 (06:37→22:21)
[2017-06-08 07:14] LABS: BASO % 0.6 % (0-2.0); EOS % 2.3 % (0-4.5); HEMATOCRIT 24.7 % (32.4-45.2); HEMOGLOBIN 7.8 GM/dL (10.7-15.3); LYMPH % 3.8 % (8-40); MCH 27.2 pg (25.7-33.7); MCHC 31.6 g/dl (32.0-36.0); MEAN CELL VOLUME 86.2 fl (80-96); MEAN PLT VOLUME 7.7 fl (7.5-11.1); NEUT % 88.3 % (42.8-82.8); PLATELET COUNT 184 K/MM3 (134-434); RBC 2.87 M/mm3 (3.60-5.2); RDW 18.3 % (11.6-15.6); WHITE BLOOD COUNT 17.8 K/mm3 (4.0-10.0)
[2017-06-08 08:31] LABS: ALBUMIN 1.4 g/dl (3.4-5.0); ALK PHOS 62 U/L (45-117); ANION GAP 11 (8-16); BILIRUBIN,TOTAL 0.2 mg/dL (0.2-1.0); BLOOD UREA NITROGEN 51 mg/dL (7-18); CALCIUM 7.9 mg/dL (8.5-10.1); CHLORIDE 104 mmol/L (98-107); CO2 19 mmol/L (21-32); CREATININE 2.4 mg/dL (0.55-1.02); GLUCOSE,RANDOM 165 mg/dL (74-106); MAGNESIUM 1.8 mg/dL (1.8-2.4); POTASSIUM 5.1 mmol/L (3.5-5.1); SGOT/AST 12 U/L (15-37); SGPT/ALT 14 U/L (12-78); SODIUM 134 mmol/L (136-145)
--- NOTE | 2017-06-08 08:42 | PROC ---
Procedure Note Procedure: WOUND VAC Sacral wound measuring 10cm x 15cm, bone exposed White foam placed to base of wound covering bone. Black foam placed on top and just inside of wound border to help with contracture. Occlusive dressing applied with a foam bridge (leading to left thigh anteriorly. occlusive barrier to skin so bridge isn't sucking directly on her skin). VAC started at 125mmHg with good collapse of foam. Patient tolerated procedure well. Cont dressing changes --.
--- NOTE | 2017-06-08 10:10 | PATH ---
Surgical Pathology Report Patient Name: ROSI WAITE [facility]. Rec. #: [id number] /Age/Gender: 1945 (Age: 71) / F Account: [id number] Location: 4 W TELEMETRY U Taken: 06/01/2017 Received: 06/01/2017 Reported: 06/08/2017 Physicians: JERRI Stallings Specimen(s) Received A: NECROTIC TISSUE B: BONE SACRAL Clinical History Sacral ulcer Final Diagnosis A. SACRUM, NECROTIC TISSUE, EXCISION: SOFT TISSUE WITH MARKED ACUTE AND CHRONIC INFLAMMATION, ULCERATION AND NECROSIS. B. SACRUM, BONE, BIOPSY: SEVERE ACUTE OSTEOMYELITIS. Electronically Signed Tiana Bourgeois M.D. Gross Description A. Received in formalin labeled "necrotic tissue," is a 4.0 x 3.8 x 2.9 cm aggregate of martinez-bland, necrotic soft tissue fragments. A patient care representative portion is submitted in one cassette. B. Received in formalin labeled "sacral bone," are 2 martinez engel bone fragments measuring 0.8 x 0.5 x 0.3 cm and 1.0 x 0.8 x 0.3 cm. The specimens are submitted in toto in one cassette, following decalcification. /06/02/201706/02/2017
[2017-06-08] MEDS: ISOSORBIDE MONONITRATE 60 MG TAB.SR.24H (FP) PO SCH (10:12)
[2017-06-08] MEDS: HEPARIN NA (PORCINE) 5,000 UNITS/ML 1ML VIAL SQ SCH ×2 (10:12→22:21)
[2017-06-08] MEDS: amLODIPine BESYLATE 10 MG TABLET (FP) PO SCH (10:12)
[2017-06-08] MEDS: ASPIRIN 325 MG ENTERIC COATED TABLET (FP) PO SCH (10:12)
[2017-06-08] MEDS: buPROPion HCL 75 MG TABLET PO SCH (10:12)
[2017-06-08] MEDS: risperiDONE 0.25 MG TABLET (FP) PO SCH ×2 (10:13→22:40)
[2017-06-08] MEDS: FERROUS SO4 325 MG TABLET (FP) PO SCH ×2 (10:14→16:50)
[2017-06-08] MEDS: COLLAGENASE CLOSTRIDIUM HIST. 30 GRAMS TUBE TP SCH (10:14)
[2017-06-08] MEDS: TIOTROPIUM BROMIDE 18 MCG/INH (DEVICE W/ 5 CAPSULES) IH SCH (10:16)
[2017-06-08] MEDS: BUDESONIDE/FORMETEROL FUMARATE 80/4.5 mcg INHALER IH SCH ×2 (10:17→22:27)
--- NOTE | 2017-06-08 11:15 | PN ---
Progress Note, Physician History of Present Illness: Aphasia, left facial droop and altered mental status since resolved to baseline with improved BP control. No PAF on telemetry. Underwent sacral wound debridement and wound vac placement. - Current Medication List Current Medications: Active Medications Acetaminophen (Tylenol -) 650 mg PO Q6H [facility] Last Admin: 06/08/17 08:26 Dose: 650 mg Amlodipine Besylate (Norvasc -) 10 mg PO DAILY [facility] Last Admin: 06/08/17 10:12 Dose: 10 mg Aspirin (Ecotrin -) 325 mg PO DAILY [facility] Last Admin: 06/08/17 10:12 Dose: 325 mg Atorvastatin Calcium (Lipitor -) 20 mg PO HS [facility] Last Admin: 06/07/17 22:12 Dose: 20 mg Budesonide/Formoterol Fumarate (Symbicort 80/4.5mcg -) 1 puff IH RBID [facility] Last Admin: 06/08/17 10:17 Dose: 1 puff Bupropion HCl (Wellbutrin -) 75 mg PO DAILY [facility] Last Admin: 06/08/17 10:12 Dose: 75 mg Collagenase (Santyl -) 1 applic TP DAILY [facility] Last Admin: 06/08/17 10:14 Dose: Not Given Ferrous Sulfate (Feosol -) 325 mg PO BIDWM [facility] Last Admin: 06/08/17 10:14 Dose: 325 mg Heparin Sodium (Porcine) (Heparin -) 5,000 unit SQ BID [facility] Last Admin: 06/08/17 10:12 Dose: 5,000 unit Hydralazine HCl (Apresoline -) 50 mg PO TID [facility] Last Admin: 06/08/17 06:54 Dose: Not Given IV Flush (Picc Line Flush) 8 ml IVPUSH PRN PRN PRN Reason: Protocol IV Flush (Manny-Cath Flush) 10 ml IVPUSH PRN PRN PRN Reason: Protocol Piperacillin Sod/Tazobactam (Sod 2.25 gm/ Dextrose) 100 mls @ 200 mls/hr IVPB Q8H-IV [facility] Last Admin: 06/08/17 10:29 Dose: 200 mls/hr Vancomycin HCl 1,000 mg/ (Dextrose) 250 mls @ 166.667 mls/hr IVPB DAILY@1600 [facility] PRN Reason: Protocol Last Admin: 06/07/17 16:04 Dose: 166.667 mls/hr Insulin Aspart (Novolog Vial Sliding Scale -) 1 vial SQ ACHS [facility] PRN Reason: Protocol Last Admin: 06/08/17 06:37 Dose: 2 units Insulin Detemir (Levemir Vial) 10 units SQ HS [facility] Last Admin: 06/07/17 22:12 Dose: 10 units Isosorbide Mononitrate (Imdur -) 120 mg PO DAILY [facility] Last Admin: 06/08/17 10:12 Dose: 120 mg Metoprolol Succinate (Toprol Xl -) 100 mg PO DAILY [facility] Last Admin: 06/08/17 10:12 Dose: 100 mg Ondansetron HCl (Zofran Injection) 4 mg IVPUSH Q6H PRN PRN Reason: NAUSEA AND/OR VOMITING Risperidone (Risperdal -) 0.25 mg PO BID [facility] Last Admin: 06/08/17 10:13 Dose: 0.25 mg Tiotropium [place] (Spiriva -) 1 puff IH DAILY [facility] Last Admin: 06/08/17 10:16 Dose: 1 inh - Objective Vital Signs: Vital Signs Temperature 98.7 F 06/08/17 06:00 Pulse Rate 76 06/08/17 06:00 Respiratory Rate 20 06/08/17 06:00 Blood Pressure 112/65 06/08/17 06:00 O2 Sat by Pulse Oximetry (%) 99 06/07/17 21:00 Constitutional: Yes: No Distress, Calm Neck: Yes: Supple Cardiovascular: Yes: Regular Rate and Rhythm Respiratory: Yes: Regular, Diminished Gastrointestinal: Yes: Soft, Hypoactive Bowel Sounds Edema: No Labs: CBC, BMP 06/08/17 06:55 06/08/17 06:55 INR, PTT INR 1.07 (0.82-1.09) 06/06/17 12:40 - ....Imaging MRI: Report Reviewed (No acute strokes) Problem List - Problems (1) Anemia Code(s): D64.9 - ANEMIA, UNSPECIFIED Qualifiers: Anemia type: unspecified type Qualified Code(s): D64.9 - Anemia, unspecified (2) Sacral ulcer Code(s): L98.429 - NON-PRESSURE CHRONIC ULCER OF BACK WITH UNSPECIFIED SEVERITY (3) Acute on chronic renal insufficiency Code(s): N28.9 - DISORDER OF KIDNEY AND URETER, UNSPECIFIED; N18.9 - CHRONIC KIDNEY DISEASE, UNSPECIFIED (4) Infection with multi-drug resistant microorganisms Code(s): Z16.35 - RESISTANCE TO MULTIPLE ANTIMICROBIAL DRUGS (5) Diastolic CHF Code(s): I50.30 - UNSPECIFIED DIASTOLIC (CONGESTIVE) HEART FAILURE Qualifiers: Congestive heart failure chronicity: chronic Qualified Code(s): I50.32 - Chronic diastolic (congestive) heart failure (6) Hyperlipemia Code(s): E78.5 - HYPERLIPIDEMIA, UNSPECIFIED Qualifiers: Hyperlipidemia type: pure hypercholesterolemia Qualified Code(s): E78.00 - Pure hypercholesterolemia, unspecified; E78.0 - Pure hypercholesterolemia (7) Hypertension Code(s): I10 - ESSENTIAL (PRIMARY) HYPERTENSION Qualifiers: Hypertension type: essential hypertension Qualified Code(s): I10 - Essential (primary) hypertension (8) TIA (transient ischemic attack) Code(s): G45.9 - TRANSIENT CEREBRAL ISCHEMIC ATTACK, UNSPECIFIED Qualifiers: Transient cerebral ischemia type: unspecified Qualified Code(s): G45.9 - Transient cerebral ischemic attack, unspecified Assessment/Plan 06/01/2017 TTE: Normal LV size and fxn, mod TR 1. Aphasia, altered mental status and facial droop, resolved probable TIA, precipitated by uncontrolled HTN 2. Sacral decubitus ulcer, osteomyelitis post excisional debridement sacrum, skin,subcutaneous tissue, with bone biopsy and wound vac placement 3. Diastolic LV dysfunction with chronic class 0-I NYHA classification Lv failure, compensated/euvolemic 4. HTN/HCVD, labile blood pressure 5. DM 6. Hyperlipidemia 7. Acute on CKD improving PLAN: 1. Continue Norvasc 10 qd 2. Continue Hydralazine 50 tid 3. Continue Imdur 120 qd 4. Continue Toprol XL 100 qd and titrate dosage as tolerated 5. Continue ASA 325 qd and Lipitor 20 qhs 6. Complete antibiotic course as per the primary team 7. DVT prophylaxis 8. D/c telemetry
[2017-06-08] MEDS ORDERED: PT OWN MED DRAWER 7, Y5N ONE ×2 (16:18→22:14)
[2017-06-08] MEDS: VANCOMYCIN 1,000 MG in DEXTROSE 5%-WATER - 250 ML IVPB SCH (16:41)
[2017-06-08] MEDS: ATORVASTATIN CA 20 MG TABLET (FP) PO SCH (22:21)
[2017-06-08] MEDS: INSULIN DETEMIR 100 UNITS/ML MDV SQ SCH (22:27)
--- NOTE | 2017-06-08 22:43 | PN ---
Physical Exam: SUBJECTIVE: Patient seen and examined OBJECTIVE: Vital Signs Period Temp Pulse Resp BP Sys/Benton Pulse Ox Last 24 Hr 98.5 F-99.1 F 73-81 20-20 112-158/59-69 99 GENERAL: The patient is awake, alert, and fully oriented, in no acute distress. HEAD: Normal with no signs of trauma. EYES: PERRL, extraocular movements intact, sclera anicteric, conjunctiva clear. No ptosis. ENT: Ears normal, nares patent, oropharynx clear without exudates, moist mucous membranes. NECK: Trachea midline, full range of motion, supple. LUNGS: Breath sounds equal, clear to auscultation bilaterally, no wheezes, no crackles, no accessory muscle use. HEART: Regular rate and rhythm, S1, S2 without murmur, rub or gallop. ABDOMEN: Soft, nontender, nondistended, normoactive bowel sounds, no guarding, no rebound, no hepatosplenomegaly, no masses. EXTREMITIES: 2+ pulses, warm, well-perfused, no edema. NEUROLOGICAL: Cranial nerves II through XII grossly intact. Normal speech, gait not observed. PSYCH: Normal mood, normal affect. SKIN: Warm, dry, normal turgor, no rashes or lesions noted Laboratory Results - last 24 hr 06/08/17 06/08/17 06/08/17 05:49 06:55 06:55 WBC 17.8 H D RBC 2.87 L Hgb 7.8 L D Hct 24.7 L MCV 86.2 MCH 27.2 MCHC 31.6 L RDW 18.3 H Plt Count 184 MPV 7.7 Neutrophils % 88.3 H Lymphocytes % 3.8 L D Monocytes % 5.0 Eosinophils % 2.3 Basophils % 0.6 Sodium 134 L Potassium 5.1 Chloride 104 Carbon Dioxide 19 L Anion Gap 11 BUN 51 H Creatinine 2.4 H Creat Clearance w eGFR 20.02 POC Glucometer 168 Random Glucose 165 H Calcium 7.9 L Magnesium 1.8 Total Bilirubin 0.2 D AST 12 L ALT 14 Alkaline Phosphatase 62 Total Protein 6.0 L Albumin 1.4 L 06/08/17 06/08/17 11:20 16:43 WBC RBC Hgb Hct MCV MCH MCHC RDW Plt Count MPV Neutrophils % Lymphocytes % Monocytes % Eosinophils % Basophils % Sodium Potassium Chloride Carbon Dioxide Anion Gap BUN Creatinine Creat Clearance w eGFR POC Glucometer 126 217 Random Glucose Calcium Magnesium Total Bilirubin AST ALT Alkaline Phosphatase Total Protein Albumin Active Medications Generic Name Dose Route Start Last Admin Trade Name Kate PRN Reason Stop Dose Admin Acetaminophen 650 mg 06/05/17 15:00 06/08/17 22:22 Tylenol - PO 650 mg Q6H [facility] Administration Amlodipine Besylate 10 mg 06/07/17 10:00 06/08/17 10:12 Norvasc - PO 10 mg DAILY [facility] Administration Aspirin 325 mg 06/07/17 10:00 06/08/17 10:12 Ecotrin - PO 325 mg DAILY [facility] Administration Atorvastatin Calcium 20 mg 06/07/17 22:00 06/08/17 22:21 Lipitor - PO 20 mg HS [facility] Administration Budesonide/Formoterol Fumarate 1 puff 06/01/17 20:00 06/08/17 22:27 Symbicort 80/4.5mcg - IH 1 puff RBID [facility] Administration Bupropion HCl 75 mg 06/07/17 10:00 06/08/17 10:12 Wellbutrin - PO 75 mg DAILY [facility] Administration Collagenase 1 applic 06/02/17 10:00 06/08/17 10:14 Santyl - TP Not Given DAILY [facility] Ferrous Sulfate 325 mg 06/07/17 17:30 06/08/17 16:50 Feosol - PO 325 mg BIDWM [facility] Administration Heparin Sodium (Porcine) 5,000 unit 06/01/17 22:00 06/08/17 22:21 Heparin - SQ 5,000 unit BID [facility] Administration Hydralazine HCl 50 mg 06/05/17 18:00 06/08/17 22:21 Apresoline - PO 50 mg TID [facility] Administration IV Flush 8 ml 06/03/17 14:15 Picc Line Flush IVPUSH PRN PRN Protocol IV Flush 10 ml 06/06/17 08:40 Manny-Cath Flush IVPUSH PRN PRN Protocol Piperacillin Sod/Tazobactam 100 mls @ 200 mls/hr 06/01/17 18:00 06/08/17 17: 06 Sod 2.25 gm/ Dextrose IVPB 200 mls/hr Q8H-IV [facility] Administration Vancomycin HCl 1,000 mg/ 250 mls @ 166.667 mls/hr 06/02/17 16:00 06/08/17 16: 41 Dextrose IVPB 166.667 mls/hr DAILY@1600 [facility] Administration Protocol Insulin Aspart 1 vial 06/01/17 16:30 06/08/17 22:28 Novolog Vial Sliding Scale - SQ 4 units ACHS [facility] Administration Protocol Insulin Detemir 10 units 06/01/17 22:00 06/08/17 22:27 Levemir Vial SQ 10 units HS [facility] Administration Isosorbide Mononitrate 120 mg 06/07/17 10:00 06/08/17 10:12 Imdur - PO 120 mg DAILY [facility] Administration Metoprolol Succinate 100 mg 06/07/17 10:00 06/08/17 10:12 Toprol Xl - PO 100 mg DAILY [facility] Administration Ondansetron HCl 4 mg 06/01/17 13:54 Zofran Injection IVPUSH Q6H PRN NAUSEA AND/OR VOMITING Risperidone 0.25 mg 06/01/17 22:00 06/08/17 22:40 Risperdal - PO 0.25 mg BID [facility] Administration Tiotropium [place] 1 puff 06/02/17 10:00 06/08/17 10:16 Spiriva - IH 1 inh DAILY [facility] Administration ASSESSMENT/PLAN: 71 year-old female with a PMH significant for HTN, CVA with residual left hemiparesis, COPD, IDDM, CKD, urinary retention with indwelling powers, breast cancer, chronic Stage IV sacral ulcer, Parkinson's, and dementia. Admitted for infected sacral Stage IV pressure ulcer s/p debridement, diagnosis of severe, acute osteomyeltis which will require long-term antibiotics. Stage IV sacral pressure ulcer Severe, acute osteomyelitis --06/01 debridement and bone biopsy + osteo --needs tunnel cath today --wound vac placed --continue vanc and zosyn Pulmonary opacities --h/o loculated pleural effusions on CT chest; in August 2016 underwent thoracentesis and lung biopsy (negative) --05/31 CT chest: (1) small to moderate loculated right pleural effusion mildly diminished since 06/2016 study and unchanged from 05/28/2017 study (2) small left pleural effusion, not seen in 06/2016, unchanged from 2017 (3) no obvious interval change in right mid lung opacity since 06/2016; likely chronic atelectasis (4) bilateal flank subq edema, somewhat increased from 06/2016 study --no further workup indicated; patient should get periodic CT followup as outpatient E. coli UTI --has chronic powers, +E.coli >100k --continue antibiotics as above MARTITA on CKD --Cr 3.1 on admission, 2.3 today which is baseline Chronic urinary retention --maintain powers Hypertension --BP well-controlled --continue amlodipine, hydralazine, isosorbide IDDM --Levemir 10U qhs --Novolog sliding scale coverage Normocytic anemia --h/h stable --last transfused 05/30 --continue ferrous gluconate TIA on 06/06 --06/06 MRI: no evidence of acute infarction --continue ASA, statin Heart failure --per records from [facility] patient has h/o heart failure, NOS --last echo 05/13/15: LV normal; RV normal; trace to mild MR; mild TR; pHTN; trace PI --repeat echo essentially same --no diuresis for now given MARTITA and respiratory status stable COPD --continue Symbicort FEN Fluids: PO intake adequate Electrolytes: replete as indicated Nutrition: diabetic diet DVT prophylaxis: subq heparin Physical therapy Dispo: discharge to SNF. Tunnel catheter today. Wound vac in place. Full code. Visit type - Emergency Visit Emergency Visit: Yes ED Registration Date: 05/28/17 Care time: The patient presented to the Emergency Department on the above date and was hospitalized for further evaluation of their emergent condition. - New Patient This patient is new to me today: No - Critical Care Critical Care patient: No
[2017-06-09] MEDS: PIPERACILLIN/TAZOB 2.25 GM 2.25 GM in DEXTROSE 5%-WATER - 100 ML IVPB SCH ×2 (03:00→11:30)
[2017-06-09] MEDS: ACETAMINOPHEN 325 MG TABLET (FP) PO SCH ×3 (03:00→15:37)
[2017-06-09] MEDS: INSULIN SLIDING SCALE (NOVOLOG) 1 VIAL SQ SCH ×3 (06:21→16:53)
[2017-06-09] MEDS: hydrALAZINE HCL 25 MG TABLET (FP) PO SCH ×2 (06:24→13:44)
[2017-06-09 06:59] LABS: BASO % 0.6 % (0-2.0); EOS % 3.2 % (0-4.5); HEMATOCRIT 25.2 % (32.4-45.2); HEMOGLOBIN 8.1 GM/dL (10.7-15.3); LYMPH % 5.6 % (8-40); MCH 27.4 pg (25.7-33.7); MCHC 32.1 g/dl (32.0-36.0); MEAN CELL VOLUME 85.5 fl (80-96); MEAN PLT VOLUME 8.1 fl (7.5-11.1); MONO % 5.2 % (3.8-10.2); NEUT % 85.4 % (42.8-82.8); PLATELET COUNT 210 K/MM3 (134-434); RBC 2.95 M/mm3 (3.60-5.2); RDW 18.2 % (11.6-15.6)
--- NOTE | 2017-06-09 07:35 | OP ---
DATE OF OPERATION: 06/01/2017 PREOPERATIVE DIAGNOSIS: Necrotic sacral ulcer. POSTOPERATIVE DIAGNOSIS: Necrotic sacral ulcer. PROCEDURE PERFORMED: Excisional debridement sacral skin and subcutaneous tissue, with bone biopsy. SURGEON: Braden Cohen DO ANESTHESIA: Fractional. BLOOD LOSS: 50 mL. FINDINGS: Bone, sent for culture and pathology. INDICATIONS: The patient is a 71-year-old female with a necrotic sacral ulcer. It was decided that she would need debridement. DESCRIPTION OF PROCEDURE: The patient was consented for the procedure, understanding all risks, benefits and alternatives, and was then taken to the operating room. Once in the operating suite, she was laid on the operating table in the supine manner and then turned right side down. We then exposed the sacrum with all the necrosis. We then prepped and draped the sacrum with Betadine in a sterile surgical manner. We then went ahead and took a number 15 blade and excised all the necrotic tissue, going down through skin and subcutaneous tissue. Bovie electrocautery was used to control hemostasis. Bone was exposed and using a rongeur, we sent 2 pieces of bone off to culture and to Pathology. We then irrigated the wound copiously. Wet-to-dry dressings were placed, ABD pads and tape. The patient tolerated the procedure with no complication. The patient was transferred to PACU in stable condition. BRADEN COHEN DO [employer]/[id number]
[2017-06-09] MEDS ORDERED: PT OWN MED DRAWER 7, Y5N ONE (07:41)
[2017-06-09 07:49] LABS: CHLORIDE 105 mmol/L (98-107); SODIUM 134 mmol/L (136-145)
[2017-06-09 07:56] LABS: ALBUMIN 1.4 g/dl (3.4-5.0); ALK PHOS 58 U/L (45-117); ANION GAP 9 (8-16); BILIRUBIN,TOTAL 0.3 mg/dL (0.2-1.0); BLOOD UREA NITROGEN 56 mg/dL (7-18); CO2 20 mmol/L (21-32); CREATININE 2.3 mg/dL (0.55-1.02); GLUCOSE,RANDOM 71 mg/dL (74-106); MAGNESIUM 1.9 mg/dL (1.8-2.4); SGOT/AST 13 U/L (15-37); SGPT/ALT 16 U/L (12-78); TOT PROT 6.4 g/dl (6.4-8.2)
[2017-06-09] MEDS: FERROUS SO4 325 MG TABLET (FP) PO SCH ×2 (08:36→16:48)
[2017-06-09] MEDS: BUDESONIDE/FORMETEROL FUMARATE 80/4.5 mcg INHALER IH SCH (08:37)
--- NOTE | 2017-06-09 09:00 | PN ---
Physical Exam: SUBJECTIVE: Patient seen and examined OBJECTIVE: Vital Signs Period Temp Pulse Resp BP Sys/Benton Pulse Ox Last 24 Hr 98.3 F-98.9 F 68-76 20-20 112-162/56-72 99-99 GENERAL: The patient is awake, alert, and fully oriented, in no acute distress. HEAD: Normal with no signs of trauma. EYES: PERRL, extraocular movements intact, sclera anicteric, conjunctiva clear. No ptosis. ENT: Ears normal, nares patent, oropharynx clear without exudates, moist mucous membranes. NECK: Trachea midline, full range of motion, supple. LUNGS: Breath sounds equal, clear to auscultation bilaterally, no wheezes, no crackles, no accessory muscle use. HEART: Regular rate and rhythm, S1, S2 without murmur, rub or gallop. ABDOMEN: Soft, nontender, nondistended, normoactive bowel sounds, no guarding, no rebound, no hepatosplenomegaly, no masses. EXTREMITIES: 2+ pulses, warm, well-perfused, no edema. NEUROLOGICAL: Cranial nerves II through XII grossly intact. Normal speech, gait not observed. PSYCH: Normal mood, normal affect. SKIN: Warm, dry, normal turgor, no rashes or lesions noted Laboratory Results - last 24 hr 06/08/17 06/08/17 06/08/17 06:55 11:20 16:43 WBC RBC Hgb Hct MCV MCH MCHC RDW Plt Count MPV Neutrophils % Lymphocytes % Monocytes % Eosinophils % Basophils % Sodium 134 L Potassium 5.1 Chloride 104 Carbon Dioxide 19 L Anion Gap 11 BUN 51 H Creatinine 2.4 H Creat Clearance w eGFR 20.02 POC Glucometer 126 217 Random Glucose 165 H Calcium 7.9 L Magnesium 1.8 Total Bilirubin 0.2 D AST 12 L ALT 14 Alkaline Phosphatase 62 Total Protein 6.0 L Albumin 1.4 L 06/08/17 06/09/17 06/09/17 22:19 06:02 06:15 WBC 14.0 H RBC 2.95 L Hgb 8.1 L Hct 25.2 L MCV 85.5 MCH 27.4 MCHC 32.1 RDW 18.2 H Plt Count 210 MPV 8.1 Neutrophils % 85.4 H Lymphocytes % 5.6 L D Monocytes % 5.2 Eosinophils % 3.2 Basophils % 0.6 Sodium Potassium Chloride Carbon Dioxide Anion Gap BUN Creatinine Creat Clearance w eGFR POC Glucometer 204 78 Random Glucose Calcium Magnesium Total Bilirubin AST ALT Alkaline Phosphatase Total Protein Albumin 06/09/17 06:15 WBC RBC Hgb Hct MCV MCH MCHC RDW Plt Count MPV Neutrophils % Lymphocytes % Monocytes % Eosinophils % Basophils % Sodium 134 L Potassium 5.0 Chloride 105 Carbon Dioxide 20 L Anion Gap 9 BUN 56 H Creatinine 2.3 H Creat Clearance w eGFR 21.02 POC Glucometer Random Glucose 71 L Calcium 8.0 L Magnesium 1.9 Total Bilirubin 0.3 D AST 13 L ALT 16 Alkaline Phosphatase 58 Total Protein 6.4 Albumin 1.4 L Active Medications Generic Name Dose Route Start Last Admin Trade Name Freq PRN Reason Stop Dose Admin Acetaminophen 650 mg 06/05/17 15:00 06/09/17 08:36 Tylenol - PO 650 mg Q6H [facility] Administration Amlodipine Besylate 10 mg 06/07/17 10:00 06/08/17 10:12 Norvasc - PO 10 mg DAILY [facility] Administration Aspirin 325 mg 06/07/17 10:00 06/08/17 10:12 Ecotrin - PO 325 mg DAILY [facility] Administration Atorvastatin Calcium 20 mg 06/07/17 22:00 06/08/17 22:21 Lipitor - PO 20 mg HS [facility] Administration Budesonide/Formoterol Fumarate 1 puff 06/01/17 20:00 06/09/17 08:37 Symbicort 80/4.5mcg - IH 1 puff RBID [facility] Administration Bupropion HCl 75 mg 06/07/17 10:00 06/08/17 10:12 Wellbutrin - PO 75 mg DAILY [facility] Administration Collagenase 1 applic 06/02/17 10:00 06/08/17 10:14 Santyl - TP Not Given DAILY [facility] Ferrous Sulfate 325 mg 06/07/17 17:30 06/09/17 08:36 Feosol - PO 325 mg BIDWM [facility] Administration Heparin Sodium (Porcine) 5,000 unit 06/01/17 22:00 06/08/17 22:21 Heparin - SQ 5,000 unit BID [facility] Administration Hydralazine HCl 50 mg 06/05/17 18:00 06/09/17 06:24 Apresoline - PO 50 mg TID [facility] Administration IV Flush 8 ml 06/03/17 14:15 Picc Line Flush IVPUSH PRN PRN Protocol IV Flush 10 ml 06/06/17 08:40 Manny-Cath Flush IVPUSH PRN PRN Protocol Piperacillin Sod/Tazobactam 100 mls @ 200 mls/hr 06/01/17 18:00 06/09/17 03: 00 Sod 2.25 gm/ Dextrose IVPB 200 mls/hr Q8H-IV [facility] Administration Vancomycin HCl 1,000 mg/ 250 mls @ 166.667 mls/hr 06/02/17 16:00 06/08/17 16: 41 Dextrose IVPB 166.667 mls/hr DAILY@1600 [facility] Administration Protocol Insulin Aspart 1 vial 06/01/17 16:30 06/09/17 06:21 Novolog Vial Sliding Scale - SQ Not Given ACHS [facility] Protocol Insulin Detemir 10 units 06/01/17 22:00 06/08/17 22:27 Levemir Vial SQ 10 units HS [facility] Administration Isosorbide Mononitrate 120 mg 06/07/17 10:00 06/08/17 10:12 Imdur - PO 120 mg DAILY [facility] Administration Metoprolol Succinate 100 mg 06/07/17 10:00 06/08/17 10:12 Toprol Xl - PO 100 mg DAILY [facility] Administration Ondansetron HCl 4 mg 06/01/17 13:54 Zofran Injection IVPUSH Q6H PRN NAUSEA AND/OR VOMITING Risperidone 0.25 mg 06/01/17 22:00 06/08/17 22:40 Risperdal - PO 0.25 mg BID [facility] Administration Tiotropium [place] 1 puff 06/02/17 10:00 06/08/17 10:16 Spiriva - IH 1 inh DAILY [facility] Administration ASSESSMENT/PLAN:
[2017-06-09] MEDS: ISOSORBIDE MONONITRATE 60 MG TAB.SR.24H (FP) PO SCH (09:30)
[2017-06-09] MEDS: risperiDONE 0.25 MG TABLET (FP) PO SCH (09:31)
[2017-06-09] MEDS: amLODIPine BESYLATE 10 MG TABLET (FP) PO SCH (09:31)
[2017-06-09] MEDS: HEPARIN NA (PORCINE) 5,000 UNITS/ML 1ML VIAL SQ SCH (09:31)
[2017-06-09] MEDS: buPROPion HCL 75 MG TABLET PO SCH (09:31)
[2017-06-09] MEDS: ASPIRIN 325 MG ENTERIC COATED TABLET (FP) PO SCH (09:31)
[2017-06-09] MEDS: TIOTROPIUM BROMIDE 18 MCG/INH (DEVICE W/ 5 CAPSULES) IH SCH (09:32)
--- NOTE | 2017-06-09 09:32 | PN ---
Progress Note, Physician - Current Medication List Current Medications: Active Medications Acetaminophen (Tylenol -) 650 mg PO Q6H [facility] Last Admin: 06/09/17 08:36 Dose: 650 mg Amlodipine Besylate (Norvasc -) 10 mg PO DAILY [facility] Last Admin: 06/08/17 10:12 Dose: 10 mg Aspirin (Ecotrin -) 325 mg PO DAILY [facility] Last Admin: 06/08/17 10:12 Dose: 325 mg Atorvastatin Calcium (Lipitor -) 20 mg PO HS [facility] Last Admin: 06/08/17 22:21 Dose: 20 mg Budesonide/Formoterol Fumarate (Symbicort 80/4.5mcg -) 1 puff IH RBID [facility] Last Admin: 06/09/17 08:37 Dose: 1 puff Bupropion HCl (Wellbutrin -) 75 mg PO DAILY [facility] Last Admin: 06/08/17 10:12 Dose: 75 mg Collagenase (Santyl -) 1 applic TP DAILY [facility] Last Admin: 06/08/17 10:14 Dose: Not Given Ferrous Sulfate (Feosol -) 325 mg PO BIDWM [facility] Last Admin: 06/09/17 08:36 Dose: 325 mg Heparin Sodium (Porcine) (Heparin -) 5,000 unit SQ BID [facility] Last Admin: 06/08/17 22:21 Dose: 5,000 unit Hydralazine HCl (Apresoline -) 50 mg PO TID [facility] Last Admin: 06/09/17 06:24 Dose: 50 mg IV Flush (Picc Line Flush) 8 ml IVPUSH PRN PRN PRN Reason: Protocol IV Flush (Manny-Cath Flush) 10 ml IVPUSH PRN PRN PRN Reason: Protocol Piperacillin Sod/Tazobactam (Sod 2.25 gm/ Dextrose) 100 mls @ 200 mls/hr IVPB Q8H-IV [facility] Last Admin: 06/09/17 03:00 Dose: 200 mls/hr Vancomycin HCl 1,000 mg/ (Dextrose) 250 mls @ 166.667 mls/hr IVPB DAILY@1600 [facility] PRN Reason: Protocol Last Admin: 06/08/17 16:41 Dose: 166.667 mls/hr Insulin Aspart (Novolog Vial Sliding Scale -) 1 vial SQ ACHS [facility] PRN Reason: Protocol Last Admin: 06/09/17 06:21 Dose: Not Given Insulin Detemir (Levemir Vial) 10 units SQ HS [facility] Last Admin: 06/08/17 22:27 Dose: 10 units Isosorbide Mononitrate (Imdur -) 120 mg PO DAILY [facility] Last Admin: 06/08/17 10:12 Dose: 120 mg Metoprolol Succinate (Toprol Xl -) 100 mg PO DAILY [facility] Last Admin: 06/08/17 10:12 Dose: 100 mg Ondansetron HCl (Zofran Injection) 4 mg IVPUSH Q6H PRN PRN Reason: NAUSEA AND/OR VOMITING Risperidone (Risperdal -) 0.25 mg PO BID [facility] Last Admin: 06/08/17 22:40 Dose: 0.25 mg Tiotropium [place] (Spiriva -) 1 puff IH DAILY [facility] Last Admin: 06/08/17 10:16 Dose: 1 inh - Objective Vital Signs: Vital Signs Temperature 98.9 F 06/09/17 07:25 Pulse Rate 71 06/09/17 07:25 Respiratory Rate 20 06/09/17 07:28 Blood Pressure 154/59 06/09/17 07:25 O2 Sat by Pulse Oximetry (%) 99 06/09/17 07:28 Labs: CBC, BMP 06/09/17 06:15 06/09/17 06:15 INR, PTT INR 1.07 (0.82-1.09) 06/06/17 12:40
[2017-06-09] MEDS: COLLAGENASE CLOSTRIDIUM HIST. 30 GRAMS TUBE TP SCH (11:19)
--- NOTE | 2017-06-09 12:04 | DS ---
Physical Exam: SUBJECTIVE: Patient seen and examined OBJECTIVE: Vital Signs Period Temp Pulse Resp BP Sys/[place]enton Pulse Ox Last 24 Hr 98.3 F-98.9 F 68-76 20-20 137-162/56-72 99-99 PHYSICAL EXAM GENERAL: The patient is awake, alert, and fully oriented, in no acute distress. HEAD: Normal with no signs of trauma. EYES: PERRL, extraocular movements intact, sclera anicteric, conjunctiva clear. ENT: Ears normal, nares patent, oropharynx clear without exudates, moist mucous membranes. NECK: Trachea midline, full range of motion, supple. LUNGS: Breath sounds equal, clear to auscultation bilaterally, no wheezes, no crackles, no accessory muscle use. HEART: Regular rate and rhythm, S1, S2 without murmur, rub or gallop. ABDOMEN: Soft, nontender, nondistended, normoactive bowel sounds, no guarding, no rebound, no hepatosplenomegaly, no masses. EXTREMITIES: 2+ pulses, warm, well-perfused, no edema. NEUROLOGICAL: Cranial nerves II through XII grossly intact. Normal speech, gait not observed. PSYCH: Normal mood, normal affect. SKIN: Warm, dry, normal turgor, no rashes or lesions noted. LABS Laboratory Results - last 24 hr 06/08/17 06/08/17 06/09/17 16:43 22:19 06:02 WBC RBC Hgb Hct MCV MCH MCHC RDW Plt Count MPV Neutrophils % Lymphocytes % Monocytes % Eosinophils % Basophils % Sodium Potassium Chloride Carbon Dioxide Anion Gap BUN Creatinine Creat Clearance w eGFR POC Glucometer 217 204 78 Random Glucose Calcium Magnesium Total Bilirubin AST ALT Alkaline Phosphatase Total Protein Albumin 06/09/17 06/09/17 06:15 06:15 WBC 14.0 H RBC 2.95 L Hgb 8.1 L Hct 25.2 L MCV 85.5 MCH 27.4 MCHC 32.1 RDW 18.2 H Plt Count 210 MPV 8.1 Neutrophils % 85.4 H Lymphocytes % 5.6 L D Monocytes % 5.2 Eosinophils % 3.2 Basophils % 0.6 Sodium 134 L Potassium 5.0 Chloride 105 Carbon Dioxide 20 L Anion Gap 9 BUN 56 H Creatinine 2.3 H Creat Clearance w eGFR 21.02 POC Glucometer Random Glucose 71 L Calcium 8.0 L Magnesium 1.9 Total Bilirubin 0.3 D AST 13 L ALT 16 Alkaline Phosphatase 58 Total Protein 6.4 Albumin 1.4 L HOSPITAL COURSE: Date of Admission:05/28/17 Date of Discharge: 06/09/17 Discharge Summary Reason For Visit: BACTEREMIA DUE TO PSEUDOMONAS Current Active Problems Anemia (Acute) CKD (chronic kidney disease) (Acute) Leukocytosis (Acute) Pneumonia (Acute) Pseudomonal bacteremia (Acute) Sacral ulcer (Acute) TIA (transient ischemic attack) (Acute) Condition: Improved - Instructions Diet, Activity, Other Instructions: Mrs. Gold/Facility staff: Patient is being discharged with a tunnel catheter. During your hospitalization, it was noted that you had an elevated blood pressures. Please continue the cardiac medications as ordered in your discharge packed and have your blood pressure monitored closely at the rehab facility. Further, your had a cat scan of your chest that was inconclusive for neoplastic disease. Please have a cat scan of your chest repeated witin 4-6 weeks to check our findings. Please take the imaging that we did in the hospital to your primary care doctor. . Referrals: Bora Contreras MD [Primary Care Provider] - Disposition: CARE HOME FACILITY - Home Medications Comprehensive Discharge Medication List: Ambulatory Orders Acetaminophen 500 mg PO DAILY 12/27/16 Amlodipine Besylate 10 mg PO DAILY 12/27/16 Betamethasone Dipr 0.05% Oint [Diprolene] 50 gm .ROUTE ASDIR 12/27/16 Budesonide/Formeterol Fumarate [SYMBICORT 80/4.5mcg -] 1 inh PO BID 12/27/16 Bupropion HCl [Wellbutrin -] 75 mg PO DAILY 12/27/16 Calcium Acetate [Calphron] 667 mg PO TID 12/27/16 Cholecalciferol (Vitamin D3) [Vitamin D -] 400 unit PO DAILY 12/27/16 Duloxetine HCl [Cymbalta] 20 mg PO DAILY 12/27/16 Ferrous Sulfate [Feosol] 324 mg PO BID 12/27/16 Hydralazine HCl 10 mg PO TID 12/27/16 Insulin (Levemir) [Levemir Flexpen -] 8 units SQ DAILY 12/27/16 Isosorbide Mononitrate [Isosorbide Mononitrate ER] 30 mg PO DAILY 12/27/16 Lactulose [Enulose] 10 gm PO HS 12/27/16 Omeprazole 40 mg PO DAILY 12/27/16 Polyethylene Glycol 3350 [Miralax 119 gm Btl -] 17 gm PO DAILY 12/27/16 Risperidone [Risperdal -] 0.25 mg PO BID 12/27/16 Tiotropium [place] [Spiriva] 1 inh IH DAILY 12/27/16 Tramadol HCl 50 mg PO BID 12/27/16 Cranberry Fruit Concentrate [Cran-Max] 500 mg PO DAILY 04/20/17 Metoprolol Succinate [Toprol Xl] 100 mg PO DAILY 04/20/17 Silver/Calcium Alginate [Algicell Ag 4"X5" Dressing] 1 bandage TD DAILY Cefuroxime Axetil [Ceftin -] 250 mg PO BID tablet 05/03/17 Collagenase Clostridium Hist. [Santyl -] 1 applic TP DAILY tube 05/03/17 Insulin Sliding Scale [Novolog Vial Sliding Scale -] 1 vial SQ ACHS units 05/03 Metronidazole [Flagyl -] 500 mg PO TID tablet 05/03/17 Mineral Oil/Pet Hy-Phl [Aquaphor -] 1 applic TP TID PRN jar 05/03/17 Acetaminophen [Tylenol] 500 mg PO QID 05/28/17 Amlodipine Besylate [Norvasc -] 10 mg PO DAILY 05/28/17 Betamethasone/Propylene Glyc [Betamethasone Dp Aug 0.05% Lot] 30 ml TP HS Budesonide/Formeterol Fumarate [SYMBICORT 80/4.5mcg -] 1 inh PO BID 05/28/17 Bupropion HCl [Wellbutrin -] 75 mg PO DAILY 05/28/17 Calcium Acetate [Calphron] 667 mg PO TID 05/28/17 Cholecalciferol (Vitamin D3) [Vitamin D3 -] 1,000 unit PO DAILY 05/28/17 Cranberry Conc/Ascorbic Acid [Cranberry Concentrate Softgel] 1 each PO DAILY Cyanocobalamin [Vitamin B12 -] 100 mcg PO DAILY 05/28/17 Duloxetine HCl [Cymbalta -] 20 mg PO DAILY 05/28/17 Epoetin Osmar [Procrit] 10,000 unit IJ WEEKLY 05/28/17 Ferrous Gluconate [Fergon -] 324 mg PO BID 05/28/17 Hydralazine HCl [Apresoline -] 25 mg PO BID 05/28/17 Insulin (LOG) Aspart [NovoLOG -] 0 units SQ QID 05/28/17 Isosorbide Mononitrate [IMDUR 120mg [STRENGTH NOT CARRIED]] 120 mg PO DAILY Lactulose [Enulose] 10 gm PO HS 05/28/17 Levemir Flextouch 10 unit SQ HS 05/28/17 Omeprazole 40 mg PO AM 05/28/17 Risperidone [Risperdal] 0.25 mg PO BID 05/28/17 Tiotropium [place] [Spiriva] 1 inh IH DAILY 05/28/17 Tramadol HCl [Ultram -] 50 mg PO BID 05/28/17 - Discharge Referral Referred to [facility] No
[2017-06-09] MEDS: VANCOMYCIN 1,000 MG in DEXTROSE 5%-WATER - 250 ML IVPB SCH (15:02)
[2017-06-09 15:49] VITALS: BP 134/65; PULSE 73; TEMP 97.5
== END 2017-06-09 18:01 | DRG 570 ==
LOC: JER 23:17 → JERBED 05-28 07:20 → MERGE 05-28 07:20 → J8W 05-28 17:51 → J4W 06-06 12:32
PROVIDERS: ADMIT Internal Medicine; ATTEND Nurse Practitioner Acute Care
PROC: 0QB10ZZ Excision of Sacrum, Open Approach (ICD-10-PCS; 2017-06-01)
PROC: 0JB70ZZ Excision of Back Subcutaneous Tissue and Fascia, Open Approach (ICD-10-PCS; principal; 2017-06-01 12:00)
PROC: 2W15X6Z Compression of Back using Pressure Dressing (ICD-10-PCS; 2017-06-08)
PROC: B516ZZA Fluoroscopy of Right Subclavian Vein, Guidance (ICD-10-PCS; 2017-06-09)
PROC: 05H533Z Insertion of Infusion Device into Right Subclavian Vein, Percutaneous Approach (ICD-10-PCS; 2017-06-09)
DX: L89.154 Pressure ulcer of sacral region, stage 4 (principal); J18.9 Pneumonia, unspecified organism; G45.9 Transient cerebral ischemic attack, unspecified; M46.28 Osteomyelitis of vertebra, sacral and sacrococcygeal region; N39.0 Urinary tract infection, site not specified; G81.91 Hemiplegia, unspecified affecting right dominant side; I13.0 Hypertensive heart and chronic kidney disease with heart failure and stage 1 through stage 4 chronic kidney disease, or unspecified chronic kidney disease; N17.9 Acute kidney failure, unspecified; R78.81 Bacteremia; Z85.3 Personal history of malignant neoplasm of breast; Z96.651 Presence of right artificial knee joint; D64.9 Anemia, unspecified; D50.9 Iron deficiency anemia, unspecified; N18.9 Chronic kidney disease, unspecified; J44.9 Chronic obstructive pulmonary disease, unspecified; E11.22 Type 2 diabetes mellitus with diabetic chronic kidney disease; Z79.4 Long term (current) use of insulin; R33.9 Retention of urine, unspecified; E11.649 Type 2 diabetes mellitus with hypoglycemia without coma; B96.20 Unspecified Escherichia coli [E. coli] as the cause of diseases classified elsewhere; I50.9 Heart failure, unspecified; B96.5 Pseudomonas (aeruginosa) (mallei) (pseudomallei) as the cause of diseases classified elsewhere
CPT/HCPCS: 36415; 36430; 36558; 70450-TC; 70551-TC; 71045-TC; 71250-TC; 74176-TC; 77001-TC-FY; 80048; 80053; 80061; 80076; 81003; 81015; 82962; 83010; 83036; 83605; 83615; 83721; 83735; 84100; 84443; 84484; 85025; 85027; 85610; 85651; 86140; 86850; 86900; 86901; 86922; 87040; 87070; 87075; 87076; 87077; 87086; 87186; 87205; 88304-TC; 88307-TC; 88311-TC; 93005; 93010; 93306-TC; 93880-TC; 94760; 97161-GP; 99284-25; C1751; J1644; P9038; P9058

== ENCOUNTER 2017-06-09 21:10 | Observation (INO) | payer OTHER ==
[2017-06-09 22:09] VITALS: BMI 29.9
--- NOTE | 2017-06-09 23:22 | PDOC ---
History of Present Illness - General Chief Complaint: Nausea/Vomiting Stated Complaint: ABD PAIN Time Seen by Provider: 06/09/17 22:56 History Source: Family Exam Limitations: No Limitations - History of Present Illness Initial Comments: 06/09/17 23:18 The patient is a 71F with a PMH of sacral decub ulcers, CKD, CVA, HTN, DM, COPD , urinary retention with chronic indwelling powers, discharged today from our facility, who vomited on her way to the NH and then vomited 3 more times in NH. The history is provided entirely by the patient's son. The patient's son states that the patient vomited en route to the NH and then when she got there. She was not complaining of any lightheadedness, current nausea, CP, SOB, fever, chills, cough, or abdominal pain. Past History - Past Medical History Allergies/Adverse Reactions: Allergies Allergy/AdvReac Type Severity Reaction Status Date / Time No Known Drug Allergies Allergy Verified 06/09/17 22:10 Home Medications: Ambulatory Orders Amlodipine Besylate 10 mg PO DAILY 12/27/16 Budesonide/Formeterol Fumarate [SYMBICORT 80/4.5mcg -] 1 inh PO BID 12/27/16 Bupropion HCl [Wellbutrin -] 75 mg PO DAILY 12/27/16 Ferrous Sulfate [Feosol] 324 mg PO BID 12/27/16 Insulin (Levemir) [Levemir Flexpen -] 8 units SQ DAILY 12/27/16 Isosorbide Mononitrate [Isosorbide Mononitrate ER] 30 mg PO DAILY 12/27/16 Omeprazole 40 mg PO DAILY 12/27/16 Polyethylene Glycol 3350 [Miralax 119 gm Btl -] 17 gm PO DAILY 12/27/16 Metoprolol Succinate [Toprol Xl] 100 mg PO DAILY 04/20/17 Insulin Sliding Scale [Novolog Vial Sliding Scale -] 1 vial SQ ACHS units 05/03 Cyanocobalamin [Vitamin B12 -] 100 mcg PO DAILY 05/28/17 Duloxetine HCl [Cymbalta -] 20 mg PO DAILY 05/28/17 Epoetin [place]sm[place] [Procrit] 10,000 unit IJ WEEKLY 05/28/17 Ferrous Gluconate [Fergon -] 324 mg PO BID 05/28/17 Hydralazine HCl [Apresoline -] 25 mg PO BID 05/28/17 Insulin (LOG) Aspart [NovoLOG -] 0 units SQ QID 05/28/17 Levemir Flextouch 10 unit SQ HS 05/28/17 Risperidone [Risperdal -] 0.25 mg PO BID 05/28/17 Tiotropium [place] [Spiriva] 1 inh IH DAILY 05/28/17 Tramadol HCl [Ultram -] 50 mg PO BID 05/28/17 Piperacillin/Tazob 2.25 gm [Zosyn -] 2.25 gm IVPB Q8H-IV vial 06/09/17 Vancomycin 1,000 mg IVPB DAILY@1600 vial 06/09/17 Anemia: Yes Cancer: Yes Cardiac Disorders: Yes (CHF, CAD) CVA: Yes (Lt sided residual) COPD: Yes Diabetes: Yes GI Disorders: Yes (Rt. ventral hernia) Disorders: Yes (Renal insuficiency) HTN: Yes Psychiatric Problems: Yes (depression) Other medical history: Cervical Stenosis - Surgical History Abdominal Surgery: Yes (laparotomy,hernia repair with mesh placement..) GI Surgery: Yes (small bowell resection) Orthopedic Surgery: Yes (right tkr,pt wears lt foot immobilizer) - Immunization History Td Vaccination: Yes TDAP Vaccination: Yes Immunization Up to Date: Yes - Suicide/Smoking/Psychosocial Hx Smoking Status: No Smoking History: Never smoked Years of Tobacco Use: 0 Have you smoked in the past 12 months: No Number of Cigarettes Smoked Daily: 20 If you are a former smoker, when did you quit?: 15 yrs ago Cigars Per Day: 0 Information on smoking cessation initiated: No 'Breaking Loose' booklet given: 10/05/13 Hx Alcohol Use: No Drug/Substance Use Hx: No Substance Use Type: None Hx Substance Use Treatment: No Review of Systems - Review of Systems Able to Perform ROS?: Yes Is the patient limited Tajik proficient: No Constitutional: No: Chills, Fever HEENTM: No: Eye Pain, Ear Pain Respiratory: No: Cough, Shortness of Breath Cardiac (ROS): No: Chest Pain, Lightheadedness ABD/GI: Yes: Vomiting, Other (Abdominal pain, RUQ). No: Nausea : No: Dysuria, Hematuria Musculoskeletal: No: Back Pain, Neck Pain Neurological: No: Headache, Numbness, Tingling, Weakness *Physical Exam - Vital Signs Last Vital Signs Temp Pulse Resp BP Pulse Ox 98.8 F 72 17 153/79 100 06/09/17 21:43 06/09/17 21:43 06/09/17 21:43 06/09/17 21:43 06/09/17 21:43 - Physical Exam Comments: 06/09/17 23:26 GENERAL: Well developed, well nourished. Awake and alert. No acute distress. HEENT: Normocephalic, atraumatic. Hearing grossly normal. Moist mucous membranes. PERRLA, EOMI. No conjunctival pallor. Sclera are non-icteric. NECK: Supple. Full ROM. No JVD. CARDIOVASCULAR: Regular rate and rhythm. No murmurs, rubs, or gallops. PULMONARY: No evidence of respiratory distress. Lungs clear to auscultation bilaterally. No wheezing, rales or rhonchi. ABDOMINAL: Soft. Tenderness to palpation over periumbilical abdomen. Non- distended. No rebound or guarding. MUSCULOSKELETAL: Normal range of motion at all joints. No bony deformities or tenderness. EXTREMITIES: 1+ edema in b/l LE. No cyanosis. No clubbing. No calf tenderness. SKIN: Bandaged sacral wound, stage 4. Warm and dry. Normal capillary refill. No rashes. No jaundice. NEUROLOGICAL: Alert, awake, appropriate. Cranial nerves 2-12 intact. Normal speech. PSYCHIATRIC: Cooperative. Good eye contact. Appropriate mood and affect. Medical Decision Making - Medical Decision Making 06/09/17 23:28 The patient is a 71F with an extensive PMH who presents after being recently discharged today for vomiting en route to her NH. Her labs from today (prior to discharge) are only significant for a worsening BUN, 56 from 52, and white count of 14. The patient is getting vanc/zosyn via PICC line for sacral wound. 06/10/17 01:12 The son is concerned about returning to the NH. He would like to discuss other options for NH with the social media intern who will be here in the morning. They agree to stay to wait for social work. Will place in ED obs. 06/10/17 01:29 Pt has been endorsed to Dr. Wagner for ED obs. 06/10/17 06:21 Pt will require social work evaluation and assistance in the morning for NH placement for wound care. The patient and her son do not desire to return back to [facility] and are wondering what other places the patient can go to. *DC/Admit/Observation/Transfer Diagnosis at time of Disposition: Vomiting Qualifiers: Vomiting type: unspecified Vomiting Intractability: non-intractable Nausea presence: without nausea Qualified Code(s): R11.11 - Vomiting without nausea - Discharge Dispostion Condition at time of disposition: Fair Admit: Yes - Referrals - Patient Instructions - Post Discharge Activity
--- NOTE | 2017-06-10 02:15 | PDOC ---
Attending Attestation - Resident Resident Name: Jim Jules - ED Attending Attestation I have performed the following: I have examined & evaluated the patient, The case was reviewed & discussed with the resident, I agree w/resident's findings & plan, Exceptions are as noted - HPI HPI: 06/10/17 02:15 71 year old female with hx spinal laminectomy, with residual hemiparesis, weakness, right knee replacement, breast cancer, hx small bowel resection sent in for nausea and vomiting several times. The patient was just discharged earlier this afternoon for sacral ulcer infection which was being treated with IV antibiotics via a tunnel catheter. The pt's son noted that the patient was feeling a little bit more tired than usual prior to discharge but did not note anything unusual. Labs were drawn which not different from baseline. Patient was discharged back to skilled nursing. AT the facility, the patient had vomited several times, but now reports feeling well and without symptoms. - Physicial Exam PE: 06/10/17 02:17 GENERAL: Awake, alert, and fully oriented, in no acute distress. HEAD: No signs of trauma EYES: PERRLA, EOMI, sclera anicteric, conjunctiva clear ENT: Auricles normal inspection, hearing grossly normal, nares patent NECK: Normal ROM, supple LUNGS: Breath sounds equal, clear to auscultation bilaterally. No wheezes, and no crackles HEART: Regular rate and rhythm, normal S1 and S2, no murmurs, rubs or gallops ABDOMEN: Mild RUQ tenderness to palpation.Soft, normoactive No guarding, no rebound. No masses EXTREMITIES: Normal range of motion, no edema. No clubbing or cyanosis. No cords, erythema, or tenderness NEUROLOGICAL: Cranial nerves II through XII grossly intact. SKIN: Warm, Dry, normal turgor. - Medical Decision Making 06/10/17 02:18 Vital Signs Temp Pulse Resp BP Pulse Ox 98.8 F 72 17 153/79 100 06/09/17 21:43 06/09/17 21:43 06/09/17 21:43 06/09/17 21:43 06/09/17 21:43 Though the patient is chronically ill, the patient seems to be at baseline and without complaints. Lab work performed earlier today demonstrates findings no different from the other days. 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 Abdominal radiograph with no obvious findings of obstruction. Will d/c patient back to nursing facility given several hours of observation demonstrated no vomiting.
[2017-06-10 07:15] VITALS: BP 138/55; PULSE 75; TEMP 99.2
--- NOTE | 2017-06-10 10:00 | EKG ---
Test Reason : Blood Pressure : / mmHG Vent. Rate : 072 BPM Atrial Rate : 072 BPM P-R Int : 176 ms QRS Dur : 072 ms QT Int : 360 ms P-R-T Axes : 000 021 016 degrees QTc Int : 394 ms POOR DATA QUALITY, INTERPRETATION MAY BE ADVERSELY AFFECTED NORMAL SINUS RHYTHM NORMAL ECG WHEN COMPARED WITH ECG OF 06-JUN-2017 12:06, NO SIGNIFICANT CHANGE WAS FOUND Confirmed by LUCAS HUANG MD ([id number]) on 06/10/2017 10:00:27 AM Referred By: Confirmed By:LUCAS HUANG MD
--- NOTE | 2017-06-10 14:33 | PDOC ---
*Physical Exam - Vital Signs Last Vital Signs Temp Pulse Resp BP Pulse Ox 99.2 F 75 17 138/55 100 06/10/17 07:15 06/10/17 07:15 06/09/17 21:43 06/10/17 07:15 06/10/17 07:15 - Physical Exam Comments: Received signout from Dr Jules. The patient had been complaining of vomitting, but after a couple of hours of observation, patient feels much improved. No abdominal pain, no vomitting. Labs wnl, Imaging wnl, Will discharge back to [facility] *DC/Admit/Observation/Transfer Diagnosis at time of Disposition: Vomiting Qualifiers: Vomiting type: unspecified Vomiting Intractability: non-intractable Nausea presence: without nausea Qualified Code(s): R11.11 - Vomiting without nausea - Discharge Dispostion Disposition: SNF FACILITY Condition at time of disposition: Improved Admit: No - Referrals - Patient Instructions - Post Discharge Activity
[2017-06-11] MEDS ORDERED: VANCOMYCIN 1 GRAM (PRE-DOCKED) 1,000 MG/250 ML BAG IVPB ONE (00:14)
[2017-06-11] MEDS ORDERED: PIPERACILLIN/TAZOBACTAM 2.25 GM VIAL IVPB ONE (02:15)
[2017-06-11] MEDS ORDERED: HEPARIN NA (PORCINE) 5,000 UNITS/ML 1ML VIAL ONE (06:43)
== END 2017-06-10 13:00 ==
LOC: JER 21:10 → SUPCPDRO 21:10 → JERBED 06-10 03:07 → UNDOADMOB 06-10 03:11 → JERBED 06-10 03:11
PROVIDERS: ADMIT Internal Medicine; ATTEND Internal Medicine
DX: R11.11 Vomiting without nausea (principal); I12.9 Hypertensive chronic kidney disease with stage 1 through stage 4 chronic kidney disease, or unspecified chronic kidney disease; E11.22 Type 2 diabetes mellitus with diabetic chronic kidney disease; N18.9 Chronic kidney disease, unspecified; Z79.4 Long term (current) use of insulin; L89.159 Pressure ulcer of sacral region, unspecified stage; J44.9 Chronic obstructive pulmonary disease, unspecified; I25.10 Atherosclerotic heart disease of native coronary artery without angina pectoris; I50.9 Heart failure, unspecified; F32.9 Major depressive disorder, single episode, unspecified; Z86.73 Personal history of transient ischemic attack (TIA), and cerebral infarction without residual deficits
CPT/HCPCS: 74019-TC; 76705-TC; 82962; 93005; 93010; 99282-25; G0378

== ENCOUNTER 2017-06-10 17:26 | Inpatient (IN) | payer OTHER ==
[2017-06-10 17:37] VITALS: BMI 30.9
--- NOTE | 2017-06-10 19:18 | PDOC ---
History of Present Illness - General History Source: Patient <Tylor Atkinson - Last Filed: 06/10/17 21:40> - General History Source: Patient Exam Limitations: No Limitations - History of Present Illness Initial Comments: 06/11/17 00:47 Patient is a 71 year old female with a significant past medical history of sacral decub ulcers, CKD, CVA, HTN, DM, COPD, urinary retention with chronic indwelling powers who presents to the ED for care home placement. As per staff, patient was in the ED earlier this afternoon and was discharged to her care home due to her confusion. Staff reports after arrival to [place] a bed was not available for the patient and was brought back to the Hospital. Facility was unaware she was returning, and was unable to take patient back due to wound vac material being returned. Denies chest pain, Sob. Denies nausea, vomiting. Denies fevers, chills. Denies contact with sick individuals, out of state travelling. Denies any other symptoms. Allergies: None Social history: Former smoker (Last 15 yrs ago). No alcohol. No illicit drugs. Surgical history: laparotomy,hernia repair with mesh placement, small bowel resection, right tkr,pt wears lt foot immobilizer. PMD: Dr. Contreras. <Skinny Metcalf - Last Filed: 06/11/17 00:48> - General Chief Complaint: Wound Stated Complaint: WEAKNESS Time Seen by Provider: 06/10/17 18:19 Past History - Past Medical History Anemia: Yes Cancer: Yes Cardiac Disorders: Yes (CHF, CAD) CVA: Yes (Lt sided residual) COPD: Yes Diabetes: Yes GI Disorders: Yes (Rt. ventral hernia) Disorders: Yes (Renal insuficiency) HTN: Yes Psychiatric Problems: Yes (depression) - Surgical History Abdominal Surgery: Yes (laparotomy,hernia repair with mesh placement..) GI Surgery: Yes (small bowell resection) Orthopedic Surgery: Yes (right tkr,pt wears lt foot immobilizer) - Immunization History Td Vaccination: Yes TDAP Vaccination: Yes Immunization Up to Date: Yes - Suicide/Smoking/Psychosocial Hx Smoking Status: No Smoking History: Never smoked Years of Tobacco Use: 0 Have you smoked in the past 12 months: No Number of Cigarettes Smoked Daily: 20 If you are a former smoker, when did you quit?: 15 yrs ago Cigars Per Day: 0 'Breaking Loose' booklet given: 10/05/13 Hx Alcohol Use: No Drug/Substance Use Hx: No Substance Use Type: None Hx Substance Use Treatment: No <Tylor Atkinson - Last Filed: 06/10/17 21:40> <Skinny Metcalf - Last Filed: 06/11/17 00:48> - Past Medical History Allergies/Adverse Reactions: Allergies Allergy/AdvReac Type Severity Reaction Status Date / Time No Known Drug Allergies Allergy Verified 06/09/17 22:10 Home Medications: Ambulatory Orders Amlodipine Besylate 10 mg PO DAILY 12/27/16 Budesonide/Formeterol Fumarate [SYMBICORT 80/4.5mcg -] 1 inh PO BID 12/27/16 Bupropion HCl [Wellbutrin -] 75 mg PO DAILY 12/27/16 Ferrous Sulfate [Feosol] 324 mg PO BID 12/27/16 Insulin (Levemir) [Levemir Flexpen -] 8 units SQ DAILY 12/27/16 Isosorbide Mononitrate [Isosorbide Mononitrate ER] 30 mg PO DAILY 12/27/16 Omeprazole 40 mg PO DAILY 12/27/16 Polyethylene Glycol 3350 [Miralax 119 gm Btl -] 17 gm PO DAILY 12/27/16 Metoprolol Succinate [Toprol Xl] 100 mg PO DAILY 04/20/17 Insulin Sliding Scale [Novolog Vial Sliding Scale -] 1 vial SQ ACHS units 05/03 Cyanocobalamin [Vitamin B12 -] 100 mcg PO DAILY 05/28/17 Duloxetine HCl [Cymbalta -] 20 mg PO DAILY 05/28/17 Epoetin Osmar [Procrit] 10,000 unit IJ WEEKLY 05/28/17 Ferrous Gluconate [Fergon -] 324 mg PO BID 05/28/17 Hydralazine HCl [Apresoline -] 25 mg PO BID 05/28/17 Insulin (LOG) Aspart [NovoLOG -] 0 units SQ QID 05/28/17 Levemir Flextouch 10 unit SQ HS 05/28/17 Risperidone [Risperdal -] 0.25 mg PO BID 05/28/17 Tiotropium [place] [Spiriva] 1 inh IH DAILY 05/28/17 Tramadol HCl [Ultram -] 50 mg PO BID 05/28/17 Piperacillin/Tazob 2.25 gm [Zosyn -] 2.25 gm IVPB Q8H-IV vial 06/09/17 Vancomycin 1,000 mg IVPB DAILY@1600 vial 06/09/17 Review of Systems - Review of Systems Able to Perform ROS?: Yes Comments:: 06/11/17 00:47 CONSTITUTIONAL: No reported: Fever, Chills, Diaphoresis, Generalized Weakness, Malaise, Loss of Appetite HEENT: No reported: Rhinorrhea, Nasal Congestion, Throat Pain, Throat Swelling, Difficulty Swallowing, Mouth Swelling, Ear Pain, Eye Pain, Visual Changes CARDIOVASCULAR: No reported: Chest Pain, Syncope, Palpitations, Irregular Heart Rate, Lightheadedness, Peripheral Edema RESPIRATORY: No reported: Cough, Shortness of Breath, SOB with Exertion, Orthopnea, Wheezing , Stridor, Hemoptysis GASTROINTESTINAL: No reported: Abdominal pain, Abdominal Distension, Nausea, Vomiting, Diarrhea, Constipation, Melena, Hematochezia GENITOURINARY: No reported: Dysuria, Frequency, Urgency, Hesitancy, Flank Pain, Genital Pain MUSCULOSKELETAL: No reported: Myalgia, Arthralgia, Joint Swelling, Back pain, Neck Pain SKIN: No reported: Rash, Itching, Pallor HEMATOLOGIC/IMMUNOLOGIC: No reported: Easy Bleeding, Easy Bruising, Lymphadenopathy, Frequent infections ENDOCRINE: No reported: Unexplained Weight Gain, Unexplained Weight Loss, Heat Intolerance , Cold Intolerance NEUROLOGIC: No reported: Headache, Focal Weakness, Paresthesias, Vertigo, Lightheadedness, Unsteady Gait, Seizure, Mental Status Changes, Incontinence PSYCHIATRIC: No reported: Anxiety, Depression All Other Systems: Reviewed and Negative <Skinny Metcalf - Last Filed: 06/11/17 00:48> *Physical Exam - Vital Signs Last Vital Signs Temp Pulse Resp BP Pulse Ox 98.4 F 73 16 138/55 100 06/10/17 17:32 06/10/17 17:32 06/10/17 17:32 06/10/17 17:32 06/10/17 17:32 <Tylor Atkinson - Last Filed: 06/10/17 21:40> - Vital Signs Last Vital Signs Temp Pulse Resp BP Pulse Ox 98.4 F 73 16 138/55 100 06/10/17 17:32 06/10/17 17:32 06/10/17 17:32 06/10/17 17:32 06/10/17 17:32 - Physical Exam Comments: 06/11/17 00:48 GENERAL: The patient is awake, alert, Nontoxic - in no acute distress. HEAD: Normocephalic, atraumatic. EYES: extraocular movements intact, sclera anicteric, conjunctiva clear. ENT: Normal voice, Moist mucous membranes. NECK: Normal range of motion, supple LUNGS: Breath sounds equal, clear to auscultation bilaterally. No wheezes, no rhonchi, no rales. HEART: Regular rate and rhythm, ABDOMEN: Soft, nontender, normoactive bowel sounds. No guarding, no rebound. No CVA tenderness EXTREMITIES: L sided weakness, +edema of LUE. NEUROLOGICAL: PSYCH: Normal mood, normal affect. SKIN: sacral ulcer <Skinny Metcalf - Last Filed: 06/11/17 00:48> ED Treatment Course - Medications Given in the ED: ED Medications Discontinued Medications Generic Name Dose Route Start Last Admin Trade Name Freq PRN Reason Stop Dose Admin Vancomycin HCl 1,000 mg 06/10/17 23:45 06/11/17 00:19 Vancomycin (Pre-Docked) IVPB 06/10/17 23:46 1,000 mg ONCE ONE Administration <Skinny Metcalf - Last Filed: 06/11/17 00:48> Medical Decision Making - Medical Decision Making 06/10/17 20:33 71y F hx of sacaral decubitus ulcers, ckd, cva, htn, dm, copd, dc today from our facility to the [place] when there was confusion as to where th ept was to be dischargd to. She ultimately was headed [facility] to [facility] but they had already returned her wound vac materials as they thought she was not coming back. Pt wlil be admitted for further care of her wound until she can be discharged to an appropriate facility case hospitalis service,t ike are aware of the patient. agree with plan as pt has no acute complaints, will defer labs as she had them yesterday. Case discussed in detail with admitting physician including history, physical exam and ancillary studies. Admitting physician has assumed care for the patient, will follow all pending diagnostics and will complete the evaluation and treatment. A portion of this note was documented by scribnick services under my direction. I have reviewed the details of the note, within reason, and agree with the documentation with the following case summary and management plan written by me <Tylor Atkinson - Last Filed: 06/10/17 21:40> *DC/Admit/Observation/Transfer - Discharge Dispostion Admit: Yes <Tylor Atkinson - Last Filed: 06/10/17 21:40> - Attestations Scribe Attestion: 06/11/17 00:48 Documentation prepared by Skinny Metcalf, acting as medical authorization specialist for Tylor Atkinson MD, /DO. <Skinny Metcalf - Last Filed: 06/11/17 00:48> Diagnosis at time of Disposition: Sacral wound Qualifiers: Encounter type: initial encounter Qualified Code(s): S31.000A - Unspecified open wound of lower back and pelvis without penetration into retroperitoneum, initial encounter - Discharge Dispostion Condition at time of disposition: Stable
--- NOTE | 2017-06-10 22:12 | HP ---
CHIEF COMPLAINT: decub ulcer PCP: previously [facility] HISTORY OF PRESENT ILLNESS: This is a 71 year old female with a past medical history significant for large sacral decub/osteomyelitis is was BIBA after being sent to the incorrect [place]. She was DC yesterday to [facility], but she vomited several times on the way there so the son requested she be brought back. She was brought back and then again DC again today, but the ambulance was advised of the incorrect NH. She is being admitted until placement can be arranged. She has had no further vomiting today. Recent Travel: pt denies PAST MEDICAL HISTORY: Sacral decub stage 4 with osteo, CKD, CVA, HTN, DM, COPD, cervical stenosis with residual hemiparesis, R brCA, ventral hernia PAST SURGICAL HISTORY: laminectomy c3, c4 with residual hemiparesis and weakness R breast lumpectomy R TKR SB resection L foot plantar melanoma s/p resection and skin graft hernia repair Social History: Smoking: no Alcohol:none Drugs: none Family History: unk Allergies No Known Drug Allergies Allergy (Verified 06/09/17 22:10) HOME MEDICATIONS: 3 Medication Instructions Recorded Amlodipine Besylate 10 mg PO DAILY 12/27/16 Budesonide/Formeterol Fumarate 1 inh PO BID 12/27/16 [SYMBICORT 80/4.5mcg -] Bupropion HCl [Wellbutrin -] 75 mg PO DAILY 12/27/16 Ferrous Sulfate [Feosol] 324 mg PO BID 12/27/16 Insulin (Levemir) [Levemir Flexpen 8 units SQ DAILY 12/27/16 -] Isosorbide Mononitrate [Isosorbide 30 mg PO DAILY 12/27/16 Mononitrate ER] Omeprazole 40 mg PO DAILY 12/27/16 Polyethylene Glycol 3350 [Miralax 17 gm PO DAILY 12/27/16 119 gm Btl -] Metoprolol Succinate [Toprol Xl] 100 mg PO DAILY 04/20/17 Insulin Sliding Scale [Novolog 1 vial SQ ACHS units 05/03/17 Vial Sliding Scale -] Cyanocobalamin [Vitamin B12 -] 100 mcg PO DAILY 05/28/17 Duloxetine HCl [Cymbalta -] 20 mg PO DAILY 05/28/17 Epoetin Osmar [Procrit] 10,000 unit IJ WEEKLY 05/28/17 Ferrous Gluconate [Fergon -] 324 mg PO BID 05/28/17 Hydralazine HCl [Apresoline -] 25 mg PO BID 05/28/17 Insulin (LOG) Aspart [NovoLOG -] 0 units SQ QID 05/28/17 Levemir Flextouch 10 unit SQ HS 05/28/17 Risperidone [Risperdal -] 0.25 mg PO BID 05/28/17 Tiotropium [place]ron [Spiriva] 1 inh IH DAILY 05/28/17 Tramadol HCl [Ultram -] 50 mg PO BID 05/28/17 Piperacillin/Tazob 2.25 gm [Zosyn 2.25 gm IVPB Q8H-IV vial 06/09/17 -] Vancomycin 1,000 mg IVPB DAILY@1600 vial 06/09/17 REVIEW OF SYSTEMS CONSTITUTIONAL: Absent: fever, chills, diaphoresis, generalized weakness, malaise, loss of appetite, weight change HEENT: Absent: rhinorrhea, nasal congestion, throat pain, throat swelling, difficulty swallowing, mouth swelling, ear pain, eye pain, visual changes CARDIOVASCULAR: Absent: chest pain, syncope, palpitations, irregular heart rate, lightheadedness , peripheral edema RESPIRATORY: Absent: cough, shortness of breath, dyspnea with exertion, orthopnea, wheezing, stridor, hemoptysis GASTROINTESTINAL: Absent: abdominal pain, abdominal distension, nausea, vomiting, diarrhea, constipation, melena, hematochezia GENITOURINARY: Absent: dysuria, frequency, urgency, hesitancy, hematuria, flank pain, genital pain MUSCULOSKELETAL: Absent: myalgia, arthralgia, joint swelling, back pain, neck pain SKIN: Absent: rash, itching, pallor HEMATOLOGIC/IMMUNOLOGIC: Absent: easy bleeding, easy bruising, lymphadenopathy, frequent infections ENDOCRINE: Absent: unexplained weight gain, unexplained weight loss, heat intolerance, cold intolerance NEUROLOGIC: Absent: headache, focal weakness or paresthesias, dizziness, unsteady gait, seizure, mental status changes, bladder or bowel incontinence PSYCHIATRIC: Absent: anxiety, depression, suicidal or homicidal ideation, hallucinations. PHYSICAL EXAMINATION Vital Signs - 24 hr 3 06/10/17 17:32 Temperature 98.4 F Pulse Rate 73 Respiratory 16 Rate Blood Pressure 138/55 O2 Sat by Pulse 100 Oximetry (%) GENERAL: Awake, alert, and oriented to person and place, in no acute distress. HEAD: Normal with no signs of trauma. EYES: Pupils equal, round and reactive to light, extraocular movements intact, sclera anicteric, conjunctiva clear. No lid lag. EARS, NOSE, THROAT: Ears normal, nares patent, oropharynx clear without exudates. Moist mucous membranes. NECK: Normal range of motion, supple without lymphadenopathy, JVD, or masses. LUNGS: Breath sounds equal, clear to auscultation bilaterally. No wheezes, and no crackles. No accessory muscle use. HEART: Regular rate and rhythm, normal S1 and S2 without murmur, rub or gallop. ABDOMEN: Soft, nontender, not distended, normoactive bowel sounds, no guarding, no rebound, no masses. No hepatomegaly or splenomegaly. MUSCULOSKELETAL: Normal range of motion at all joints. No bony deformities or tenderness. No CVA tenderness. UPPER EXTREMITIES: 2+ pulses, warm, well-perfused. No cyanosis. No clubbing. No peripheral edema. LOWER EXTREMITIES: 2+ pulses, warm, well-perfused. No calf tenderness. No peripheral edema. NEUROLOGICAL: Cranial nerves II-XII intact. Normal speech. Normal gait. PSYCHIATRIC: Cooperative. Good eye contact. Appropriate mood and affect. SKIN: Warm, dry, normal turgor, no rashes or lesions noted, normal capillary refill. large sacral ulcer: 15.9 x 9.4 x 3.4. + area of slough to right lower aspect of wound, approx 10% wound bed. Remaining wound bed pink, healthy granulation tissue, bone exposed in center of wound. Wound edges with slight maceration. ASSESSMENT/PLAN: 71yF with PMH Sacral decub stage 4 with osteo, CKD, CVA, HTN, DM, COPD, cervical stenosis with residual hemiparesis, R brCA, ventral hernia is being admitted for further care of sacral ulcer while placement arranged. Sacral ulcer/osteomyelitis - now with some slough present to wound, will not apply wound vac until surgery assesses or assessment by SUEDE BRUSHER in am who saw it prior to DC - cont vanc/zosyn - vascular surgery consult - collagenase and moist gauze packing to wound BID - cont tramadol bid for pain HTN - cont hydralazine, amlodipine, toprol DM - cont levemir at dc dose of 8 units daily - bgm ac/hs with novolog sliding scale coverage CKD with anemia - cont procrit weekly, iron bid chronic urinary retention - maintain powers COPD - cont spiriva and symbicort DVT PPX - cont heparin SC FEN - po fluids - bmp in am - diabetic / low sodium diet Dispo: Pt currently requires hospitalization for management of her condition until suitable NH placement can be arranged. Visit type - Emergency Visit Emergency Visit: Yes ED Registration Date: 06/10/17 Care time: The patient presented to the Emergency Department on the above date and was hospitalized for further evaluation of their emergent condition. - New Patient This patient is new to me today: Yes Date on this admission: 06/10/17 - Critical Care Critical Care patient: No
[2017-06-10] MEDS: NYSTATIN 100000 UNIT/GM TOPICAL OINTMENT 15 GM TUBE TP SCH (23:45)
[2017-06-10] MEDS ORDERED: VANCOMYCIN 1 GRAM (PRE-DOCKED) 1,000 MG/250 ML BAG IVPB ONE (23:45)
[2017-06-10] MEDS: ZINC OXIDE/PETROLATUM,WHITE 1 APPLIC OINT...G. TP SCH (23:45)
[2017-06-11] MEDS ORDERED: PIPERACILLIN IVPB SCH (02:00)
[2017-06-11] MEDS ORDERED: TAZOB IVPB SCH (02:00)
[2017-06-11] MEDS: PIPERACILLIN/TAZOB 2.25 GM 2.25 GM/50 ML BAG IVPB SCH ×2 (02:31→11:06)
[2017-06-11] MEDS: HEPARIN NA (PORCINE) 5,000 UNITS/ML 1ML VIAL SQ SCH ×3 (06:50→22:02)
[2017-06-11] MEDS: INSULIN SLIDING SCALE (NOVOLOG) 1 VIAL SQ SCH ×4 (07:55→22:11)
[2017-06-11] MEDS: INSULIN DETEMIR 100 UNITS/ML MDV SQ SCH (07:55)
[2017-06-11] MEDS ORDERED: INSULIN REGULAR HUMAN 100 UNITS/ML *VIAL ONE (08:00)
[2017-06-11 08:14] LABS: CHLORIDE 109 mmol/L (98-107); POTASSIUM 4.9 mmol/L (3.5-5.1); SODIUM 134 mmol/L (136-145)
[2017-06-11 08:24] LABS: ANION GAP 8 (8-16); BLOOD UREA NITROGEN 62 mg/dL (7-18); CO2 17 mmol/L (21-32); CREATININE 2.5 mg/dL (0.55-1.02); GLUCOSE,RANDOM 145 mg/dL (74-106)
[2017-06-11 10:45] LABS: BASO % 0.6 % (0-2.0); EOS % 2.6 % (0-4.5); HEMATOCRIT 25.4 % (32.4-45.2); HEMOGLOBIN 8.1 GM/dL (10.7-15.3); LYMPH % 2.9 % (8-40); MCH 27.4 pg (25.7-33.7); MCHC 31.7 g/dl (32.0-36.0); MEAN CELL VOLUME 86.2 fl (80-96); MEAN PLT VOLUME 8.1 fl (7.5-11.1); MONO % 3.9 % (3.8-10.2); PLATELET COUNT 235 K/MM3 (134-434); RBC 2.95 M/mm3 (3.60-5.2); RDW 17.8 % (11.6-15.6)
[2017-06-11] MEDS: NYSTATIN 100000 UNIT/GM TOPICAL OINTMENT 15 GM TUBE TP SCH ×2 (11:05→22:12)
[2017-06-11] MEDS: ZINC OXIDE/PETROLATUM,WHITE 1 APPLIC OINT...G. TP SCH ×3 (11:05→22:25)
[2017-06-11] MEDS: ISOSORBIDE MONONITRATE 30 MG TAB.SR.24H (FP) PO SCH (11:06)
[2017-06-11] MEDS: FERROUS GLUCONATE 324 MG TAB (FP) PO SCH ×2 (11:06→22:02)
[2017-06-11] MEDS: hydrALAZINE HCL 25 MG TABLET (FP) PO SCH ×2 (11:06→22:02)
[2017-06-11] MEDS: DULoxetine HCL 20 MG CAPSULE.DR (FP) PO SCH (11:06)
[2017-06-11] MEDS: risperiDONE 0.25 MG TABLET (FP) PO SCH ×2 (11:07→22:02)
[2017-06-11] MEDS: COLLAGENASE CLOSTRIDIUM HIST. 30 GRAMS TUBE TP SCH ×2 (11:07→22:08)
[2017-06-11] MEDS: amLODIPine BESYLATE 10 MG TABLET (FP) PO SCH (11:07)
[2017-06-11] MEDS: PANTOPRAZOLE 40 MG TABLET (FP) PO SCH (11:07)
[2017-06-11] MEDS: traMADol HCL 50 MG TABLET PO SCH ×2 (11:08→22:09)
[2017-06-11] MEDS: CYANOCOBALAMIN (VITAMIN B-12) 100 MCG TABLET PO SCH (11:08)
[2017-06-11] MEDS: BUDESONIDE/FORMETEROL FUMARATE 80/4.5 mcg INHALER IH SCH ×2 (11:08→22:09)
[2017-06-11] MEDS: buPROPion HCL 75 MG TABLET PO SCH (11:09)
[2017-06-11] MEDS ORDERED: traMADol HCL 50 MG TABLET ONE (11:14)
[2017-06-11] MEDS: POLYETHYLENE GLYCOL 3350 119 GM BTL PO SCH (11:45)
[2017-06-11] MEDS: TIOTROPIUM BROMIDE 18 MCG/INH (DEVICE W/ 5 CAPSULES) IH SCH (12:07)
[2017-06-11] MEDS ORDERED: INSULIN (NOVOLOG) ASPART 100 UNITS/ML 10ML VIAL ONE (12:37)
[2017-06-11] MEDS ORDERED: VANCOMYCIN 1,000 MG VIAL (RESTRICTED TO ID ONLY) IVPB SCH (16:00)
[2017-06-11] MEDS ORDERED: PT OWN MED DRAWER 7, Y5N ONE ×2 (18:01→22:22)
[2017-06-11] MEDS: VANCOMYCIN 1,000 MG in DEXTROSE 5%-WATER - 250 ML IVPB SCH (18:09)
--- NOTE | 2017-06-11 18:25 | PN ---
Physical Exam: SUBJECTIVE: Patient seen and examined. She is eating her dinner, she says her behind hurts. Son at bedside OBJECTIVE: Vital Signs Period Temp Pulse Resp BP Sys/Benton Pulse Ox Last 24 Hr 97.9 F-99.0 F 68-72 16-18 143-179/50-75 100-100 PE Neuro: alert, awake, nad Pulm: CTA anteriorly CV: s1 s2 rrr Abd: s nt nd +bs Skin: sacral ulcer + tenderness Laboratory Results - last 24 hr 06/11/17 06/11/17 06/11/17 06:30 06:30 07:54 WBC Cancelled Corrected WBC (auto) Cancelled RBC Cancelled Hgb Cancelled Hct Cancelled MCV Cancelled MCH Cancelled MCHC Cancelled RDW Cancelled Plt Count Cancelled MPV Cancelled Neutrophils % Cancelled Lymphocytes % Cancelled Monocytes % Cancelled Eosinophils % Cancelled Basophils % Cancelled Nucleated RBC % Cancelled Platelet Estimate Cancelled Platelet Comment Cancelled Sodium 134 L Potassium 4.9 Chloride 109 H Carbon Dioxide 17 L Anion Gap 8 BUN 62 H Creatinine 2.5 H POC Glucometer 201.96000 Random Glucose 145 H Calcium 8.0 L Magnesium 2.0 06/11/17 06/11/17 10:25 12:30 WBC 18.0 H Corrected WBC (auto) RBC 2.95 L Hgb 8.1 L Hct 25.4 L MCV 86.2 MCH 27.4 MCHC 31.7 L RDW 17.8 H Plt Count 235 MPV 8.1 Neutrophils % 90.0 H Lymphocytes % 2.9 L D Monocytes % 3.9 Eosinophils % 2.6 Basophils % 0.6 Nucleated RBC % Platelet Estimate Platelet Comment Sodium Potassium Chloride Carbon Dioxide Anion Gap BUN Creatinine POC Glucometer [phone] Random Glucose Calcium Magnesium Active Medications Generic Name Dose Route Start Last Admin Trade Name Freq PRN Reason Stop Dose Admin Amlodipine Besylate 10 mg 06/11/17 10:00 06/11/17 11:07 Norvasc - PO 10 mg DAILY [facility] Administration Budesonide/Formoterol Fumarate 1 puff 06/11/17 10:00 06/11/17 11:08 Symbicort 80/4.5mcg - IH 1 puff BID [facility] Administration Bupropion HCl 75 mg 06/11/17 10:06/11/17 11:09 Wellbutrin - PO 75 mg DAILY [facility] Administration Collagenase 1 applic 06/11/17 10:00 06/11/17 11:07 Santyl - TP 1 applic BID [facility] Administration Cyanocobalamin 100 mcg 06/11/17 10:00 06/11/17 11:08 Vitamin B12 - PO 100 mcg DAILY [facility] Administration Duloxetine HCl 20 mg 06/11/17 10:00 06/11/17 11:06 Cymbalta - PO 20 mg DAILY [facility] Administration Epoetin Osmar 10,000 unit 06/13/17 10:00 Procrit - SQ Mo@1000 [facility] Ferrous Gluconate 324 mg 06/11/17 10:00 06/11/17 11:06 Fergon - PO 324 mg BID [facility] Administration Heparin Sodium (Porcine) 5,000 unit 06/11/17 06:00 06/11/17 14:59 Heparin - SQ 5,000 unit TID [facility] Administration Hydralazine HCl 25 mg 06/11/17 10:00 06/11/17 11:06 Apresoline - PO 25 mg BID [facility] Administration Vancomycin HCl 1,000 mg/ 250 mls @ 200 mls/hr 06/11/17 16:00 06/11/17 18:09 Dextrose IVPB 200 mls/hr DAILY@1600 [facility] Administration Piperacillin/Tazobactam/Dextrose 2.25 gm in 50 mls @ 100 mls/hr 06/11/17 02: 00 06/11/17 11:06 Zosyn 2.25gm Ivpb (Premix) IVPB 100 mls/hr Q8H-IV [facility] Administration Insulin Aspart 1 vial 06/11/17 07:00 06/11/17 18:20 Novolog Vial Sliding Scale - SQ Not Given [facility] Protocol Insulin Detemir 8 units 06/11/17 07:00 06/11/17 07:55 Levemir Vial SQ 8 units DAILY@0700 [facility] Administration Isosorbide Mononitrate 30 mg 06/11/17 10:00 06/11/17 11:06 Imdur - PO 30 mg DAILY [facility] Administration Metoprolol Succinate 100 mg 06/11/17 10:00 06/11/17 11:08 Toprol Xl - PO 100 mg DAILY [facility] Administration Nystatin 1 applic 06/10/17 23:00 06/11/17 11:05 Mycostatin Ointment - TP 1 applic BID [facility] Administration Pantoprazole Sodium 40 mg 06/11/17 10:00 06/11/17 11:07 Protonix - PO 40 mg DAILY [facility] Administration Petrolatum 1 applic 06/10/17 23:15 06/11/17 11:05 Sensi-Care Protective Ointment TP 1 applic BID [facility] Administration Polyethylene Glycol 17 gm 06/11/17 10:00 06/11/17 11:45 Miralax (For Daily Use) - PO 17 gm DAILY [facility] Administration Risperidone 0.25 mg 06/11/17 10:00 06/11/17 11:07 Risperdal - PO 0.25 mg BID [facility] Administration Tiotropium Thor 1 puff 06/11/17 10:00 06/11/17 12:07 Spiriva - IH 1 puff DAILY [facility] Administration Tramadol HCl 50 mg 06/11/17 10:00 06/11/17 11:08 Ultram - PO 50 mg BID [facility] Administration Assessment: 71 year old with PMH Sacral decub stage 4 with osteo, CKD, CVA, HTN , DM, COPD, cervical stenosis with residual hemiparesis, R brCA, ventral hernia is being admitted for further care of sacral ulcer while placement arranged. Plan: 1. Sacral ulcer/osteomyelitis - Slough present to wound, hold wound vac until surgery reassesses - Cont vanc/zosyn (6 weeks duration per previous ID eval) - Collagenase and moist gauze packing to wound BID - Cont tramadol bid for pain - Turn q2hr 2. HTN - Stable - Cont hydralazine, amlodipine, toprol 3. DM II - ISS, BGM ACHS - Levemir 8 units daily 4. CKD with anemia - Cont procrit weekly, iron bid 5. Chronic urinary retention - Maintain powers 6. COPD - cont spiriva and symbicort 7. DVT PPX - Cont heparin SC Dispo: Pt currently requires hospitalization for management of her condition until suitable NH placement can be arranged. Visit type - Emergency Visit Emergency Visit: Yes ED Registration Date: 06/10/17 Care time: The patient presented to the Emergency Department on the above date and was hospitalized for further evaluation of their emergent condition. - New Patient This patient is new to me today: Yes Date on this admission: 06/11/17 - Critical Care Critical Care patient: No
[2017-06-11] MEDS ORDERED: ACETAMINOPHEN 325 MG TABLET (FP) PO PRN (18:35)
[2017-06-12] MEDS: PIPERACILLIN/TAZOB 2.25 GM 2.25 GM/50 ML BAG IVPB SCH ×3 (01:07→17:16)
[2017-06-12] MEDS: INSULIN SLIDING SCALE (NOVOLOG) 1 VIAL SQ SCH ×4 (06:04→22:29)
[2017-06-12] MEDS: INSULIN DETEMIR 100 UNITS/ML MDV SQ SCH (06:05)
[2017-06-12] MEDS: HEPARIN NA (PORCINE) 5,000 UNITS/ML 1ML VIAL SQ SCH ×3 (06:05→22:28)
[2017-06-12 10:34] LABS: BASO % 0.7 % (0-2.0); EOS % 4.7 % (0-4.5); HEMATOCRIT 23.1 % (32.4-45.2); HEMOGLOBIN 7.3 GM/dL (10.7-15.3); LYMPH % 5.6 % (8-40); MCH 27.2 pg (25.7-33.7); MCHC 31.6 g/dl (32.0-36.0); MEAN CELL VOLUME 86.1 fl (80-96); MEAN PLT VOLUME 8.2 fl (7.5-11.1); MONO % 5.8 % (3.8-10.2); NEUT % 83.2 % (42.8-82.8); PLATELET COUNT 213 K/MM3 (134-434); RBC 2.69 M/mm3 (3.60-5.2); RDW 18.2 % (11.6-15.6); WHITE BLOOD COUNT 12.1 K/mm3 (4.0-10.0)
[2017-06-12] MEDS: hydrALAZINE HCL 25 MG TABLET (FP) PO SCH ×2 (11:01→22:28)
[2017-06-12] MEDS: ISOSORBIDE MONONITRATE 30 MG TAB.SR.24H (FP) PO SCH (11:02)
[2017-06-12] MEDS: PANTOPRAZOLE 40 MG TABLET (FP) PO SCH (11:02)
[2017-06-12] MEDS: amLODIPine BESYLATE 10 MG TABLET (FP) PO SCH (11:02)
[2017-06-12] MEDS: traMADol HCL 50 MG TABLET PO SCH (11:02)
[2017-06-12] MEDS: POLYETHYLENE GLYCOL 3350 119 GM BTL PO SCH (11:02)
[2017-06-12] MEDS: BUDESONIDE/FORMETEROL FUMARATE 80/4.5 mcg INHALER IH SCH ×2 (11:03→22:29)
[2017-06-12] MEDS: NYSTATIN 100000 UNIT/GM TOPICAL OINTMENT 15 GM TUBE TP SCH ×2 (11:03→22:30)
[2017-06-12] MEDS: TIOTROPIUM BROMIDE 18 MCG/INH (DEVICE W/ 5 CAPSULES) IH SCH (11:04)
[2017-06-12 11:07] LABS: ALBUMIN 1.5 g/dl (3.4-5.0); ANION GAP 9 (8-16); BILIRUBIN,TOTAL 0.3 mg/dL (0.2-1.0); BLOOD UREA NITROGEN 55 mg/dL (7-18); CALCIUM 7.7 mg/dL (8.5-10.1); CHLORIDE 107 mmol/L (98-107); CO2 19 mmol/L (21-32); CREATININE 2.5 mg/dL (0.55-1.02); GLUCOSE,RANDOM 103 mg/dL (74-106); POTASSIUM 4.9 mmol/L (3.5-5.1); SGOT/AST 11 U/L (15-37); SGPT/ALT 13 U/L (12-78); SODIUM 135 mmol/L (136-145); TOT PROT 6.2 g/dl (6.4-8.2)
[2017-06-12 11:08] LABS: ALK PHOS 54 U/L (45-117)
[2017-06-12] MEDS: DULoxetine HCL 20 MG CAPSULE.DR (FP) PO SCH (11:11)
[2017-06-12] MEDS: risperiDONE 0.25 MG TABLET (FP) PO SCH ×2 (11:11→22:29)
[2017-06-12] MEDS: buPROPion HCL 75 MG TABLET PO SCH (11:12)
[2017-06-12] MEDS: FERROUS GLUCONATE 324 MG TAB (FP) PO SCH ×2 (11:12→22:28)
[2017-06-12] MEDS: CYANOCOBALAMIN (VITAMIN B-12) 100 MCG TABLET PO SCH (11:12)
[2017-06-12] MEDS: COLLAGENASE CLOSTRIDIUM HIST. 30 GRAMS TUBE TP SCH ×2 (11:13→23:54)
[2017-06-12] MEDS: ZINC OXIDE/PETROLATUM,WHITE 1 APPLIC OINT...G. TP SCH ×2 (11:14→22:30)
--- NOTE | 2017-06-12 14:04 | PN ---
Physical Exam: SUBJECTIVE: Patient seen and examined. No acute events. Pain to back side when turned and positioned. OBJECTIVE: Vital Signs Period Temp Pulse Resp BP Sys/Benton Pulse Ox Last 24 Hr 97.9 F-98.8 F 68-72 16-19 124-163/50-78 100-100 PE Neuro: alert, awake, nad Pulm: CTA anteriorly CV: s1 s2 rrr Abd: s nt nd +bs Skin: sacral ulcer + tenderness Laboratory Results - last 24 hr 06/12/17 06/12/17 06/12/17 10:00 10:00 12:20 WBC 12.1 H D RBC 2.69 L Hgb 7.3 L Hct 23.1 L MCV 86.1 MCH 27.2 MCHC 31.6 L RDW 18.2 H Plt Count 213 MPV 8.2 Neutrophils % 83.2 H Lymphocytes % 5.6 L D Monocytes % 5.8 Eosinophils % 4.7 H D Basophils % 0.7 Sodium 135 L Potassium 4.9 Chloride 107 Carbon Dioxide 19 L Anion Gap 9 BUN 55 H Creatinine 2.5 H Creat Clearance w eGFR 19.10 POC Glucometer 119 Random Glucose 103 Calcium 7.7 L Total Bilirubin 0.3 AST 11 L ALT 13 Alkaline Phosphatase 54 Total Protein 6.2 L Albumin 1.5 L Active Medications Generic Name Dose Route Start Last Admin Trade Name Freq PRN Reason Stop Dose Admin Acetaminophen 650 mg 06/11/17 18:35 Tylenol - PO Q6H PRN PAIN LEVEL 4 - 6 Amlodipine Besylate 10 mg 06/11/17 10:00 06/12/17 11:02 Norvasc - PO 10 mg DAILY [facility] Administration Budesonide/Formoterol Fumarate 1 puff 06/11/17 10:00 06/12/17 11:03 Symbicort 80/4.5mcg - IH 1 puff BID [facility]ETAL Administration Bupropion HCl 75 mg 06/11/17 10:00 06/12/17 11:12 Wellbutrin - PO 75 mg DAILY [facility]AL Administration Collagenase 1 applic 06/11/17 10:00 06/12/17 11:13 Santyl - TP 1 applic BID [facility]AL Administration Cyanocobalamin 100 mcg 06/11/17 10:00 06/12/17 11:12 Vitamin B12 - PO 100 mcg DAILY [facility]AL Administration Duloxetine HCl 20 mg 06/11/17 10:00 06/12/17 11:11 Cymbalta - PO 20 mg DAILY [facility]AL Administration Epoetin Osmar 10,000 unit 06/13/17 10:00 Procrit - SQ Mo@1000 [facility] Ferrous Gluconate 324 mg 06/11/17 10:00 06/12/17 11:12 Fergon - PO 324 mg BID [facility]AL Administration Heparin Sodium (Porcine) 5,000 unit 06/11/17 06:00 06/12/17 06:05 Heparin - SQ 5,000 unit TID [facility]AL Administration Hydralazine HCl 25 mg 06/11/17 10:00 06/12/17 11:01 Apresoline - PO 25 mg BID [facility]AL Administration Vancomycin HCl 1,000 mg/ 250 mls @ 200 mls/hr 06/11/17 16:00 06/11/17 18:09 Dextrose IVPB 200 mls/hr DAILY@1600 [facility] Administration Piperacillin/Tazobactam/Dextrose 2.25 gm in 50 mls @ 100 mls/hr 06/11/17 02: 00 06/12/17 10:38 Zosyn 2.25gm Ivpb (Premix) IVPB 100 mls/hr Q8H-IV [facility] Administration Insulin Aspart 1 vial 06/11/17 07:00 06/12/17 12:23 Novolog Vial Sliding Scale - SQ Not Given [facility] Protocol Insulin Detemir 8 units 06/11/17 07:00 06/12/17 06:05 Levemir Vial SQ 8 units DAILY@0700 [facility] Administration Isosorbide Mononitrate 30 mg 06/11/17 10:00 06/12/17 11:02 Imdur - PO 30 mg DAILY [facility] Administration Metoprolol Succinate 100 mg 06/11/17 10:00 06/12/17 11:01 Toprol Xl - PO 100 mg DAILY [facility] Administration Nystatin 1 applic 06/10/17 23:00 06/12/17 11:03 Mycostatin Ointment - TP 1 applic BID [facility] Administration Pantoprazole Sodium 40 mg 06/11/17 10:00 06/12/17 11:02 Protonix - PO 40 mg DAILY [facility] Administration Petrolatum 1 applic 06/10/17 23:15 06/12/17 11:14 Sensi-Care Protective Ointment TP 1 applic BID [facility] Administration Polyethylene Glycol 17 gm 06/11/17 10:00 06/12/17 11:02 Miralax (For Daily Use) - PO 17 gm DAILY [facility] Administration Risperidone 0.25 mg 06/11/17 10:00 06/12/17 11:11 Risperdal - PO 0.25 mg BID [facility] Administration Tiotropium [place] 1 puff 06/11/17 10:00 06/12/17 11:04 Spiriva - IH 1 puff DAILY [facility] Administration Tramadol HCl 50 mg 06/11/17 10:00 06/12/17 11:02 Ultram - PO 50 mg BID [facility] Administration Assessment: 71 year old with PMH Sacral decub stage 4 with osteo, CKD, CVA, HTN , DM, COPD, cervical stenosis with residual hemiparesis, R brCA, ventral hernia is being admitted for further care of sacral ulcer while placement arranged. Plan: 1. Sacral ulcer/osteomyelitis - Slough present to wound, hold wound vac until surgery reassesses - Cont vanc/zosyn (6 weeks duration per previous ID eval) - Collagenase and moist gauze packing to wound BID - Cont tramadol bid for pain - Turn q2hr 2. HTN - Stable - Cont hydralazine, amlodipine, toprol 3. DM II - ISS, BGM ACHS - Levemir 8 units daily 4. CKD with anemia - Cont procrit weekly, iron bid 5. Chronic urinary retention - Maintain powers 6. COPD - cont spiriva and symbicort 7. DVT PPX - Cont heparin SC Dispo: Pt currently requires hospitalization for management of her condition until suitable NH placement can be arranged.
[2017-06-12] MEDS: VANCOMYCIN 1,000 MG in DEXTROSE 5%-WATER - 250 ML IVPB SCH (17:16)
[2017-06-12] MEDS ORDERED: PT OWN MED DRAWER 7, Y5N ONE (20:59)
[2017-06-13] MEDS: traMADol HCL 50 MG TABLET PO SCH ×3 (00:53→22:47)
[2017-06-13] MEDS: PIPERACILLIN/TAZOB 2.25 GM 2.25 GM/50 ML BAG IVPB SCH ×4 (03:07→18:01)
[2017-06-13] MEDS: INSULIN DETEMIR 100 UNITS/ML MDV SQ SCH (07:01)
[2017-06-13] MEDS: HEPARIN NA (PORCINE) 5,000 UNITS/ML 1ML VIAL SQ SCH ×3 (07:01→22:48)
[2017-06-13] MEDS: INSULIN SLIDING SCALE (NOVOLOG) 1 VIAL SQ SCH ×4 (07:02→22:30)
[2017-06-13 08:42] LABS: HEMATOCRIT 23.7 % (32.4-45.2); HEMOGLOBIN 7.4 GM/dL (10.7-15.3); MCH 27.1 pg (25.7-33.7); MCHC 31.1 g/dl (32.0-36.0); MEAN CELL VOLUME 86.9 fl (80-96); MEAN PLT VOLUME 8.5 fl (7.5-11.1); PLATELET COUNT 214 K/MM3 (134-434); RBC 2.72 M/mm3 (3.60-5.2); RDW 17.6 % (11.6-15.6); WHITE BLOOD COUNT 13.7 K/mm3 (4.0-10.0)
[2017-06-13 09:09] LABS: ANION GAP 11 (8-16); BLOOD UREA NITROGEN 58 mg/dL (7-18); CALCIUM 8.3 mg/dL (8.5-10.1); CHLORIDE 105 mmol/L (98-107); CO2 19 mmol/L (21-32); GLUCOSE,RANDOM 88 mg/dL (74-106); POTASSIUM 4.6 mmol/L (3.5-5.1); SODIUM 135 mmol/L (136-145)
[2017-06-13 09:10] LABS: CREATININE 2.7 mg/dL (0.55-1.02)
--- NOTE | 2017-06-13 09:36 | PN ---
Progress Note (short form) - Note Progress Note: 71 yo female well known to Wound Care Service. Patient recently dc'd from after sacral debridement with VAC placement. Patient dc'd to SNF but apparently, the transporting ambulance service brought her to the wrong NH. While in transit the patient had vomited. Son requested she be brought back to [facility] until this can be sorted out. Patient admitted until a new NH accepts her for placement. Last Vital Signs Temp Pulse Resp BP Pulse Ox 98.2 F 77 18 140/68 99 06/13/17 06:00 06/13/17 06:00 06/13/17 06:00 06/13/17 06:00 06/13/17 07:00 CBC, BMP 06/13/17 07:00 06/13/17 07:00 Gen: nad Back: Stage 4 sacral wound ~ 15cm x 10 cm. Bone exposed. Minimal fibrinous slough. No foul odor. No purulent drainage Problem List - Problems (1) Sacral wound Assessment/Plan: Per case filler Kyleigh, patient is going to a NH that has the wound VAC supplies. Until then, daily dressing changes with Santyl to fibrinous slough. Moist 4 x 4 packing. ABD pads. Frequent repositioning Offload all pressure sensitive areas No surgical intervention On behalf of Dr. Rogers, thank you for the opportunity to participate in your patient's care. Code(s): S31.000A - UNSP OPN WND LOW BACK AND PELV W/O PENET RETROPERITON, INIT Qualifiers: Encounter type: initial encounter Qualified Code(s): S31.000A - Unspecified open wound of lower back and pelvis without penetration into retroperitoneum, initial encounter
[2017-06-13] MEDS ORDERED: EPOETIN ALFA 10,000 UNIT/1 ML VIAL SQ SCH (10:00)
--- NOTE | 2017-06-13 10:08 | PN ---
Physical Exam: SUBJECTIVE: Patient seen and examined OBJECTIVE: I spoke to patient's son Moses [phone] regarding safe discharge planning Spoke to him in detail about [place] and he is in agreement SW aware Discharge planning ID consulted for IV antibiotic therapy Vital Signs Period Temp Pulse Resp BP Sys/Benton Pulse Ox Last 24 Hr 98.2 F-99.8 F 70-77 18-20 140-178/68-108 99-100 GENERAL: The patient is awake, alert, mental status at baseline, facial symmetry , in no acute distress HEAD: facial symmetry, right facial droop resolved EYES: PERRL, extraocular movements intact, sclera anicteric, conjunctiva clear. No ptosis. ENT: moist mucous membranes. NECK: Trachea midline, full range of motion, supple. LUNGS: Breath sounds equal, clear to auscultation bilaterally, no wheezes ABDOMEN: Soft, nontender, nondistended, normoactive bowel sounds, EXTREMITIES: no edema. NEUROLOGICAL: Speech is at baseline, vitals stable, no further neurological events PSYCH: Normal mood, normal affect. Large sacral wound (see lead performance support analyst for measurements), stage 4, wound present on admission, wound vac to be placed by surgical PA Laboratory Results - last 24 hr 06/12/17 06/12/17 06/12/17 10:00 10:00 12:20 WBC 12.1 H D RBC 2.69 L Hgb 7.3 L Hct 23.1 L MCV 86.1 MCH 27.2 MCHC 31.6 L RDW 18.2 H Plt Count 213 MPV 8.2 Neutrophils % 83.2 H Lymphocytes % 5.6 L D Monocytes % 5.8 Eosinophils % 4.7 H D Basophils % 0.7 Sodium 135 L Potassium 4.9 Chloride 107 Carbon Dioxide 19 L Anion Gap 9 BUN 55 H Creatinine 2.5 H Creat Clearance w eGFR 19.10 POC Glucometer 119 Random Glucose 103 Calcium 7.7 L Total Bilirubin 0.3 AST 11 L ALT 13 Alkaline Phosphatase 54 Total Protein 6.2 L Albumin 1.5 L 06/12/17 06/13/17 06/13/17 22:26 07:00 07:00 WBC 13.7 H RBC 2.72 L Hgb 7.4 L Hct 23.7 L MCV 86.9 MCH 27.1 MCHC 31.1 L RDW 17.6 H Plt Count 214 MPV 8.5 Neutrophils % Lymphocytes % Monocytes % Eosinophils % Basophils % Sodium 135 L Potassium 4.6 Chloride 105 Carbon Dioxide 19 L Anion Gap 11 BUN 58 H Creatinine 2.7 H Creat Clearance w eGFR POC Glucometer 180 Random Glucose 88 Calcium 8.3 L Total Bilirubin AST ALT Alkaline Phosphatase Total Protein Albumin 06/13/17 07:00 WBC RBC Hgb Hct MCV MCH MCHC RDW Plt Count MPV Neutrophils % Lymphocytes % Monocytes % Eosinophils % Basophils % Sodium Potassium Chloride Carbon Dioxide Anion Gap BUN Creatinine Creat Clearance w eGFR POC Glucometer 101 Random Glucose Calcium Total Bilirubin AST ALT Alkaline Phosphatase Total Protein Albumin Active Medications Generic Name Dose Route Start Last Admin Trade Name Freq PRN Reason Stop Dose Admin Acetaminophen 650 mg 06/11/17 18:35 Tylenol - PO Q6H PRN PAIN LEVEL 4 - 6 Amlodipine Besylate 10 mg 06/11/17 10:00 06/12/17 11:02 Norvasc - PO 10 mg DAILY [facility] Administration Budesonide/Formoterol Fumarate 1 puff 06/11/17 10:00 06/12/17 22:29 Symbicort 80/4.5mcg - IH 1 puff BID [facility]AL Administration Bupropion HCl 75 mg 06/11/17 10:00 06/12/17 11:12 Wellbutrin - PO 75 mg DAILY [facility] Administration Collagenase 1 applic 06/11/17 10:00 06/12/17 23:54 Santyl - TP 1 applic BID [facility] Administration Cyanocobalamin 100 mcg 06/11/17 10:00 06/12/17 11:12 Vitamin B12 - PO 100 mcg DAILY [facility] Administration Duloxetine HCl 20 mg 06/11/17 10:00 06/12/17 11:11 Cymbalta - PO 20 mg DAILY [facility] Administration Epoetin Osmar 10,000 unit 06/13/17 10:00 Procrit - SQ Mo@1000 [facility] Ferrous Gluconate 324 mg 06/11/17 10:00 06/12/17 22:28 Fergon - PO 324 mg BID [facility] Administration Heparin Sodium (Porcine) 5,000 unit 06/11/17 06:00 06/13/17 07:01 Heparin - SQ 5,000 unit TID [facility] Administration Hydralazine HCl 50 mg 06/13/17 10:00 Apresoline - PO TID [facility]AL Vancomycin HCl 1,000 mg/ 250 mls @ 200 mls/hr 06/11/17 16:00 06/12/17 17:16 Dextrose IVPB 200 mls/hr DAILY@1600 [facility] Administration Piperacillin/Tazobactam/Dextrose 2.25 gm in 50 mls @ 100 mls/hr 06/11/17 02: 00 06/13/17 03:37 Zosyn 2.25gm Ivpb (Premix) IVPB 100 mls/hr Q8H-IV [facility] Administration Insulin Aspart 1 vial 06/11/17 07:00 06/13/17 07:02 Novolog Vial Sliding Scale - SQ Not Given ACHS [facility] Protocol Insulin Detemir 8 units 06/11/17 07:00 06/13/17 07:01 Levemir Vial SQ Not Given DAILY@0700 [facility] Isosorbide Mononitrate 30 mg 06/11/17 10:00 06/12/17 11:02 Imdur - PO 30 mg DAILY [facility] Administration Metoprolol Succinate 100 mg 06/11/17 10:00 06/12/17 11:01 Toprol Xl - PO 100 mg DAILY [facility] Administration Nystatin 1 applic 06/10/17 23:00 06/12/17 22:30 Mycostatin Ointment - TP 1 applic BID [facility] Administration Pantoprazole Sodium 40 mg 06/11/17 10:00 06/12/17 11:02 Protonix - PO 40 mg DAILY [facility] Administration Petrolatum 1 applic 06/10/17 23:15 06/12/17 22:30 Sensi-Care Protective Ointment TP 1 applic BID [facility] Administration Polyethylene Glycol 17 gm 06/11/17 10:00 06/12/17 11:02 Miralax (For Daily Use) - PO 17 gm DAILY [facility] Administration Risperidone 0.25 mg 06/11/17 10:00 06/12/17 22:29 Risperdal - PO 0.25 mg BID [facility] Administration Tiotropium [place] 1 puff 06/11/17 10:00 06/12/17 11:04 Spiriva - IH 1 puff DAILY [facility] Administration Tramadol HCl 50 mg 06/11/17 10:00 06/13/17 00:53 Ultram - PO 50 mg BID [facility]AL Administration ASSESSMENT/PLAN: Patient is a 71 year old female with a significant past medical history of hypertension, CVA with left sided weakness/hemiparesis, COPD, diabetes, CKD, urinary retention with indwelling powers, breast cancer, and chronic stage IV sacral ulcer, parkinson's disease and alzheimer's dementia. Patient admitted from [facility] for infected sacral stage IV pressure ulcer. On 06/06/2017, patient became an unresponsive with a right facial droop and a stroke workup was initiated. Imaging: Chest CT w/o contrast 05/31/2017: (1) small to moderate loculated right pleural effusion with associated basilar compressive atelectasis. The amt of pleural fluid appears mildly diminished in comparison to a chest CT exam on 07/02/2016 (2 ) A small pleural effusion is noted on the recent abdomen CT study. Findings not present on time of the 2017 CT chest exam. (3) No obvious interval change seen regards to a oblong shape 5 x 2 x 1.3cm sub pleural opacity with the right mid lung field laterally possibility representing chronic atelectasis and less likely a stable neoplastic lesion. Periodic CT follow up suggested. (4) Bilateral flank subcutaneous edema which may be somewhat increased in comparison to the [address] study[address] 06/06/2017: moderate atrophy and ventricular dilatation w/o evidence of acute intracranial pathology. Posterior fusion of the included upper cervical spine starting from C3 level for which no recent prior CT scan report xrays of the cervical spine are available for comparison. Brain MRI w/o contrast 06/06/2017: no evidence of acute infarction, no mass effects or hydrocephalus, general cerebral and cerebeller volumeloss with mild chronic microvascular ischemic changes in the periventicular white matter. Carotid doppler 06/07: mild arth. disease Neurology Rule out stroke vs. TIA, resolved Patient has neurological event 06/06 concern for TIA vs new stroke, not a candidate for tpa as per neuro Head CT and Brain MRI as above, both negative Carotid doppler negative Mental status back to her baseline Swallow evaluation completed, pt to continue same diet, swallowing well Will continue on ASA 325mg therapy as per cardiology, on Lipitor Neuro notes reviewed CVA with residual hemiparesis, chronic Physical therapy Skin: Stage IV sacral pressure infection Wound debrided on 06/02, biopsy sent per vascular On Danny for a total of 6 weeks (today is day # 12) Bone cultures pending Wound vac to be placed as per vascular Pulmonary: h/o loculated pleural effusions on CT chest, thoracentesis and lung biopsy ( negative) repeat CT followup as outpatient : E. coli UTI Chronic powers for urinary retension with + ecoli On vanco and zosyn Renal: MARTITA on CKD Creat 3.1 on admission, 2.3 today (base bet. 2.2-2.5) Monitor with daily labs Avoid nephrotoxic medications Chronic urinary retention, maintain powers Cardiology: Hypertension, controlled On Metoprolol 100mg daily, Hydralazine 50mg BID, imdur 120mg daily, norvasc 10mg daily Endocrine: Diabetes Monitor BGMs Levemir and Novolog Hematology: Normocytic anemia On Ferrous Gluconate BID Monitor CBC F.E.N. Fluids: tolerating PO intake Electrolytes: monitor Nutrition: diabetic diet, thin liquids Dispo: full code.
[2017-06-13] MEDS: ISOSORBIDE MONONITRATE 30 MG TAB.SR.24H (FP) PO SCH (10:51)
[2017-06-13] MEDS: BUDESONIDE/FORMETEROL FUMARATE 80/4.5 mcg INHALER IH SCH ×2 (10:51→22:48)
[2017-06-13] MEDS: hydrALAZINE HCL 50 MG TABLET (FP) PO SCH ×3 (10:51→22:48)
[2017-06-13] MEDS: PANTOPRAZOLE 40 MG TABLET (FP) PO SCH (10:51)
[2017-06-13] MEDS: NYSTATIN 100000 UNIT/GM TOPICAL OINTMENT 15 GM TUBE TP SCH ×2 (10:51→22:49)
[2017-06-13] MEDS: amLODIPine BESYLATE 10 MG TABLET (FP) PO SCH (10:52)
[2017-06-13] MEDS: FERROUS GLUCONATE 324 MG TAB (FP) PO SCH ×2 (10:53→22:47)
[2017-06-13] MEDS: risperiDONE 0.25 MG TABLET (FP) PO SCH (10:53)
[2017-06-13] MEDS: DULoxetine HCL 20 MG CAPSULE.DR (FP) PO SCH (10:53)
[2017-06-13] MEDS: POLYETHYLENE GLYCOL 3350 119 GM BTL PO SCH (10:54)
[2017-06-13] MEDS: TIOTROPIUM BROMIDE 18 MCG/INH (DEVICE W/ 5 CAPSULES) IH SCH (10:56)
[2017-06-13] MEDS: COLLAGENASE CLOSTRIDIUM HIST. 30 GRAMS TUBE TP SCH ×2 (10:57→23:32)
[2017-06-13] MEDS: ZINC OXIDE/PETROLATUM,WHITE 1 APPLIC OINT...G. TP SCH ×2 (10:58→22:49)
[2017-06-13] MEDS: buPROPion HCL 75 MG TABLET PO SCH (10:59)
[2017-06-13] MEDS: CYANOCOBALAMIN (VITAMIN B-12) 100 MCG TABLET PO SCH (10:59)
--- NOTE | 2017-06-13 15:41 | PN ---
Progress Note (short form) - Note Progress Note: ID Consult dictated Infected sacral decubitus ulcer Chronic sacral osteomyelitis Continue vancomycin/ zosyn Complete 6 w course (day#12) Check ESR CRP Vancomycin trough Local wound care
[2017-06-13] MEDS ORDERED: PT OWN MED DRAWER 7, Y5N ONE (17:36)
[2017-06-13] MEDS: VANCOMYCIN 1,000 MG in DEXTROSE 5%-WATER - 250 ML IVPB SCH (18:01)
--- NOTE | 2017-06-13 19:51 | CONS ---
INFECTIOUS DISEASE CONSULTATION DATE OF CONSULTATION: 06/13/2017 REASON FOR CONSULTATION: The patient is a 71-year-old female seen in followup for infected sacral decubitus ulcer and chronic osteomyelitis of the sacrum. HISTORY OF PRESENT ILLNESS: Patient was recently discharged from [facility] after surgical debridement of a sacral decubitus ulcer. Pathology report was positive for sacral osteomyelitis. Wound culture grew mixed organisms. A tunneled catheter was placed, and she was to complete a 6-week course of vancomycin and Zosyn for osteomyelitis. In the interim, she had developed nausea and vomiting and was re-hospitalized. At the present time, she is awake and alert. She has no complaints of sacral pain. She is afebrile. White blood cell count elevated. PAST MEDICAL HISTORY: Positive for stroke, chronic kidney disease, diabetes mellitus, hypertension, COPD, history of urinary retention status post Lambert catheter, breast cancer. PAST SURGICAL HISTORY: Status post small-bowel obstruction, hernia repair with mesh, right total knee replacement. SOCIAL HISTORY: She is a prison resident. She has apparently been a prison resident for 5 years. She is a former smoker. She is nonambulatory at baseline. ALLERGIES: No known allergies. MEDICATIONS: Amlodipine, Symbicort, Wellbutrin, Feosol, insulin, isosorbide, omeprazole. SYSTEMS REVIEW: Neurologic: Positive for stroke. Cardiac: Negative chest pain or palpitations. Respiratory: Positive for COPD. Gastrointestinal: Positive for nausea and vomiting. Genitourinary: Negative for urinary tract infection. LABORATORY DATA: White count on admission 18.0, presently 13.7; hematocrit 23.7; platelet count 214. BUN 58, creatinine 2.2. PHYSICAL EXAMINATION: General: The patient is awake and responsive. Vital Signs: Temperature 98.2; blood pressure 140/68; pulse 77, regular; respirations 20 per minute. HEENT: Sclerae are anicteric. Tunneled Catheter Site: No erythema or tenderness. Heart: Sounds S1, S2. Lungs: Clear bilaterally. Abdomen: Soft and nontender. Extremities: Edema 1+. Sacral Area: There is a large sacral decubitus ulcer present, approximately 15 x 10 cm. There is granulation tissue and exposed bone. No foul odor or purulent discharge noted. IMPRESSION: 1. Infected sacral decubitus ulcer. 2. Chronic sacral osteomyelitis. 3. Polymicrobial wound infection. RECOMMENDATION: Continue Zosyn and vancomycin, complete 6-week course. Duration based on date of debridement surgery on June 01, 2017 (presently day number 12). Check ESR, C-reactive protein, and vancomycin trough. Local wound care. Thank you for the kind referral. LUCAS GABRIEL M.D. [id number]
[2017-06-13] MEDS: risperiDONE 0.5 MG TABLET (FP) PO SCH (22:48)
[2017-06-14] MEDS: PIPERACILLIN/TAZOB 2.25 GM 2.25 GM/50 ML BAG IVPB SCH ×3 (01:32→19:21)
[2017-06-14] MEDS: hydrALAZINE HCL 50 MG TABLET (FP) PO SCH ×3 (05:55→21:53)
[2017-06-14] MEDS: HEPARIN NA (PORCINE) 5,000 UNITS/ML 1ML VIAL SQ SCH ×2 (05:55→13:34)
[2017-06-14] MEDS: INSULIN SLIDING SCALE (NOVOLOG) 1 VIAL SQ SCH ×4 (06:05→23:22)
[2017-06-14] MEDS: INSULIN DETEMIR 100 UNITS/ML MDV SQ SCH (06:06)
[2017-06-14 08:16] LABS: BASO % 0.8 % (0-2.0); EOS % 5.3 % (0-4.5); HEMATOCRIT 21.3 % (32.4-45.2); LYMPH % 7.2 % (8-40); MCH 28.3 pg (25.7-33.7); MCHC 32.5 g/dl (32.0-36.0); MEAN CELL VOLUME 86.9 fl (80-96); MEAN PLT VOLUME 8.5 fl (7.5-11.1); MONO % 6.7 % (3.8-10.2); PLATELET COUNT 201 K/MM3 (134-434); RBC 2.45 M/mm3 (3.60-5.2); RDW 17.5 % (11.6-15.6); WHITE BLOOD COUNT 10.9 K/mm3 (4.0-10.0)
[2017-06-14 08:18] LABS: HEMOGLOBIN 6.9 GM/dL (10.7-15.3)
[2017-06-14 08:37] LABS: ALBUMIN 1.4 g/dl (3.4-5.0); ANION GAP 11 (8-16); BLOOD UREA NITROGEN 54 mg/dL (7-18); CALCIUM 7.9 mg/dL (8.5-10.1); CHLORIDE 106 mmol/L (98-107); CO2 20 mmol/L (21-32); GLUCOSE,RANDOM 76 mg/dL (74-106); POTASSIUM 4.2 mmol/L (3.5-5.1); SODIUM 137 mmol/L (136-145)
[2017-06-14 08:42] LABS: ALK PHOS 45 U/L (45-117); BILIRUBIN,TOTAL 0.5 mg/dL (0.2-1.0); CREATININE 2.7 mg/dL (0.55-1.02); SGOT/AST 8 U/L (15-37); SGPT/ALT 10 U/L (12-78); TOT PROT 5.8 g/dl (6.4-8.2)
[2017-06-14] MEDS: amLODIPine BESYLATE 10 MG TABLET (FP) PO SCH (09:26)
[2017-06-14] MEDS: ISOSORBIDE MONONITRATE 30 MG TAB.SR.24H (FP) PO SCH (09:26)
[2017-06-14] MEDS: traMADol HCL 50 MG TABLET PO SCH ×2 (09:26→21:53)
[2017-06-14] MEDS: PANTOPRAZOLE 40 MG TABLET (FP) PO SCH (09:26)
[2017-06-14] MEDS: DULoxetine HCL 20 MG CAPSULE.DR (FP) PO SCH (09:29)
[2017-06-14] MEDS: risperiDONE 0.5 MG TABLET (FP) PO SCH ×2 (09:29→21:53)
[2017-06-14] MEDS: CYANOCOBALAMIN (VITAMIN B-12) 100 MCG TABLET PO SCH (09:29)
[2017-06-14] MEDS: buPROPion HCL 75 MG TABLET PO SCH (09:30)
[2017-06-14] MEDS: FERROUS GLUCONATE 324 MG TAB (FP) PO SCH ×2 (09:30→21:53)
[2017-06-14] MEDS: TIOTROPIUM BROMIDE 18 MCG/INH (DEVICE W/ 5 CAPSULES) IH SCH (09:31)
[2017-06-14] MEDS: BUDESONIDE/FORMETEROL FUMARATE 80/4.5 mcg INHALER IH SCH ×2 (09:32→21:53)
[2017-06-14] MEDS: POLYETHYLENE GLYCOL 3350 119 GM BTL PO SCH (12:16)
--- NOTE | 2017-06-14 12:38 | PN ---
Physical Exam: SUBJECTIVE: Patient seen and examined OBJECTIVE: hmg/hct low, for 2 units of prbc creat trending up, renal consulted Vital Signs Period Temp Pulse Resp BP Sys/Benton Pulse Ox Last 24 Hr 99 F-99.4 F 68-70 18-18 155-171/54-79 99 GENERAL: The patient is awake, alert, mental status at baseline, facial symmetry , in no acute distress HEAD: facial symmetry, right facial droop resolved EYES: PERRL, extraocular movements intact, sclera anicteric, conjunctiva clear. No ptosis. ENT: moist mucous membranes. NECK: Trachea midline, full range of motion, supple. LUNGS: Breath sounds equal, clear to auscultation bilaterally, no wheezes ABDOMEN: Soft, nontender, nondistended, normoactive bowel sounds, EXTREMITIES: no edema. NEUROLOGICAL: Speech is at baseline, vitals stable, no further neurological events PSYCH: Normal mood, normal affect. Large sacral wound (see structural steel trades worker for measurements), stage 4, wound present on admission, wound vac to be placed by surgical PA Laboratory Results - last 24 hr 06/13/17 06/13/17 06/14/17 18:07 22:27 05:43 WBC RBC Hgb Hct MCV MCH MCHC RDW Plt Count MPV Neutrophils % Lymphocytes % Monocytes % Eosinophils % Basophils % Sodium Potassium Chloride Carbon Dioxide Anion Gap BUN Creatinine Creat Clearance w eGFR POC Glucometer 148 128 95 Random Glucose Calcium Total Bilirubin AST ALT Alkaline Phosphatase Total Protein Albumin Blood Type Antibody Screen Crossmatch 06/14/17 06/14/17 06/14/17 06:45 06:45 09:45 WBC 10.9 H RBC 2.45 L Hgb 6.9 L* Hct 21.3 L MCV 86.9 MCH 28.3 MCHC 32.5 RDW 17.5 H Plt Count 201 MPV 8.5 Neutrophils % 80.0 Lymphocytes % 7.2 L D Monocytes % 6.7 Eosinophils % 5.3 H Basophils % 0.8 Sodium 137 Potassium 4.2 Chloride 106 Carbon Dioxide 20 L Anion Gap 11 BUN 54 H Creatinine 2.7 H Creat Clearance w eGFR 17.47 POC Glucometer Random Glucose 76 Calcium 7.9 L Total Bilirubin 0.5 D AST 8 L ALT 10 L Alkaline Phosphatase 45 Total Protein 5.8 L Albumin 1.4 L Blood Type A POSITIVE Antibody Screen Negative Crossmatch See Detail 06/14/17 12:08 WBC RBC Hgb Hct MCV MCH MCHC RDW Plt Count MPV Neutrophils % Lymphocytes % Monocytes % Eosinophils % Basophils % Sodium Potassium Chloride Carbon Dioxide Anion Gap BUN Creatinine Creat Clearance w eGFR POC Glucometer 123 Random Glucose Calcium Total Bilirubin AST ALT Alkaline Phosphatase Total Protein Albumin Blood Type Antibody Screen Crossmatch Active Medications Generic Name Dose Route Start Last Admin Trade Name Freq PRN Reason Stop Dose Admin Acetaminophen 650 mg 06/11/17 18:35 Tylenol - PO Q6H PRN PAIN LEVEL 4 - 6 Amlodipine Besylate 10 mg 06/11/17 10:00 06/14/17 09:26 Norvasc - PO 10 mg DAILY HETAL Administration Budesonide/Formoterol Fumarate 1 puff 06/11/17 10:00 06/14/17 09:32 Symbicort 80/4.5mcg - IH 1 puff BID HETAL Administration Bupropion HCl 75 mg 06/11/17 10:00 06/14/17 09:30 Wellbutrin - PO 75 mg DAILY HETAL Administration Collagenase 1 applic 06/11/17 10:00 06/13/17 23:32 Santyl - TP 1 applic BID HETAL Administration Cyanocobalamin 100 mcg 06/11/17 10:00 06/14/17 09:29 Vitamin B12 - PO 100 mcg DAILY HETAL Administration Duloxetine HCl 20 mg 06/11/17 10:00 06/14/17 09:29 Cymbalta - PO 20 mg DAILY HETAL Administration Epoetin Osmar 10,000 unit 06/13/17 10:00 06/13/17 11:01 Procrit - SQ 10,000 unit Mo@1000 [facility]AL Administration Ferrous Gluconate 324 mg 06/11/17 10:00 06/14/17 09:30 Fergon - PO 324 mg BID HETAL Administration Heparin Sodium (Porcine) 5,000 unit 06/11/17 06:00 06/14/17 05:55 Heparin - SQ 5,000 unit TID HETAL Administration Hydralazine HCl 50 mg 06/13/17 10:00 06/14/17 05:55 Apresoline - PO 50 mg TID HETAL Administration Vancomycin HCl 1,000 mg/ 250 mls @ 166.667 mls/hr 06/13/17 16:00 06/13/17 18: 01 Dextrose IVPB 166.667 mls/hr Q24H HETAL Administration Piperacillin/Tazobactam/Dextrose 2.25 gm in 50 mls @ 100 mls/hr 06/13/17 18: 00 06/14/17 09:28 Zosyn 2.25gm Ivpb (Premix) IVPB 100 mls/hr Q8H-IV [facility]AL Administration Protocol Insulin Aspart 1 vial 06/11/17 07:00 06/14/17 12:14 Novolog Vial Sliding Scale - SQ Not Given ACHS [facility]AL Protocol Insulin Detemir 8 units 06/11/17 07:00 06/14/17 06:06 Levemir Vial SQ Not Given DAILY@0700 [facility] Isosorbide Mononitrate 30 mg 06/11/17 10:00 06/14/17 09:26 Imdur - PO 30 mg DAILY [facility]AL Administration Metoprolol Succinate 100 mg 06/11/17 10:00 06/14/17 09:26 Toprol Xl - PO 100 mg DAILY HETAL Administration Nystatin 1 applic 06/10/17 23:00 06/13/17 22:49 Mycostatin Ointment - TP 1 applic BID [facility]AL Administration Pantoprazole Sodium 40 mg 06/11/17 10:00 06/14/17 09:26 Protonix - PO 40 mg DAILY [facility]AL Administration Petrolatum 1 applic 06/10/17 23:15 06/13/17 22:49 Sensi-Care Protective Ointment TP 1 applic BID [facility]AL Administration Polyethylene Glycol 17 gm 06/11/17 10:00 06/14/17 12:16 Miralax (For Daily Use) - PO 17 gm DAILY [facility]AL Administration Risperidone 0.25 mg 06/13/17 22:00 06/14/17 09:29 Risperdal - PO 0.25 mg BID HETAL Administration Tiotropium [place] 1 puff 06/11/17 10:00 06/14/17 09:31 Spiriva - IH 1 puff DAILY [facility]AL Administration Tramadol HCl 50 mg 06/11/17 10:00 06/14/17 09:26 Ultram - PO 50 mg BID HETAL Administration ASSESSMENT/PLAN: Patient is a 71 year old female with a significant past medical history of hypertension, CVA with left sided weakness/hemiparesis, COPD, diabetes, CKD, urinary retention with indwelling powers, breast cancer, and chronic stage IV sacral ulcer, parkinson's disease and alzheimer's dementia. Patient recently admitted from [facility] for infected sacral stage IV pressure ulcer. On 06/06/2017, patient became an unresponsive with a right facial droop and a stroke workup was initiated. Imaging: Chest CT w/o contrast 05/31/2017: (1) small to moderate loculated right pleural effusion with associated basilar compressive atelectasis. The amt of pleural fluid appears mildly diminished in comparison to a chest CT exam on 07/02/2016 (2 ) A small pleural effusion is noted on the recent abdomen CT study. Findings not present on time of the 2017 CT chest exam. (3) No obvious interval change seen regards to a oblong shape 5 x 2 x 1.3cm sub pleural opacity with the right mid lung field laterally possibility representing chronic atelectasis and less likely a stable neoplastic lesion. Periodic CT follow up suggested. (4) Bilateral flank subcutaneous edema which may be somewhat increased in comparison to the [address] study[address] 06/06/2017: moderate atrophy and ventricular dilatation w/o evidence of acute intracranial pathology. Posterior fusion of the included upper cervical spine starting from C3 level for which no recent prior CT scan report xrays of the cervical spine are available for comparison. Brain MRI w/o contrast 06/06/2017: no evidence of acute infarction, no mass effects or hydrocephalus, general cerebral and cerebeller volumeloss with mild chronic microvascular ischemic changes in the periventicular white matter. Carotid doppler 06/07: mild arth. disease Neurology Rule out stroke vs. TIA, resolved Patient has neurological event 06/06 concern for TIA vs new stroke, not a candidate for tpa as per neuro Head CT and Brain MRI as above, both negative Carotid doppler negative Mental status back to her baseline Swallow evaluation completed, pt to continue same diet, swallowing well Will continue on ASA 325mg therapy as per cardiology, on Lipitor CVA with residual hemiparesis, chronic Physical therapy Skin: Stage IV sacral pressure infection, chronic Wound debrided on 06/02, biopsy sent per vascular On Vanco and Zosyn for a total of 6 weeks (today is day # 14) Bone cultures pending Wound vac to be placed as per vascular Pulmonary: h/o loculated pleural effusions on CT chest, thoracentesis and lung biopsy ( negative) repeat CT followup as outpatient : E. coli UTI Chronic powers for urinary retension with + ecoli On vanco and zosyn Renal: MARTITA on CKD Creat 3.1 on admission, 2.7 today Monitor with daily labs Avoid nephrotoxic medications Renal following Chronic urinary retention, maintain powers Cardiology: Hypertension, controlled On Metoprolol 100mg daily, Hydralazine 50mg TID, imdur 120mg daily, norvasc 10mg daily Endocrine: Diabetes Monitor BGMs Levemir and Novolog Hematology: Normocytic anemia On Ferrous Gluconate BID 2 units of prbc today F.E.N. Fluids: tolerating PO intake Electrolytes: monitor Nutrition: diabetic diet, thin liquids Dispo: full code. Visit type - Emergency Visit Emergency Visit: Yes ED Registration Date: 06/13/17 Care time: The patient presented to the Emergency Department on the above date and was hospitalized for further evaluation of their emergent condition. - New Patient This patient is new to me today: No - Critical Care Critical Care patient: No - Discharge Referral Referred to [facility] Med P.C.: No
[2017-06-14] MEDS ORDERED: ASPIRIN COATED 81 MG TABLET.EC PO SCH (14:30)
[2017-06-14] MEDS ORDERED: PT OWN MED DRAWER 7, Y5N ONE (14:58)
--- NOTE | 2017-06-14 15:18 | CONSULT ---
Consult - text type - Consultation Consultation Note: Renal Consult for CKD Stage 4 This is a 71 year old woman with PMhx of CKD, CVA, hypertension, DM, COPD, Cervical stenosis, Breast Ca who is admitted with sacral osteomylitis and with BUN/Cr of 54/2.7. Pt denies any history of CKD but prior labs show a persistently elevated Cr levels. Pt denies any history of kidney stones but does report recurrent UTI's in the past. + Sporadic NSAID use per pt. No N/V/D. Pt is not able to ambulate. Denies any JEREZ, CP, SOB, Abd pain, Fever, chills, dysuria, hematuria, flank pain. Pt currently on Vanco and Zosyn for osteomylitis. PMhx: as above Allergies: NKDA Family hx: NC Social hx: Denies Tobacco, ETOH ROS: as per HPI, all other pertinent ros negative Home Medications Medication Instructions Recorded Amlodipine Besylate 10 mg PO DAILY 12/27/16 Budesonide/Formeterol Fumarate 1 inh PO BID 12/27/16 [SYMBICORT 80/4.5mcg -] Bupropion HCl [Wellbutrin -] 75 mg PO DAILY 12/27/16 Ferrous Sulfate [Feosol] 324 mg PO BID 12/27/16 Insulin (Levemir) [Levemir Flexpen 8 units SQ DAILY 12/27/16 -] Isosorbide Mononitrate [Isosorbide 30 mg PO DAILY 12/27/16 Mononitrate ER] Omeprazole 40 mg PO DAILY 12/27/16 Polyethylene Glycol 3350 [Miralax 17 gm PO DAILY 12/27/16 119 gm Btl -] Metoprolol Succinate [Toprol Xl] 100 mg PO DAILY 04/20/17 Insulin Sliding Scale [Novolog 1 vial SQ ACHS units 05/03/17 Vial Sliding Scale -] Cyanocobalamin [Vitamin B12 -] 100 mcg PO DAILY 05/28/17 Duloxetine HCl [Cymbalta -] 20 mg PO DAILY 05/28/17 Epoetin Osmar [Procrit] 10,000 unit IJ WEEKLY 05/28/17 Ferrous Gluconate [Fergon -] 324 mg PO BID 05/28/17 Insulin (LOG) Aspart [NovoLOG -] 0 units SQ QID 05/28/17 Levemir Flextouch 10 unit SQ HS 05/28/17 Risperidone [Risperdal -] 0.25 mg PO BID 05/28/17 Tiotropium [place] [Spiriva] 1 inh IH DAILY 05/28/17 hydrALAZINE HCL [Apresoline -] 25 mg PO BID 05/28/17 traMADol HCL [Ultram -] 50 mg PO BID 05/28/17 Piperacillin/Tazob 2.25 gm [Zosyn 2.25 gm IVPB Q8H-IV vial 06/09/17 -] Vancomycin 1,000 mg IVPB DAILY@1600 vial 06/09/17 Vital Signs Temperature 98.1 F 06/14/17 15:00 Pulse Rate 68 06/14/17 15:00 Respiratory Rate 20 06/14/17 15:00 Blood Pressure 140/64 06/14/17 15:00 O2 Sat by Pulse Oximetry (%) 99 06/13/17 15:00 Intake & Output 06/11/17 06/12/17 06/13/17 06/14/17 23:59 23:59 23:59 23:59 Intake Total 483 1050 650 Output Total 575 700 Balance -92 1050 650 -700 Weight 81.6 kg NAD awake and alert MMM, No JVD, Neck supple RRR CTA, no rales or wheeze soft NT, + distension No LE edema, no clubbing or cyanosis No bladder distension CBC, BMP 06/14/17 06:45 06/14/17 06:45 Laboratory Tests 12/27/16 06/07/17 16:25 14:00 Urine Protein 2+ H Urine Glucose (UA) 1+ H Urine Blood 1+ H Ur Leukocyte Esterase 3+ H D Urine RBC 2 Urine WBC (Auto) 36 71 year old woman with PMhx of CKD, CVA, hypertension, DM, COPD, Cervical stenosis, Breast Ca who is admitted with sacral osteomylitis and with BUN/Cr of 54/2.7. #CKD stage 4 likely underlying etiology is diabetic nephropathy given proteinuria and preserved kidney size on US check SPEP, VANESSA (pt on hydralazine), UPCR, Phos, Uric acid levels Repeat US with examination of kidney texture given eGFR less then 20 would defer MARQUEZ/ARB would avoid nsaids, IV contrast at this time Trend BUN/Cr while inpatient will need outpatient nephrology follow up #Acute on Chronic Anemia Check stool occult blood check SPEP given anemia and CKD check iron studies getting PRBC transfusion today pt may need JEREMIAH given significant CKD #Non-Anion gap Metabolic acidosis Likely from CKD start oral sodium bicarb 650mg Daily goal Bicab > 22 #Proteinuria check UPCR likely due to DM Thank you Will follow Juanjose Marshall DO
[2017-06-14] MEDS: NYSTATIN 100000 UNIT/GM TOPICAL OINTMENT 15 GM TUBE TP SCH ×2 (15:58→21:55)
[2017-06-14] MEDS: COLLAGENASE CLOSTRIDIUM HIST. 30 GRAMS TUBE TP SCH ×2 (15:58→21:54)
[2017-06-14] MEDS: ZINC OXIDE/PETROLATUM,WHITE 1 APPLIC OINT...G. TP SCH ×2 (15:58→21:54)
[2017-06-14] MEDS ORDERED: ACETAMINOPHEN 325 MG TABLET (FP) PO ONE (17:00)
[2017-06-14] MEDS ORDERED: oxyCODONE HCL 5 MG TABLET PO ONE (17:00)
[2017-06-14 18:28] LABS: URINE CREATININE 43.2 mg/dL (20-320)
[2017-06-14] MEDS: VANCOMYCIN 1,000 MG in DEXTROSE 5%-WATER - 250 ML IVPB SCH (20:26)
[2017-06-15] MEDS: PIPERACILLIN/TAZOB 2.25 GM 2.25 GM/50 ML BAG IVPB SCH ×3 (01:08→18:20)
[2017-06-15] MEDS: traMADol HCL 50 MG TABLET PO SCH ×3 (03:45→22:32)
[2017-06-15] MEDS: hydrALAZINE HCL 50 MG TABLET (FP) PO SCH ×3 (06:24→22:33)
[2017-06-15] MEDS: INSULIN SLIDING SCALE (NOVOLOG) 1 VIAL SQ SCH ×4 (08:01→22:36)
[2017-06-15] MEDS ORDERED: INSULIN DETEMIR 100 UNITS/ML MDV SQ SCH ×2 (08:15→08:45)
[2017-06-15] MEDS: INSULIN DETEMIR 100 UNITS/ML MDV SQ SCH (08:43)
[2017-06-15] MEDS ORDERED: PT OWN MED DRAWER 7, Y5N ONE ×2 (09:31→18:12)
[2017-06-15] MEDS ORDERED: INSULIN DETEMIR 100 UNITS/ML MDV SQ ONE ×2 (09:32→11:15)
[2017-06-15 09:40] LABS: BASO % 0.7 % (0-2.0); EOS % 4.9 % (0-4.5); HEMATOCRIT 29.5 % (32.4-45.2); HEMOGLOBIN 9.6 GM/dL (10.7-15.3); LYMPH % 4.5 % (8-40); MCHC 32.6 g/dl (32.0-36.0); MEAN CELL VOLUME 85.8 fl (80-96); MEAN PLT VOLUME 8.6 fl (7.5-11.1); MONO % 5.7 % (3.8-10.2); NEUT % 84.2 % (42.8-82.8); PLATELET COUNT 241 K/MM3 (134-434); RBC 3.44 M/mm3 (3.60-5.2); RDW 16.4 % (11.6-15.6); WHITE BLOOD COUNT 14.7 K/mm3 (4.0-10.0)
[2017-06-15 10:18] LABS: ALBUMIN 1.6 g/dl (3.4-5.0); ALK PHOS 50 U/L (45-117); ANION GAP 11 (8-16); BILIRUBIN,TOTAL 0.7 mg/dL (0.2-1.0); BLOOD UREA NITROGEN 56 mg/dL (7-18); CALCIUM 8.6 mg/dL (8.5-10.1); CHLORIDE 105 mmol/L (98-107); CO2 22 mmol/L (21-32); CREATININE 2.8 mg/dL (0.55-1.02); GLUCOSE,RANDOM 114 mg/dL (74-106); PHOSPHOROUS 5.5 mg/dL (2.5-4.9); POTASSIUM 5.1 mmol/L (3.5-5.1); SGOT/AST 9 U/L (15-37); SGPT/ALT 10 U/L (12-78); SODIUM 138 mmol/L (136-145); TOT PROT 6.7 g/dl (6.4-8.2)
[2017-06-15] MEDS: PANTOPRAZOLE 40 MG TABLET (FP) PO SCH (10:27)
[2017-06-15] MEDS: ISOSORBIDE MONONITRATE 30 MG TAB.SR.24H (FP) PO SCH (10:27)
[2017-06-15] MEDS: amLODIPine BESYLATE 10 MG TABLET (FP) PO SCH (10:27)
[2017-06-15] MEDS: BUDESONIDE/FORMETEROL FUMARATE 80/4.5 mcg INHALER IH SCH ×2 (10:28→22:32)
[2017-06-15] MEDS: TIOTROPIUM BROMIDE 18 MCG/INH (DEVICE W/ 5 CAPSULES) IH SCH (10:29)
[2017-06-15] MEDS: risperiDONE 0.5 MG TABLET (FP) PO SCH ×2 (10:29→22:33)
[2017-06-15] MEDS: ASPIRIN 325 MG ENTERIC COATED TABLET (FP) PO SCH (10:30)
[2017-06-15] MEDS: POLYETHYLENE GLYCOL 3350 119 GM BTL PO SCH (10:30)
[2017-06-15] MEDS: FERROUS GLUCONATE 324 MG TAB (FP) PO SCH ×2 (10:30→22:33)
[2017-06-15] MEDS: CYANOCOBALAMIN (VITAMIN B-12) 100 MCG TABLET PO SCH (10:30)
[2017-06-15] MEDS: DULoxetine HCL 20 MG CAPSULE.DR (FP) PO SCH (10:30)
[2017-06-15] MEDS: buPROPion HCL 75 MG TABLET PO SCH (10:30)
[2017-06-15] MEDS: NYSTATIN 100000 UNIT/GM TOPICAL OINTMENT 15 GM TUBE TP SCH ×2 (10:31→22:34)
[2017-06-15] MEDS: ZINC OXIDE/PETROLATUM,WHITE 1 APPLIC OINT...G. TP SCH ×2 (10:32→22:34)
[2017-06-15] MEDS: COLLAGENASE CLOSTRIDIUM HIST. 30 GRAMS TUBE TP SCH ×2 (11:21→22:34)
--- NOTE | 2017-06-15 15:48 | PN ---
Progress Note (short form) - Note Progress Note: Renal follow up for CKD Pt seen and examined at the bedside awake and alert offered no acute complaints Vital Signs Temperature 98.3 F 06/15/17 14:20 Pulse Rate 68 06/15/17 14:00 Respiratory Rate 18 06/15/17 14:00 Blood Pressure 160/64 06/15/17 14:00 O2 Sat by Pulse Oximetry (%) 96 06/14/17 21:00 Intake & Output 06/12/17 06/13/17 06/14/17 06/15/17 23:59 23:59 23:59 23:59 Intake Total 1050 650 450 Output Total 1000 700 Balance 1050 650 -550 -700 NAD awake and alert Dec BS at lung bases soft NT/ND No LE edema CBC, BMP 06/15/17 08:00 06/15/17 08:00 Current Medications Acetaminophen (Tylenol -) 650 mg PO Q6H PRN PRN Reason: PAIN LEVEL 4 - 6 Last Admin: 06/14/17 20:52 Dose: 650 mg Amlodipine Besylate (Norvasc -) 10 mg PO DAILY [facility] Last Admin: 06/15/17 10:27 Dose: 10 mg Aspirin (Ecotrin -) 325 mg PO DAILY [facility] Last Admin: 06/15/17 10:30 Dose: 325 mg Budesonide/Formoterol Fumarate (Symbicort 80/4.5mcg -) 1 puff IH BID [facility] Last Admin: 06/15/17 10:28 Dose: 1 puff Bupropion HCl (Wellbutrin -) 75 mg PO DAILY [facility] Last Admin: 06/15/17 10:30 Dose: 75 mg Collagenase (Santyl -) 1 applic TP BID [facility] Last Admin: 06/15/17 11:21 Dose: 1 applic Cyanocobalamin (Vitamin B12 -) 100 mcg PO DAILY [facility] Last Admin: 06/15/17 10:30 Dose: 100 mcg Duloxetine HCl (Cymbalta -) 20 mg PO DAILY [facility] Last Admin: 06/15/17 10:30 Dose: 20 mg Epoetin Osmar (Procrit -) 10,000 unit SQ Mo@1000 [facility] Last Admin: 06/13/17 11:01 Dose: 10,000 unit Ferrous Gluconate (Fergon -) 324 mg PO BID [facility] Last Admin: 06/15/17 10:30 Dose: 324 mg Hydralazine HCl (Apresoline -) 50 mg PO TID [facility] Last Admin: 06/15/17 14:01 Dose: 50 mg Piperacillin/Tazobactam/Dextrose (Zosyn 2.25gm Ivpb (Premix)) 2.25 gm in 50 mls @ 100 mls/hr IVPB Q8H-IV [facility] PRN Reason: Protocol Last Admin: 06/15/17 11:10 Dose: 100 mls/hr Insulin Aspart (Novolog Vial Sliding Scale -) 1 vial SQ ACHS [facility] PRN Reason: Protocol Last Admin: 06/15/17 11:21 Dose: 2 unit Insulin Detemir (Levemir Vial) 5 units SQ DAILY@0700 [facility] Isosorbide Mononitrate (Imdur -) 30 mg PO DAILY [facility] Last Admin: 06/15/17 10:27 Dose: 30 mg Metoprolol Succinate (Toprol Xl -) 100 mg PO DAILY [facility] Last Admin: 06/15/17 10:28 Dose: 100 mg Nystatin (Mycostatin Ointment -) 1 applic TP BID [facility] Last Admin: 06/15/17 10:31 Dose: 1 applic Pantoprazole Sodium (Protonix -) 40 mg PO DAILY [facility] Last Admin: 06/15/17 10:27 Dose: 40 mg Petrolatum (Sensi-Care Protective Ointment) 1 applic TP BID [facility] Last Admin: 06/15/17 10:32 Dose: 1 applic Polyethylene Glycol (Miralax (For Daily Use) -) 17 gm PO DAILY [facility] Last Admin: 06/15/17 10:30 Dose: 17 gm Risperidone (Risperdal -) 0.25 mg PO BID [facility] Last Admin: 06/15/17 10:29 Dose: 0.25 mg Tiotropium [place] (Spiriva -) 1 puff IH DAILY [facility] Last Admin: 06/15/17 10:29 Dose: 1 puff Tramadol HCl (Ultram -) 50 mg PO BID [facility] Last Admin: 06/15/17 10:28 Dose: 50 mg 71 year old woman with PMhx of CKD, CVA, hypertension, DM, COPD, Cervical stenosis, Breast Ca who is admitted with sacral osteomylitis and with BUN/Cr of 54/2.7. #CKD stage 4 likely secondary to diabetic nephropathy Renal function essentially unchanged at this time Urine studies showed nephrotic range proteinuria VANESSA and SPEP collected, results pending pt is not a candidate for MARQUEZ/ARB given low eGFR strict BP control, goal BP < 130/80 given degree of proteinuria #Acute on Chronic Anemia s/p PRBC transfusion with good response SPEP is pending #Non-Anion gap Metabolic acidosis continue oral bicarb Thank you Will follow
--- NOTE | 2017-06-15 22:23 | DS ---
Physical Exam: SUBJECTIVE: Patient seen and examined. No new complaints at this time OBJECTIVE: Vital Signs Period Temp Pulse Resp BP Sys/Benton Pulse Ox Last 24 Hr 98.3 F-99.9 F 63-72 18-18 148-190/64-74 PE Neuro: alert, awake, nad Pulm: CTA anteriorly RCW picc cdi CV: s1 s2 rrr Abd: s nt nd +bs Skin: sacral ulcer + tenderness Laboratory Results - last 24 hr 06/14/17 06/15/17 06/15/17 09:45 05:39 08:00 WBC 14.7 H D RBC 3.44 L D Hgb 9.6 L D Hct 29.5 L D MCV 85.8 MCH 28.0 MCHC 32.6 RDW 16.4 H Plt Count 241 MPV 8.6 Neutrophils % 84.2 H Lymphocytes % 4.5 L D Monocytes % 5.7 Eosinophils % 4.9 H Basophils % 0.7 Sodium Potassium Chloride Carbon Dioxide Anion Gap BUN Creatinine Creat Clearance w eGFR POC Glucometer 151 Random Glucose Calcium Phosphorus Total Bilirubin AST ALT Alkaline Phosphatase Total Protein Albumin Blood Type A POSITIVE Antibody Screen Negative Crossmatch See Detail 06/15/17 06/15/17 06/15/17 08:00 11:16 17:54 WBC RBC Hgb Hct MCV MCH MCHC RDW Plt Count MPV Neutrophils % Lymphocytes % Monocytes % Eosinophils % Basophils % Sodium 138 Potassium 5.1 Chloride 105 Carbon Dioxide 22 Anion Gap 11 BUN 56 H Creatinine 2.8 H Creat Clearance w eGFR 16.75 POC Glucometer 153 180 Random Glucose 114 H Calcium 8.6 Phosphorus 5.5 H Total Bilirubin 0.7 D AST 9 L ALT 10 L Alkaline Phosphatase 50 Total Protein 6.7 Albumin 1.6 L Blood Type Antibody Screen Crossmatch HOSPITAL COURSE: Date of Admission:06/13/17 Date of Discharge: 06/15/17 Minutes to complete discharge: 37 Discharge Summary Reason For Visit: SKIN ULCER SACRUM Current Active Problems Sacral wound (Acute) Hospital Course: Initial Hospital Course: Briefly, this 71 year old female with a past medical history significant for large sacral decub/osteomyelitis is was BIBA after being sent to the [facility]. She was DC to [facility], but she vomited several times on the way there so the son requested she be brought back. Assessment: 71 year old with PMH Sacral decub stage 4 with osteo, CKD, CVA, HTN , DM, COPD, cervical stenosis with residual hemiparesis, R brCA, ventral hernia is being admitted for further care of sacral ulcer while placement arranged. Plan: 1. Sacral ulcer/osteomyelitis - Slough present to wound, continue santyl - Cont vanc/zosyn 06/02-07/15 - Dose Vanco per level - Most recent level on 06/14 44 - Cont tramadol bid for pain - Turn q2hr 2. Acute blood loss anemia - Follow iron studies - Likely of chronic disease - Transfused 2 units prbc 06/14, with appropriate rise - Moving forward pt will need H&H followed for repeat transfusions as needed 3. CKD stage 4 - Due to diabetic nephropathy - Renal fx stable - ASA, Spep results pending - Not a MARQUEZ/ARB candidate given low GFR - D/t proteinuria goal bP <130/80 - Renal follow up 4. Non-Anion gap Metabolic acidosis - Continue bicarb 650mg daily 5. HTN - Cont hydralazine, amlodipine, toprol 6. DM II - ISS, BGM ACHS - Levemir 8 units daily 7.CKD with anemia - Cont procrit weekly, iron bid 8.Chronic urinary retention - Maintain powers 9. COPD - Cont spiriva and symbicort hx CVA with residual hemiparesis, chronic - Physical therapy h/o loculated pleural effusions on CT chest, thoracentesis and lung biopsy ( negative) repeat CT followup as outpatient DVT PPX - Cont heparin SC Condition: Stable - Instructions Diet, Activity, Other Instructions: Please return to the ED for any new, persistent, or worsening symptoms. Follow up with your PCP in 1 week Take medications as directed on home medication list Antibiotics Zosyn/vanco. Stated 06/02 for 6 weeks. Dose vanco per level, level on 06/14 44 Monitor hemoglobin and transfuse packed cells as needed Follow iron studies Dose Procrit as needed per renal function Continue bicarb tabs Daily wound care with santyl, place wound vac if needed Referrals: Braden Rogers MD [Staff Physician] - Juanjose Marshall MD [Staff Physician] - Disposition: LONG-TERM FACILITY - Home Medications Comprehensive Discharge Medication List: Ambulatory Orders Amlodipine Besylate 10 mg PO DAILY 12/27/16 Budesonide/Formeterol Fumarate [SYMBICORT 80/4.5mcg -] 1 inh PO BID 12/27/16 Bupropion HCl [Wellbutrin -] 75 mg PO DAILY 12/27/16 Insulin (Levemir) [Levemir Flexpen -] 8 units SQ DAILY 12/27/16 Isosorbide Mononitrate [Isosorbide Mononitrate ER] 30 mg PO DAILY 12/27/16 Omeprazole 40 mg PO DAILY 12/27/16 Polyethylene Glycol 3350 [Miralax 119 gm Btl -] 17 gm PO DAILY 12/27/16 Metoprolol Succinate [Toprol Xl] 100 mg PO DAILY 04/20/17 Insulin Sliding Scale [Novolog Vial Sliding Scale -] 1 vial SQ ACHS units 05/03 Cyanocobalamin [Vitamin B12 -] 100 mcg PO DAILY 05/28/17 Duloxetine HCl [Cymbalta -] 20 mg PO DAILY 05/28/17 Epoetin Osmar [Procrit] 10,000 unit IJ WEEKLY 05/28/17 Ferrous Gluconate [Fergon -] 324 mg PO BID 05/28/17 Risperidone [Risperdal -] 0.25 mg PO BID 05/28/[address] [place] [Spiriva] 1 inh IH DAILY 05/28/17 hydrALAZINE HCL [Apresoline -] 25 mg PO BID 05/28/17 traMADol HCL [Ultram -] 50 mg PO BID 05/28/17 Collagenase Clostridium Hist. [Santyl -] 1 applic TP BID tube 06/15/17 Heparin - 5,000 unit SQ TID vial 06/15/17 Nystatin Ointment [Mycostatin Ointment -] 1 applic TP BID applic 06/15/17 Piperacillin/Tazob 2.25 gm [Zosyn -] 2.25 gm IVPB Q8H-IV 42 Days #0 vial Sodium Bicarbonate - 650 mg PO DAILY #30 tablet 06/15/17 Vancomycin 1,000 mg IVPB DAILY@1600 42 Days vial 06/15/17 Zinc Oxide/Petrolatum,White [Sensi-Care Protective Ointment] 1 applic TP BID applic 06/15/17 This patient is new to me today: No Emergency Visit: Yes ED Registration Date: 06/13/17 Care time: The patient presented to the Emergency Department on the above date and was hospitalized for further evaluation of their emergent condition. Critical Care patient: No - Discharge Referral Referred to [facility] Med P.C.: No
[2017-06-16] MEDS: PIPERACILLIN/TAZOB 2.25 GM 2.25 GM/50 ML BAG IVPB SCH ×3 (01:26→18:14)
[2017-06-16 06:11] LABS: SERUM IRON SATURATION 54 % (15-55); TOTAL IRON BINDING CAPACITY 117 ug/dL (250-450); UIBC 54 ug/dL (118-369)
[2017-06-16] MEDS: hydrALAZINE HCL 50 MG TABLET (FP) PO SCH ×3 (06:37→21:35)
[2017-06-16] MEDS: INSULIN DETEMIR 100 UNITS/ML MDV SQ SCH (06:37)
[2017-06-16] MEDS: INSULIN SLIDING SCALE (NOVOLOG) 1 VIAL SQ SCH ×4 (06:38→21:34)
[2017-06-16] MEDS: ISOSORBIDE MONONITRATE 30 MG TAB.SR.24H (FP) PO SCH (09:41)
[2017-06-16] MEDS: amLODIPine BESYLATE 10 MG TABLET (FP) PO SCH (09:41)
[2017-06-16] MEDS: traMADol HCL 50 MG TABLET PO SCH ×2 (09:41→21:35)
[2017-06-16] MEDS: PANTOPRAZOLE 40 MG TABLET (FP) PO SCH (09:42)
[2017-06-16] MEDS: risperiDONE 0.5 MG TABLET (FP) PO SCH ×2 (09:44→21:36)
[2017-06-16] MEDS: buPROPion HCL 75 MG TABLET PO SCH (09:45)
[2017-06-16] MEDS: DULoxetine HCL 20 MG CAPSULE.DR (FP) PO SCH (09:45)
[2017-06-16] MEDS: ASPIRIN 325 MG ENTERIC COATED TABLET (FP) PO SCH (09:45)
[2017-06-16] MEDS: POLYETHYLENE GLYCOL 3350 119 GM BTL PO SCH (09:45)
[2017-06-16] MEDS: FERROUS GLUCONATE 324 MG TAB (FP) PO SCH ×2 (09:45→21:36)
[2017-06-16] MEDS: CYANOCOBALAMIN (VITAMIN B-12) 100 MCG TABLET PO SCH (09:45)
[2017-06-16] MEDS: BUDESONIDE/FORMETEROL FUMARATE 80/4.5 mcg INHALER IH SCH ×2 (09:46→21:34)
[2017-06-16] MEDS: TIOTROPIUM BROMIDE 18 MCG/INH (DEVICE W/ 5 CAPSULES) IH SCH (09:46)
[2017-06-16] MEDS: COLLAGENASE CLOSTRIDIUM HIST. 30 GRAMS TUBE TP SCH ×2 (09:47→21:35)
[2017-06-16] MEDS: NYSTATIN 100000 UNIT/GM TOPICAL OINTMENT 15 GM TUBE TP SCH ×2 (09:48→21:36)
[2017-06-16] MEDS: ZINC OXIDE/PETROLATUM,WHITE 1 APPLIC OINT...G. TP SCH ×2 (09:48→21:35)
[2017-06-16] MEDS ORDERED: PT OWN MED DRAWER 7, Y5N ONE ×2 (10:06→20:20)
[2017-06-17] MEDS: PIPERACILLIN/TAZOB 2.25 GM 2.25 GM/50 ML BAG IVPB SCH ×2 (01:46→10:39)
[2017-06-17] MEDS: hydrALAZINE HCL 50 MG TABLET (FP) PO SCH (05:47)
[2017-06-17] MEDS: INSULIN SLIDING SCALE (NOVOLOG) 1 VIAL SQ SCH ×2 (06:39→11:40)
[2017-06-17] MEDS: INSULIN DETEMIR 100 UNITS/ML MDV SQ SCH (06:40)
[2017-06-17] MEDS: COLLAGENASE CLOSTRIDIUM HIST. 30 GRAMS TUBE TP SCH (07:00)
[2017-06-17] MEDS ORDERED: INSULIN (NOVOLOG) ASPART 100 UNITS/ML 10ML VIAL ONE ×2 (07:04→11:39)
[2017-06-17] MEDS ORDERED: hydrALAZINE HCL 25 MG TABLET (FP) PO SCH (08:21)
[2017-06-17] MEDS ORDERED: PT OWN MED DRAWER 7, Y5N ONE (09:59)
[2017-06-17] MEDS: ISOSORBIDE MONONITRATE 30 MG TAB.SR.24H (FP) PO SCH (10:37)
[2017-06-17] MEDS: traMADol HCL 50 MG TABLET PO SCH (10:38)
[2017-06-17] MEDS: PANTOPRAZOLE 40 MG TABLET (FP) PO SCH (10:39)
[2017-06-17] MEDS: amLODIPine BESYLATE 10 MG TABLET (FP) PO SCH (10:39)
[2017-06-17] MEDS: FERROUS GLUCONATE 324 MG TAB (FP) PO SCH (10:40)
[2017-06-17] MEDS: DULoxetine HCL 20 MG CAPSULE.DR (FP) PO SCH (10:40)
[2017-06-17] MEDS: CYANOCOBALAMIN (VITAMIN B-12) 100 MCG TABLET PO SCH (10:40)
[2017-06-17] MEDS: buPROPion HCL 75 MG TABLET PO SCH (10:40)
[2017-06-17] MEDS: ASPIRIN 325 MG ENTERIC COATED TABLET (FP) PO SCH (10:41)
[2017-06-17] MEDS: NYSTATIN 100000 UNIT/GM TOPICAL OINTMENT 15 GM TUBE TP SCH (10:41)
[2017-06-17] MEDS: risperiDONE 0.5 MG TABLET (FP) PO SCH (10:41)
[2017-06-17] MEDS: POLYETHYLENE GLYCOL 3350 119 GM BTL PO SCH (10:41)
[2017-06-17] MEDS: BUDESONIDE/FORMETEROL FUMARATE 80/4.5 mcg INHALER IH SCH (10:42)
[2017-06-17] MEDS: ZINC OXIDE/PETROLATUM,WHITE 1 APPLIC OINT...G. TP SCH (10:42)
--- NOTE | 2017-06-17 12:31 | PN ---
Progress Note (short form) - Note Progress Note: Renal follow up for CKD Pt seen and examined at the bedside awake and alert no acute complaints no overnight events for discharge today Vital Signs Temperature 100.4 F H 06/17/17 05:00 Pulse Rate 70 06/17/17 05:00 Respiratory Rate 18 06/17/17 05:00 Blood Pressure 173/74 06/17/17 05:00 O2 Sat by Pulse Oximetry (%) 97 06/16/17 21:00 Intake & Output 06/14/17 06/15/17 06/16/17 06/17/17 23:59 23:59 23:59 23:59 Intake Total 726 102 8491 Output Total 1000 1200 1250 500 Balance -550 -800 -160 -500 NAD awake and alert No LE edema CBC, BMP 06/15/17 08:00 06/15/17 08:00 Current Medications Acetaminophen (Tylenol -) 650 mg PO Q6H PRN PRN Reason: PAIN LEVEL 4 - 6 Last Admin: 06/14/17 20:52 Dose: 650 mg Amlodipine Besylate (Norvasc -) 10 mg PO DAILY [facility] Last Admin: 06/17/17 10:39 Dose: 10 mg Aspirin (Ecotrin -) 325 mg PO DAILY [facility] Last Admin: 06/17/17 10:41 Dose: 325 mg Budesonide/Formoterol Fumarate (Symbicort 80/4.5mcg -) 1 puff IH BID [facility] Last Admin: 06/17/17 10:42 Dose: 1 puff Bupropion HCl (Wellbutrin -) 75 mg PO DAILY [facility] Last Admin: 06/17/17 10:40 Dose: 75 mg Collagenase (Santyl -) 1 applic TP BID [facility] Last Admin: 06/17/17 07:00 Dose: 1 applic Cyanocobalamin (Vitamin B12 -) 100 mcg PO DAILY [facility] Last Admin: 06/17/17 10:40 Dose: 100 mcg Duloxetine HCl (Cymbalta -) 20 mg PO DAILY [facility] Last Admin: 06/17/17 10:40 Dose: 20 mg Epoetin Osmar (Procrit -) 10,000 unit SQ Mo@1000 [facility] Last Admin: 06/13/17 11:01 Dose: 10,000 unit Ferrous Gluconate (Fergon -) 324 mg PO BID [facility] Last Admin: 06/17/17 10:40 Dose: 324 mg Hydralazine HCl (Apresoline -) 75 mg PO TID [facility] Piperacillin/Tazobactam/Dextrose (Zosyn 2.25gm Ivpb (Premix)) 2.25 gm in 50 mls @ 100 mls/hr IVPB Q8H-IV [facility]AL PRN Reason: Protocol Last Admin: 06/17/17 10:39 Dose: 100 mls/hr Insulin Aspart (Novolog Vial Sliding Scale -) 1 vial SQ ACHS [facility] PRN Reason: Protocol Last Admin: 06/17/17 11:40 Dose: 2 unit Insulin Detemir (Levemir Vial) 5 units SQ DAILY@0700 [facility] Last Admin: 06/17/17 06:40 Dose: 5 units Isosorbide Mononitrate (Imdur -) 30 mg PO DAILY [facility] Last Admin: 06/17/17 10:37 Dose: 30 mg Metoprolol Succinate (Toprol Xl -) 100 mg PO DAILY [facility] Last Admin: 06/17/17 10:37 Dose: 100 mg Nystatin (Mycostatin Ointment -) 1 applic TP BID [facility] Last Admin: 06/17/17 10:41 Dose: 1 applic Pantoprazole Sodium (Protonix -) 40 mg PO DAILY [facility] Last Admin: 06/17/17 10:39 Dose: 40 mg Petrolatum (Sensi-Care Protective Ointment) 1 applic TP BID [facility] Last Admin: 06/17/17 10:42 Dose: 1 applic Polyethylene Glycol (Miralax (For Daily Use) -) 17 gm PO DAILY [facility] Last Admin: 06/17/17 10:41 Dose: Not Given Risperidone (Risperdal -) 0.25 mg PO BID [facility] Last Admin: 06/17/17 10:41 Dose: 0.25 mg Tiotropium [place] (Spiriva -) 1 puff IH DAILY [facility] Last Admin: 06/16/17 09:46 Dose: 1 puff Tramadol HCl (Ultram -) 50 mg PO BID [facility] Last Admin: 06/17/17 10:38 Dose: 50 mg 71 year old woman with PMhx of CKD, CVA, hypertension, DM, COPD, Cervical stenosis, Breast Ca who is admitted with sacral osteomylitis and with BUN/Cr of 54/2.7. #CKD stage 4 likely secondary to diabetic nephropathy no new labs VANESSA and SPEP negative and thus CKD and proteinuria likely due to DM Would advise outpatient monitoring of renal function pt may not be a canidate for MARQUEZ/ARB given low eGFR avoid nsaids, IV contrast #Acute on Chronic Anemia s/p PRBC transfusion with good response SPEP is negative for M-spike #Non-Anion gap Metabolic acidosis continue oral bicarb Thank you Will follow
[2017-06-17 12:58] VITALS: BP 144/64; PULSE 64; TEMP 99.3
== END 2017-06-17 13:48 | disposition short-term general hospital (02) | DRG 592 ==
LOC: JER 17:26 → JERBED 20:31 → J5S 06-11 17:14 → OBSVTOIN 06-13 12:00
PROVIDERS: ADMIT Internal Medicine; ATTEND Nurse Practitioner Acute Care
PROC: 30233N1 Transfusion of Nonautologous Red Blood Cells into Peripheral Vein, Percutaneous Approach (ICD-10-PCS; principal; 2017-06-14)
DX: L89.154 Pressure ulcer of sacral region, stage 4 (principal); M86.8X8 Other osteomyelitis, other site; N18.4 Chronic kidney disease, stage 4 (severe); J98.11 Atelectasis; E87.2 Acidosis; D62 Acute posthemorrhagic anemia; G81.91 Hemiplegia, unspecified affecting right dominant side; J90 Pleural effusion, not elsewhere classified; I12.9 Hypertensive chronic kidney disease with stage 1 through stage 4 chronic kidney disease, or unspecified chronic kidney disease; E11.22 Type 2 diabetes mellitus with diabetic chronic kidney disease; J44.9 Chronic obstructive pulmonary disease, unspecified; M48.02 Spinal stenosis, cervical region; K43.9 Ventral hernia without obstruction or gangrene; E11.69 Type 2 diabetes mellitus with other specified complication; R33.8 Other retention of urine; D63.8 Anemia in other chronic diseases classified elsewhere; G30.8 Other Alzheimer's disease; F02.80 Dementia in other diseases classified elsewhere, unspecified severity, without behavioral disturbance, psychotic disturbance, mood disturbance, and anxiety; G20 Parkinson's disease; Z86.73 Personal history of transient ischemic attack (TIA), and cerebral infarction without residual deficits; Z85.3 Personal history of malignant neoplasm of breast
CPT/HCPCS: 36415; 36430; 36511; 74019-TC-FY; 76705-TC; 80048; 80053; 82570; 82728; 82962; 83540; 83550; 83735; 84100; 84155; 84156; 84165; 84300; 85025; 85027; 85651; 86038; 86140; 86850; 86900; 86901; 86922; 93005; 93010; 99282-25; 99285-25; G0378; G0480; J0885; J1644; P9038; P9058